=== PATIENT | female | born 1980 | race Caucasian/White ===

== ENCOUNTER 2023-06-12 16:45 | Outpatient (OUT) | payer OTHER, SELFPAY ==
--- NOTE | 2023-06-12 | XR_ITS ---
The [address] [address] Patient Name: MORALES PALACIOS MRN: [facility]:[id number] date: 1980 Sex: F Assigned Patient Location: LAB Current Patient Location: Accession/Order Number: [id number] Exam Date: 06/12/2023 17:30 Report Date: 06/13/2023 09:34 At the request of: ERICK HANDLEY Procedure: XR lumbar spine 2-3V EXAM: XR lumbar spine 2-3V HISTORY: DEGENERATIVE DISK DISEASE COMPARISON: None. TECHNIQUE: 3 views FINDINGS: Satisfactory alignment. Maintained vertebral body heights. Multilevel endplate degenerative changes and disc disease of L5-S1. No acute fracture or subluxation. Nonobstructive bowel gas pattern. XR/XR lumbar spine 2-3V IMPRESSION: Mild degenerative changes and disc disease as above. Electronically authenticated by: EMMY SANTAMARIA Date: 06/13/2023 09:34
--- NOTE | 2023-06-12 17:30 | XR_ITS ---
[place] [id number] Patient Name: MORALES PALACIOS MRN: [facility]:[id number] date: 1980 Sex: F Assigned Patient Location: LAB Current Patient Location: LAB Accession/Order Number: [id number] Exam Date: 06/12/2023 17:30 Report Date: 06/13/2023 09:41 At the request of: ERICK HANDLEY Procedure: XR cervical spine 2-3V EXAM: XR cervical spine 2-3V HISTORY: DEGENERATIVE DISC DISEASE COMPARISON: None. TECHNIQUE: 3 views Findings/impression: Mild reversal of cervical spine lordosis. Status post anterior fusion of C6-C7. Intact hardware. Maintained vertebral body heights and disc spaces. No acute fracture or subluxation. Unremarkable soft tissues. Electronically authenticated by: EMMY SANTAMARIA Date: 06/13/2023 09:41
[2023-06-12 17:35] LABS: Alanine Aminotransferase 69 U/L (14-59); Albumin Globulin Ratio 1.1; Albumin Level 4.3 g/dL (3.4-5.0); Alkaline Phosphatase 96 U/L (46-116); Anion Gap 11.9; Aspartate Amino Transferase 43 U/L (15-37); BUN Creatinine Ratio 9.5; Bilirubin Direct 0.1 mg/dL (0.0-0.2); Bilirubin Total 0.6 mg/dL (0.2-1.0); Calcium 10.1 mg/dL (8.5-10.1); Carbon Dioxide 29.9 mmol/L (21.0-32.0); Chloride 100 mmol/L (98-107); Chol HDL Ratio 6.1; Cholesterol 212 mg/dL (<=200); Estimated GFR (African America >60 (>=60); Estimated GFR (Non-African Ame >60 (>=60); Globulin 3.8 g/dL; Glucose 102 mg/dL (74-106); HDL Cholesterol 35 mg/dL (40-60); Potassium 3.8 mmol/L (3.5-5.1); Sodium 138 mmol/L (136-145); Thyroid Stimulating Hormone 1.125 uIU/mL (0.358-3.740); Total Protein 8.1 g/dL (6.4-8.2); Triglycerides 332 mg/dL (<=150); VLDL CHOLESTEROL 66.4 mg/dL
== END 2023-06-12 16:46 | disposition home or self-care (01) ==
LOC: LAB 16:45
PROVIDERS: PCP Family Medicine; Visit Provider Family Medicine
DX: Z00.00 Encounter for general adult medical examination without abnormal findings (principal); M50.30 Other cervical disc degeneration, unspecified cervical region; M51.36 Other intervertebral disc degeneration, lumbar region
CPT/HCPCS: 36415; 72040; 72100; 80048; 80061; 80076; 83036; 84443

== ENCOUNTER 2023-06-14 14:37 | Outpatient (OUT) | payer OTHER, SELFPAY ==
[2023-06-14 15:13] LABS: Basophils Percent Auto 0.3 % (0.2-2.0); Eosinophils Absolute Auto 0.3 10^3/uL (0.0-0.7); Eosinophils Percent Auto 2.2 % (0.9-7.0); Hematocrit 44.5 % (36.0-48.0); Hemoglobin 15.2 g/dL (12.0-16.0); Immature Granulocytes Abs Auto 0.05 10^3/uL (0.00-0.03); Immature Granulocytes Pct Auto 0.4 % (0.0-0.5); Lymphocytes Percent Auto 23.1 % (20.5-60.0); Mean Corpuscular HGB Conc 34.2 g/dL (29.9-35.2); Mean Corpuscular Hemoglobin 31.2 pg (26.7-34.0); Mean Corpuscular Volume 91.4 fL (81.0-99.0); Mean Platelet Volume 11.7 fL (9.5-13.5); Monocytes Absolute Auto 0.6 10^3/uL (0.3-0.8); Monocytes Percent Auto 4.8 % (1.7-12.0); Neutrophils Absolute Auto 8.9 10^3/uL (1.4-6.5); Neutrophils Percent Auto 69.2 % (43.0-75.0); Platelet Count 245 10^3/uL (150-450); Red Blood Count 4.87 10^6/uL (4.20-5.40); Red Cell Distribution Width 12.9 % (11.0-15.0); White Blood Count 12.8 10^3/uL (4.0-11.0)
[2023-06-14 15:55] LABS: Estimated Average Glucose 117 mg/dL; Glycohemoglobin A1C 5.7 % (4.5-6.2)
== END 2023-06-14 14:38 | disposition home or self-care (01) ==
LOC: LAB 14:37
PROVIDERS: PCP Family Medicine; Visit Provider Family Medicine
DX: Z00.00 Encounter for general adult medical examination without abnormal findings (principal)
CPT/HCPCS: 36415; 83036; 85025

== ENCOUNTER 2023-09-12 21:14 | Outpatient (REF) | payer OTHER, SELFPAY ==
[2023-09-17 11:07] LABS: Age Gdln ACOG Testing Note (.); HPV Aptima Negative (Negative); IGP, Aptima HPV, rfx 16/18,45 Note (.)
== END 2023-09-12 21:15 | disposition home or self-care (01) ==
LOC: LAB 21:14
PROVIDERS: PCP Family Medicine; Visit Provider Obstetrics & Gynecology
DX: Z12.4 Encounter for screening for malignant neoplasm of cervix (principal)
CPT/HCPCS: 87624; G0145

== ENCOUNTER 2023-10-17 16:34 | Outpatient (OUT) | payer OTHER, SELFPAY ==
--- NOTE | 2023-10-17 | MM_ITS ---
Patient Name: MORALES PALACIOS MR#: [id number] : 1980 Exam Date: 10/17/2023 Ordering Doctor: DR Heath Shah . RADIOLOGY REPORT PROCEDURE: MM TOMOSYNTHESIS SCREENING BI COMPARISON: MG MAMM SCREEN CALLUM W CAD, 06/23/2020. MG MAMM SCREEN 3D CALLUM CAD, 07/01/2021. INDICATIONS: Screening Mammography Calculator Name NCI Breast Cancer Risk Assessment Tool 5 Year Breast Cancer Risk 1.00% Lifetime Breast Cancer Risk 11.60% Personal Breast Cancer No Personal Ovarian Cancer No Treatments None Family Cancers None LOCATION: [facility] BREAST COMPOSITION: Heterogeneously dense,which may obscure small masses. FINDINGS: DIAGNOSTIC CATEGORY 1--NEGATIVE. NO CHANGE FROM COMPARISON ASSESSMENT. Scattered benign-appearing calcifications are present. Scattered benign-appearing lymph nodes are present. RIGHT BREAST: No significant suspicious finding. LEFT BREAST: No significant suspicious finding. RECOMMENDATIONS: ROUTINE MAMMOGRAM AND CLINICAL EVALUATION IN 12 MONTHS. PLEASE NOTE: A NORMAL MAMMOGRAM DOES NOT EXCLUDE THE POSSIBILITY OF BREAST CANCER. A CLINICALLY SUSPICIOUS PALPABLE LUMP SHOULD BE BIOPSIED. Dictated by: Schuyler Azevedo MD on 10/18/2023 at 09:23 Approved by: Schuyler Azevedo MD on 10/18/2023 at 09:27
== END 2023-10-17 16:35 | disposition home or self-care (01) ==
LOC: MAMMO 16:34
PROVIDERS: PCP Family Medicine; Visit Provider Obstetrics & Gynecology
DX: Z12.31 Encounter for screening mammogram for malignant neoplasm of breast (principal)
CPT/HCPCS: 77063; 77067

== ENCOUNTER 2024-09-16 21:35 | Outpatient (REF) | payer OTHER, SELFPAY ==
--- OUTSIDE RECORDS SUMMARY | 2024-09-16 21:39 | XMS_ITS | CCD ---
Author Organization [facility] Care Team Providers [place] [employer] Name Role Phone HOUSE, DR MENDOZA Primary Care Unavailable ALYSSA, DR CHURCH Attending Unavailable ALYSSA, DR CHURCH Consulting Unavailable ALYSSA, DR CHURCH Admitting Unavailable ALEXANDRA LEYVA Consulting Unavailable HOUSE, DR MENDOZA Primary Care Unavailable ALYSSA, DR CHURCH Attending Unavailable ALYSSA, DR CHURCH Consulting Unavailable ALYSSA, DR CHURCH Admitting Unavailable HOUSE, DR MENDOZA Attending Unavailable [place], DR MENDOZA Consulting Unavailable [place], DR MENDOZA Primary Care Unavailable [place], DR MENDOZA Admitting Unavailable JUAN, DR GERALDO Aranda Consulting Unavailable Qi Cueto Unavailable Odell Handley MD Primary Care Provider Odell Handley MD Unavailable ODELL HANDLEY Attending Unavailable ODELL HANDLEY Attending Unavailable RANJIT SHAH Attending Unavailable ODELL HANDLEY Attending Unavailable ODELL HANDLEY Attending Unavailable Allergies Allergy Classification Reported Allergen(s) Allergy Type Date of Onset Reaction(s) Facility (1 source) bee venom Drug allergy (disorder) [facility] (1 source) Codeine Drug Allergy 6 [facility] (11 sources) Codeine Drug Allergy 3 GI intolerance [facility] Work Phone: (10 sources) Honey bee venom Allergy to substance 4 Unknown [facility] Medications Current Medications Medication Drug Class(es) Dates Sig (Normalized) Sig (Original) acetaminophen 325 mg / oxyCODONE hydrochloride 5 mg oral tablet (10 sources) Opioid Agonist Start: 07-23-2024 End: 09-20-2024 take 1 tablet by mouth four times daily as needed for pain oxyCODONE-acetaminop hen (Percocet) 5-325 MG tablet Indications: Degeneration of intervertebral disc of lumbar region with discogenic back pain and lower extremity pain Take 1 tablet by mouth 4 (four) times a day as needed for severe pain 120 tablet 08/21/2024 09/20/2024 Active Start: 11-27-2023 End: 12-27-2023 take 1 tablet by mouth four times daily as needed for pain oxyCODONE-acetaminophen (Percocet) 5-325 MG tablet Indications: Other intervertebral disc degeneration, lumbar region Take 1 tablet by mouth 4 (four) times a day as needed for severe pain 120 tablet 0 11/27/2023 12/27/2023 Active [id number] 200 actuat albuterol 0.09 mg/actuat metered dose inhaler (13 sources) beta2-Adrenergic Agonist Start: 06-24-2024 take 2 puff(s) by inhalation every four hours for wheezing albuterol HFA (Ventolin HFA) 90 mcg/act inhaler Indications: SOB (shortness of breath) Inhale 2 puffs every 4 (four) hours if needed for wheezing 8.5 g 3 06/24/2024 Active Start: 12-13-2023 take 2 puff(s) by in halation every four hours for wheezing albuterol HFA (Ventolin HFA) 90 mcg/act inhaler Indications: SOB (shortness of breath) Inhale 2 puffs every 4 (four) hours if needed for wheezing 8.5 g 3 12/13/2023 Active Start: 12-13-2023 take 2 puff(s) by in halation every four hours for wheezing albuterol HFA (Ventolin HFA) 90 mcg/act inhaler Indications: SOB (shortness of breath) Inhale 2 puffs every 4 (four) hours if needed for wheezing 8.5 g 3 12/13/2023 Active Start: 11-08-2022 End: 12-13-2023 take 2 puff(s) by inhalation every four hours for wheezing Ventolin HFA 108 (90 Base) MCG/ACT inhaler Inhale 2 puffs every 4 (four) hours if needed for wheezing. 0 11/08/2022 12/13/2023 Discontinued (Reorder) Start: 11-08-2022 take 2 puff(s) by in halation every four hours as needed Albuterol Sulfate HFA 108 (90 Base) MCG/ACT 2 puffs as needed Inhalation every 4 hrs Oct, Active ALPRAZolam (1 source) Benzodiazepine ALPRAZolam Activ e amoxicillin 875 mg oral tablet (1 source) Penicillin-class Antibacterial Start: 11-08-19 23 take 1 tablet by mouth every eight hours Amoxicillin 875 MG 1 tablet Orally every 8 hrs for 10 day(s) Oct, Active 24 hr buPROPion hydrochloride 300 mg extended release oral tablet (12 sources) Aminoketone Start: 08-29-20 24 take 1 tablet by mouth once daily buPROPion XL (Wellbutrin XL) 300 MG 24 hr tablet Indications: Generalized anxiety disorder (CMS/HCC) TAKE 1 TABLET BY MOUTH DAILY 30 tablet 5 08/29/2024 Active Start: 03-04-2024 take 1 tablet by thania th once daily buPROPion XL (Wellbutrin XL) 300 MG 24 hr tablet Indications: Generalized anxiety disorder (CMS/HCC) TAKE 1 TABLET BY MOUTH DAILY 30 tablet 5 03/04/2024 Active take 1 tablet by thania th every twenty-four hours in the morning buPROPion XL (Wellbutrin XL) 300 MG 24 hr tablet Take 300 mg by mouth in the morning. 0 Active BuPROPion HBr Ac tive buPROPion HCl ER (XL) Active celecoxib 200 mg oral capsule (4 sources) Nonsteroidal Anti-inflammatory Drug Start: 09-09-2024 take 1 capsule by mouth twice daily as needed for pain celecoxib (CeleBREX) 200 MG capsule Indications: Degeneration of intervertebral disc of lumbar region with discogenic back pain Take 1 capsule (200 mg) by mouth 2 (two) times a day as needed for mild pain Take with food 60 capsule 5 09/09/2024 Active cetirizine hydrochloride 10 mg oral tablet (12 sources) Histamine-1 Receptor Antagonist Start: 08-29-2024 take 1 tablet by mouth once daily Allergy Relief Cetirizine 10 MG tablet Indications: Seasonal allergic rhinitis due to pollen TAKE 1 TABLET BY MOUTH DAILY 30 tablet 5 08/29/2024 Active Start: 03-04-2024 take 1 tablet by thania th once daily cetirizine (ZyrTEC) 10 MG tablet Indications: Seasonal allergic rhinitis due to pollen TAKE 1 TABLET BY MOUTH DAILY 30 tablet 5 03/04/2024 Active take 1 tablet by thania th in the morning cetirizine (ZyrTEC) 10 MG tablet Take 10 mg by mouth in the morning. 0 Active Zyrtec Active Cetirizine HCl A ctive cyclobenzaprine hydrochloride 10 mg oral tablet (12 sources) Muscle Relaxant Start: 08-29-2024 take 1 tablet by mouth three times daily as needed cyclobenzaprine (Flexeril) 10 MG tablet Indications: Degeneration of intervertebral disc of lumbar region, unspecified whether pain present TAKE 1 TABLET BY MOUTH THREE TIMES DAILY NEEDED 90 tablet 5 08/29/2024 Active Start: 03-04-2024 take 1 tablet by thania th three times daily as needed cyclobenzaprine (Flexeril) 10 MG tablet Indications: Other intervertebral disc degeneration, lumbar region TAKE 1 TABLET BY MOUTH THREE TIMES DAILY NEEDED 90 tablet 5 03/04/2024 Active Start: 08-15-2023 take 1 tablet by thania th three times daily as needed for muscle spasms cyclobenzaprine (Flexeril) 10 MG tablet Take 10 mg by mouth 3 (three) times a day as needed for muscle spasms. 0 08/15/2023 Active Flexeril Active Cyclobenzaprine HCl Active dexamethasone 1 mg/ml / tobramycin 3 mg/ml ophthalmic suspension (1 source) Aminoglycoside Antibacterial, Corticosteroid Start: 11-08-2022 take 1 drop(s) into the eye(s) three times daily TobraDex 0.3-0.1 % 1 drop into affected eye Ophthalmic Three times a day for 5 days Oct, Active diclofenac sodium 75 mg delayed release oral tablet (8 sources) Nonsteroidal Anti-inflammatory Drug Start: 08-29-2024 End: 09-09-2024 take 1 tablet by mouth twice daily as needed diclofenac (Voltaren) 75 MG EC tablet Indications: Degeneration of intervertebral disc of lumbar region, unspecified whether pain present TAKE 1 TABLET BY MOUTH TWICE DAILY NEEDED 60 tablet 5 08/29/2024 09/09/2024 Discontinued Start: 03-04-2024 take 1 tablet by thania th twice daily as needed diclofenac (Voltaren) 75 MG EC tablet Indications: Other intervertebral disc degeneration, lumbar region TAKE 1 TABLET BY MOUTH TWICE DAILY NEEDED 60 tablet 5 03/04/2024 Active Start: 08-15-2023 take 1 tablet by thania th twice daily as needed diclofenac (Voltaren) 75 MG EC tablet Take 75 mg by mouth 2 (two) times a day as needed (as needed). 0 08/15/2023 Active estrogens, conjugated (halfway) 0.625 mg/ml vaginal cream (7 sources) Estrogen Start: 06-24-2024 Estrogens Conjugated (Premarin) 0.625 MG/GM cream Indications: Menopausal and female climacteric states Insert 0.5 g into the vagina 3 (three) times a week 30 g 3 06/24/2024 Active estrogens, conjugated (halfway) 0.3 mg / medroxyPROGESTERone acetate 1.5 mg oral tablet (2 sources) Progestin, Estrogen Start: 09-16-2024 End: 09-16-2025 take 0.3-1.5 mg by mouth once daily estrogen, conjugated,-medro xyPROGESTERone (Prempro) 0.3-1.5 MG tablet Indications: Well woman exam with routine gynecological exam Take 1 tablet by mouth Daily 30 tablet 11 09/16/2024 09/16/2025 Active fluticasone propionate 0.05 mg/actuat metered dose nasal spray (10 sources) Corticosteroid Start: 05-06-2024 take 1 spray(s) nasal route once daily fluticasone (Flonase) 50 MCG/ACT nasal spray Indications: Seasonal allergic rhinitis due to pollen Administer 1 spray into each nostril Daily 16 g 2 05/06/2024 Active Start: 08-02-2023 take 1 spray(s) nasa l route in the morning fluticasone (Flonase) 50 MCG/ACT nasal spray Administer 1 spray into each nostril in the morning. 0 08/02/2023 Active melatonin 3 mg oral tablet (11 sources) take 1 tablet by thania th once daily melatonin 3 MG tablet Take 3 mg by mouth 1 (one) time each day at the same time. Active Melatonin Active 24 hr metFORMIN hydrochloride 500 mg extended release oral tablet (16 sources) Biguanide Start: 09-16-2024 End: 10-16-2024 take 1 tablet by mouth every twenty-four hours in the morning metFORMIN XR (Glucophage-XR) 500 MG 24 hr tablet Indications: Hidradenitis suppurativa Take 1 tablet (500 mg) by mouth in the morning and 1 tablet (500 mg) before bedtime. Do not crush, chew, or split.. 30 tablet 11 09/16/2024 10/16/2024 Active Start: 07-31-2024 take 1 tablet by thania th twice daily metFORMIN (Glucophage) 500 MG tablet Indications: Hidradenitis suppurativa TAKE 1 TABLET BY MOUTH TWICE DAILY 60 tablet 6 07/31/2024 Active Start: 09-12-2023 End: 09-11-2024 take 1 tablet by mouth every twenty-four hours at mealtime metFORMIN XR (Glucophage-XR) 500 MG 24 hr tablet Indications: Hidradenitis Take 1 tablet (500 mg) by mouth in the evening. Take with meals. Do not crush, chew, or split. 30 tablet 11 09/12/2023 09/11/2024 Active End: 12-13-2023 take 1 tablet by mouth in the morning metFORMIN (Glucophage) 500 MG tablet Take 500 mg by mouth in the morning and 500 mg before bedtime. 0 12/13/2023 Discontinued metFORMIN HCl Ac tive methylPREDNISolone 4 mg oral tablet (1 source) Corticosteroid Start: 11-08-2022 methylPREDNISolone 4 MG as directed Orally Once a day for 6 days Oct, Active Multiple Vitamin (multivitamin) capsule (10 sources) take 1 capsule by mouth in the morning Multiple Vitamin (multivitamin) capsule Take 1 capsule by mouth in the morning. Active take 1 capsule by mouth in the m orning Multiple Vitamin (multivitamin) capsule Take 1 capsule by mouth in the morning. 0 Active naproxen sodium 220 mg oral tablet (9 sources) Nonsteroidal Anti-inflammatory Drug End: 09-09-2024 take 1 tablet by mouth twice daily as needed for pain naproxen sodium (Aleve) 220 MG tablet Take 220 mg by mouth 2 (two) times a day as needed for mild pain. 09/09/2024 Discontinued Naproxen Active probiotic (1 source) probiotic Active sertraline 25 mg oral tablet (9 sources) Serotonin Reuptake Inhibitor Start: 06-05-2024 take 1 tablet by mouth in the morning sertraline (Zoloft) 25 MG tablet Indications: MDD (major depressive disorder), recurrent episode, moderate (CMS/HCC) TAKE 1 TABLET BY MOUTH IN THE MORNING 30 tablet 5 06/05/2024 Active Start: 12-13-2023 take 1 tablet by thania th in the morning sertraline (Zoloft) 25 MG tablet Indications: MDD (major depressive disorder), recurrent episode, moderate (HCC) (CMS/HCC) Take 1 tablet (25 mg) by mouth in the morning. 30 tablet 5 12/13/2023 Active Start: 12-13-2023 take 1 tablet by thania th in the morning sertraline (Zoloft) 25 MG tablet Indications: MDD (major depressive disorder), recurrent episode, moderate (HCC) (CMS/HCC) Take 1 tablet (25 mg) by mouth in the morning. 30 tablet 5 12/13/2023 Active spironolactone 50 mg oral tablet (14 sources) Aldosterone Antagonist Start: 06-07-2024 take 1 tablet by mouth in the morning spironolactone (Aldactone) 50 MG tablet Indications: Hidradenitis TAKE 1 TABLET BY MOUTH IN THE MORNING 30 tablet 3 06/07/2024 Active Start: 12-12-2023 End: 12-13-2023 take 1 tablet by mouth in the morning spironolactone (Aldactone) 50 MG tablet Indications: Hidradenitis TAKE 1 TABLET BY MOUTH IN THE MORNING 30 tablet 0 12/12/2023 12/13/2023 Discontinued take 1 tablet by thania th in the morning spironolactone (Aldactone) 25 MG tablet Take 25 mg by mouth in the morning. 0 Active Spironolactone A ctive traZODone hydrochloride 100 mg oral tablet (12 sources) Serotonin Reuptake Inhibitor Start: 06-05-2024 take 1 tablet by mouth at bedtime traZODone (Desyrel) 100 MG tablet Indications: Primary insomnia TAKE 1 TABLET BY MOUTH AT BEDTIME 30 tablet 5 06/05/2024 Active Start: 12-13-2023 take 1 tablet by thania th at bedtime traZODone (Desyrel) 100 MG tablet Indications: Primary insomnia Take 1 tablet (100 mg) by mouth at bedtime 30 tablet 5 12/13/2023 Active Start: 12-13-2023 take 1 tablet by thania th at bedtime traZODone (Desyrel) 100 MG tablet Indications: Primary insomnia Take 1 tablet (100 mg) by mouth at bedtime 30 tablet 5 12/13/2023 Active Start: 08-15-2023 End: 12-13-2023 take 1 tablet by mouth at bedtime traZODone (Desyrel) 50 MG tablet Take 50 mg by mouth at bedtime. 0 08/15/2023 12/13/2023 Discontinued (Reorder) valsartan 80 mg oral tablet (11 sources) Angiotensin 2 Receptor Melida Start: 08-29-2024 take 1 tablet by mouth once daily valsartan (Diovan) 80 MG tablet Indications: Degeneration of intervertebral disc of lumbar region, unspecified whether pain present TAKE 1 TABLET BY MOUTH DAILY 30 tablet 5 08/29/2024 Active Start: 03-04-2024 take 1 tablet by thania th once daily valsartan (Diovan) 80 MG tablet Indications: Other intervertebral disc degeneration, lumbar region TAKE 1 TABLET BY MOUTH DAILY 30 tablet 5 03/04/2024 Active Start: 08-15-2023 take 1 tablet by thania th in the morning valsartan (Diovan) 80 MG tablet Take 80 mg by mouth in the morning. 0 08/15/2023 Active Valsartan Active Completed/Discontinued Medications Medication Drug Class(es) Dates Sig (Normalized) Sig (Original) cefTRIAXone (1 source) Cephalosporin Antibacterial Start: 02-17-2017 Rocephin 500 mg Jan, 250 mg clindamycin 300 mg oral capsule (1 source) Lincosamide Antibacterial Start: 02-17-2017 take 2 capsules by mouth every eight hours Clindamycin HCl 300 MG 2 capsules Orally every 8 hrs for 7 days Jan, Not-Taking hydrOXYzine hydrochloride 25 mg oral tablet (1 source) Antihistamine Start: 02-17-2017 take 1 tablet by mouth every eight hours hydrOXYzine HCl 25 MG 1 tablet as needed Orally every 8 hrs Jan, Not-Taking traMADol (1 source) Opioid Agonist traMADol HCl Not-Taking Problems Active Problems Problem Classification Problem Date Documented Date Episodic/Chronic Anxiety disorders (13 sources) Anxiety disorder, unspecified; Translations: [Generalized anxiety disorder] Onset: 09-22-2021 12-13-2023 Chronic Asthma (1 source) Unspecified asthma, uncomplicated; Translations: [UNSPECIFIED ASTHMA UNCOMPLICATED] Onset: 09-22-2021 Chronic Essential hypertension (15 sources) Essential (primary) hypertension; Translations: [Benign essential hypertension] Onset: 09-22-2021 12-13-2023 Chronic Immunizations and screening for infectious disease (2 sources) Encounter for screening for human papillomavirus (HPV); Translations: [Contact with and (suspected) exposure to other viral communicable diseases] Onset: 09-10-2022 Episodic Inflammation; infection of eye (except that caused by tuberculosis or sexually transmitteddisease) (1 source) Unspecified acute conjunctivitis, left eye Episodic Menopausal disorders (7 sources) Menopausal syndrome; Translations: [Menopausal and female climacteric states] Onset: 03-18-2024 03-18-2024 Chronic Miscellaneous mental health disorders (11 sources) Primary insomnia; Translations: [Primary insomnia] Onset: 12-13-2023 12-13-2023 Chronic Mood disorders (12 sources) Recurrent major depressive episodes, moderate ; Translations: [Major depressive disorder, recurrent, moderate] Onset: 12-13-2023 12-13-2023 Chronic Osteoarthritis (1 source) Unspecified osteoarthritis, unspecified site; Translations: [UNSPECIFIED OSTEOARTHRITIS UNS SITE] Onset: 09-22-2021 Chronic Other endocrine disorders (10 sources) Polycystic ovary syndrome; Translations: [Polycystic ovarian syndrome] Onset: 12-13-2023 12-13-2023 Chronic Other female genital disorders (4 sources) Abnormal uterine and vaginal bleeding, unspecified; Translations: [ABNORMAL UTERINE VAGINAL BLEED UNS] Onset: 09-16-2021 Chronic Other female genital disorders (1 source) Unspecified dyspareunia; Translations: [UNSPECIFIED DYSPAREUNIA] Onset: 09-22-2021 Chronic Other lower respiratory disease (2 sources) Dyspnea; Translations: [Shortness of breath] 12-13-2023 Episodic Other nutritional; endocrine; and metabolic disorders (1 source) Obesity, unspecified; Translations: [OBESITY UNSPECIFIED] Onset: 09-22-2021 Chronic Other nutritional; endocrine; and metabolic disorders (1 source) Body mass index (BMI) 33.0-33.9, adult; Translations: [BODY MASS INDEX BMI 33.0-33.9 ADULT] Onset: 09-22-2021 Chronic Other nutritional; endocrine; and metabolic disorders (9 sources) Body mass index 30+ - obesity; Translations: [Obesity, unspecified] Onset: 12-13-2023 12-13-2023 Chronic Other screening for suspected conditions (not mental disorders or infectious disease) (8 sources) Encounter for screening for malignant neoplasm of cervix; Translations: [Patient encounter status] Onset: 09-05-2022 Episodic Other skin disorders (2 sources) Hidradenitis; Translations: [Hidradenitis suppurativa] 09-16-2024 Episodic Other skin disorders (2 sources) Hidradenitis suppurativa; Translations: [Hidradenitis suppurativa] 09-16-2024 Episodic Other upper respiratory disease (11 sources) Allergic rhinitis due to pollen; Translations: [Allergic rhinitis due to pollen] Onset: 12-13-2023 12-13-2023 Chronic Other upper respiratory infections (1 source) Acute pharyngitis, unspecified Episodic Pneumonia (except that caused by tuberculosis or sexually transmitted disease) (1 source) Pneumonia, unspecified organism Episodic Spondylosis; intervertebral disc disorders; other back problems (20 sources) Degeneration of lumbar intervertebral disc; Translations: [Other intervertebral disc degeneration, lumbar region] Onset: 12-13-2023 12-13-2023 Chronic Substance-related disorders (1 source) Nicotine dependence, cigarettes, uncomplicated; Translations: [NICOTINE DEPEND CIGARETTES UNCOMP] Onset: 09-22-2021 Chronic Past or Other Problems Problem Classification Problem Date Documented Da te Episodic/Chronic Abdominal pain (1 source) Pelvic and perineal pain; Translations: [PELVIC AND PERINEAL PAIN] Onset: 09-22-2021 Episodic Contraceptive and procreative management (1 source) Encounter for sterilization; Translations: [ENCOUNTER FOR STERILIZATION] Onset: 09-22-2021 Episodic Mood disorders (10 sources) Mood disorders; Translations: [DEPRESSION UNSPECIFIED] Onset: 09-22-2021 12-13-2023 Other aftercare (1 source) Other jail (current) drug therapy; Translations: [OTH BOTTOM TURNER CURRENT DRUG THERAPY] Onset: 09-22-2021 Episodic Other connective tissue disease (4 sources) Pain in left hand; Translations: [PAIN IN LEFT HAND] Onset: 06-01-2022 Episodic Ovarian cyst (1 source) Follicular cyst of left ovary; Translations: [FOLLICULAR CYST OF LEFT OVARY] Onset: 09-22-2021 Episodic Urinary tract infections (7 sources) Acute urinary tract infection; Translations: [Urinary tract infection, site not specified] Onset: 06-06-2024 Resolved: 09-09-2024 06-06-2024 Episodic Results Test Name Value Interpretation Reference Range Facility Cytology Cervical or vaginal [facility]-08 SARS-CoV-2 (COVID-19) RNA GUILLAUME+probe Ql (Unsp spec) Negative [employer] Other COVID/FLU/RSV RT-PCR Negative [employer] Other Quick Strepon 11-08-2022 S. pyogenes Org specific cx Ql (Throat) Negative [employer] Other Quick Strep [employer] Other PAP ACOG PANEL 2: 30 to 65on 09-11-2022 . . Normal [facility] Comment on above: Result Comment: Perf ormed at: WB Performed By: #### [id number] #### [facility] [address] [place] [address] Dr. Anyi Prescott Age Gdln ACOG Testing 30-[address] [facility] Comment on above: Performed By: #### [id number] #### [facility] [address] [place] [address] Dr. Anyi Prescott DIAGNOSIS: Comment Normal [facility] Comment on above: Result Comment: NEGA TIVE FOR INTRAEPITHELIAL LESION OR MALIGNANCY. Performed at: WB Performed By: #### [id number] #### [facility] [address] [address] [address] Anyi Prescott HPV Aptima Negative Normal Negative [facility] Comment on above: Result Comment: This nucleic acid amplification test detects fourteen high-risk HPV types (16,18,31,33,35,39,45,51,52,56,58,59,66,68) without differentiation. Performed at: =G Performed By: #### [id number] #### [facility] [address] [place] [address] Dr. Anyi Prescott HPV Genotype Reflex Comment Normal [facility] Comment on above: Result Comment: Crit eria not met, HPV Genotype not performed. Performed at: WB Performed By: #### [id number] #### [facility] [address] [place] [address] Dr. Anyi Prescott Methodology: Comment [facility] Comment on above: Result Comment: This liquid based ThinPrep(R) pap test was screened with the use of an image guided system. Performed at: WB Performed By: #### [id number] #### [facility] [address] [place] [address] Dr. Anyi Prescott Note: Comment Normal [facility] Comment on above: Result Comment: The Pap smear is a screening test designed to aid in the detection of premalignant and malignant conditions of the uterine cervix. It is not a diagnostic procedure and should not be used as the sole means of detecting cervical cancer. Both false-positive and false-negative reports do occur. . Performed at: WB Performed By: #### [id number] #### [facility] [address] [place] [address] Dr. Anyi Prescott Performed by: Comment Normal [facility] Comment on above: Result Comment: Davin Zamarripa, [employer] (ASCP) Performed at: WB Performed By: #### [id number] #### [facility] [address] [place] [address] Dr. Anyi Prescott Specimen adequacy: Comment Normal [facility] Comment on above: Result Comment: Sati sfactory for evaluation. Endocervical and/or squamous metaplastic cells (endocervical component) are present. Performed at: WB Performed By: #### [id number] #### [facility] [address] [place] [address] Dr. Anyi Prescott CBC AUTO DIFFon 09-16-2021 BASO # 0.1 103/ul Normal 0.0-0.[address] [facility] Comment on above: Performed By: #### C BC #### [facility] [address] [place] [address] Dr. Anyi Prescott Basophils/100 WBC (Bld) 0.6 % Normal 0.2-2.[address] [facility] Comment on above: Performed By: #### C BC #### [facility] [address] [address] [address] Anyi Prescott EO # 0.3 103/ul Normal 0.0-0.7 [facility] Comment on above: Performed By: #### C BC #### [facility] [address] [place] [address] Dr. Anyi Prescott Eosinophils/100 WBC (Bld) 2.2 % Normal 0.9-7.[address] [facility] Comment on above: Performed By: #### C BC #### [facility] [address] [place] [address] Dr. Anyi Prescott Erythrocyte distribution width (RBC) [Ratio] 12.9 % Normal 11.0-15.[address] [facility] Comment on above: Performed By: #### C BC #### [facility] [address] [place] [address] Dr. Anyi Prescott Hematocrit (Bld) [Volume fraction] 46.2 % Normal 36.0-48.[address] [facility] Comment on above: Performed By: #### C BC #### [facility] [address] [place] [address] Dr. Anyi Prescott Hemoglobin (Bld) [Mass/Vol] 15.2 g/dL Normal 12.0-16.[address] [facility] Comment on above: Performed By: #### C BC #### [facility] [address] [place] [address] Dr. Anyi Prescott IG # 0.11 10e3/ul Critically high 0.00-0.03 [facility] Comment on above: Performed By: #### C BC #### [facility] [address] [place] [address] Dr. Anyi Prescott IG % 0.8 % Critically high 0.0-0.[address] [facility] Comment on above: Performed By: #### C BC #### [facility] [address] [place] [address] Dr. Anyi Prescott LYMPH # 4.5 103/ul Critically high 1.2-3.[address] [facility] Comment on above: Performed By: #### C BC #### [facility] [address] [place] [address] Dr. Anyi Prescott Lymphocytes/100 WBC (Bld) 33.6 % Normal 20.5-60.0 [facility] Comment on above: Performed By: #### C BC #### [facility] [address] [place] [address] Dr. Anyi Prescott MANUAL DIFF REQ NO Normal The [facility] Comment on above: Performed By: #### C BC #### [facility] [address] [address] [address] Anyi Prescott MCH (RBC) [Entitic mass] 30.8 pg Normal 26.7-34.0 [facility] Comment on above: Performed By: #### C BC #### [facility] [address] [place] [address] Dr. Anyi Prescott MCHC (RBC) [Mass/Vol] 32.9 g/dL Normal 29.9-35.2 [facility] Comment on above: Performed By: #### C BC #### [facility] [address] [place] [address] Dr. Anyi Prescott MCV (RBC) [Entitic vol] 93.7 fL Normal 81.0-99.0 [facility] Comment on above: Performed By: #### C BC #### [facility] [address] [place] [address] Dr. Anyi Prescott MONO # 0.9 103/ul Critically high 0.3-0.[address] [facility] Comment on above: Performed By: #### C BC #### [facility] [address] [place] [address] Dr. Anyi Prescott Monocytes/100 WBC (Bld) 6.4 % Normal 1.7-12.0 [facility] Comment on above: Performed By: #### C BC #### [facility] [address] [place] [address] Dr. Anyi Prescott NEUT # 7.6 103/ul Critically high 1.4-6.[address] [facility] Comment on above: Performed By: #### C BC #### [facility] [address] [place] [address] Dr. Anyi Prescott Neutrophils/100 WBC (Bld) 56.4 % Normal 43.0-75.[address] [facility] Comment on above: Performed By: #### C BC #### [facility] [address] [address] [address] Anyi Prescott Platelet mean volume (Bld) [Entitic vol] 10.4 fL Normal 9.5-13.[address] [facility] Comment on above: Performed By: #### C BC #### [facility] [address] [address] [address] Anyi Prescott PLT 353 103/ul Normal 150-450 [facility] Comment on above: Performed By: #### C BC #### [facility] [address] [address] [address] Anyi Prescott RBC 4.93 106/ul Normal 4.20-5.[address] [facility] Comment on above: Performed By: #### C BC #### [facility] [address] [address] [address] Anyi Prescott WBC 13.5 103/ul Critically high 4.0-11.0 The [facility] Comment on above: Performed By: #### C BC #### [facility] [address] [place] [address] Dr. Anyi Prescott PREG QUANT HCGon 09-16-2021 HCG QUANT <1 Normal [facility] Comment on above: Performed By: #### P REGQNT #### [facility] [address] [place] [address] Dr. Anyi Prescott HCG RANGE SEE BELOW Normal [facility] Comment on above: Result Comment: 5-50 0-1 WEEK 40-300 1-2 WEEKS 100-1,000 2-3 WEEKS 500-6,000 3-4 WEEKS 5,000-200,000 1-2 MONTHS 10,000-100,000 2-3 MONTHS 3,000-50,000 2ND TRIMESTER 1,000-50,000 3RD TRIMESTER Performed By: #### P REGQNT #### [facility] [address] [place] [address] Dr. Anyi Prescott Coding Summary.on 11-19-2020 Coding Summary. CODING DATE: 11/19/2020 FINAL [facility] STATUS: PAYOR: Medicaid EA DESCRIPTION 0388 LEVEL III MICROBIOLOGY TESTS ADMIT DX: REASON FOR VISIT DX: Z20.828 Contact with and (suspected) exposure to other viral communicable diseases FINAL DX: PRINCIPAL: Z20.828 Contact with and (suspected) exposure to other viral communicable diseases SECONDARY: PYMT PROC EAPG STAT DESCRIPTION DOCTOR NAME DATE NOTE: The code number assigned matches the documented diagnosis and / or procedure in the patient's chart. However, the narrative phrase printed from the coding software may appear abbreviated, or result in slightly different terminology. Coded By: Theodora Dee CphT Date Saved: 11/19/2020 09:36 pm Normal [facility] SARS-CoV-2, NAAon 08-10-2020 SARS CORONAVIRUS 2 RNA:PRTHR:PT:RESP IRATORY:ORD:PROBE .AMP.TAR Not Detected Not Detected [facility] Comment on above: Result Comment: This nucleic acid amplification test was developed and its performance characteristics determined by [employer] Nucleic acid amplification tests include PCR and TMA. This test has not been FDA cleared or approved. This test has been authorized by FDA under an Emergency Use Authorization (EUA). This test is only authorized for the duration of time the declaration that circumstances exist justifying the authorization of the emergency use of in vitro diagnostic tests for detection of SARS-CoV-2 virus and/or diagnosis of COVID-19 infection under section 564(b)(1) of the Act, 21 U.S.C. 360bbb-3(b) (1), unless the authorization is terminated or revoked sooner. When diagnostic testing is negative, the possibility of a false negative result should be considered in the context of a patient's recent exposures and the presence of clinical signs and symptoms consistent with COVID-19. An individual without symptoms of COVID-19 and who is not shedding SARS-CoV-2 virus would expect to have a negative (not detected) result in this assay. Performed at: [facility] [address] [facility] [place] [id number] MD Juan Pang Performed By: #### S ARS-CoV-2, GUILLAUME #### [facility] [address] [place] [address] Physician Orderon 08-06-2020 Physician Order [id number]:127 Normal [facility] Vital Signs Date Time Vital Sign Value Performing Clinician Facility 09-16-2024 08:42-0500 Body mass index (BMI) [Ratio] 30.38 kg/m2 Ranjit Alyssa DO Work Phone: [facility] 09-16-2024 08:42-0500 Body weight 88 kg Ranjit Alyssa DO Work Phone: [facility] 09-16-2024 08:42-0500 Diastolic blood pressure 72 mm[Hg] Ranjit Alyssa DO Work Phone: [facility] 09-16-2024 08:42-0500 Systolic blood pressure 122 mm[Hg] Ranjit Alyssa DO Work Phone: [facility] 09-09-2024 08:14-0500 Body height 170.2 cm Odell Handley MD Work Phone: [facility] 09-09-2024 08:14-0500 Body mass index (BMI) [Ratio] 30.85 kg/m2 Odell Handley MD Work Phone: [facility] 09-09-2024 08:14-0500 Body temperature 97.11 [degF] Odell Handley MD Work Phone: [facility] 09-09-2024 08:14-0500 Body weight 89.36 kg Odell Handley MD Work Phone: [facility] 09-09-2024 08:14-0500 Diastolic blood pressure 62 mm[Hg] Odell Handley MD Work Phone: [facility] 09-09-2024 08:14-0500 Heart rate 55 /min Odell Handley MD Work Phone: [facility] 09-09-2024 08:14-0500 Respiratory rate 20 /min Odell Handley MD Work Phone: [facility] 09-09-2024 08:14-0500 SaO2% (BldA) [Mass fraction] 96 % Odell Handley MD Work Phone: [facility] 09-09-2024 08:14-0500 Systolic blood pressure 140 mm[Hg] Odell Handley MD Work Phone: [facility] 12-13-2023 07:09-0500 Body height 170.2 cm Odell Handley MD Work Phone: [facility] 12-13-2023 07:09-0500 Body mass index (BMI) [Ratio] 33.36 kg/m2 Odell Handley MD Work Phone: [facility] 12-13-2023 07:09-0500 Body temperature 97.5 [degF] Odell Handley MD Work Phone: [facility] 12-13-2023 07:09-0500 Body weight 96.62 kg Odell Handley MD Work Phone: [facility] 12-13-2023 07:09-0500 Diastolic blood pressure 80 mm[Hg] Odell Handley MD Work Phone: [facility] 12-13-2023 07:09-0500 Heart rate 104 /min Odell Handley MD Work Phone: [facility] 12-13-2023 07:09-0500 SaO2% (BldA) [Mass fraction] 97 % Odell Handley MD Work Phone: [facility] 12-13-2023 07:09-0500 Systolic blood pressure 140 mm[Hg] Odell Handley MD Work Phone: [facility] 11-08-2022 10:30-0500 Body height 170.18 cm [facility] Other [employer] Other 11-08-2022 10:30-0500 Body mass index (BMI) [Ratio] 33.67 kg/m2 [facility] Other [employer] Other 11-08-2022 10:30-0500 Body temperature 97.7 [degF] [facility] Other [employer] Other 11-08-2022 10:30-0500 Body weight 97.52 kg [facility] Other [employer] Other 11-08-2022 10:30-0500 Respiratory rate 18 /min [employer] [facility] Other [employer] Other 11-08-2022 10:30-0500 SaO2% (BldA) [Mass fraction] 92 % [employer] Other [employer] Other Encounters Encounter Date Encounter Type Care Provider Facility Start: 09-16-2024 End: 09-16-2024 Patient encounter procedure Ranjit Shah DO Work Phone: [facility] Start: 09-16-2024 End: 09-16-2024 Periodic preventive med est patient 40-64yrs Ranjit Navarroo DO Work Phone: [facility] Comment on above: Well woman exam with routine gynecological exam; Breast cancer screening by mammogram; Hidradenitis; Hidradenitis suppurativa Start: 09-09-2024 End: 09-09-2024 Bamboo flowsheet Odell Handley MD Work Phone: [facility] Start: 09-09-2024 End: 09-09-2024 Bamboo flowsheet Odell Handley MD Work Phone: [facility] Start: 09-09-2024 End: 09-09-2024 Patient encounter procedure Odell Handley MD Work Phone: [facility] Work Phone: Start: 09-09-2024 End: 09-09-2024 Periodic preventive med est patient 40-64yrs Odell Handley MD Work Phone: [facility] Comment on above: Annual physical exam (Primary Dx); Colon cancer screening; Essential hypertension, benign (CMS/HCC); Degeneration of intervertebral disc of lumbar region with discogenic back pain Start: 09-09-2024 End: 09-09-2024 ambulatory ODELL HANDLEY Not Available Start: 08-21-2024 End: 08-21-2024 Orders Only Odell Handley MD Work Phone: [facility] Comment on above: Degeneration of inte rvertebral disc of lumbar region with discogenic back pain and lower extremity pain (Primary Dx) Start: 08-20-2024 End: 08-21-2024 Refill Odell Handley MD Work Phone: [facility] Comment on above: Degeneration of inte rvertebral disc of lumbar region with discogenic back pain and lower extremity pain (Primary Dx); Other intervertebral disc degeneration, lumbar region Start: 06-06-2024 End: 06-06-2024 ambulatory ODELL HANDLEY Not Available Start: 03-18-2024 End: 03-18-2024 ambulatory ODELL HANDLEY Not Available Start: 12-13-2023 Bamboo flowsheet Odell Handley MD Work Phone: [facility] Start: 12-13-2023 Bamboo flowsheet Odell Handley MD Work Phone: [facility] Start: 12-13-2023 End: 12-13-2023 Office outpatient visit 25 minutes Odell Handley MD Work Phone: [facility] Comment on above: Essential hypertensi on, benign (CMS/HCC) (Primary Dx); MDD (major depressive disorder), recurrent episode, moderate (HCC) (CMS/HCC); Generalized anxiety disorder (CMS/HCC); Primary insomnia; DDD (degenerative disc disease), lumbar; DDD (degenerative disc disease), cervical; Seasonal allergic rhinitis due to pollen; SOB (shortness of breath) Start: 12-13-2023 End: 12-13-2023 ambulatory ODELL HANDLEY Not Available Start: 09-12-2023 End: 09-12-2023 ambulatory RANJIT SHAH Not Available Start: 11-08-2022 End: 11-08-2022 ambulatory [facility] Other [employer] Other Start: 11-08-2022 Office outpatient ne w 20 minutes [facility] Start: 09-05-2022 End: 09-05-[address] REJI KAISER Facility:[facility]1 Start: 06-01-2022 End: 06-02-[address] REJI KAISER Facility:[facility] Start: 09-16-2021 End: 09-16-[address] REJI KAISER Facility:[facility] Procedures Date Procedure Procedure Detail Performing Clinician Start: 10-18-2023 Mammography Odell denis MD Work Phone: Start: 09-12-2023 Microscopic observat ion [Identifier] in Cervix by Cyto stain Ranjit Shah DO Work Phone: Start: 09-12-2023 Cytp cerv/vag auto t hin layer prep mnl screen Ranjit Shah DO Work Phone: Plan of Treatment Date Care Activity Detail Author Start: 09-12-2028 Screening for malign ant neoplasm of cervix [facility] Start: 09-29-2025 End: 09-29-2025 Patient encounter procedure 09/29/2025 8:30 AM EST Office Visit [facility] [address] [place] [address] Ranjit Shah DO [address] [place] [address] [facility] Start: 03-10-2025 End: 03-10-2025 Patient encounter procedure 03/10/2025 8:00 AM EDT Office Visit [facility] [address] [place] [phone] Odell Handley MD [address] [place] [address] [facility] Start: 10-18-2024 Screening for malign ant neoplasm of breast Mammogram [facility] Start: 09-16-2024 End: 11-16-2025 MG Breast - bilateral Screening Bilateral screening mammogram Imaging Routine Breast cancer screening by mammogram Expected: 09/16/2024 (Approximate), Expires: 11/16/2025 [facility] Work Phone: Comment on above: Expected: 09/16/2024 (Approximate), Expires: 11/16/2025 Start: 09-16-2024 End: 09-16-2024 Patient encounter procedure 09/16/2024 8:30 AM EST Office Visit [facility] [address] [place] [phone] Ranjit Shah DO [address] [facility] [address] [place], [place] [id number] [facility] Start: 09-09-2024 End: 09-09-2025 Basic metabolic 1998 panel - Serum or Plasma Basic metabolic panel Lab Routine Annual physical exam Expected: 09/09/2024 (Approximate), Expires: 09/09/2025 [facility] Comment on above: Expected: 09/09/2024 (Approximate), Expires: 09/09/2025 Start: 09-09-2024 End: 09-09-2025 CBC W Auto Differential panel - Blood CBC and differential Lab Routine Annual physical exam Expected: 09/09/2024 (Approximate), Expires: 09/09/2025 [facility] Comment on above: Expected: 09/09/2024 (Approximate), Expires: 09/09/2025 Start: 09-09-2024 End: 09-09-2025 Hemoglobin A1c/Hemoglobin.total in Blood Hemoglobin A1c Lab Routine Annual physical exam Expected: 09/09/2024 (Approximate), Expires: 09/09/2025 [facility] Work Phone: Comment on above: Expected: 09/09/2024 (Approximate), Expires: 09/09/2025 Start: 09-09-2024 End: 09-09-2025 Hepatic function 2000 panel - Serum or Plasma Hepatic function panel Lab Routine Annual physical exam Expected: 09/09/2024 (Approximate), Expires: 09/09/2025 [facility] Comment on above: Expected: 09/09/2024 (Approximate), Expires: 09/09/2025 Start: 09-09-2024 End: 09-09-2025 Lipid 1996 panel - Serum or Plasma Lipid panel Lab Routine Annual physical exam Expected: 09/09/2024 (Approximate), Expires: 09/09/2025 [facility] Comment on above: Expected: 09/09/2024 (Approximate), Expires: 09/09/2025 Start: 09-09-2024 End: 09-09-2025 Noninvasive colorectal cancer DNA and occult blood screening [Presence] in Stool Cologuard colon cancer screening Lab Routine Colon cancer screening Expected: 09/09/2024 (Approximate), Expires: 09/09/2025 [facility] Comment on above: Expected: 09/09/2024 (Approximate), Expires: 09/09/2025 Start: 09-09-2024 End: 09-09-2025 Thyrotropin [Units/volume] in Serum or Plasma TSH Lab Routine Annual physical exam Expected: 09/09/2024 (Approximate), Expires: 09/09/2025 [facility] Comment on above: Expected: 09/09/2024 (Approximate), Expires: 09/09/2025 Start: 09-09-2024 End: 09-09-2024 Patient encounter procedure [facility] Comment on above: Arrived Start: 06-30-2024 Influenza vaccination Influenza Vacc ine (#1) [facility] Start: 03-18-2024 End: 03-18-2024 Patient encounter procedure 03/18/2024 8:30 AM EDT Office Visit [facility] [address] [place] [id number] Odell Handley MD [address] [place] [phone] [facility] Start: 12-13-2023 End: 12-13-2023 Patient encounter procedure 12/13/2023 7:00 AM EST Office Visit [facility] [address] [place] [address] Odell Handley MD [address] [place] [address] Arrived [facility] Comment on above: Arrived Start: 06-30-2023 Influenza vaccination Influenza Vacc ine (#1) [facility] Start: 2008 Screening for malign ant neoplasm of cervix [facility] Start: 1999 Screening for malign ant neoplasm of cervix Pap Smear [facility] Start: 1978 Screening for malign ant neoplasm of colon [facility] THIN PREP TIS PAP AN D HR HPV DNA THIN PREP TIS PAP AND HR HPV DNA Pathology and Cytology Routine Well woman exam with routine gynecological exam Ordered: 09/16/2024 [facility] Comment on above: Ordered: 09/16/2024 Immunizations Immunization Date Immunization Notes Care Provider Fa cility 08-27-2021 influenza virus vacc ine, unspecified formulation Odell Handley MD Work Phone: [facility] Payers Date Payer Category Payer Medicaid [employer] [place] [id number] 2018-Present [address] [place] [id number] 2018 Private Health Insurance [facility] MEDICAID [id number] 2018 Medicaid [id number] 1978 Unknown [id number] [id number] 1978 Unknown [id number] 593 1978 Unknown [id number] 593 1978 Unknown [id number]. 1259 1978 Unknown [id number] 9 1978 Unknown [id number] 9 1978 Unknown [id number] 9 1978 Unknown [id number] 1259 1959 Unknown [id number] Social History Date Type Detail Facility Unknown if ever smoked [employer] Other Start: 12-06-2023 End: 12-13-2023 Sex Assigned At [facility] Start: 11-21-2023 End: 12-13-2023 Tobacco smoking status [facility] Smokes tobacco daily [facility] History of tobacco use Cigarette Smoker [facility] Start: 12-13-2023 Tobacco use and exposure Smokeless tobacco non-user [facility] Start: 12-06-2023 End: 12-13-2023 History of Social function [facility] Within the last year , have you been afraid of your partner or ex-partner? No [facility] How often do you att end pentecostal or oriental orthodox services? Patient refused [facility] Are you now , , , , never or living with a partner? [facility] How often to you hav e a drink containing alcohol? Monthly or less [facility] How many standard drinks containing alcohol do you have on a typical day? 1 or 2 [facility] How often do you hav e 6 or more drinks on 1 occasion? Never [facility] How hard is it for y ou to pay for the very basics like food, housing, medical care, and heating Somewhat hard [facility] Do you feel stress - tense, restless, nervous, or anxious, or unable to sleep at night because your mind is troubled all the time - these days [OSQ] To some extent [facility] (I/We) worried wheth er (my/our) food would run out before (I/we) got money to buy more. Sometimes true [facility] Start: 1980 Sex Assigned At Not on file [facility] Clinical Notes 09-16-2021 to 09-16-2024 Qian Bustillos LPN - 09/16/2024 8:30 AM Jose Handley MD - 09/09/2024 8:50 AM Jose Handley MD - 09/09/2024 8:50 AM Jose Handley MD - 09/09/2024 8:50 AM EST Note Date & Type Note Facility 09-16-2024 History of Presen t illness Narrative Reason for Appointment: Patient ID: Yvonne Dawkins is a 44 y.o. female who presents for Gynecologic Exam Patient presents today for Annual Exam. MEDICATIONS Current Outpatient Medications Medication Instructions albuterol HFA (Ventolin HFA) 90 mcg/act inhaler 2 puffs, Inhalation, Every 4 hours PRN Allergy Relief Cetirizine 10 mg, Oral, Daily buPROPion XL (WELLBUTRIN XL) 300 mg, Oral, Daily celecoxib (CELEBREX) 200 mg, Oral, 2 times daily PRN, Take with food cyclobenzaprine (FLEXERIL) 10 mg, Oral, 3 times daily PRN fluticasone (Flonase) 50 MCG/ACT nasal spray 1 spray, Each Nostril, Daily melatonin 3 mg, Every 24 hours metFORMIN (GLUCOPHAGE) 500 mg, Oral, 2 times daily Multiple Vitamin (multivitamin) capsule 1 capsule, Daily oxyCODONE-acetaminophen (Percocet) 5-325 MG tablet 1 tablet, Oral, 4 times daily PRN Premarin 0.5 g, Vaginal, 3 times weekly sertraline (ZOLOFT) 25 mg, Oral, Every morning spironolactone (ALDACTONE) 50 mg, Oral, Every morning traZODone (DESYREL) 100 mg, Oral, Nightly valsartan (DIOVAN) 80 mg, Oral, Daily ALLERGIES Allergies Allergen Reactions Bee Venom Unknown Codeine GI intolerance Other Reaction(s): Unknown PROBLEMS Active Ambulatory Problems Diagnosis Date Noted Essential hypertension, benign (CMS/HCC) 12/13/2023 DDD (degenerative disc disease), cervical 12/13/2023 DDD (degenerative disc disease), lumbar 12/13/2023 Generalized anxiety disorder (CMS/HCC) 12/13/2023 Mild recurrent major depression (HCC) ([facility]) 12/13/2023 Polycystic ovary syndrome 12/13/2023 Primary insomnia 12/13/2023 Seasonal allergic rhinitis due to pollen 12/13/2023 Obesity (BMI 30-39.9) 12/13/2023 Menopausal and female climacteric states 03/18/2024 Annual physical exam 09/09/2024 Resolved Ambulatory Problems Diagnosis Date Noted Acute UTI 06/06/2024 Past Medical History: Diagnosis Date High blood pressure (CMS/[facility]) High cholesterol ([facility]/HCC) HISTORY PAST MEDICAL HISTORY SOCIAL HISTORY Past Medical History: Diagnosis Date High blood pressure ([facility]/HCC) High cholesterol ([facility]) Social History Tobacco Use Smoking status: Every Day Types: Cigarettes Smokeless tobacco: Never Substance Use Topics Alcohol use: Not on file Drug use: Not on file FAMILY HISTORY Family History Problem Relation Name Age of Onset Cancer Mother Other (Other) Mother Degenerative disc disease Hyperlipidemia Mother Hypertension Mother Heart disease Mother Diabetes Mother Depression Mother Arthritis Mother Breast cancer Mother mets to bone, liver Anesthesia problems Mother Hypothyroidism Mother Stroke Father Hypertension Father Diabetes Father Depression Father Arthritis Father Alzheimer's disease Father Ulcers Father Arthritis Sister Hyperlipidemia Sister Cancer Sister Heart attack Mother's Brother Hypothyroidism Maternal Grandmother Heart disease Maternal Grandmother Diabetes Maternal Grandmother COPD Maternal Grandmother Arthritis Maternal Grandmother Cancer Maternal Grandmother Hypertension Maternal Grandfather Heart disease Maternal Grandfather Diabetes Maternal Grandfather COPD Maternal Grandfather Arthritis Maternal Grandfather Cancer Maternal Grandfather Lung cancer Maternal Grandfather Diabetes Paternal Grandmother Arthritis Paternal Grandmother Pancreatic cancer Paternal Grandmother Hypertension Paternal Grandfather Stroke Paternal Grandfather Cancer Paternal Grandfather SURGICAL HISTORY Past Surgical History: Procedure Laterality Date CERVICAL FUSION 08/2012 ENDOMETRIAL ABLATION 2020 OVARIAN CYST REMOVAL SPINAL FUSION 01/12/2015 and Discectomy REVIEW OF SYSTEMS Review of Systems: Review of Systems All other systems reviewed and are negative. OBJECTIVE Objective: Physical Exam Constitutional: Appearance: Normal appearance. She is well-developed. Genitourinary: Vulva normal. Breasts: Breasts are soft. Right: Normal. Left: Normal. Cardiovascular: Rate and Rhythm: Normal rate and regular rhythm. Pulmonary: Effort: Pulmonary effort is normal. Breath sounds: Normal breath sounds. Abdominal: General: Bowel sounds are normal. There is no distension. Palpations: Abdomen is soft. Tenderness: There is no abdominal tenderness. There is no guarding or rebound. Musculoskeletal: General: No swelling. Normal range of motion. Right lower leg: No edema. Left lower leg: No edema. Neurological: Mental Status: She is alert and oriented to person, place, and time. Skin: General: Skin is warm and dry. Psychiatric: Mood and Affect: Mood normal. Behavior: Behavior normal. Vitals and nursing note reviewed. Exam conducted with a marine extension agent present. Vitals: Estimated body mass index is 30.38 kg/m as calculated from the following: Height as of 24: 5' 7 . Weight as of this encounter: 194 lb. BP: 122/72 No LMP recorded. Patient has had an ablation. ASSESSMENT & PLAN ICD-10-CM 1. Well woman exam with routine gynecological exam Z01.419 THIN PREP TIS PAP AND HR HPV DNA 2. Breast cancer screening by mammogram Z12.31 Bilateral screening mammogram Bilateral screening mammogram Annual: Patient presents today for an annual exam. Patient states she is doing well and has complaints of hidradenitis. Pap was obtained without difficulty and patient given mammogram order to have scheduled/obtained. Orders Placed This Encounter Procedures Bilateral screening mammogram Follow Up: Patient is to return in one year for annual unless needed otherwise. Documented by Qian Bustillos LPN on behalf of: Ranjit Shah DO documented in this encounter [facility] 09-09-2024 History of Presen t illness Narrative Associated Problem(s): Essential hypertension, benign (CMS/HCC) BP controlled and monitor PRN. Associated Problem(s): DDD (degenerative disc disease), lumbar Increased stiffness and try celebrex. Use percocet PRN. Associated Problem(s): Annual physical exam Due for labs. Never had colon cancer screening and willing to have cologuard. Discussed proper diet and regular aerobic exercise. Need aerobic exercise 5-6 days a week for 30 minutes at a time. Smaller portions and limit total calories. Tetanus every 10 years. Advised not to smoke. Images from the original note were not included. Subjective Patient ID: Yvonne Dawkins is a 44 y.o. female who presents for Follow-up (6 m). Presents for annual PE. Patient feels well today. Weight down 24 pounds in the past year. Active at work and tries to walk several days a week. Tries to watch diet and eat healthy. Increased fruits and vegetables. Smaller portions and limits snacking. Tries to limit total daily calories. Due for labs. Never had colon cancer screening and willing to have colonoscopy. Checking BP PRN and typically controlled. BP normal today. Taking medication daily and tolerating without side effects. Pain stable. Still pain in low back and across top hips. No radiation into gluteal region or down legs. Pain worse with walking and standing. Pain in neck and top shoulders. No radiation down arms or into hands. Stiffness recently worse. Using percocet PRN and works well to control pain. Able to work and stay active. Review of Systems Respiratory: Negative for cough, shortness of breath and wheezing. Cardiovascular: Negative for chest pain and palpitations. Gastrointestinal: Negative for abdominal pain, diarrhea, nausea and vomiting. Genitourinary: Negative for dysuria. Objective Physical Exam Constitutional: General: She is not in acute distress. Appearance: Normal appearance. HENT: Head: Normocephalic. Right Ear: Tympanic membrane normal. Left Ear: Tympanic membrane normal. Eyes: Extraocular Movements: Extraocular movements intact. Pupils: Pupils are equal, round, and reactive to light. Cardiovascular: Rate and Rhythm: Normal rate and regular rhythm. Heart sounds: No murmur heard. No friction rub. No gallop. Pulmonary: Effort: Pulmonary effort is normal. Breath sounds: Normal breath sounds. No wheezing, rhonchi or rales. Abdominal: General: Bowel sounds are normal. There is no distension. Palpations: Abdomen is soft. Tenderness: There is no abdominal tenderness. There is no guarding or rebound. Musculoskeletal: General: No swelling or tenderness. Cervical back: Neck supple. Right lower leg: No edema. Left lower leg: No edema. Skin: Findings: No erythema or rash. Neurological: General: No focal deficit present. Mental Status: She is alert and oriented to person, place, and time. Cranial Nerves: No cranial nerve deficit. Motor: No weakness. Gait: Gait normal. Assessment/Plan Problem List Items Addressed This Visit Essential hypertension, benign (CMS/HCC) BP controlled and monitor PRN. DDD (degenerative disc disease), lumbar Increased stiffness and try celebrex. Use percocet PRN. Relevant Medications celecoxib (CeleBREX) 200 MG capsule Annual physical exam - Primary Due for labs. Never had colon cancer screening and willing to have cologuard. Discussed proper diet and regular aerobic exercise. Need aerobic exercise 5-6 days a week for 30 minutes at a time. Smaller portions and limit total calories. Tetanus every 10 years. Advised not to smoke. Relevant Orders Hemoglobin A1c Basic metabolic panel CBC and differential Hepatic function panel Lipid panel TSH Other Visit Diagnoses Colon cancer screening Relevant Orders Cologuard colon cancer screening documented in this encounter [facility] 12-13-2023 History of Presen t illness Narrative Associated Problem(s): Seasonal allergic rhinitis due to pollen Symptoms controlled with medication and continue. Associated Problem(s): Primary insomnia Not sleeping well and increase trazodone. Associated Problem(s): MDD (major depressive disorder), recurrent episode, moderate (HCC) (CMS/HCC) Symptoms worse and add zoloft along with wellbutrin. Warned will take 2-3 weeks to notice improvement in mood. Associated Problem(s): Generalized anxiety disorder (CMS/HCC) Symptoms worse and add zoloft along with wellbutrin. Warned will take 2-3 weeks to notice improvement in mood. Associated Problem(s): Essential hypertension, benign (CMS/HCC) BP controlled and monitor PRN. Associated Problem(s): DDD (degenerative disc disease), lumbar Pain stable and use percocet PRN. Increase activity and walk regularly. Associated Problem(s): DDD (degenerative disc disease), cervical Pain stable and use percocet PRN. Increase activity and walk regularly. Subjective Patient ID: Yvonne Dawkins is a 43 y.o. female who presents for Follow-up (6m). F/u HTN, back and neck pain, depression, anxiety, and insomnia. Checking BP PRN and typically controlled. BP normal today. Taking medication daily and tolerating without side effects. Depression and anxiety worse. Increased symptoms and down, sad, and crying. Not want to do anything or be around others. Increased anxiety. Severe stress and not handling well. Nervous and worry all the time. Stressed out and overwhelmed. Thought racing and hard to clear mind. [place], irritable and snapping at others. Easily upset and overreact. C/o not sleeping well. Takingtrazodone and able to fall asleep but not stay asleep. Wakes up after few hours and lays in bed. Restless and not able to clear mind to fall asleep. Not rested in am and tired all day. Pain stable. Still pain in low back and across top hips. Pain radiates into gluteal region and down legs. Pain worse with walking and standing. Occasional weakness in legs and give out. Pain in neck and top shoulders. No radiation down arms or into hands. Using percocet PRN and works well to control pain. Allergies controlled with medication. No congestion or rhinorrhea. No OBRIEN or sinus pressure. Ears not plugged or popping. Review of Systems Respiratory: Negative for cough, shortness of breath and wheezing. Cardiovascular: Negative for chest pain and palpitations. Gastrointestinal: Negative for abdominal pain, diarrhea, nausea and vomiting. Genitourinary: Negative for dysuria. Objective Physical Exam Constitutional: General: She is not in acute distress. Appearance: Normal appearance. HENT: Head: Normocephalic. Right Ear: Tympanic membrane normal. Left Ear: Tympanic membrane normal. Eyes: Extraocular Movements: Extraocular movements intact. Pupils: Pupils are equal, round, and reactive to light. Cardiovascular: Rate and Rhythm: Normal rate and regular rhythm. Heart sounds: No murmur heard. No friction rub. No gallop. Pulmonary: Effort: Pulmonary effort is normal. Breath sounds: Normal breath sounds. No wheezing, rhonchi or rales. Abdominal: General: Bowel sounds are normal. There is no distension. Palpations: Abdomen is soft. Tenderness: There is no abdominal tenderness. There is no guarding or rebound. Musculoskeletal: Cervical back: Neck supple. Right lower leg: No edema. Left lower leg: No edema. Neurological: Mental Status: She is alert. Assessment/Plan Problem List Items Addressed This Visit Essential hypertension, benign (CMS/HCC) - Primary BP controlled and monitor PRN. DDD (degenerative disc disease), cervical Pain stable and use percocet PRN. Increase activity and walk regularly. DDD (degenerative disc disease), lumbar Pain stable and use percocet PRN. Increase activity and walk regularly. Generalized anxiety disorder (CMS/HCC) Symptoms worse and add zoloft along with wellbutrin. Warned will take 2-3 weeks to notice improvement in mood. MDD (major depressive disorder), recurrent episode, moderate (HCC) (CMS/HCC) Symptoms worse and add zoloft along with wellbutrin. Warned will take 2-3 weeks to notice improvement in mood. Primary insomnia Not sleeping well and increase trazodone. Seasonal allergic rhinitis due to pollen Symptoms controlled with medication and continue. documented in this encounter [facility] 11-08-2022 Evaluation note Encounter Date Diagnosis Assessment Notes Oct, Sore throat (ICD-10 - J02.9) Oct, Acute bacterial conjunctivitis of left eye (ICD-10 - H10.32) Use medication as directed. Recommend discarding makeup if applicable. Need to wash linens on bed. If you wear contacts dispose of them or if not disposable then must thoroughly decontaminate the contacts before wearing them again. Contact eye doctor if symptoms are not improved by Monday. If any changes in vision occurs then recommend going to ER immediately, Conjunctivitis home care material was printed Oct, Contact with and (suspected) exposure to other viral communicable diseases (ICD-10 - Z20.828) Oct, Walking pneumonia (ICD-10 - J18.9) Take medications as directed. Rest and increase fluid intake. Take meds with food to prevent stomach upset. Use inhaler as needed for coughing spells and SOB. It is better to use inhaler a few times a day over the next 2-3 days. Follow up with primary care provider if symptoms do not improve with treatment plan, although it may take a few weeks for the cough to go away, Pneumonia: adult home care material was printed [employer] Other 08-04-2022 NotePROCEDURE: XR HAND LT MIN 3V HISTORY: Pain of left hand ; first and second metacarpal pain for couple months; no known injury COMPARISON: None. FINDINGS: BONES:No fracture, acute abnormality, or significant arthropathy. SOFT TISSUES:No visible soft tissue swelling. EFFUSION:None visible. OTHER: Negative. IMPRESSION: 1. Normal examination. Electronically authenticated by: GERALDO Elkins: 2022-06-02 06:29[id number] NoteThe [place], [place] NAME: YVONNE DAWKINS DATE OF : MEDICAL REC#: [id number] MANAGER NET: [id number] ADMIT DATE: 09/16/2021 11:25:00 OBSTETRICS SPECIALIST DATE: 09/17/2021 07:00 DICTATING PHYSICIAN: RANJIT SHAH DICTATION DATE: 09/16/2021 15:00 OPERATIVE NOTE OPERATION DATE: 09-16 ANESTHETIC: PSYCHIATRIC NURSE:KAYLAN Sauer PREOPERATIVE DIAGNOSIS: 1. Abnormal uterine bleeding. 2. Desires permanent sterilization. POSTOPERATIVE DIAGNOSIS:Same as above. PROCEDURE NAME: 1. Farideh endometrial ablation. 2. Laparoscopic bilateral salpingectomy with left ovarian cystectomy. URINE OUTPUT: Yellow and clear. BLOOD LOSS:5 mL. FINDINGS: Normal appearing ovaries, uterus and tubes except for left ovarian simple appearing cyst. No gross evidence of polyps, fibroids, or malignancy. PROCEDURE: The patient was taken back to the OR where she was prepped and draped in the normal sterile fashion after being placed in the dorsal lithotomy position, after being placed under general anesthesia without difficulty. The anterior lip was grasped with a single tooth tenaculum. The patient was then gently sounds. The patient was gently sounded using Hegar dilators and the hysteroscope was passed through the cervix into the uterus where both ostia were seen. No gross evidence of polyps, fibroids or malignancy. A weighted speculum was placed in the patient's vagina, the anterior tip of the cervix was identified and grasped with a single tooth tenaculum. The patient was gently sounded to roughly 9 cm. The cervical length was noted to be 4.5 cm. The Farideh ablation apparatus was set to approximately 4.5 in length. This was placed in through the cervix and into the uterus. After the seal was tested, at that time the total ablation of 120 seconds was performed with the Farideh without difficulty. All instruments were removed from the vagina. The patient was taken back to the Operating Room where she was given general anesthesia without difficulty. She was then prepped and draped in the normal sterile fashion after being placed in a dorsal lithotomy position. A wet sponge stick was placed into the patient's vagina. Attention was then turned to the patient's abdomen, where a scalpel was used to make a small infraumbilical incision. The S retractors were then used to dissect the underlying layers until the fascia could be seen. The fascia was then grasped with Graciela clamps and tented up. A knife was then used to make a small incision to the fascia. The muscle was identified, at that time two sutures of #0 Vicryl on a GI needle was then used and placed through the fascia. The peritoneum was then identified and entered bluntly. The 10-4 Megha was then placed into the patient's abdomen. This was confirmed with direct visualization of the bowel, using the laparoscope. The patient's abdomen was then insufflated using approximately 4 liters of CO2 gas. Survey of the patient's abdomen demonstrated ovaries were normal in appearance as well as both tubes. A second and third lateral ports, which was 7-8 in size and 5mm, was then placed laterally after incision was made in the skin under direct visualization. The patient's tube on the patient's right side was identified. Instead of using Filshie clips the LigaSure apparatus was used to come across the uteroovarian ligament and the mesosalpinx and this was done on the contralateral side. The tubes were removed in their entirety. A left ovarian cystectomy was also performed using the LigaSure. The lateral ports were then moved under direct visualization with excellent hemostasis. All instruments were removed from the patient's abdomen. The fascia was closed using the #0 Vicryl on GI needle. The skin was closed using 4-0 Vicryl subcuticularly. All instruments were removed from the patient's vagina as well. The patient was taken out of the dorsal lithotomy position and placed in the supine position and taken to recovery in stable condition. Sponge, lap and needle counts were correct x2. Electronically Authenticated and Edited by: Ranjit Shah DO on 09/17/2021 08:36 AM [facility] [place] Signed and Approved by: DR RANJIT SHAH . 09/17/2021 08:36:[facility] Diagnosis Essential hypertension, benign (CMS/HCC)- Primary Essential hypertension, benign MDD (major depressive disorder), recurrent episode, moderate (HCC) (CMS/HCC) Generalized anxiety disorder (CMS/HCC) Generalized anxiety disorder Primary insomnia Persistent disorder of initiating or maintaining sleep DDD (degenerative disc disease), lumbar Degeneration of lumbar or lumbosacral intervertebral disc DDD (degenerative disc disease), cervical Degeneration of cervical intervertebral disc Seasonal allergic rhinitis due to pollen SOB (shortness of breath) Shortness of breath [facility] Diagnosis Essential hypertension, benign (CMS/HCC)- Primary Essential hypertension, benign MDD (major depressive disorder), recurrent episode, moderate (CMS/HCC) Generalized anxiety disorder (CMS/HCC) Generalized anxiety disorder Primary insomnia Persistent disorder of initiating or maintaining sleep DDD (degenerative disc disease), lumbar Degeneration of lumbar or lumbosacral intervertebral disc DDD (degenerative disc disease), cervical Degeneration of cervical intervertebral disc Seasonal allergic rhinitis due to pollen SOB (shortness of breath) Shortness of breath Essential hypertension, benign (CMS/HCC)- Primary Essential hypertension, benign DDD (degenerative disc disease), cervical Degeneration of cervical intervertebral disc DDD (degenerative disc disease), lumbar Degeneration of lumbar or lumbosacral intervertebral disc Mild recurrent major depression (HCC) (CMS/HCC) Major depressive disorder, recurrent episode, mild Generalized anxiety disorder (CMS/HCC) Generalized anxiety disorder Primary insomnia Persistent disorder of initiating or maintaining sleep Polycystic ovary syndrome Polycystic ovaries Menopausal and female climacteric states Acute UTI- Primary Urinary tract infection, site not specified Degeneration of intervertebral disc of lumbar region with discogenic back pain and lower extremity pain- Primary Other intervertebral disc degeneration, lumbar region [facility] Diagnosis Essential hypertension, benign (CMS/HCC)- Primary Essential hypertension, benign MDD (major depressive disorder), recurrent episode, moderate (CMS/HCC) Generalized anxiety disorder (CMS/HCC) Generalized anxiety disorder Primary insomnia Persistent disorder of initiating or maintaining sleep DDD (degenerative disc disease), lumbar Degeneration of lumbar or lumbosacral intervertebral disc DDD (degenerative disc disease), cervical Degeneration of cervical intervertebral disc Seasonal allergic rhinitis due to pollen SOB (shortness of breath) Shortness of breath Essential hypertension, benign (CMS/HCC)- Primary Essential hypertension, benign DDD (degenerative disc disease), cervical Degeneration of cervical intervertebral disc DDD (degenerative disc disease), lumbar Degeneration of lumbar or lumbosacral intervertebral disc Mild recurrent major depression (HCC) (CMS/HCC) Major depressive disorder, recurrent episode, mild Generalized anxiety disorder (CMS/HCC) Generalized anxiety disorder Primary insomnia Persistent disorder of initiating or maintaining sleep Polycystic ovary syndrome Polycystic ovaries Menopausal and female climacteric states Acute UTI- Primary Urinary tract infection, site not specified Degeneration of intervertebral disc of lumbar region with discogenic back pain and lower extremity pain- Primary [facility] Diagnosis Essential hypertension, benign (CMS/HCC)- Primary Essential hypertension, benign MDD (major depressive disorder), recurrent episode, moderate (CMS/HCC) Generalized anxiety disorder (CMS/HCC) Generalized anxiety disorder Primary insomnia Persistent disorder of initiating or maintaining sleep DDD (degenerative disc disease), lumbar Degeneration of lumbar or lumbosacral intervertebral disc DDD (degenerative disc disease), cervical Degeneration of cervical intervertebral disc Seasonal allergic rhinitis due to pollen SOB (shortness of breath) Shortness of breath Essential hypertension, benign (CMS/HCC)- Primary Essential hypertension, benign DDD (degenerative disc disease), cervical Degeneration of cervical intervertebral disc DDD (degenerative disc disease), lumbar Degeneration of lumbar or lumbosacral intervertebral disc Mild recurrent major depression (HCC) (CMS/HCC) Major depressive disorder, recurrent episode, mild Generalized anxiety disorder (CMS/HCC) Generalized anxiety disorder Primary insomnia Persistent disorder of initiating or maintaining sleep Polycystic ovary syndrome Polycystic ovaries Menopausal and female climacteric states Annual physical exam- Primary Routine general medical examination at a health care facility Colon cancer screening Special screening for malignant neoplasms, colon Essential hypertension, benign (CMS/HCC) Essential hypertension, benign Degeneration of intervertebral disc of lumbar region with discogenic back pain [facility] Diagnosis Essential hypertension, benign (CMS/HCC)- Primary Essential hypertension, benign MDD (major depressive disorder), recurrent episode, moderate (CMS/HCC) Generalized anxiety disorder (CMS/HCC) Generalized anxiety disorder Primary insomnia Persistent disorder of initiating or maintaining sleep DDD (degenerative disc disease), lumbar Degeneration of lumbar or lumbosacral intervertebral disc DDD (degenerative disc disease), cervical Degeneration of cervical intervertebral disc Seasonal allergic rhinitis due to pollen SOB (shortness of breath) Shortness of breath Essential hypertension, benign (CMS/HCC)- Primary Essential hypertension, benign DDD (degenerative disc disease), cervical Degeneration of cervical intervertebral disc DDD (degenerative disc disease), lumbar Degeneration of lumbar or lumbosacral intervertebral disc Mild recurrent major depression (HCC) (CMS/HCC) Major depressive disorder, recurrent episode, mild Generalized anxiety disorder (CMS/HCC) Generalized anxiety disorder Primary insomnia Persistent disorder of initiating or maintaining sleep Polycystic ovary syndrome Polycystic ovaries Menopausal and female climacteric states Annual physical exam- Primary Routine general medical examination at a health care facility Colon cancer screening Special screening for malignant neoplasms, colon Essential hypertension, benign (CMS/HCC) Essential hypertension, benign Degeneration of intervertebral disc of lumbar region with discogenic back pain Well woman exam with routine gynecological exam Routine gynecological examination Breast cancer screening by mammogram Hidradenitis Hidradenitis suppurativa Hidradenitis [facility] N[facility] - Reported* Type Description Date Medical History Osteorthritis of Lumbar Spine Medical History seasonal allergies Medical History polycystic ovaries Medical History HTN Surgical History Neck Surgery Surgical History back surgery Surgical History Lumbar injections Surgical History ablation Surgical History tubal ligation Hospitalization History see above [employer] Other Summary Purpose Family History No Family History Records FoundNo Family History Records FoundNo Family History Records Found Advance Directives No Advanced Directives Records FoundNo Advanced Directives Records FoundNo Advanced Directives Records Found Additional Source Comments INFORMATION SOURCE (unrecogn ized section and content) DATE CREATED AUTHOR 11/20/2020 [facility] DATE CREATED AUTHOR AUTHOR'S ORGANIZ ATION 09/11/2022 [facility] DATE CREATED AUTHOR AUTHOR'S ORGANIZ ATION 09/09/2024 [facility] Special[facility] EPIC REASON FOR VISIT (unrecogniz ed section and content) Reason Comments Follow-up 6m Reason Onset Date Comments Med Refill 08/20/2024 Reason Comments Follow-up 6 m Reason Comments Gynecologic Exam Care Teams (unrecognized sec tion and content) [employer] Relationship Specialty Start Date End Date Odell Handley MD [address] [place] [id number] PCP - General Family Medicine 11/20/23 [facility] [employer] Relationship Specialty Start Date End Date Odell Handley MD [address] [place] [id number] PCP - General Family Medicine 11/20/23 [employer] Relationship Specialty Start Date End Date Odell Handley MD [address] [place] [phone] [facility] 11/20/23 City Mail [employer]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 07/30/24 City Mail Carrier Relationship Specialty Start Date End Date Odell Handley MD [address] [place] [phone] [facility] 11/20/23 Odell Handley MD [address] [place] [phone] [facility] 07/30/24 FOR RECORDS PERTAINING TO PATIENTS WHO ARE OR HAVE BEEN ENROLLED IN A CHEMICAL DEPENDENCY/SUBSTANCEABUSE PROGRAM, SOME INFORMATION MAY BE OMITTED. This clinical summary was aggregated from multiple sources. Caution should be exercised in using it in the provision of clinical care. This summary normalizes information from multiple sources, and as a consequence, information in this document may materially change the coding, format and clinical context of patient data. In addition, data may be omitted in some cases. CLINICAL DECISIONS SHOULD BE BASED ON THE PRIMARY CLINICAL RECORDS. [facility]. provides no warranty or guarantee of the accuracy or completeness of information in this document.
== END 2024-09-16 21:36 | disposition home or self-care (01) ==
LOC: LAB 21:35
PROVIDERS: PCP Family Medicine; Visit Provider Obstetrics & Gynecology
DX: Z01.419 Encounter for gynecological examination (general) (routine) without abnormal findings (principal)
CPT/HCPCS: 87624; 88175

== ENCOUNTER 2024-09-20 15:01 | Outpatient (OUT) | payer OTHER, SELFPAY ==
[2024-09-20 15:40] LABS: Basophils Absolute Auto 0.1 10^3/uL (0.0-0.1); Basophils Percent Auto 0.5 % (0.2-2.0); Eosinophils Absolute Auto 0.3 10^3/uL (0.0-0.7); Eosinophils Percent Auto 2.6 % (0.9-7.0); Hematocrit 41.2 % (36.0-48.0); Hemoglobin 14.3 g/dL (12.0-16.0); Immature Granulocytes Abs Auto 0.04 10^3/uL (0.00-0.03); Immature Granulocytes Pct Auto 0.4 % (0.0-0.5); Lymphocytes Absolute Auto 3.4 10^3/uL (1.2-3.8); Lymphocytes Percent Auto 33.7 % (20.5-60.0); Mean Corpuscular HGB Conc 34.7 g/dL (29.9-35.2); Mean Corpuscular Hemoglobin 33.3 pg (26.7-34.0); Mean Corpuscular Volume 95.8 fL (81.0-99.0); Mean Platelet Volume 12.4 fL (9.5-13.5); Monocytes Absolute Auto 0.6 10^3/uL (0.3-0.8); Monocytes Percent Auto 6.2 % (1.7-12.0); Neutrophils Absolute Auto 5.7 10^3/uL (1.4-6.5); Neutrophils Percent Auto 56.6 % (43.0-75.0); Platelet Count 200 10^3/uL (150-450); Red Cell Distribution Width 12.7 % (11.0-15.0); White Blood Count 10.1 10^3/uL (4.0-11.0)
[2024-09-20 15:55] LABS: Estimated Average Glucose 100 mg/dL; Glycohemoglobin A1C 5.1 % (4.5-6.2)
[2024-09-20 15:57] LABS: Alanine Aminotransferase 41 U/L (14-59); Albumin Globulin Ratio 1.2; Albumin Level 3.8 g/dL (3.4-5.0); Alkaline Phosphatase 95 U/L (46-116); Anion Gap 15.6; Aspartate Amino Transferase 20 U/L (15-37); BUN Creatinine Ratio 9.2; Bilirubin Direct 0.1 mg/dL (0.0-0.2); Bilirubin Total 0.5 mg/dL (0.2-1.0); Calcium 9.1 mg/dL (8.5-10.1); Carbon Dioxide 27.3 mmol/L (21.0-32.0); Chloride 102 mmol/L (98-107); Chol HDL Ratio 4.7; Cholesterol 174 mg/dL (<=200); Estimated GFR (African America >60 (>=60 mL/min/1.73m^2); Estimated GFR (Non-African Ame >60 (>=60 mL/min/1.73m^2); Globulin 3.3 g/dL; Glucose 76 mg/dL (74-106); HDL Cholesterol 37 mg/dL (40-60); Potassium 3.9 mmol/L (3.5-5.1); Sodium 141 mmol/L (136-145); Thyroid Stimulating Hormone 2.742 uIU/mL (0.358-3.740); Total Protein 7.1 g/dL (6.4-8.2); Triglycerides 279 mg/dL (<=150); VLDL CHOLESTEROL 55.8 mg/dL
== END 2024-09-20 15:02 | disposition home or self-care (01) ==
LOC: LAB 15:01
PROVIDERS: PCP Family Medicine; Visit Provider Family Medicine
DX: Z00.00 Encounter for general adult medical examination without abnormal findings (principal)
CPT/HCPCS: 36415; 80048; 80061; 80076; 83036; 84443; 85025

== ENCOUNTER 2024-10-18 13:50 | Outpatient (OUT) | payer OTHER, SELFPAY ==
--- OUTSIDE RECORDS SUMMARY | 2024-10-18 13:59 | XMS_ITS | CCD ---
Author Organization [facility] Care Team Providers Care Clearance Coordinator Name Role Phone HOUSE, DR MENDOZA Primary Care Unavailable ALYSSA, DR CHURCH Attending Unavailable ALYSSA, DR CHURCH Consulting Unavailable ALYSSA, DR CHURCH Admitting Unavailable ALEXANDRA LEYVA Consulting Unavailable HOUSE, DR MENDOZA Primary Care Unavailable ALYSSA, DR CHURCH Attending Unavailable ALYSSA, DR CHURCH Consulting Unavailable ALYSSA, DR CHURCH Admitting Unavailable HOUSE, DR MENDOZA Attending Unavailable SEARCY, DR MENDOZA Consulting Unavailable SEARCY, DR MENDOZA Primary Care Unavailable SEARCY, DR MENDOZA Admitting Unavailable JUAN, DR GERALDO Aranda Consulting Unavailable Qi Cueto Unavailable Odell Handley MD Primary Care Provider Odell Handley MD Unavailable ODELL HANDLEY Attending Unavailable EMMANUELLE, ODELL Attending Unavailable EMMANUELLE, ODELL Attending Unavailable EMMANUELLE, ODELL Attending Unavailable RANJIT SHAH Attending Unavailable Allergies Allergy Classification Reported Allergen(s) Allergy Type Date of Onset Reaction(s) Facility (1 source) bee venom Drug allergy (disorder) [facility] (1 source) Codeine Drug Allergy 6 [facility] (17 sources) Codeine Drug Allergy 3 GI intolerance [facility] Work Phone: (16 sources) Honey bee venom Allergy to substance 4 Unknown [facility] Medications Current Medications Medication Drug Class(es) Dates Sig (Normalized) Sig (Original) [id number] 200 actuat albuterol 0.09 mg/actuat metered dose inhaler (20 sources) beta2-Adrenergic Agonist Start: 02-26-2024 End: 06-23-2024 take 2 puff(s) by inhalation every four [...] hydrochloride 300 mg extended release oral tablet (18 sources) Aminoketone Start: 08-29-20 24 take 1 [...] (XL) Active celecoxib 200 mg oral capsule (8 sources) Nonsteroidal Anti-inflammatory Drug Start: 09-09-2024 take [...] Active cetirizine hydrochloride 10 mg oral tablet (18 sources) Histamine-1 Receptor Antagonist Start: 08-29-2024 take [...] Active Zyrtec Active Cetirizine HCl A ctive clindamycin 10 mg/ml topical lotion (4 sources) Lincosamide Antibacterial Start: 09-18-2024 End: 09-18-2025 clindamycin (Cleocin T) 1 % lotion Indications: Hidradenitis suppurativa Apply topically Daily As directed to affected areas 60 mL 3 09/18/2024 09/18/2025 Active Start: 02-17-2017 take 2 capsules by m outh every eight hours Clindamycin HCl 300 MG 2 capsules Orally every 8 hrs for 7 days Jan, Not-Taking cyclobenzaprine hydrochloride 10 mg oral tablet (18 sources) Muscle Relaxant Start: 08-29-2024 take 1 [...] sodium 75 mg delayed release oral tablet (10 sources) Nonsteroidal Anti-inflammatory Drug Start: 08-29-2024 End: [...] as needed (as needed). 0 08/15/2023 Active doxycycline hyclate 100 mg oral capsule (3 sources) Tetracycline-class Drug Start: 09-18-2024 End: 10-18-2024 doxycycline (Vibramycin) 100 MG capsule Indications: Hidradenitis suppurativa Take 1 capsule (100 mg) by mouth in the morning and 1 capsule (100 mg) before bedtime. Take with at least 8 ounces (large glass) of water, do not lie down for 30 minutes after. 60 capsule 2 09/18/2024 10/18/2024 Active estrogens, conjugated (senior care) 0.625 mg/ml vaginal cream (14 sources) Estrogen Start: 03-18-2024 End: 06-23-2024 Estrogens Conjugated (Premarin) 0.625 MG/GM cream Indications: Menopausal and female climacteric states Insert 0.5 g into the vagina 3 (three) times a week 30 g 3 06/24/2024 Active estrogens, conjugated (senior care) 0.3 mg / medroxyPROGESTERone acetate 1.5 mg oral tablet (5 sources) Progestin, Estrogen Start: 09-16-2024 End: 09-16-2025 take 0.3-1.5 mg by mouth once daily estrogen, conjugated,-medro xyPROGESTERone (Prempro) 0.3-1.5 MG tablet Indications: Well woman exam with routine gynecological exam Take 1 tablet by mouth Daily 30 tablet 11 09/16/2024 09/16/2025 Active fluticasone propionate 0.05 mg/actuat metered dose nasal spray (16 sources) Corticosteroid Start: 05-06-2024 take 1 spray(s) [...] 08/02/2023 Active melatonin 3 mg oral tablet (17 sources) take 1 tablet by th once daily melatonin 3 MG tablet Take 3 mg by mouth 1 (one) time each day at the same time. Active Melatonin Active 24 hr metFORMIN hydrochloride 500 mg extended release oral tablet (20 sources) Biguanide Start: 09-16-2024 End: 10-16-2024 take [...] DAILY 60 tablet 6 07/31/2024 Active Start: 01-15-2024 take 1 tablet by thania th twice daily metFORMIN (Glucophage) 500 MG tablet Indications: Hidradenitis suppurativa TAKE 1 TABLET BY MOUTH TWICE DAILY 60 tablet 6 01/15/2024 Active Start: 09-12-2023 End: 09-11-2024 take 1 [...] days Oct, Active Multiple Vitamin (multivitamin) capsule (16 sources) take 1 capsule by mouth in the morning Multiple Vitamin (multivitamin) capsule Take 1 capsule by mouth in the morning. Active take 1 capsule by mouth in the m orning Multiple Vitamin (multivitamin) capsule Take 1 capsule by mouth in the morning. 0 Active naproxen sodium 220 mg oral tablet (11 sources) Nonsteroidal Anti-inflammatory Drug End: 09-09-2024 take 1 tablet by mouth twice daily as needed for pain naproxen sodium (Aleve) 220 MG tablet Take 220 mg by mouth 2 (two) times a day as needed for mild pain. 09/09/2024 Discontinued Naproxen Active probiotic (1 source) probiotic Active sertraline 25 mg oral tablet (15 sources) Serotonin Reuptake Inhibitor Start: 06-05-2024 take [...] 12/13/2023 Active spironolactone 50 mg oral tablet (20 sources) Aldosterone Antagonist Start: 06-07-2024 take 1 [...] ctive traZODone hydrochloride 100 mg oral tablet (18 sources) Serotonin Reuptake Inhibitor Start: 06-05-2024 take [...] at bedtime. 0 08/15/2023 12/13/2023 Discontinued (Reorder) tretinoin 0.5 mg/ml topical cream (3 sources) Retinoid Start: 09-18-2024 End: 10-18-2024 tretinoin (Retin-A) 0.05 % cream Indications: Hidradenitis suppurativa Apply topically at bedtime Apply small amount (pea size) to affected areas as needed at night. 45 g 3 09/18/2024 10/18/2024 Active valsartan 80 mg oral tablet (17 sources) Angiotensin 2 Receptor Melida Start: 08-29-2024 [...] the morning. 0 08/15/2023 Active Valsartan Active zinc sulfate 220 mg oral capsule (3 sources) Start: 09-18-2024 End: 10-18-2024 take 2 capsules by mouth in the morning, then take 1 capsule by mouth in the evening, then take 1 capsule by mouth at bedtime zinc sulfate (Zincate) 220 (50 Zn) MG capsule Indications: Hidradenitis suppurativa Take 1 capsule (50 mg of elemental zinc) by mouth in the morning and 1 capsule (50 mg of elemental zinc) in the evening and 1 capsule (50 mg of elemental zinc) before bedtime. 90 capsule 2 09/18/2024 10/18/2024 Active Completed/Discontinued Medications Medication Drug Class(es) Dates Sig (Normalized) Sig (Original) acetaminophen 325 mg / oxyCODONE hydrochloride 5 mg oral tablet (18 sources) Opioid Agonist Start: 05-23-2024 End: 10-23-2024 take 1 tablet by mouth four times daily as needed for pain oxyCODONE-acetaminop hen (Percocet) 5-325 MG tablet Indications: Other intervertebral disc degeneration, lumbar region Take 1 tablet by mouth 4 (four) times a day as needed for severe pain 120 tablet 06/24/2024 07/23/2024 Discontinued (Reorder) Start: 11-27-2023 End: 12-27-2023 take 1 tablet by mouth four times daily as needed for pain oxyCODONE-acetaminophen (Percocet) 5-325 MG tablet Indications: Other intervertebral disc degeneration, lumbar region Take 1 tablet by mouth 4 (four) times a day as needed for severe pain 120 tablet 0 11/27/2023 12/27/2023 Active cefTRIAXone (1 source) Cephalosporin Antibacterial Start: 02-17-2017 Rocephin 500 mg Jan, 250 mg hydrOXYzine hydrochloride 25 mg oral tablet (1 source) Antihistamine Start: 02-17-2017 take 1 tablet by mouth every eight hours hydrOXYzine HCl 25 MG 1 tablet as needed Orally every 8 hrs Jan, Not-Taking traMADol (1 source) Opioid Agonist traMADol HCl Not-Taking Problems Active Problems Problem Classification Problem Date Documented Date Episodic/Chronic Anxiety disorders (19 sources) Anxiety disorder, unspecified; Translations: [Generalized anxiety disorder] Onset: 09-22-2021 12-13-2023 Chronic Asthma (1 source) Unspecified asthma, uncomplicated; Translations: [UNSPECIFIED ASTHMA UNCOMPLICATED] Onset: 09-22-2021 Chronic Essential hypertension (20 sources) Essential (primary) hypertension; Translations: [Benign essential hypertension] Onset: 09-22-2021 12-13-2023 Chronic Immunizations and screening for infectious disease (2 sources) Encounter for screening for human papillomavirus (HPV); Translations: [Contact with and (suspected) exposure to other viral communicable diseases] Onset: 09-10-2022 Episodic Inflammation; infection of eye (except that caused by tuberculosis or sexually transmitteddisease) (1 source) Unspecified acute conjunctivitis, left eye Episodic Menopausal disorders (14 sources) Menopausal syndrome; Translations: [Menopausal and female climacteric states] Onset: 03-18-2024 03-18-2024 Chronic Miscellaneous mental health disorders (17 sources) Primary insomnia; Translations: [Primary insomnia] Onset: 12-13-2023 12-13-2023 Chronic Mood disorders (18 sources) Recurrent major depressive episodes, moderate ; Translations: [Major depressive disorder, recurrent, moderate] Onset: 12-13-2023 12-13-2023 Chronic Osteoarthritis (1 source) Unspecified osteoarthritis, unspecified site; Translations: [UNSPECIFIED OSTEOARTHRITIS UNS SITE] Onset: 09-22-2021 Chronic Other endocrine disorders (16 sources) Polycystic ovary syndrome; Translations: [Polycystic ovarian syndrome] Onset: 12-13-2023 12-13-2023 Chronic Other female genital disorders (4 sources) Abnormal uterine and vaginal bleeding, unspecified; Translations: [ABNORMAL UTERINE VAGINAL BLEED UNS] Onset: 09-16-2021 Chronic Other female genital disorders (1 source) Unspecified dyspareunia; Translations: [UNSPECIFIED DYSPAREUNIA] Onset: 09-22-2021 Chronic Other nutritional; endocrine; and metabolic disorders (1 source) Obesity, unspecified; Translations: [OBESITY UNSPECIFIED] Onset: 09-22-2021 Chronic Other nutritional; endocrine; and metabolic disorders (1 source) Body mass index (BMI) 33.0-33.9, adult; Translations: [BODY MASS INDEX BMI 33.0-33.9 ADULT] Onset: 09-22-2021 Chronic Other nutritional; endocrine; and metabolic disorders (15 sources) Body mass index 30+ - obesity; [...] suppurativa] 09-16-2024 Episodic Other upper respiratory disease (17 sources) Allergic rhinitis due to pollen; Translations: [...] FOR STERILIZATION] Onset: 09-22-2021 Episodic Mood disorders (16 sources) Mood disorders; Translations: [DEPRESSION UNSPECIFIED] Onset: 09-22-2021 12-13-2023 Other aftercare (1 source) Other fdc (current) drug therapy; Translations: [OTH [facility] CURRENT DRUG THERAPY] Onset: 09-22-2021 Episodic Other connective tissue disease (4 sources) Pain in left hand; Translations: [PAIN IN LEFT HAND] Onset: 06-01-2022 Episodic Other lower respiratory disease (3 sources) Dyspnea; Translations: [Shortness of breath] 12-13-2023 Episodic Ovarian cyst (1 source) Follicular cyst of left ovary; Translations: [FOLLICULAR CYST OF LEFT OVARY] Onset: 09-22-2021 Episodic Urinary tract infections (13 sources) Acute urinary tract infection; Translations: [Urinary tract infection, site not specified] Onset: 06-06-2024 Resolved: 09-09-2024 06-06-2024 Episodic Results Test Name Value Interpretation Reference Range Facility IGP,APTIMA HPV,AGE GDLNon AGE GDLN ACOG TESTING Note . [facility] Comment on above: TESTS RESULT FLAG UN ITS REF RANGE LAB Clinician Provided Cytology Information Source.............Cervix;Endocervix No. of containers..01 ThinPrep Vial Age Algo ACOG Estela... FLAG LEGEND: L-Low Normal,H-High Normal,LL-Alert Low,HH-Alert High <-Panic Low,>-Panic High,A-Abnormal,AA-Critical Abnormal Performed at: 01 =G [address] [place] [address] Pao Buchanan MD, HPV APTIMA Negative Negative [facility] e Comment on above: This nucleic acid am plification test detects fourteen high- risk HPV types (16,18,31,33,35,39,45,51,52,56,58,59,66,68) without differentiation. Performed at: =[address] [id number] [employer]: Pao Buchanan MD, Phone: [phone] Performed at: [address] [id number] [employer]: Pao Buchanan MD, Phone: [phone] IGP, APTIMA HPV, RFX 16/18,45 Note . [facility] Comment on above: TESTS RESULT FLAG UN ITS REF RANGE LAB DIAGNOSIS: 02 NEGATIVE FOR INTRAEPITHELIAL LESION OR MALIGNANCY. Specimen adequacy: 02 Satisfactory for evaluation. Endocervical and/or squamous metaplastic cells (endocervical component) are present. Performed by: 02 Odilia Soriano, [employer] ([facility]) . 02 Note: Note 02 The Pap smear is a screening test designed to aid in the detection of premalignant and malignant conditions of the uterine cervix. It is not a diagnostic procedure and should not be used as the sole means of detecting cervical cancer. Both false-positive and false-negative reports do occur. Test Methodology: Note 02 This liquid based ThinPrep(R) pap test was screened with the use of an image guided system. HPV Genotype Reflex Note 02 Criteria not met, HPV Genotype not performed. FLAG LEGEND: L-Low Normal,H-High Normal,LL-Alert Low,HH-Alert High <-Panic Low,>-Panic High,A-Abnormal,AA-Critical Abnormal Performed at: 02 WB [facility] [address] [place] [address] Pao Buchanan MD, BRUSH-SPATULA CERVIX ENDOCERVIX [facility] Healthcar e ALL CBC WITH AUTO DIFFon BASOPHILS ABSOLUTE AUTO 0.1 [facility] Basophils/100 WBC (Bld) 0.5 % 0.2 - 2.0 % [facility] Eosinophils/100 WBC (Bld) 2.6 % 0.9 - 7.0 % [facility] Erythrocyte distribution width (RBC) [Ratio] 12.7 % 11.0 - 15.0 % [facility] Hematocrit (Bld) [Volume fraction] 41.2 % 36.0 - 48.0 % [facility] Health[facility] e Hemoglobin (Bld) [Mass/Vol] 14.3 g/dL 12.0 - 16.0 g/dL [facility] IMMATURE GRANULOCYTES ABS AUTO 0.04 High [facility] Immature granulocytes/100 WBC (Bld) 0.4 % 0.0 - 0.5 % [facility] Interpretation and review of laboratory results [facility] LY[facility]OLUTE AUTO 3.4 [facility] Lymphocytes/100 WBC (Bld) 33.7 % 20.5 - 60.0 % [facility] MCH (RBC) [Entitic mass] 33.3 pg 26.7 - 34.0 pg [facility] MCHC (RBC) [Mass/Vol] 34.7 g/dL 29.9 - 35.2 g/dL [facility] MCV (RBC) [Entitic vol] 95.8 fL 81.0 - 99.0 fL [facility] MONOCYTES ABSOLUTE AUTO 0.6 [facility] Monocytes/100 WBC (Bld) 6.2 % 1.7 - 12.0 % [facility] NEUTROPHILS ABSOLUTE AUTO 5.7 [facility] Neutrophils/100 WBC (Bld) 56.6 % 43.0 - 75.0 % [facility] Platelet mean volume (Bld) [Entitic vol] 12.4 fL 9.5 - 13.5 fL [facility] TBH EO # 0.3 [facility] PLT 200 [facility] TB RBC 4.3 [facility] TB WBC 10.1 [facility] Cytology Cervical or vaginal smear or scraping studyon 09-12-2023 [facility] COVID/FLU/RSV RT-PCRon 11-08 SARS-CoV-2 (COVID-19) RNA GUILLAUME+probe Ql (Unsp spec) Negative [facility] Other COVID/FLU/RSV RT-PCR Negative [facility] Other Quick Strepon 11-08-2022 S. pyogenes Org specific cx Ql (Throat) Negative [employer] [facility] [employer] Other Quick Strep [employer] [facility] [employer] Other PAP ACOG PANEL 2: 30 to 65on 09-11-2022 . . Normal [facility] Comment on above: Result Comment: Perf ormed at: WB Performed By: #### [id number] #### [facility] [address] [address] [address] Anyi Prescott Age Gdln ACOG Testing - Normal [facility] Comment on above: Performed By: #### [id number] #### [facility] [address] [address] [address] Anyi Prescott DIAGNOSIS: Comment [facility] Comment on above: Result Comment: NEGA TIVE FOR INTRAEPITHELIAL LESION OR MALIGNANCY. Performed at: WB Performed By: #### [id number] #### [facility] [address] [address] [address] Anyi Prescott HPV Aptima Negative Normal Negative [facility] Comment on above: Result Comment: This nucleic acid amplification test detects fourteen high-risk HPV types (16,18,31,33,35,39,45,51,52,56,58,59,66,68) without differentiation. Performed at: =G Performed By: #### [id number] #### [facility] [address] [address] [address] Anyi Prescott HPV Genotype Reflex Comment Normal [facility] Comment on above: Result Comment: Crit eria not met, HPV Genotype not performed. Performed at: WB Performed By: #### [id number] #### [facility] [address] [address] [address] Anyi Prescott Methodology: Comment [facility] Comment on above: Result Comment: This liquid based ThinPrep(R) pap test was screened with the use of an image guided system. Performed at: WB Performed By: #### [id number] #### [facility] [address] [place] [address] Dr. Anyi Prescott Note: Comment Normal [facility] Comment on above: Result Comment: The Pap smear is a screening test designed to aid in the detection of premalignant and malignant conditions of the uterine cervix. It is not a diagnostic procedure and should not be used as the sole means of detecting cervical cancer. Both false-positive and false-negative reports do occur. . Performed at: WB Performed By: #### [id number] #### [facility] [address] [place] [address] Dr. Anyi Prescott Performed by: Comment Normal [facility] Comment on above: Result Comment: Davin Zamarripa, [employer] ([employer]) Performed at: WB Performed By: #### [id number] #### [facility] [address] [place] [address] Dr. Anyi Prescott Specimen adequacy: Comment Normal [facility] Comment on above: Result Comment: Sati sfactory for evaluation. Endocervical and/or squamous metaplastic cells (endocervical component) are present. Performed at: WB Performed By: #### [id number] #### [facility] [address] [place] [address] Dr. Anyi Prescott CBC AUTO DIFFon 09-16-2021 BASO # 0.1 103/ul Normal 0.0-0.1 [facility] Comment on above: Performed By: #### C BC #### [facility] [address] [place] [address] Dr. Anyi Prescott Basophils/100 WBC (Bld) 0.6 % Normal 0.2-2.0 [facility] Comment on above: Performed By: #### C BC #### [facility] [address] [place] [address] Dr. Anyi Prescott EO # 0.3 103/ul Normal 0.0-0.7 [facility] Comment on above: Performed By: #### C BC #### [facility] [address] [place] [address] Dr. Anyi Prescott Eosinophils/100 WBC (Bld) 2.2 % Normal 0.9-7.0 [facility] Comment on above: Performed By: #### C BC #### [facility] [address] [place] [address] Dr. Anyi Prescott Erythrocyte distribution width (RBC) [Ratio] 12.9 % Normal 11.0-15.0 [facility] Comment on above: Performed By: #### C BC #### [facility] [address] [place] [address] Dr. Anyi Prescott Hematocrit (Bld) [Volume fraction] 46.2 % Normal 36.0-48.0 [facility] Comment on above: Performed By: #### C BC #### [facility] [address] [place] [address] Dr. Anyi Prescott Hemoglobin (Bld) [Mass/Vol] 15.2 g/dL Normal 12.0-16.0 [facility] Comment on above: Performed By: #### C BC #### [facility] [address] [place] [address] Dr. Anyi Prescott IG # 0.11 10e3/ul Critically high 0.00-0.03 [facility] Comment on above: Performed By: #### C BC #### [facility] [address] [place] [address] Dr. Anyi Prescott IG % 0.8 % Critically high 0.0-0.5 [facility] Comment on above: Performed By: #### C BC #### [facility] [address] [place] [address] Dr. Anyi Prescott LYMPH # 4.5 103/ul Critically high 1.2-3.8 [facility] Comment on above: Performed By: #### C BC #### [facility] [address] [place] [address] Dr. Anyi Prescott Lymphocytes/100 WBC (Bld) 33.6 % Normal 20.5-60.0 [facility] Comment on above: Performed By: #### C BC #### [facility] [address] [place] [address] Dr. Anyi Prescott MANUAL DIFF REQ NO Normal [facility] Comment on above: Performed By: #### C BC #### [facility] [address] [place] [address] Dr. Anyi Prescott MCH (RBC) [Entitic mass] 30.8 pg Normal 26.7-34.0 [facility] Comment on above: Performed By: #### C BC #### [facility] [address] [address] [address] Anyi Prescott MCHC (RBC) [Mass/Vol] 32.9 g/dL Normal 29.9-35.2 [facility] Comment on above: Performed By: #### C BC #### [facility] [address] [place] [address] Dr. Anyi Prescott MCV (RBC) [Entitic vol] 93.7 fL Normal 81.0-99.0 [facility] Comment on above: Performed By: #### C BC #### [facility] [address] [place] [address] Dr. Anyi Prescott MONO # 0.9 103/ul Critically high 0.3-0.8 [facility] Comment on above: Performed By: #### C BC #### [facility] [address] [place] [address] Dr. Anyi Prescott Monocytes/100 WBC (Bld) 6.4 % Normal 1.7-12.0 [facility] Comment on above: Performed By: #### C BC #### [facility] [address] [place] [address] Dr. Anyi Prescott NEUT # 7.6 103/ul Critically high 1.4-6.5 [facility] Comment on above: Performed By: #### C BC #### [facility] [address] [place] [address] Dr. Anyi Prescott Neutrophils/100 WBC (Bld) 56.4 % Normal 43.0-75.0 [facility] Comment on above: Performed By: #### C BC #### [facility] [address] [place] [address] Dr. Anyi Prescott Platelet mean volume (Bld) [Entitic vol] 10.4 fL Normal 9.5-13.5 [facility] Comment on above: Performed By: #### C BC #### [facility] [address] [place] [address] Dr. Anyi Prescott PLT 353 103/ul Normal 150-450 [facility] Comment on above: Performed By: #### C BC #### [facility] [address] [place] [address] Dr. Anyi Prescott RBC 4.93 106/ul Normal 4.20-5.40 [facility] Comment on above: Performed By: #### C BC #### [facility] [address] [place] [address] Dr. Anyi Prescott WBC 13.5 103/ul Critically high 4.0-11.0 [facility] Comment on above: Performed By: #### C BC #### [facility] [address] [place] [address] Dr. Anyi Prescott PREG QUANT HCGon 09-16-2021 HCG QUANT <1 Normal [facility] Comment on above: Performed By: #### P REGQNT #### [facility] [address] [place] [address] Dr. Anyi Prescott HCG RANGE SEE BELOW Normal [facility] Comment on above: Result Comment: 5-50 0-1 WEEK 40-300 1-2 WEEKS 100-1,000 2-3 WEEKS 500-6,000 3-4 WEEKS 5,000-200,000 1-2 MONTHS 10,000-100,000 2-3 MONTHS 3,000-50,000 2ND TRIMESTER 1,000-50,000 3RD TRIMESTER Performed By: #### P REGQNT #### [facility] [address] [place] [address] Dr. Anyi Prescott Coding Summary.on 11-19-2020 Coding Summary. CODING DATE: 11/19/2020 FINAL [facility] STATUS: PAYOR: Medicaid EA DESCRIPTION [id number] [...] result in slightly different terminology. Coded By: Leila ChauhanTheodora Date Saved: 11/19/2020 09:36 pm Normal [facility] SARS-CoV-2, NAAon 08-10-2020 SARS CORONAVIRUS 2 RNA:PRTHR:PT:RESPIR ATORY:ORD:PROBE.AMP .TAR Not Detected Not Detected [facility] Comment on above: Result Comment: This nucleic acid amplification test was developed and its performance characteristics determined by [employer]. Nucleic acid amplification tests include PCR and [...] detected) result in this assay. Performed at: [facility] [place], [place] [id number] MD Juan Pang Performed By: #### S ARS-CoV-2, GUILLAUME #### [facility] Laboratory [address] [place] [address] Physician Orderon 08-06-2020 Physician Order [id number]:127 Normal [facility] Vital Signs Date Time Vital Sign Value Performing Clinician Facility 09-16-2024 08:42-0500 Body mass index (BMI) [Ratio] 30.38 kg/m2 Ranjit Alyssa TAPQUAD Work Phone: [facility] 09-16-2024 08:42-0500 Body weight 88 kg Ranjit Alyssa DO Work Phone: [facility] 09-16-2024 08:42-0500 Diastolic blood pressure 72 mm[Hg] Ranjit Alyssa DO Work Phone: [facility] 09-16-2024 08:42-0500 Systolic blood pressure 122 mm[Hg] Ranjit Alyssa DO Work Phone: [facility] 09-09-2024 08:14-0500 Body height 170.2 cm Odell Handley MD Work Phone: [facility] 09-09-2024 08:14-0500 Body mass index (BMI) [Ratio] 30.85 kg/m2 Odell Handley MD Work Phone: [facility] 09-09-2024 08:14-0500 Body temperature 97.11 [degF] Odell Handley MD Work Phone: [facility] 09-09-2024 08:14-0500 Body weight 89.36 kg Odell Handley MD Work Phone: [facility] 09-09-2024 08:14-0500 Diastolic blood pressure 62 mm[Hg] Odell Handley MD Work Phone: [facility] 09-09-2024 08:14-0500 Heart rate 55 /min Odell Handley MD Work Phone: [facility] 09-09-2024 08:14-0500 Respiratory rate 20 /min Odell Handley MD Work Phone: [facility] 09-09-2024 08:14-0500 SaO2% (BldA) [Mass fraction] 96 % Odell Handley MD Work Phone: [facility] 09-09-2024 08:14-0500 Systolic blood pressure 140 mm[Hg] Odell Handley MD Work Phone: [facility] 12-13-2023 07:09-0500 Body height 170.2 cm Odell Handley MD Work Phone: [facility] 12-13-2023 07:09-0500 Body mass index (BMI) [Ratio] 33.36 kg/m2 Odell Handley MD Work Phone: [facility] 12-13-2023 07:09-0500 Body temperature 97.5 [degF] Odell Handley MD Work Phone: [facility] 12-13-2023 07:09-0500 Body weight 96.62 kg Odell Handley MD Work Phone: [facility] 12-13-2023 07:09-0500 Diastolic blood pressure 80 mm[Hg] Odell Handley MD Work Phone: [facility] 12-13-2023 07:09-0500 Heart rate 104 /min Odell Handley MD Work Phone: [facility] 12-13-2023 07:09-0500 SaO2% (BldA) [Mass fraction] 97 % Odell Handley MD Work Phone: [facility] 12-13-2023 07:09-0500 Systolic blood pressure 140 mm[Hg] Odell Handley MD Work Phone: [facility] 11-08-2022 10:30-0500 Body height 170.18 cm Qi Cueto Other [facility] Other 11-08-2022 10:30-0500 Body mass index (BMI) [Ratio] 33.67 kg/m2 Qi Cueto Other [facility] Other 11-08-2022 10:30-0500 Body temperature 97.7 [degF] Qi Cueto Other [facility] Other 11-08-2022 10:30-0500 Body weight 97.52 kg Qi Cueto Other [facility] Other 11-08-2022 10:30-0500 Respiratory rate 18 /min Qi Cueto Other [facility] Other 11-08-2022 10:30-0500 SaO2% (BldA) [Mass fraction] 92 % Qi Cueto Other [facility] Other Encounters Encounter Date Encounter Type Care Provider Facility Start: 09-23-2024 End: 09-23-2024 Refill Odell Handley MD Work Phone: [facility] Comment on above: Degeneration of inte rvertebral disc of lumbar region with discogenic back pain and lower extremity pain Start: 09-20-2024 End: 09-20-2024 Clinisync Result Encounter Odell Handley MD Work Phone: [facility] Unsolicited Start: 09-20-2024 End: 09-20-2024 Clinisync Result Encounter Odell Handley MD Work Phone: [facility] Unsolicited Start: 09-16-2024 End: 09-16-2024 Bamboo flowsheet Ranjit Alyssa DO Work Phone: [facility] Start: 09-16-2024 End: 09-24-2024 Bamboo flowsheet Ranjit Alyssa DO Work Phone: [facility] Start: 09-16-2024 End: 09-24-2024 Clinisync Result Encounter Ranjit Alyssa DO Work Phone: [facility] Unsolicited Start: 09-16-2024 End: 09-16-2024 Patient encounter procedure Ranjit Alyssa DO Work Phone: [facility] Start: 09-16-2024 End: 09-16-2024 Periodic preventive med est patient 40-64yrs Ranjit Alyssa DO Work Phone: [facility] Comment on above: Well woman exam with routine gynecological exam; Breast cancer screening by mammogram; Hidradenitis; Hidradenitis suppurativa Start: 09-16-2024 End: 09-16-2024 ambulatory RANJIT SHAH Not Available Start: 09-09-2024 End: 09-09-2024 Bamboo flowsheet Odell Handley MD Work Phone: [facility] Start: 09-09-2024 End: 09-09-2024 Bamboo flowsheet Odell Handley MD Work Phone: [facility] Start: 09-09-2024 End: 09-09-2024 Patient encounter procedure Odell Handley MD Work Phone: [facility] Work Phone: Start: 09-09-2024 End: 09-09-2024 Periodic preventive med est patient 40-64yrs Odell Handley MD Work Phone: [facility] Comment on above: Annual physical exam (Primary Dx); Colon cancer screening; Essential hypertension, benign (CMS/HCC); Degeneration of intervertebral disc of lumbar region with discogenic back pain Start: 09-09-2024 End: 09-09-2024 ambulatory ODELL HANDLEY Not Available Start: 08-21-2024 End: 08-21-2024 Orders Only Odell Handley MD Work Phone: [facility] Comment on above: Degeneration of inte rvertebral disc of lumbar region with discogenic back pain and lower extremity pain (Primary Dx) Start: 08-20-2024 End: 08-21-2024 Refill Odell Handley MD Work Phone: [facility] Comment on above: Degeneration of inte rvertebral disc of lumbar region with discogenic back pain and lower extremity pain (Primary Dx); Other intervertebral disc degeneration, lumbar region Start: 07-23-2024 End: 07-23-2024 Refill Odell Handley MD Work Phone: [facility] Comment on above: Other intervertebral disc degeneration, lumbar region Start: 06-23-2024 End: 06-24-2024 Refill Odell Handley MD Work Phone: [facility] Comment on above: SOB (shortness of br eath); Menopausal and female climacteric states; Other intervertebral disc degeneration, lumbar region Start: 06-06-2024 End: 06-06-2024 ambulatory ODELL HANDLEY Not Available Start: 03-18-2024 End: 03-18-2024 ambulatory ODELL HANDLEY Not Available Start: 12-13-2023 Bamboo flowsheet Odell Handley MD Work Phone: [facility] Start: 12-13-2023 Bamboo flowsheet Odell Handley MD Work Phone: [facility] Start: 12-13-2023 End: 12-13-2023 Office outpatient visit 25 minutes Odell Handley MD Work Phone: [facility] Comment on above: Essential hypertensi on, benign (CMS/HCC) (Primary Dx); MDD (major depressive disorder), recurrent episode, moderate (HCC) (CMS/HCC); Generalized anxiety disorder (CMS/HCC); Primary insomnia; DDD (degenerative disc disease), lumbar; DDD (degenerative disc disease), cervical; Seasonal allergic rhinitis due to pollen; SOB (shortness of breath) Start: 12-13-2023 End: 12-13-2023 ambulatory ODELL HANDLEY Not Available Start: 11-08-2022 End: 11-08-2022 ambulatory Qi Cueto Other [facility] Other Start: 11-08-2022 Office outpatient ne w 20 minutes Qi Cueto [facility] Start: 09-05-2022 End: 09-05-[address] REJI KAISER Facility:[facility]1 Start: 06-01-2022 End: 06-02-[address] REJI KAISER Facility:[facility] Start: 09-16-2021 End: 09-16-[address] REJI KAISER Facility:[facility] Procedures Date Procedure Procedure Detail Performing Clinician Start: 09-20-2024 ALL CBC WITH AUTO DIFF Odell Handley MD Work Phone: Start: 09-16-2024 IGP,APTIMA HPV,AGE GDLN Generic External Data Provider Start: 10-18-2023 Mammography Odell denis MD Work Phone: Start: 09-12-2023 Microscopic observat ion [Identifier] in Cervix by Cyto stain Ranjit Shah DO Work Phone: Start: 09-12-2023 Cytp cerv/vag auto t hin layer prep mnl screen Ranjit Shah DO Work Phone: Plan of Treatment Date Care Activity Detail Author Start: 09-12-2028 Screening for malign ant neoplasm of cervix [facility] Start: 09-15-2027 Screening for malign ant neoplasm of colon [facility] Start: 09-29-2025 End: 09-29-2025 Patient encounter procedure 09/29/2025 8:30 AM EST Office Visit [facility] [address] [place] [address] Ranjit Shah, DO [address] [place] [address] [facility] Start: 03-10-2025 End: 03-10-2025 Patient encounter procedure 03/10/2025 8:00 AM EDT Office Visit [facility] [address] [place] [phone] Odell Handley MD [address] [place] [phone] [facility] Start: 10-18-2024 Screening for malign ant neoplasm of breast Mammogram [facility] Start: 09-16-2024 End: 11-16-2025 MG Breast - bilateral Screening Bilateral screening mammogram Imaging Routine Breast cancer screening by mammogram Expected: 09/16/2024 (Approximate), Expires: 11/16/2025 [facility] Work Phone: Comment on above: Expected: 09/16/2024 (Approximate), Expires: 11/16/2025 Start: 09-16-2024 End: 09-16-2024 Patient encounter procedure 09/16/2024 8:30 AM EST Office Visit [facility] [address] [place] [address] Ranjit Shah DO [address] [place] [address] [place] [address] [facility] Start: 09-09-2024 End: 09-09-2025 Basic metabolic 1998 panel - Serum or Plasma Basic metabolic panel Lab Routine Annual physical exam Expected: 09/09/2024 (Approximate), Expires: 09/09/2025 [facility] Comment on above: Expected: 09/09/2024 (Approximate), Expires: 09/09/2025 Start: 09-09-2024 End: 09-09-2025 CBC W Auto Differential panel - Blood CBC and differential Lab Routine Annual physical exam Expected: 09/09/2024 (Approximate), Expires: 09/09/2025 [facility] Comment on above: Expected: 09/09/2024 (Approximate), Expires: 09/09/2025 Start: 09-09-2024 End: 09-09-2025 Hemoglobin A1c/Hemoglobin.total in Blood Hemoglobin A1c Lab Routine Annual physical exam Expected: 09/09/2024 (Approximate), Expires: 09/09/2025 [facility] Work Phone: Comment on above: Expected: 09/09/2024 (Approximate), Expires: 09/09/2025 Start: 09-09-2024 End: 09-09-2025 Hepatic function 2000 panel - Serum or Plasma Hepatic function panel Lab Routine Annual physical exam Expected: 09/09/2024 (Approximate), Expires: 09/09/2025 [facility] Comment on above: Expected: 09/09/2024 (Approximate), Expires: 09/09/2025 Start: 09-09-2024 End: 09-09-2025 Lipid 1996 panel - Serum or Plasma Lipid panel Lab Routine Annual physical exam Expected: 09/09/2024 (Approximate), Expires: 09/09/2025 [facility] Comment on above: Expected: 09/09/2024 (Approximate), Expires: 09/09/2025 Start: 09-09-2024 End: 09-09-2025 Noninvasive colorectal cancer DNA and occult blood screening [Presence] in Stool Cologuard colon cancer screening Lab Routine Colon cancer screening Expected: 09/09/2024 (Approximate), Expires: 09/09/2025 [facility] Comment on above: Expected: 09/09/2024 (Approximate), Expires: 09/09/2025 Start: 09-09-2024 End: 09-09-2025 Thyrotropin [Units/volume] in Serum or Plasma TSH Lab Routine Annual physical exam Expected: 09/09/2024 (Approximate), Expires: 09/09/2025 [facility] Comment on above: Expected: 09/09/2024 (Approximate), Expires: 09/09/2025 Start: 09-09-2024 End: 09-09-2024 Patient encounter procedure [facility] Comment on above: Arrived Start: 06-30-2024 Influenza vaccination Influenza Vacc ine (#1) [facility] Start: 03-18-2024 End: 03-18-2024 Patient encounter procedure 03/18/2024 8:30 AM EDT Office Visit [facility] [address] [place] [phone] Odell Handley MD [address] [place] [phone] [facility] Start: 12-13-2023 End: 12-13-2023 Patient encounter procedure 12/13/2023 7:00 AM EST Office Visit [facility] [address] [place] [phone] Odell Handley MD [address] [place] [phone] Arrived [facility] Comment on above: Arrived Start: 06-30-2023 Influenza vaccination Influenza Vacc ine (#1) [facility] Start: 2008 Screening for malign ant neoplasm of cervix [facility] Start: 1999 Screening for malign ant neoplasm of cervix Pap Smear [facility] Start: 1978 Screening for malign ant neoplasm of colon [facility] THIN PREP TIS PAP AN D HR HPV DNA THIN PREP TIS PAP AND HR HPV DNA Pathology and Cytology Routine Well woman exam with routine gynecological exam Ordered: 09/16/2024 [facility] Comment on above: Ordered: 09/16/2024 Immunizations Immunization Date Immunization Notes Care Provider Fa [facility] 08-27-2021 influenza virus vacc ine, unspecified formulation Odell Handley MD Work Phone: [facility] Payers Date Payer Category Payer Medicaid [employer] [place] [id number] 2018-Present [address] [place] [id number] 2018 Private Health Insurance [facility] MEDICAID [id number] 2018 Medicaid [id number] 1978 Unknown [id number] 593 1978 Unknown [id number] [id number]. 593 1978 Unknown [id number]. 593 1978 Unknown [id number]. 1259 1978 Unknown [id number]. 9 1978 Unknown [id number] [id number]. 9 1978 Unknown [id number] [id number]. 9 1978 Unknown [id number] [id number]. 1259 1959 Unknown [id number] Social History Date Type Detail Facility Unknown if ever smoked [facility] Other Start: 12-06-2023 End: 12-13-2023 Sex Assigned At [facility] Start: 11-21-2023 End: 12-13-2023 Tobacco smoking status [facility] Smokes tobacco daily [facility] History of tobacco use Cigarette Smoker [facility] Start: 12-13-2023 Tobacco use and exposure Smokeless tobacco non-user [facility] Start: 12-06-2023 End: 12-13-2023 History of Social function [facility] Within the last year , have you been afraid of your partner or ex-partner? No [facility] How often do you att end yarsanism or spiritism services? Patient refused [facility] Are you [...] disc disease), lumbar 12/13/2023 Generalized anxiety disorder ([facility]/HCC) 12/13/2023 Mild recurrent major depression (HCC) (CMS/HCC) 12/13/2023 Polycystic ovary syndrome 12/13/2023 Primary insomnia 12/13/2023 Seasonal allergic rhinitis due to pollen 12/13/2023 Obesity (BMI 30-39.9) 12/13/2023 Menopausal and female climacteric states 03/18/2024 Annual physical exam 09/09/2024 Resolved Ambulatory Problems Diagnosis Date Noted Acute UTI 06/06/2024 Past Medical History: Diagnosis Date High blood pressure (CMS/HCC) High cholesterol (CMS/HCC) HISTORY PAST MEDICAL HISTORY SOCIAL HISTORY Past Medical History: Diagnosis Date High blood pressure (CMS/HCC) High cholesterol (CMS/HCC) Social History Tobacco Use Smoking status: Every [...] nursing note reviewed. Exam conducted with a professor of religion present. Vitals: Estimated body mass index is [...] Ranjit Shah DO documented in this encounter [facility] 09-09-2024 History of Presen t illness Narrative [...] colon cancer screening documented in this encounter [facility] 12-13-2023 History of Presen t illness Narrative [...] medication and continue. documented in this encounter [facility] 11-08-2022 Evaluation note Encounter Date Diagnosis Assessment [...] Pneumonia: adult home care material was printed [facility] Other 08-04-2022 NotePROCEDURE: XR HAND LT MIN 3V HISTORY: Pain of left hand ; first and second metacarpal pain for couple months; no known injury COMPARISON: None. FINDINGS: BONES:No fracture, acute abnormality, or significant arthropathy. SOFT TISSUES:No visible soft tissue swelling. EFFUSION:None visible. OTHER: Negative. IMPRESSION: 1. Normal examination. Electronically authenticated by: GERALDO MARTINEZ Date: 2022-06-02 06:29[facility]11-18-2021 [place], [place] NAME: YVONNE DAWKINS DATE OF : MEDICAL REC#: [id number] DATA CONVERSION DEVELOPER: MIKAELA TAN ADMIT DATE: 09/16/2021 11:25:00 [employer]CCUPATIONAL HEALTH AND SAFETY OFFICER DATE: 09/17/2021 07:00 DICTATING PHYSICIAN: RANJIT SHAH DICTATION DATE: 09/16/2021 15:00 OPERATIVE NOTE OPERATION DATE: 09-16 ANESTHETIC: RISK CONTROL REPRESENTATIVE:Crystal Araceli, [employer] PREOPERATIVE DIAGNOSIS: 1. Abnormal uterine bleeding. 2. [...] sounds. The patient was gently sounded using [employer] dilators and the hysteroscope was passed through [...] Ranjit Shah DO on 09/17/2021 08:36 AM [facility] Signed and Approved by: DR RANJIT SHAH . 09/17/2021 08:36:00[facility] Hospital[facility]* Diagnosis Essential hypertension, benign (CMS/HCC)- [...] suppurativa Hidradenitis documented in this encounter [facility]* [...] of lumbar region with discogenic back pain Degeneration of intervertebral disc of lumbar region with discogenic back pain and lower extremity pain documented in this encounter [facility]* Diagnosis SOB (shortness of breath) Shortness of breath Menopausal and female climacteric states Other intervertebral disc degeneration, lumbar region documented in this encounter [facility]* Diagnosis Other intervertebral disc degeneration, lumbar region documented in this encounter [facility] Narrative - Reported* Type Description Date Medical History Osteorthritis of Lumbar Spine Medical History seasonal allergies Medical History polycystic ovaries Medical History HTN Surgical History Neck Surgery Surgical History back surgery Surgical History Lumbar injections Surgical History ablation Surgical History tubal ligation Hospitalization History see above [facility] Other Summary Purpose Family History No Family History Records FoundNo Family History Records FoundNo Family History Records Found Advance Directives No Advanced Directives Records FoundNo Advanced Directives Records FoundNo Advanced Directives Records Found Additional Source Comments INFORMATION SOURCE (unrecogn ized section and content) DATE CREATED AUTHOR 11/20/2020 Vickey JETME [facility] DATE CREATED AUTHOR AUTHOR'S ORGANIZ ATION 09/11/2022 Abhijeet Augustine [facility] DATE CREATED AUTHOR AUTHOR'S ORGANIZ ATION 09/17/2024 [facility] d[facility] Specialists EPIC REASON FOR VISIT (unrecogniz ed section and content) Reason Comments Follow-up 6m Reason Onset Date Comments Med Refill 08/20/2024 Reason Comments Follow-up 6 m Reason Comments Gynecologic Exam Reason Onset Date Comments Med Refill 09/23/2024 Reason Onset Date Comments Med Refill 06/23/2024 Reason Onset Date Comments Med Refill 07/23/2024 Care Teams (unrecognized sec tion and content) Clearance Coordinator Relationship Specialty Start Date End Date Odell Handley MD [address] [place] [phone] PCP - General Family Medicine 11/20/23 Clearance Coordinator Relationship Specialty Start Date End Date Odell Handley MD [address] [place] [phone] PCP - General Family Medicine 11/20/23 Clearance Coordinator Relationship Specialty Start Date End Date Odell Handley MD [address] [place] [phone] PCP - General Family Medicine 11/20/23 Clearance Coordinator Relationship Specialty Start Date End Date Odell Handley MD [address] [place] [phone] PCP - General Family Medicine 11/20/23 Clearance Coordinator Relationship Specialty Start Date End Date Odell Handley MD [address] [place] [phone] PCP - General Family Medicine 11/20/23 Odell Handley MD [address] [place] [phone] PCP [facility] 07/30/24 Clearance Coordinator Relationship Specialty Start Date End Date Odell Handley MD [address] [place] [address] PCP - [facility] 11/20/23 Odell Handley MD [address] [place] [address] [facility] 07/30/24 Clearance Coordinator Relationship Specialty Start Date End Date Odell Handley MD [address] [place] [address] PCP [facility] 11/20/23 Odell Handley MD [address] [place] [phone] [facility] 07/30/24 Clearance Coordinator Relationship Specialty Start Date End Date Odell Handley MD [address] [place] [phone] [facility] 11/20/23 Odell Handley MD [address] [place] [phone] [facility] 07/30/24 Clearance Coordinator Relationship Specialty Start Date End Date Odell Handley MD [address] [place] [phone] [facility] 11/20/23 Odell Handley MD [address] [place] [phone] [facility] 07/30/24 Clearance Coordinator Relationship Specialty Start Date End Date Odell Handley MD [address] [place] [phone] [facility] 11/20/23 Odell Handley MD [address] [place] [phone] [facility] 07/30/24 Clearance Coordinator Relationship Specialty Start Date End Date Odell Handley MD [address] [place] [phone] [facility] 11/20/23 Clearance Coordinator Relationship Specialty Start Date End Date Odell Handley MD [address] [place] [phone] [facility] 11/20/23 FOR RECORDS PERTAINING TO PATIENTS WHO ARE [...] BE BASED ON THE PRIMARY CLINICAL RECORDS. [facility] [employer] [facility]. provides no warranty or guarantee of the accuracy or completeness of information in this document.
--- NOTE | 2024-10-18 14:20 | MM_ITS ---
Patient Name: MORALES PALACIOS MR#: [id number] : 1980 Exam Date: 10/18/2024 Ordering Doctor: DR Heath Shah . RADIOLOGY REPORT PROCEDURE: MM TOMOSYNTHESIS SCREENING BI COMPARISON: MM TOMOSYNTHESIS SCREENING BI, 10/17/2023. INDICATIONS: Screening Calculator Name NCI Breast Cancer Risk Assessment Tool 5 Year Breast Cancer Risk 1.80% Lifetime Breast Cancer Risk 19.30% Personal Breast Cancer No Personal Ovarian Cancer No Treatments None Family Cancers Mother with breast cancer at age 60; Aunt-maternal with breast cancer at age ~60. LOCATION: [facility] BREAST COMPOSITION: The breasts are heterogeneously dense,which may obscure small masses. FINDINGS: DIAGNOSTIC CATEGORY 1--NEGATIVE. NO CHANGE FROM COMPARISON ASSESSMENT. Scattered benign-appearing nodules are present. Scattered benign-appearing calcifications are present. RIGHT BREAST: No significant suspicious finding. LEFT BREAST: No significant suspicious finding. RECOMMENDATIONS: ROUTINE MAMMOGRAM AND CLINICAL EVALUATION IN 12 MONTHS. PLEASE NOTE: A NORMAL MAMMOGRAM DOES NOT EXCLUDE THE POSSIBILITY OF BREAST CANCER. A CLINICALLY SUSPICIOUS PALPABLE LUMP SHOULD BE BIOPSIED. Dictated by: Schuyler Azevedo MD on 10/21/2024 at 07:46 Approved by: Schuyler Azevedo MD on 10/21/2024 at 07:47
== END 2024-10-18 13:51 | disposition home or self-care (01) ==
LOC: MAMMO 13:50
PROVIDERS: PCP Family Medicine; Visit Provider Obstetrics & Gynecology
DX: Z12.31 Encounter for screening mammogram for malignant neoplasm of breast (principal); Z80.3 Family history of malignant neoplasm of breast
CPT/HCPCS: 77063; 77067

== ENCOUNTER 2025-05-22 14:12 | Outpatient (OUT) | payer OTHER, SELFPAY ==
--- NOTE | 2025-05-22 14:19 | XR_ITS ---
The [place] [id number] Patient Name: MORALES PALACIOS MRN: [id number] date: 1980 Sex: F Assigned Patient Location: [facility] Current Patient Location: [facility] Accession/Order Number: [id number] Exam Date: 05/22/2025 15:07 Report Date: 05/22/2025 15:07 At the request of: ERICK HANDLEY MD Procedure: XR hip LT min 2V LEFT HIP - 2 views: CLINICAL HISTORY: Chronic left hip pain for 4 months. COMPARISON: None FINDINGS: No acute bony process. Calcification in the region of the labrum suggestive of prior injury. Joint space appears maintained. XR/XR hip LT min 2V IMPRESSION: NO ACUTE BONY PROCESS.. Impression dictated by: Pau Caldwell Jr.OMiranda 05/22/2025 3:07 PM Dictation Location: [place] [address] Electronically authenticated by: [id number] Y Date: 05/22/2025 15:07
== END 2025-05-22 14:13 | disposition home or self-care (01) ==
LOC: RAD 14:14
PROVIDERS: PCP Family Medicine; Visit Provider Family Medicine
DX: M25.552 Pain in left hip (principal)
CPT/HCPCS: 73502

== ENCOUNTER 2025-08-29 06:55 | Outpatient (OUT) | payer OTHER, SELFPAY ==
--- OUTSIDE RECORDS SUMMARY | 2021-08-27 07:15 | XMS_ITS | Continuity of Care Document ---
Author Organization [facility] Address [address] [place] [address] Phone Care Team Providers Care Bleach Chlorinator Name Role Phone Jhonny Ny Unavailable Unavailable Procedures Procedure Date FLU VAC NO PRSV 4 CAPRICE 3 YRS+ Moderna Booster Moderna Booster IMMUNIZATION ADMIN, EACH ADD IMMUNIZATION ADMIN Moderna COVID Vaccine Admin Dose 2 Moderna COVID-19 Vaccine Moderna COVID Vaccine Admin Dose 1 Moderna COVID-19 Vaccine Advance Directives Directive Yes / No Effective Date File Name No Information Encounters Encounter Description Practice Location Reason(s) For Visit Diagnoses Date Provider Providers Copied on Encounter [facility], [address] [place], [place], [id number], tel:[phone] [facility] No Information Christa Boothe. [address], [place], [id number], [place]. tel:[phone] [facility], [address], [place], [id number], [place] tel:[phone] [facility] No Information Christa Boothe. [address] [place], [place], [id number], [place]. tel:[phone] [facility], [address] [place] [address], [id number], tel:[phone] [facility] No Information Christa Boothe. [address] [place] [address], [id number], [place]. tel:[phone] Family History Family Member Type Diagnosis Age At Onset No Information Immunizations Vaccine Date Status Comments Moderna Booster administered Source: New Immunization Record Flulaval/ Fluarix administered Source: Ne w Immunization Record Moderna COVID administered Source: New Im munization Record Moderna COVID administered Source: New Im munization Record Payers Payer name Insurance type Covered libertarian ID Authoriza tion(s) Medicaid [facility] [id number] Medicaid [place] [facility] [place] [id number] [place] [facility] [place] [id number] Medicaid [place] [facility] [place] [id number] Social History Type Description Quantity Date Captured Comments Alcohol Use Details Unknown Caffeine Use Details Unknown Tobacco Use Status No Information Smoking Status No Information Sex Female Sexual Orientation Straight or heterosexual Gender Identity Female Chief Complaint And Reason For Visit No Information Reason For Referral Reason For Referral No Information History Of Present Illness Encounter Date Complaint History Of Prese nt Illness No Information Functional Status Date Functional Assessmen t No Information Instructions Date Instruction Additional Infor mation No Information Assessments Type Assessment Date No Information Patient Care Teams Name Effective Dates (start - stop) Status Members No Information
--- NOTE | 2025-08-29 06:58 | MR_ITS ---
The [address] [address] Patient Name: MORALES PLAACIOS MRN: [id number]:[id number] date: 1980 Sex: F Assigned Patient Location: MRI Current Patient Location: MRI Accession/Order Number: [id number] Exam Date: 08/29/2025 07:00 Report Date: 08/29/2025 17:29 At the request of: ERICK HANDLEY MD Procedure: MR lumbar spine wo con MRI lumbar spine performed without contrast INDICATION: Degeneration of intervertebral disc of lumbar region, left-sided radicular symptoms. COMPARISON: Lumbar spine x-rays 06/12/2023 FINDINGS: Lumbar vertebral heights maintained. There is diffusely diminished marrow signal which can BE seen with red marrow conversion. Moderate to severe disc space disease L5-S1 with associated Modic 2/3 endplate changes. Moderate disc space narrowing at L3-4. Sclerosis noted deformities notably L3-4. Remaining disc space heights are grossly preserved. The conus medullaris transdermally at the superior plate of L2. Paraspinal soft tissues are unremarkable. T12-L2: No significant disc disease disc protrusion central canal or neural from narrowing identified. Mild facet arthropathy. L2-3: No significant disc disease or disc protrusion. There is mild facet arthropathy. Minor foraminal narrowing. L3-4: Circumferential disc bulge with superimposed right foraminal to extraforaminal zone extrusion. This causes moderate bilateral right greater than left neural foraminal narrowing. There is moderate facet arthropathy. There is moderate severe right and left subarticular recess narrowing encroaching upon the both L4 nerve roots. . Moderate facet arthropathy. There is moderate central canal stenosis. L4-5: Circumferential disc bulge with moderate facet arthropathy. Mild right and fmxd-bo-tecjmyck left neural from narrowing. Mild central canal stenosis. L5-S1: Circumferential disc bulge with superimposed left subarticular zone to foraminal zone extrusion which displaces the left S1 nerve root. There is moderate severe bilateral left greater than right neural from narrowing. Cwim-dq-kidnppex central canal stenosis. MR/MR lumbar spine wo con IMPRESSION: Multilevel degenerative changes notably L3-4 and L5-S1 with left subarticular to foraminal zone extrusion displacing the left S1 nerve roots, correlate with left S1 radiculopathy. Otherwise there is moderate canal and neural foramina narrowing at L3-L4 effacement of both subarticular zones, correlate with possible L4 radiculopathy Impression dictated by: Charles Richey M.D. 08/29/2025 5:29 PM Dictation Location: [place] [address] Electronically authenticated by: [id number] Y Date: 08/29/2025 17:29
--- OUTSIDE RECORDS SUMMARY | 2025-08-29 06:58 | XMS_ITS | CCD ---
Author Organization [facility] CliniSyfl Care Team Providers Care Stonework Tracer Name Role Phone HOUSE, DR MENDOZA Primary Care Unavailable ALYSSA, DR CHURCH Attending Unavailable ALYSSA, DR CHURCH Consulting Unavailable ALYSSA, DR CHURCH Admitting Unavailable DORKOJORGE, ALEXANDRA Consulting Unavailable HOUSE, DR MENDOZA Primary Care Unavailable ALYSSA, DR CHURCH Attending Unavailable ALYSSA, DR CHURCH Consulting Unavailable ALYSSA, DR CHURCH Admitting Unavailable HOUSE, DR MENDOZA Attending Unavailable HOUSE, DR MENDOZA Consulting Unavailable HOUSE, DR MENDOZA Primary Care Unavailable HOUSE, DR MENDOZA Admitting Unavailable ZIEBER, DR GERALDO Aranda Consulting Unavailable Qi Cueto Unavailable Odell Handley MD Primary Care Provider Odell Handley MD Unavailable ODELL HANDLEY Attending Unavailable AKHIL JEROME Attending Unavailable NADERERODELL Referring Unavailable BROWNCARLOS Attending Unavailable NADERERODELL Referring Unavailable KELBLEY, LIZA Attending Unavailable NADERER, ODELL Referring Unavailable KELBLEY, LIZA Attending Unavailable NADERER, ODELL Referring Unavailable KELBLEY, LIZA Attending Unavailable NADERER, ODELL Referring Unavailable BROWNCARLOS Attending Unavailable NADERER, ODELL Referring Unavailable NEETU ALMAGUER Attending Unavailable NADERER, ODELL Referring Unavailable KELBLEY, LIZA Attending Unavailable NADERERosi, ODELL Referring Unavailable BROWNCARLOS Attending Unavailable NADERER, ODELL Referring Unavailable NADERER, ODELL Attending Unavailable KELBLEY, LIZA Attending Unavailable NADERER, ODELL Referring Unavailable KELBLEY, LIZA Attending Unavailable NADERER, ODELL Referring Unavailable KELBLEY, LIZA Attending Unavailable NADERERosi, ODELL Referring Unavailable NEETU ALMAGUER Attending Unavailable NADERER, ODELL Referring Unavailable KELBLEY, LIZA Attending Unavailable NADERER, ODELL Referring Unavailable NADERER, ODELL Attending Unavailable HEATH SHAH Attending Unavailable Odell Handley MD Primary Care Provider Odell Handley MD Attending Provider Odell Handley MD Primary Care Provider [phone] Odell Handley MD Primary Care Provider Odell Handley MD Unavailable Allergies Allergy ClassificationReported Allergen(s)Allergy TypeDate of OnsetReaction(s) Facility (1 source)bee venomDrug allergy (disorder)[facility] Rep[facility] (1 source)CodeineDrug [id number] [facility] Repository (20 sources)CodeineDrug [id number] intoleranceNOFreeman [facility] & [facility] Work Phone: (20 sources)Honey bee venomAllergy to -30-9092HtitpddXUN[facility] Medications Current Medications MedicationDrug Class(es)DatesSig (Normalized)Sig (Original)acetaminophen 325 mg / oxyCODONE hydrochloride 5 mg oral tablet (20 sources)Opioid AgonistStart: 44-48-3269mfrw 1 tablet by mouth four times daily as needed for painOxycodone-Acetaminophen (Percocet) 5-325 mg tablet Active 1 TAB PO Four times daily as needed for pain 120 July 21, 2025 Complies with drug therapyStart: 12-23-2024 End: 17-44-1714yrei 1 tablet by mouth four times daily as needed for pain oxyCODONE-acetaminophen (Percocet) 5-325 MG tablet Indications: 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 and lower extremity pain Take 1 tablet by mouth 4 (four)times a day as needed for severe pain 120 tablet 05/21/2025 06/19/2025 Discontinued (Reorder)Start: 05-23-2024 End: 88-04-6982gvsf 1 tablet by mouth four times daily as needed for pain oxyCODONE-acetaminophen (Percocet) 5-325 MG tablet Indications: 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 and lower extremity pain Take 1 tablet by mouth 4 (four)times a day as needed for severe pain 120 tablet 11/21/2024 12/20/2024 Discontinued (Reorder)Start: 11-27-2023 End: 91-19-6753tfhb 1 tablet by mouth four times daily as needed for pain oxyCODONE-acetaminophen (Percocet) 5-325 MG tablet Indications: Other intervertebral disc degeneration, lumbar region Take 1 tablet by mouth 4 (four) times a day as needed for severe pain 120 tablet 0 11/27/2023 12/27/2023 Active [id number] 200 actuat albuterol 0.09 mg/actuat metered dose inhaler (20 sources)beta2-Adrenergic AgonistStart: 58-46-8201hqqn 1 puff(s) by inhalation every four hours as neededAlbuterol Sulfate 90 mcg/actuation HFA aerosol inhaler Active 2 PUFF INHALATION Every 4 hours as needed August 12, 2025 12:00am Complies with drug therapyStart: 02-26-2024 End: 64-11-0281uqaz 2 puff(s) by inhalation every four hours for wheezing albuterol HFA (Ventolin HFA) 90 mcg/act inhaler Indications: SOB (shortness of breath) Inhale 2 puffs every 4 (four) hours if needed for wheezing 8.5 g 3 06/24/2024 ActiveStart: 98-07-2680iqtx 2 puff(s) by inhalation every four hours for wheezingalbuterol HFA (Ventolin HFA) 90 mcg/act inhaler Indications: SOB (shortness of breath) Inhale 2 puffs every 4 (four) hours if needed for wheezing 8.5 g 3 12/13/2023 ActiveStart: 67-61-0512iyvs 2 puff(s) by inhalation every four hours for wheezingalbuterol HFA (Ventolin HFA) 90 mcg/act inhaler Indications: SOB (shortness of breath) Inhale 2 puffs every 4 (four) hours if needed for wheezing 8.5 g 3 12/13/2023 ActiveStart: 11-08-2022 End: 73-20-5658hgmd 2 puff(s) by inhalation every four hours for wheezing Ventolin HFA 108 (90 Base) MCG/ACT inhaler Inhale 2 puffs every 4 (four) hours if needed for wheezing. 0 11/08/2022 12/13/2023 Discontinued (Reorder)Start: 41-48-3119rpvt 2 puff(s) by inhalation every four hours as neededAlbuterol Sulfate HFA 108 (90 Base) MCG/ACT 2 puffs as needed Inhalation every 4 hrs Oct, ActiveALPRAZolam (1 source)BenzodiazepineALPRAZolam Activeamoxicillin 875 mg oral tablet (1 source)Penicillin-class AntibacterialStart: 49-74-0617qxzn 1 tablet by mouth every eight hoursAmoxicillin 875 MG 1 tablet Orally every 8 hrs for 10 day(s) Oct, Mjmlsb84 hr buPROPion hydrochloride 300 mg extended release oral tablet (20 sources)AminoketoneStart: 10-43-5538yveq 1 tablet by mouth once daily in the morningBupropion Hcl 300 mg tablet extended release 24 hr Active 300 MG PO Every morning August 12, 2025 12:00am Complies with drug therapyStart: 03-06-2025 take 1 tablet by mouth once dailybuPROPion XL (Wellbutrin XL) 300 MG 24 hr tablet Indications: Generalized anxiety disorder TAKE 1 TABLET BY MOUTH ONCE DAILY 30 tablet 03/06/2025 ActiveStart: 69-16-0611nemo 1 tablet by mouth once dailybuPROPion XL (Wellbutrin XL) 300 MG 24 hr tablet Indications: Generalized anxiety disorder (CMS/HCC) TAKE 1 TABLET BY MOUTH DAILY 30 tablet 5 08/29/2024 ActiveStart: 55-51-0670czqn 1 tablet by mouth once dailybuPROPion XL (Wellbutrin XL) 300 MG 24 hr tablet Indications: Generalized anxiety disorder (CMS/HCC) TAKE 1 TABLET BY MOUTH DAILY 30 tablet 5 03/04/2024 Activetake 1 tablet by mouth every twenty-four hours in the morningbuPROPion XL (Wellbutrin XL) 300 MG 24 hr tablet Take 300 mg by mouth in the morning. 0 ActiveBuPROPion HBr Active buPROPion HCl ER (XL) Activecelecoxib 200 mg oral capsule (20 sources)Nonsteroidal Anti-inflammatory DrugStart: 16-69-3288wkye 1 capsule by mouth twice daily as needed for painCelecoxib 200 mg capsule Active 200 MG PO Twice daily as needed for pain August 12, 2025 12:00amComplies with drug therapyStart: 21-30-2440gfad 1 capsule by mouth twice daily as needed for pain celecoxib (CeleBREX) 200 MG capsule Indications: Degeneration of intervertebral disc of lumbar region with discogenic back pain TAKE 1 CAPSULE BY MOUTH TWICE DAILY NEEDED for mild pain WITH FOOD 60 capsule 5 03/06/2025 ActiveStart: 21-38-1435oguh 1 capsule by mouth twice daily as needed for paincelecoxib (CeleBREX) 200 MG capsule Indications: Degeneration of intervertebral disc of lumbar region with discogenic back pain Take 1 capsule (200 mg) by mouth 2 (two) times a day as needed for mildpain Take with food 60 capsule 5 09/09/2024 Active cetirizine hydrochloride 10 mg oral tablet (20 sources)Histamine-1 Receptor AntagonistStart: 46-96-5870nnza 1 tablet by mouth once daily as neededCetirizine 10 mg tablet Active 10 MG PO Daily as needed August 12, 2025 12:00am Complies with drug therapyStart: 03-06-2025 take 1 tablet by mouth once dailycetirizine (ZyrTEC) 10 MG tablet Indications: Seasonal allergic rhinitis due to pollen TAKE 1 TABLET BY MOUTH ONCE DAILY 30 tablet 5 03/06/2025 ActiveStart: 51-02-4378jaco 1 tablet by mouth once daily Allergy Relief Cetirizine 10 MG tablet Indications: Seasonal allergic rhinitis due to pollen TAKE 1TABLET BY MOUTH DAILY 30 tablet 5 08/29/2024 ActiveStart: 17-12-8163wzlo 1 tablet by mouth once dailycetirizine (ZyrTEC) 10 MG tablet Indications: Seasonal allergic rhinitis due to pollen TAKE 1 TABLET BY MOUTH DAILY 30 tablet 5 03/04/2024 Activetake 1 tablet by mouth in the morning cetirizine (ZyrTEC) 10 MG tablet Take 10 mg by mouth in the morning. 0 Active Zyrtec ActiveCetirizine HCl Activeclindamycin 10 mg/ml topical lotion (20 sources)Lincosamide AntibacterialStart: 63-34-5258Yzkgupxhjvc Phosphate 1 % lotion Active 1 APPLIC TOPICAL Daily August 12, 2025 12:00am Complies with drug therapyStart: 09-18-2024 End: 26-29-7246lbmvoqzivup (Cleocin T) 1 % lotion Indications: Hidradenitis suppurativa Apply topically Daily As directed to affected areas 60 mL 3 09/18/2024 09/18/2025 ActiveStart: 21-55-1637yamf 2 capsules by mouth every eight hoursClindamycin HCl 300 MG 2 capsules Orally every 8 hrs for 7 days Jan, Not-Takingcyclobenzaprine hydrochloride 10 mg oral tablet (20 sources)Muscle RelaxantStart: 06-26-1096zfaa 1 tablet by mouth three times daily as neededCyclobenzaprine 10 mg tablet Active 10 MG PO Three times daily as needed August 12, 2025 12:00amComplies with drug therapyStart: 53-05-5016qkyi 1 tablet by mouth three times daily as neededcyclobenzaprine (Flexeril) 10 MG tablet Indications: Degeneration of intervertebral disc of lumbar region, unspecified whether pain present TAKE 1 TABLET BY MOUTH THREE TIMES DAILY NEEDED 90 tablet 5 03/06/2025 ActiveStart: 18-78-3280iymb 1 tablet by mouth three times daily as neededcyclobenzaprine (Flexeril) 10 MG tablet Indications: Degeneration of intervertebral disc of lumbar region, unspecified whether pain present TAKE 1 TABLET BY MOUTH THREE TIMES DAILY NEEDED 90 tablet 5 08/29/2024 ActiveStart: 22-79-2062kbgh 1 tablet by mouth three times daily as neededcyclobenzaprine (Flexeril) 10 MG tablet Indications: Other intervertebral disc degeneration, lumbarregion TAKE 1 TABLET BY MOUTH THREE TIMES DAILY NEEDED 90 tablet 5 03/04/2024 ActiveStart: 88-00-8959sobl 1 tablet by mouth three times daily as needed for muscle spasmscyclobenzaprine (Flexeril) 10 MG tablet Take 10 mg by mouth 3 (three) times a day as needed for muscle spasms. 0 08/15/2023 ActiveFlexeril ActiveCyclobenzaprine HCl Activedexamethasone 1 mg/ml / tobramycin 3 mg/ml ophthalmic suspension (1 source)Aminoglycoside Antibacterial, CorticosteroidStart: 74-18-9117lkbr 1 drop(s) into the eye(s) three times dailyTobraDex 0.3-0.1 % 1 drop into affected eye Ophthalmic Three times a day for 5 days Oct, Activediclofenac sodium 75 mg delayed release oral tablet (10 sources)Nonsteroidal Anti-inflammatory DrugStart: 08-29-2024 End: 23-08-0969lhww 1 tablet by mouth twice daily as neededdiclofenac (Voltaren) 75 MG EC tablet Indications: Degeneration of intervertebral disc of lumbar reg ion, unspecified whether pain present TAKE 1 TABLET BY MOUTH TWICE DAILY NEEDED 60 tablet 5 08/29/2024 09/09/2024 DiscontinuedStart: 25-79-6770ntrl 1 tablet by mouth twice daily as neededdiclofenac (Voltaren) 75 MG EC tablet Indications: Other intervertebral disc degeneration, lumbar region TAKE 1 TABLET BY MOUTH TWICE DAILY NEEDED 60 tablet 5 03/04/2024 ActiveStart: 08-15-2023 take 1 tablet by mouth twice daily as neededdiclofenac (Voltaren) 75 MG EC tablet Take 75 mg by mouth 2 (two) times a day as needed (as needed). 0 08/15/2023 Activeestrogens, conjugated (detention) 0.625 mg/ml vaginal cream (18 sources)EstrogenStart: 03-18-2024 End: 70-94-2293Zdyyeymfg Conjugated (Premarin) 0.625 MG/GM cream Indications: Menopausal and female climacteric states Insert 0.5 g into the vagina 3 (three) times a week 30 g 3 06/24/2024 Activeestrogens, conjugated (detention) 0.45 mg / medroxyPROGESTERone acetate 1.5 mg oral tablet (20 sources)Progestin, EstrogenStart: 75-53-4111vgrq 0.45-1.5 mg by mouth once dailyConj Estrog-Medroxyprogest Brien (Prempro) 0.45-1.5 mg tablet Active 1 TAB PO Daily August 12, 2025 12:00am Complies with drug therapyStart: 14-59-3690ipod 1 tablet by mouth once dailyPrempro 0.45-1.5 MG tablet Indications: Hidradenitis TAKE 1 TABLET BY MOUTH EVERY DAY 28 tablet 3 02/13/2025 ActiveStart: 09-16-2024 End: 38-22-5449gbys 0.3-1.5 mg by mouth once dailyestrogen, conjugated,- medroxyPROGESTERone (Prempro) 0.3-1.5 MG tablet Indications: Well woman exam w ith routine gynecological exam Take 1 tablet by mouth Daily 30 tablet 11 09/16/2024 03/10/2025 Discontinuedfluticasone propionate 0.05 mg/actuat metered dose nasal spray (20 sources)CorticosteroidStart: 22-91-8320ttjx 1 spray(s) nasal route once dailyFluticasone Propionate 50 mcg/actuation spray,suspension Active 1 SPRAY INTRANASAL Daily August 12, 2025 12:00am administer into each nostril Complies with drug therapyStart: 11-26-2024 End: 13-42-5965qftu 1 spray(s) nasal route once dailyfluticasone (Flonase) 50 MCG/ACT nasal spray Indications: Seasonal allergic rhinitis due to pollen A dminister 1 spray into each nostril Daily 16 g 5 02/20/2025 ActiveStart: 04-25-5042rjtc 1 spray(s) nasal route once dailyfluticasone (Flonase) 50 MCG/ACT nasal spray Indications: Seasonal allergic rhinitis due to pollen instill 1 spray IN EACH NOSTRIL DAILY 16 g 2 11/14/2024 ActiveStart: 15-67-9416wxax 1 spray(s) nasal route once dailyfluticasone (Flonase) 50 MCG/ACT nasal spray Indications: Seasonal allergic rhinitis due to pollen Administer 1 spray into each nostril Daily 16 g 2 05/06/2024 ActiveStart: 63-15-3536gddw 1 spray(s) nasal route in the morningfluticasone (Flonase) 50 MCG/ACT nasal spray Administer 1 spray into each nostril in the morning. Activemelatonin 3 mg oral tablet (20 sources)Start: 03-70-8606lpku 1 tablet by mouth once daily at bedtime as neededMelatonin 3 mg tablet Active 3 MG PO Daily at bedtime as needed August 12, 2025 12:00am Complieswith drug therapyMelatonin Gghlad46 hr metFORMIN hydrochloride 500 mg extended release oral tablet (20 sources)BiguanideStart: 20-86-3850tktc 1 tablet by mouth twice daily Metformin 500 mg tablet extended release 24 hr Active 500 MG PO Twice daily August 12, 2025 12:00am Complies with drug therapyStart: 41-47-2879oehq 1 tablet by mouth every twenty-four hours at bedtimemetFORMIN XR (Glucophage-XR) 500 MG 24 hr tablet Indications: Hidradenitis suppurativa TAKE 1 TABLET BY MOUTH IN THE MORNING and before bedtime. DO NOT CRUSH, CHEW, OR SPLIT. 30 tablet 11 03/06/2025 ActiveStart: 09-16-2024 End: 12-02-1099gbkl 1 tablet by mouth every twenty-four hours in the morning metFORMIN XR (Glucophage-XR) 500 MG 24 hr tablet Indications: Hidradenitis suppurativa Take 1 tablet (500 mg) by mouth in the morning and 1 tablet (500 mg) before bedtime. Do not crush, chew, or split.. 30 tablet 11 09/16/2024 Active Start: 21-26-0359qspj 1 tablet by mouth twice dailymetFORMIN (Glucophage) 500 MG tablet Indications: Hidradenitis suppurativa TAKE 1 TABLET BY MOUTH TWICE DAILY 60 tablet 6 07/31/2024 ActiveStart: 88-78-7656hbuc 1 tablet by mouth twice daily metFORMIN (Glucophage) 500 MG tablet Indications: Hidradenitis suppurativa TAKE 1 TABLET BY MOUTH TWICE DAILY 60 tablet 6 01/15/2024 ActiveStart: 09-12-2023 End: 50-30-8115vkiy 1 tablet by mouth every twenty-four hours at mealtime metFORMIN XR (Glucophage-XR) 500 MG 24 hr tablet Indications: Hidradenitis Take 1 tablet (500 mg) by mouth in the evening. Take with meals. Do not crush, chew, or split. 30 tablet 11 09/12/2023 09/11/2024 Active End: 15-15-8644iyeq 1 tablet by mouth in the morningmetFORMIN (Glucophage) 500 MG tablet Take 500 mg by mouth in the morning and 500 mg before bedtime.0 12/13/2023 DiscontinuedmetFORMIN HCl ActivemethylPREDNISolone 4 mg oral tablet (1 source)CorticosteroidStart: 12-05-8773lejshlIXBDJXMxwwps 4 MG as directed Orally Once a day for 6 days Oct, ActiveMultiple Vitamin (multivitamin) capsule (20 sources)take 1 capsule by mouth in the morningMultiple Vitamin (multivitamin) capsule Take 1 capsule by mouth in the morning. Activetake 1 capsule by mouth in the morningMultiple Vitamin (multivitamin) capsule Take 1 capsule by mouth in the morning. 0 Activenaproxen sodium 220 mg oral tablet (11 sources)Nonsteroidal Anti-inflammatory Drug End: 88-01-2720qjuu 1 tablet by mouth twice daily as needed for painnaproxen sodium (Aleve) 220 MG tablet Take 220 mg by mouth 2 (two) times a day as needed for mild pain. 09/09/2024 DiscontinuedNaproxen ActivepredniSONE 50 mg oral tablet (2 sources)Start: 03-10-2025 End: 76-88-1812wexx 1 tablet by mouth once dailypredniSONE (Deltasone) 50 MG tablet Indications: Degeneration of intervertebral disc of lumbar region with discogenic back pain Take 1 tablet (50 mg) by mouth Daily for 6 days 6 tablet 03/10/2025 03/16/2025 Activeprobiotic (1 source)probiotic Activesertraline 25 mg oral tablet (20 sources)Serotonin Reuptake InhibitorStart: 67-34-1057giuf 1 tablet by mouth once dailySertraline 25 mg tablet Active 25 MG PO Daily August 12, 2025 12:00am Complies with drug therapyStart: 35-04-7102pauu 1 tablet by mouth in the morningsertraline (Zoloft) 25 MG tablet Indications: MDD (major depressive disorder), recurrent episode, moderate (HCC) TAKE 1 TABLET BY MOUTH IN THE MORNING 30 tablet 5 05/26/2025 ActiveStart: 20-24-3060payf 1 tablet by mouth in the morningsertraline (Zoloft) 25 MG tablet Indications: MDD (major depressive disorder), recurrent episode, moderate (HCC) TAKE 1 TABLET BY MOUTH IN THE MORNING 30 tablet 5 12/10/2024 ActiveStart: 77-97-1474cgdp 1 tablet by mouth in the morningsertraline (Zoloft) 25 MG tablet Indications: MDD (major depressive disorder), recurrent episode, moderate (CMS/HCC) TAKE 1 TABLET BY MOUTH IN THE MORNING 30 tablet 5 06/05/2024 ActiveStart: 64-28-4749nyhk 1 tablet by mouth in the morningsertraline (Zoloft) 25 MG tablet Indications: MDD (major depressive disorder), recurrent episode, moderate (HCC) (CMS/HCC) Take 1 tablet (25 mg) by mouth in the morning. 30 tablet 5 12/13/2023 ActiveStart: 20-26-7144phii 1 tablet by mouth in the morningsertraline (Zoloft) 25 MG tablet Indications: MDD (major depressive disorder), recurrent episode, moderate (HCC) (CMS/HCC) Take 1 tablet (25 mg) by mouth in the morning. 30 tablet 5 12/13/2023 Active spironolactone 50 mg oral tablet (20 sources)Aldosterone AntagonistStart: 81-96-9501nato 1 tablet by mouth once daily in the morningSpironolactone 50 mg tablet Active 50 MG PO Every morning August 12, 2025 12:00am Complies with drug therapyStart: 05-52-3341znms 1 tablet by mouth in the morningspironolactone (Aldactone) 50 MG tablet Indications: Hidradenitis TAKE 1 TABLET BY MOUTH IN THE MORNING 30 tablet 3 05/26/2025 ActiveStart: 21-40-8917cfoo 1 tablet by mouth in the morning spironolactone (Aldactone) 50 MG tablet Indications: Hidradenitis TAKE 1 TABLET BY MOUTH IN THE MORNING 30 tablet 3 02/05/2025 ActiveStart: 92-89-1599vtnj 1 tablet by mouth in the morningspironolactone (Aldactone) 50 MG tablet Indications: Hidradenitis TAKE 1 TABLET BY MOUTH IN THE MORNING 30 tablet 3 10/02/2024 ActiveStart: 55-94-0383qxub 1 tablet by mouth in the morning spironolactone (Aldactone) 50 MG tablet Indications: Hidradenitis TAKE 1 TABLET BY MOUTH IN THE MORNING 30 tablet 3 06/07/2024 ActiveStart: 12-12-2023 End: 06-68-4343gopk 1 tablet by mouth in the morningspironolactone (Aldactone) 50 MG tablet Indications: Hidradenitis TAKE 1 TABLET BY MOUTH IN THE MORNING 30 tablet 0 12/12/2023 12/13/2023 Discontinuedtake 1 tablet by mouth in the morning spironolactone (Aldactone) 25 MG tablet Take 25 mg by mouth in the morning. 0 ActiveSpironolactone ActivetraZODone hydrochloride 100 mg oral tablet (20 sources)Serotonin Reuptake InhibitorStart: 73-41-5048ypem 1 tablet by mouth once daily at bedtimeTrazodone 100 mg tablet Active 100 MG PO Daily at bedtime August 12, 2025 12:00am Complies with drug therapyStart: 73-72-1969uwwo 1 tablet by mouth at bedtimetraZODone (Desyrel) 100 MG tablet Indications: Primary insomnia TAKE 1 TABLET BY MOUTH AT BEDTIME 30 tablet 5 05/26/2025 ActiveStart: 60-34-2609jeuv 1 tablet by mouth at bedtimetraZODone (Desyrel) 100 MG tablet Indications: Primary insomnia TAKE 1 TABLET BY MOUTH AT BEDTIME 30 tablet 5 12/10/2024 ActiveStart: 80-70-9955vqtb 1 tablet by mouth at bedtimetraZODone (Desyrel) 100 MG tablet Indications: Primary insomnia TAKE 1 TABLET BY MOUTH AT BEDTIME 30 tablet 5 06/05/2024 ActiveStart: 00-54-4804kvcx 1 tablet by mouth at bedtimetraZODone (Desyrel) 100 MG tablet Indications: Primary insomnia Take 1 tablet (100 mg) by mouth at bedtime 30 tablet 5 12/13/2023 ActiveStart: 04-31-7922vjwz 1 tablet by mouth at bedtimetraZODone (Desyrel) 100 MG tablet Indications: Primary insomnia Take 1 tablet (100 mg) by mouth at bedtime 30 tablet 5 12/13/2023 ActiveStart: 08-15-2023 End: 58-46-4246gbci 1 tablet by mouth at bedtimetraZODone (Desyrel) 50 MG tablet Take 50 mg by mouth at bedtime. 0 08/15/2023 12/13/2023 Discontinued (Reorder) tretinoin 0.5 mg/ml topical cream (3 sources)RetinoidStart: 09-18-2024 End: 64-29-9699xtkvzdpnw (Retin-A) 0.05 % cream Indications: Hidradenitis suppurativa Apply topically at bedtime Apply small amount (pea size) to affected areas as needed at night. 45 g 3 09/18/2024 10/18/2024 Activetriamcinolone acetonide 5 mg/ml topical cream (20 sources)CorticosteroidStart: 73-47-9855Rrrhbpihavcjt Acetonide 0.5 % cream Active 1 APPLIC TOPICAL Three times daily August 12, 2025 12:00am Complies with drug therapyStart: 90-03-4662zoqryrizyowoj (Kenalog) 0.5 % cream Indications: Dyshidrotic eczema Apply topically in the morning and in the evening and before bedtime. 60 g 2 03/10/2025 Activevalsartan 80 mg oral tablet (20 sources)Angiotensin 2 Receptor BlockerStart: 63-09-0477wvyy 1 tablet by mouth once dailyValsartan 80 mg tablet Active 80 MG PO Daily August 12, 2025 12:00am Complies with drug therapyStart: 57-13-9579owzq 1 tablet by mouth once dailyvalsartan (Diovan) 80 MG tablet Indications: Degeneration of intervertebral disc of lumbar region, unspecified whether pain present TAKE 1 TABLET BY MOUTH ONCE DAILY 30 tablet 5 03/06/2025 ActiveStart: 11-68-6173kycx 1 tablet by mouth once dailyvalsartan (Diovan) 80 MG tablet Indications: Degeneration of intervertebral disc of lumbar region, unspecified whether pain present TAKE 1 TABLET BY MOUTH DAILY 30 tablet 5 08/29/2024 ActiveStart: 07-07-8063euow 1 tablet by mouth once dailyvalsartan (Diovan) 80 MG tablet Indications: Other intervertebral disc degeneration, lumbar region TAKE 1 TABLET BY MOUTH DAILY 30 tablet 5 03/04/2024 ActiveStart: 12-86-7896prnr 1 tablet by mouth in the morning valsartan (Diovan) 80 MG tablet Take 80 mg by mouth in the morning. 0 08/15/2023 ActiveValsartan Activezinc sulfate 220 mg oral capsule (20 sources)Start: 63-13-1733iwfu 1 capsule by mouth three times dailyZinc Sulfate (Orazinc) 50 mg zinc (220 mg) capsule Active 50 MG PO Three times daily August 12, 2025 12:00am Complies with drug therapyStart: 42-06-3194fdbc 1 capsule by mouth three times dailyzinc 220 (50 Zn) MG capsule Indications: Hidradenitis suppurativa TAKE 1 CAPSULE BY MOUTH THREE TIMES DAILY 90 capsule 3 05/01/2025 ActiveStart: 09-18-2024 End: 40-84-6649xqao 2 capsules by mouth in the morning, then take 1 capsule by mouth in the evening, then take 1 capsule by mouth at bedtimezinc sulfate (Zincate) 220 (50 Zn) MG capsule Indications: Hidradenitis suppurativa Take 1 capsule (50 mg of elemental zinc) by mouth in the morning and 1 capsule (50 mg of elemental zinc) in the evening and 1 capsule (50 mg of elemental zinc) before bedtime. 90 capsule 2 09/18/2024 10/18/2024 Active Completed/Discontinued Medications MedicationDrug Class(es)DatesSig (Normalized)Sig (Original)cefTRIAXone (1 source)Cephalosporin AntibacterialStart: 61-48-5537Tftyuskm 500 mg Jan, 250 mgdoxycycline hyclate 100 mg oral capsule (20 sources)Tetracycline-class DrugStart: 08-12-2025 End: 32-16-7526Kajvgezfjgu Hyclate 100 mg capsule Discontinued 100 MG PO Twice daily August 12, 2025 12:00am August 14, 2025 1:12pm TAKE 1 CAPSULE BY MOUTH IN THE MORNING then TAKE 1 CAPSULE BY MOUTH BEFORE bedtime, take WITH at least EIGHT ounces OF water, do not lie down for 30 MINUTES afterStart: 76-51-5518cvtjymgczjf (Vibramycin) 100 MG capsule Indications: Hidradenitis suppurativa TAKE 1 CAPSULE BY MOUTH IN THE MORNING then TAKE 1 CAPSULE BY MOUTH BEFORE bedtime, take WITH at least EIGHT ounces OF water, do not lie down for 30 MINUTES after 60 capsule 3 04/21/2025 ActiveStart: 87-33-3612onsbdrfdprb (Vibramycin) 100 MG capsule Indications: Hidradenitis suppurativa Take 1 capsule (100 mg) by mouth in the morning and 1 capsule (100 mg) before bedtime. Take with at least EIGHT ounces (large glass) OF water, do not lie down for 30 minutes after 60 capsule 3 12/11/2024 ActiveStart: 09-18-2024 End: 55-14-0384lffdnvdmoko (Vibramycin) 100 MG capsule Indications: Hidradenitis suppurativa Take 1 capsule (100 mg) by mouth in the morning and 1 capsule (100 mg) before bedtime. Take with at least 8 ounces (largeglass) of water, do not lie down for 30 minutes after. 60 capsule 2 09/18/2024 10/18/2024 Active hydrOXYzine hydrochloride 25 mg oral tablet (1 source)AntihistamineStart: 29-14-2171bvzt 1 tablet by mouth every eight hours hydrOXYzine HCl 25 MG 1 tablet as needed Orally every 8 hrs Jan, Not-TakingtraMADol (1 source)Opioid AgonisttraMADol HCl Not-Taking Problems Active Problems Problem ClassificationProblemDateDocumented DateEpisodic/ChronicAnxiety disorders (20 sources)Anxiety disorder, unspecified; Translations: [Generalized anxiety disorder]Onset: 929009-27-9630EwgolijOrywos (1 source)Unspecified asthma, uncomplicated; Translations: [UNSPECIFIED ASTHMA UNCOMPLICATED]Onset: 21-74-1141WpxghqrEtdygsucu hypertension (20 sources)Essential (primary) hypertension; Translations: [Benign essential hypertension]Onset: 223750-85-7741WhxytjlCoufeklsxxalz and screening for infectious disease (2 sources)Encounter for screening for human papillomavirus (HPV); Translations: [Contact with and (suspected)exposure to other viral communicable diseases] Onset: 97-23-1946GbfveqhpJwjucsdrnibe; infection of eye (except that caused by tuberculosis or sexually transmitteddisease) (1 source)Unspecified acute conjunctivitis, left eyeEpisodicMenopausal disorders (20 sources)Menopausal syndrome; Translations: [Menopausal and female climacteric states]Onset: 931131-49-3405GhzjbehUumkdrgkerexo mental health disorders (20 sources)Primary insomnia; Translations: [Primary insomnia]Onset: 12-13-2023 12-83-4356FkdptsxOcik disorders (20 sources)Recurrent major depressive episodes, moderate ; Translations: [Major depressive disorder, recurrent, moderate]Onset: 248092-53-3879Lczilje Osteoarthritis (1 source)Unspecified osteoarthritis, unspecified site; Translations: [UNSPECIFIED OSTEOARTHRITIS UNS SITE]Onset: 64-23-0030IzlkcjbNgwpn connective tissue disease (1 source)History of cervical spine fusion; Translations: [Arthrodesis status] 79-90-7584KttddmakXahce endocrine disorders (20 sources)Polycystic ovary syndrome; Translations: [Polycystic ovarian syndrome]Onset: 301733-33-3695HntsgqyBwhqu female genital disorders (4 sources)Abnormal uterine and vaginal bleeding, unspecified; Translations: [ABNORMAL UTERINE VAGINAL BLEED UNS]Onset: 81-89-8848BilbkimNioit female genital disorders (1 source)Unspecified dyspareunia; Translations: [UNSPECIFIED DYSPAREUNIA]Onset: 16-49-5132PvzdqrdTzvwa nutritional; endocrine; and metabolic disorders (1 source)Obesity, unspecified; Translations: [OBESITY UNSPECIFIED]Onset: 67-01-2932TzirlrrKlkjc nutritional; endocrine; and metabolic disorders (1 source)Body mass index (BMI) 33.0-33.9, adult; Translations: [BODY MASS INDEX BMI 33.0-33.9 ADULT]Onset: 31-68-8516WnpfwfhTrgcz nutritional; endocrine; and metabolic disorders (20 sources)Body mass index 30+ - obesity; Translations: [Obesity, unspecified] Onset: 588637-56-1558VegftewKamiq screening for suspected conditions (not mental disorders or infectious disease) (8 sources)Encounter for screening for malignant neoplasm of cervix; Translations: [Patient encounter status]Onset: 57-84-9276WonakbklIrygb skin disorders (2 sources)Hidradenitis; Translations: [Hidradenitis suppurativa]09-16-2024 EpisodicOther skin disorders (2 sources)Hidradenitis suppurativa; Translations: [Hidradenitis suppurativa] 02-90-3761RzzhrkyuJbdlz upper respiratory disease (20 sources)Allergic rhinitis due to pollen; Translations: [Allergic rhinitis due to pollen]Onset: 803374-38-4657JvgdyeqNyhbj upper respiratory infections (1 source)Acute pharyngitis, unspecifiedEpisodicPneumonia (except that caused by tuberculosis or sexually transmitted disease) (1 source)Pneumonia, unspecified organismEpisodicSpondylosis; intervertebral disc disorders; other back problems (20 sources)Degeneration of lumbar intervertebral disc; Translations: [Other intervertebral disc degeneration, lumbar region]Onset: ChronicSubstance-related disorders (1 source)Nicotine dependence, cigarettes, uncomplicated; Translations: [NICOTINE DEPEND CIGARETTES UNCOMP]Onset: 59-42-5454Wdzqger Past or Other Problems Problem ClassificationProblemDateDocumented DateEpisodic/ChronicAbdominal pain (1 source)Pelvic and perineal pain; Translations: [PELVIC AND PERINEAL PAIN] Onset: 09-38-8406LkmyvnklPprjjaztrnimo and procreative management (1 source)Encounter for sterilization; Translations: [ENCOUNTER FOR STERILIZATION]Onset: 70-85-4997SjqlppeyXpam disorders (20 sources)Mood disorders; Translations: [DEPRESSION UNSPECIFIED]Onset: 442407-37-3161Oncxd aftercare (1 source)Other fpc (current) drug therapy; Translations: [OTH USP CURRENT DRUG THERAPY]Onset: 04-82-8398GigzuvkwEvyyt connective tissue disease (4 sources)Pain in left hand; Translations: [PAIN IN LEFT HAND]Onset: 06-01-2022 EpisodicOther lower respiratory disease (3 sources)Dyspnea; Translations: [Shortness of breath]63-14-1899JkxdopijIxbuu non-traumatic joint disorders (20 sources)Hip pain; Translations: [Pain in left hip]Onset: 05-21-2025 54-40-1720UzodhgegWbdyz skin disorders (20 sources)Vesicular eczema; Translations: [Dyshidrosis [pompholyx]]Onset: 484212-43-4271TfawitvwVsslcyt cyst (1 source)Follicular cyst of left ovary; Translations: [FOLLICULAR CYST OF LEFT OVARY]Onset: 09-23-1284TotmtamrIpabrjv tract infections (20 sources)Acute urinary tract infection; Translations: [Urinary tract infection, site not specified]Onset: 06-06-2024 Resolved: 145850-79-3907Wswinebb Results Test NameValueInterpretationReference RangeFacilityXR HIP LT MIN 2Von 05-22-[address] [address] XRay Report Signed Patient: YVONNE DAWKINS MR#: [id number] : 1980 Acct:[id number] Age/Sex: 44 / F ADM Date: 05/22/25 Loc: RAD Attending Dr: Odell Handley M.D. Ordering Physician: Odell Handley M.D. Date of Service: 05/22/25 Procedure(s): XR hip LT min 2V Accession Number(s): [id number] cc: Odell Handley M.D. The [address] [address] Patient Name: YVONNE DAWKINS MRN: [facility]:[id number] date: 1980 Sex: F Assigned Patient Location: [facility] Current Patient Location: [facility] Accession/Order Number: [id number] Exam Date: 05/22/2025 15:07 Report Date: 05/22/2025 15:07 At the request of: ODELL HANDLEY MD Procedure: XR hip LT min 2V LEFT HIP - 2 views: CLINICAL HISTORY: Chronic left hip pain for 4 months. COMPARISON: None FINDINGS: No acute bony process. Calcification in the region of the labrum suggestive of prior injury. Joint space appears maintained. XR/XR hip LT min 2V IMPRESSION: NO ACUTE BONY PROCESS.. Impression dictated by: Parmjit Milton Jr., D.O. 05/22/2025 3:07 PM Dictation Location: [place] [address] Electronically authenticated by: [id number] Y Date: 05/22/2025 15:07 Dictated By: Parmjit Milton M.D. Signed By: 05/22/25 1510 DD/ 1507 TD/TT: Accounting Auditor:HOMARHRadiology, Radiologist, - 05/22/2025 The [place] [id number] XRay Report Signed Patient: YVONNE DAWKINS MR#: [id number] : 1980 Acct:[id number] Age/Sex: 44 / F ADM Date: 05/22/25 Loc: RAD Attending Dr: Odell Handley M.D. Ordering Physician: Odell Handley M.D. Date of Service: 05/22/25 Procedure(s): XR hip LT min 2V Accession Number(s): [id number] cc: Odell Handley M.D. [address] [address] Patient Name: YVONNE DAWKINS MRN: [facility]:[id number] date: 1980 Sex: F Assigned Patient Location: [facility] Current Patient Location: [facility] Accession/Order Number: [id number] Exam Date: 05/22/2025 15:07 Report Date: 05/22/2025 15:07 At the request of: ODELL HANDLEY MD Procedure: XR hip LT min 2V LEFT HIP - 2 views: CLINICAL HISTORY: Chronic left hip pain for 4 months. COMPARISON: None FINDINGS: No acute bony process. Calcification in the region of the labrum suggestive of prior injury. Joint space appears maintained. XR/XR hip LT min 2V IMPRESSION: NO ACUTE BONY PROCESS.. Impression dictated by: Parmjit Milton Jr., D.O. 05/22/2025 3:07 PM Dictation Location: [place] [address] Electronically authenticated by: [id number] Y Date: 05/22/2025 15:07 Dictated By: Parmjit Milton M.D. Signed By: 05/22/25 1510 DD/ 1507 TD/TT: Accounting Auditor: [facility] HealthcareRadiology Study observation (narrative)NOMS HealthcareXR HIP LT MIN 2VOrdered By: Radiologist Radiology on 51-66-0533[facility] Work Phone: mm TOMOSYNTHESIS SCREENING BIon 63-50-7600[place] [address] Mammography Report Signed Patient: YVONNE DAWKINS MR#: [id number] : 1980 Acct:[id number] Age/Sex: 44 / F ADM Date: 10/18/24 Loc: MAMMO Attending Dr: Heath Shah D.O. Ordering Physician: Heath Shah D.O. Results: Date of Service: 10/18/24 Follow Up: Procedure(s): MM tomosynthesis screening BI Accession Number(s): [id number] cc: Heath Shah D.O.; Odell Handley M.D. Patient Name: YVONNE DAWKINS MR#: [id number] : 1980 Exam Date: 10/18/2024 Ordering Doctor: DR Heath Shah . RADIOLOGY REPORT PROCEDURE: MM TOMOSYNTHESIS SCREENING BI COMPARISON: MM TOMOSYNTHESIS SCREENING BI, 10/17/2023. INDICATIONS: Screening Calculator Name NCI Breast Cancer Risk Assessment Tool 5 Year Breast Cancer Risk 1.80% Lifetime Breast Cancer Risk 19.30% Personal Breast Cancer No Personal Ovarian Cancer No Treatments None Family Cancers Mother with breast cancer at age 60; Aunt-maternal with breast cancer at age 60. LOCATION: The [facility] BREAST COMPOSITION: The breasts are heterogeneously dense,which may obscure small masses. FINDINGS: DIAGNOSTIC CATEGORY 1--NEGATIVE. NO CHANGE FROM COMPARISON ASSESSMENT. Scattered benign-appearing nodules are present. Scattered benign-appearing calcifications are present. RIGHT BREAST: No significant suspicious finding. LEFT BREAST: No significant suspicious finding. RECOMMENDATIONS: ROUTINE MAMMOGRAM AND CLINICAL EVALUATION IN 12 MONTHS. PLEASE NOTE: A NORMAL MAMMOGRAM DOES NOT EXCLUDE THE POSSIBILITY OF BREAST CANCER. A CLINICALLY SUSPICIOUS PALPABLE LUMP SHOULD BE BIOPSIED. Dictated by: Schuyler Azevedo MD on 10/21/2024 at 07:46 Approved by: Schuyler Azevedo MD on 10/21/2024 at 07:47 Dictated By: Schuyler Azevedo M.D. Signed By: 10/21/24 0748 DD/ TD/TT: Accounting Auditor:TBHRadiology, RadiologistMD - 10/21/2024 [place] [address] Mammography Report Signed Patient: YVONNE DAWKINS MR#: [id number] : 1980 Acct:[id number] Age/Sex: 44 / F ADM Date: 10/18/24 Loc: MAMMO Attending Dr: Heath Shah D.O. Ordering Physician: Heath Shah D.O. Results: Date of Service: 10/18/24 Follow Up: Procedure(s): MM tomosynthesis screening BI Accession Number(s): [id number] cc: Heath Shah D.O.; Odell Handley M.D. Patient Name: YVONNE DAWKINS MR#: [id number] : 1980 Exam Date: 10/18/2024 Ordering Doctor: DR Heath Shah . RADIOLOGY REPORT PROCEDURE: MM TOMOSYNTHESIS SCREENING BI COMPARISON: MM TOMOSYNTHESIS SCREENING BI, 10/17/2023. INDICATIONS: Screening Calculator Name NCI Breast Cancer Risk Assessment Tool 5 Year Breast Cancer Risk 1.80% Lifetime Breast Cancer Risk 19.30% Personal Breast Cancer No Personal Ovarian Cancer No Treatments None Family Cancers Mother with breast cancer at age 60; Aunt-maternal with breast cancer at age 60. LOCATION: The [facility] BREAST COMPOSITION: The breasts are heterogeneously dense,which may obscure small masses. FINDINGS: DIAGNOSTIC CATEGORY 1--NEGATIVE. NO CHANGE FROM COMPARISON ASSESSMENT. Scattered benign-appearing nodules are present. Scattered benign-appearing calcifications are present. RIGHT BREAST: No significant suspicious finding. LEFT BREAST: No significant suspicious finding. RECOMMENDATIONS: ROUTINE MAMMOGRAM AND CLINICAL EVALUATION IN 12 MONTHS. PLEASE NOTE: A NORMAL MAMMOGRAM DOES NOT EXCLUDE THE POSSIBILITY OF BREAST CANCER. A CLINICALLY SUSPICIOUS PALPABLE LUMP SHOULD BE BIOPSIED. Dictated by: Schuyler Azevedo MD on 10/21/2024 at 07:46 Approved by: Schuyler Azevedo MD on 10/21/2024 at 07:47 Dictated By: Schuyler Azevedo M.D. Signed By: 10/21/2448 DD/ TD/TT: Accounting Auditor: [facility] HealthcareRadiology Study observation (narrative)[facility] TOMOSYNTHESIS SCREENING BIOrdered By: Radiologist Radiology on 22-82-9955P[facility] Work Phone: IGP,APTIMA HPV,AGE GDLNon 68-52-2468TNR GDLN ACOG TESTINGNote.[facility] HealthcareComment on above:TESTS RESULT FLAG UNITS REF RANGE LAB Clinician Provided Cytology Information Source.............Cervix;Endocervix No. of containers..01 ThinPrep Vial Age Algo ACOG Estela... 28 FLAG LEGEND: L-Low Normal,H-High Normal,LL-Alert Low,HH-Alert High <-Panic Low,>-Panic High,A-Abnormal,AA-Critical Abnormal Performed at: 01 =[address] [address] Pao Buchanan MD, HPV APTIMANegativeNegativeNOMS HealthcareComment on above:This nucleic acid amplification test detects fourteen high- risk HPV types (16,18,31,33,35,39,45,51,52,56,58,59,66,68) without differentiation. Performed at: =[address] [id number] Side Door Worker: Pao Buchanan MD, Phone: [phone] Performed at: [address] [id number] Side Door Worker: Pao Buchanan MD, Phone: [phone] IGP, APTIMA HPV, RFX 16/18,45Note.NOMS HealthcareComment on above:TESTS RESULT FLAG UNITS REF RANGE LAB DIAGNOSIS: 02 NEGATIVE FOR INTRAEPITHELIAL LESION OR MALIGNANCY. Specimen adequacy: 02 Satisfactory for evaluation. Endocervical and/or squamous metaplastic cells (endocervical component) are present. Performed by: Odilia Soriano Leveler Helper (ASCP) . 02 Note: Note 02 The Pap [...] High,A-Abnormal,AA-Critical Abnormal Performed at: 02 [address] [facility] [address] [address] Pao Buchanan MD, BRUSH-SPATULA CERVIX ENDOCERVIX CLINISYNCNOMS HealthcareALL CBC WITH AUTO DIFFon 78-32-5873LSNRMNJXY ABSOLUTE AUTO0.1NOMS HealthcareBasophils/100 WBC (Bld)0.5 %0.2 - 2.0 %[facility] Eosinophils/100 WBC (Bld)2.6 %0.9 - 7.0 %NOMMetropolitan Saint Louis Psychiatric CenterErythrocyte distribution width (RBC) [Ratio]12.7 %11.0 - 15.0 %[facility] HospitalHematocrit (Bld) [Volume fraction]41.2 %36.0 - 48.0 %NOMMetropolitan Saint Louis Psychiatric CenterHemoglobin (Bld) [Mass/Vol]14.3 g/dL 12.0 - 16.0 g/dLNOFreeman Orthopaedics & Sports MedicineIMMATURE GRANULOCYTES ABS AUTO0.04HighNOMS HealthcareImmature granulocytes/100 WBC (Bld)0.4 %0.0 - 0.5 %[facility] Interpretation and review of laboratory resultsAbnormalNOMS Healthcare LYMPHOCYTES ABSOLUTE AUTO3.4NOMS HealthcareLymphocytes/100 WBC (Bld)33.7 %20.5 - 60.0 %[facility] SystemH (RBC) [Entitic mass]33.3 pg26.7 - 34.0 pgNOUniversity HospitalHC (RBC) [Mass/Vol]34.7 g/dL29.9 - 35.2 g/dLNOUniversity HospitalV (RBC) [Entitic vol]95.8 fL81.0 - 99.0 fLNOOR HealthcareMONOCYTES ABSOLUTE AUTO0.6NOMS HealthcareMonocytes/100 WBC (Bld)6.2 %1.7 - 12.0 %[facility] HealthcareNEUTROPHILS ABSOLUTE AUTO5.7NOMS HealthcareNeutrophils/100 WBC (Bld)56.6 %43.0 - 75.0 %[facility]S HealthcarePlatelet mean volume (Bld) [Entitic vol]12.4 fL9.5 - 13.5 fLNOOR HealthcareTBH EO #0.3NOMS HealthcareTBH [id number] HealthcareTB RBC4.3NOMS Providence HospitalTB WBC10.1NOMS HealthcareCLINISYNCNCREEK NATION [facility] HealthcareMM TOMOSYNTHESIS SCREENING BIon 23-76-9922Voctrgcly, Radiologist, - 01/03/2024 [place] [address] Mammography Report Signed Patient: YVONNE DAWKINS MR#: [id number] : 1980 Acct:[id number] Age/Sex: 43 / F ADM Date: 10/17/23 Loc: MAMMO Attending Dr: Heath Shah D.O. Ordering Physician: Heath Shah D.O. Results: Date of Service: 10/17/23 Follow Up: Procedure(s): MM tomosynthesis screening BI Accession Number(s): [id number] cc: Heath Shah D.O.; Odell Handley M.D. Patient Name: YVONNE DAWKINS MR#: [id number] : 1980 Exam Date: 10/17/2023 Ordering Doctor: DR Heath Shah . RADIOLOGY REPORT PROCEDURE: MM TOMOSYNTHESIS SCREENING BI COMPARISON: MG MAMM SCREEN CALLUM W CAD, 06/23/2020. MG MAMM SCREEN 3D CALLUM CAD, 07/01/2021. INDICATIONS: Screening Mammography Calculator Name NCI Breast Cancer Risk Assessment Tool 5 Year Breast Cancer Risk 1.00% Lifetime Breast Cancer Risk 11.60% Personal Breast Cancer No Personal Ovarian Cancer No Treatments None Family Cancers None LOCATION: The [facility] BREAST COMPOSITION: Heterogeneously dense,which may obscure small masses. FINDINGS: DIAGNOSTIC CATEGORY 1--NEGATIVE. NO CHANGE FROM COMPARISON ASSESSMENT. Scattered benign-appearing calcifications are present. Scattered benign-appearing lymph nodes are present. RIGHT BREAST: No significant suspicious finding. LEFT BREAST: No significant suspicious finding. RECOMMENDATIONS: ROUTINE MAMMOGRAM AND CLINICAL EVALUATION IN 12 MONTHS. PLEASE NOTE: A NORMAL MAMMOGRAM DOES NOT EXCLUDE THE POSSIBILITY OF BREAST CANCER. A CLINICALLY SUSPICIOUS PALPABLE LUMP SHOULD BE BIOPSIED. Dictated by: Schuyler Azevedo MD on 10/18/2023 at 09:23 Approved by: Schuyler Azevedo MD on 10/18/2023 at 09:27 Dictated By: Schuyler Azevedo M.D. Signed By: 10/18/23927 DD/ 6 TD/TT: Accounting Auditor: [facility] HealthcareRadiology, Radiologist, - 10/18/2023 [place] [address] Mammography Report Signed Patient: YVONNE DAWKINS MR#: [id number] : 1980 Acct:[id number] Age/Sex: 43 / F ADM Date: 10/17/23 Loc: MAMMO Attending Dr: Heath Shah D.O. Ordering Physician: Heath Shah D.O. Results: Date of Service: 10/17/23 Follow Up: Procedure(s): MM tomosynthesis screening BI Accession Number(s): [id number] cc: Heath Shah D.O.; Odell Handley M.D. Patient Name: YVONNE DAWKINS MR#: [id number] : 1980 Exam Date: 10/17/2023 Ordering Doctor: DR Heath Shah . RADIOLOGY REPORT PROCEDURE: MM TOMOSYNTHESIS SCREENING BI COMPARISON: MG MAMM SCREEN CALLUM W CAD, 06/23/2020. MG MAMM SCREEN 3D CALLUM CAD, 07/01/2021. INDICATIONS: Screening Mammography Calculator Name NCI Breast Cancer Risk Assessment Tool 5 Year Breast Cancer Risk 1.00% Lifetime Breast Cancer Risk 11.60% Personal Breast Cancer No Personal Ovarian Cancer No Treatments None Family Cancers None LOCATION: The [facility] BREAST COMPOSITION: Heterogeneously dense,which may obscure small masses. FINDINGS: DIAGNOSTIC CATEGORY 1--NEGATIVE. NO CHANGE FROM COMPARISON ASSESSMENT. Scattered benign-appearing calcifications are present. Scattered benign-appearing lymph nodes are present. RIGHT BREAST: No significant suspicious finding. LEFT BREAST: No significant suspicious finding. RECOMMENDATIONS: ROUTINE MAMMOGRAM AND CLINICAL EVALUATION IN 12 MONTHS. PLEASE NOTE: A NORMAL MAMMOGRAM DOES NOT EXCLUDE THE POSSIBILITY OF BREAST CANCER. A CLINICALLY SUSPICIOUS PALPABLE LUMP SHOULD BE BIOPSIED. Dictated by: Schuyler Azevedo MD on 10/18/2023 at 09:23 Approved by: Schuyler Azevedo MD on 10/18/2023 at 09:27 Dictated By: Schuyler Azevedo M.D. Signed By: 10/18/23927 DD/ 6 TD/TT: Accounting Auditor: [employer] Informationon 80-72-5980[place] [address] Mammography Report Signed Patient: YVONNE DAWKINS MR#: [id number] : 1980 Acct:[id number] Age/Sex: 43 / F ADM Date: 10/17/23 Loc: MAMMO Attending Dr: Heath Shah D.O. Ordering Physician: Heath Shah D.O. Results: Date of Service: 10/17/23 Follow Up: Procedure(s): MM tomosynthesis screening BI Accession Number(s): [id number] cc: Heath Shah D.O.; Odell Handley M.D. Patient Name: YVONNE DAWKINS MR#: [id number] : 1980 Exam Date: 10/17/2023 Ordering Doctor: DR Heath Shah . RADIOLOGY REPORT PROCEDURE: MM TOMOSYNTHESIS SCREENING BI COMPARISON: MG MAMM SCREEN CALLUM W CAD, 06/23/2020. MG MAMM SCREEN 3D CALLUM CAD, 07/01/2021. INDICATIONS: Screening Mammography Calculator Name NCI Breast Cancer Risk Assessment Tool 5 Year Breast Cancer Risk 1.00% Lifetime Breast Cancer Risk 11.60% Personal Breast Cancer No Personal Ovarian Cancer No Treatments None Family Cancers None LOCATION: The [facility] BREAST COMPOSITION: Heterogeneously dense,which may obscure small masses. FINDINGS: DIAGNOSTIC CATEGORY 1--NEGATIVE. NO CHANGE FROM COMPARISON ASSESSMENT. Scattered benign-appearing calcifications are present. Scattered benign-appearing lymph nodes are present. RIGHT BREAST: No significant suspicious finding. LEFT BREAST: No significant suspicious finding. RECOMMENDATIONS: ROUTINE MAMMOGRAM AND CLINICAL EVALUATION IN 12 MONTHS. PLEASE NOTE: A NORMAL MAMMOGRAM DOES NOT EXCLUDE THE POSSIBILITY OF BREAST CANCER. A CLINICALLY SUSPICIOUS PALPABLE LUMP SHOULD BE BIOPSIED. Dictated by: Schuyler Azevedo MD on 10/18/2023 at 09:23 Approved by: Schuyler Azevedo MD on 10/18/2023 at 09:27 Dictated By: Schuyler Azevedo M.D. Signed By: 10/18/23927 DD/ 6 TD/TT: Accounting Auditor:TBHRadiology Study observation (narrative)[facility] HealthcareNo Panel InformationOrdered By: Radiologist Radiology on 10-18-2023 [facility] Healthcare Work Phone: cytology Cervical or vaginal smear or scraping studyon 74-45-7325DZAG HealthcareCOVID/FLU/RSV RT-PCRon 38-39-7163VTGV-CoV-2 (COVID-19) RNA GUILLAUME+probe Ql (Unsp spec)NegativeEastern Missouri State HospitalKalypto Medical Other COVID/FLU/RSV RT-PCRNegativeNoMagnetecs Pearlfection Other Quick Strepon 11-08-2022S. pyogenes Org specific cx Ql (Throat)NegativeMagnetecs Pearlfection Other Qubjw StrepEther [employer] Other PAT ACOG PANEL 2: 30 to 65on 09-11-2022..NormalThe [facility] HospitalComment on above:Result Comment: Performed at: WBPerformed By: #### [id number] #### [facility] [address] [place] [address] Dr. Anyi PrescottAge Gdln ACOG Vwgmhdh71-39CibzneIbcOhioHealth Dublin Methodist HospitalCommunson healthcare [facility] on above:Performed By: #### [id number] #### [facility] [address] [place] [address] Dr. Anyi PrescottDIAGNOSIS:CommentRegional Medical Center on above: Result Comment: NEGATIVE FOR INTRAEPITHELIAL LESION OR MALIGNANCY. Performed at: WBPerformed By: #### [id number] #### [facility] [address] [place] [address] Dr. Anyi PrescottHPV AptimaNegativeNormalNegativeThe [facility] on above:Result Comment: This nucleic acid amplification test detects fourteen high-risk HPV types (16,18,31,33,35,39,45,51,52,56,58,59,66,68) without differentiation. Performed at: =GPerformed By: #### [id number] #### [facility] [address] [place] [address] Dr. Anyi PrescottHPV Genotype ReflexCommentRegional Medical Center on above:Result Comment: Criteria not met, HPV Genotype not performed. Performed at: WBPerformed By: #### [id number] #### [facility] [address] [place] [address] Dr. Anyi PrescottMethodology:CommentRegional Medical Center on above: Result Comment: This liquid based ThinPrep(R) pap test was screened with the use of an image guided system. Performed at: WBPerformed By: #### [id number] #### [facility] [address] [place] [address] Dr. Anyi PrescottNote:CommentRegional Medical Center on above:Result Comment: The Pap smear is a screening test designed to aid in the detection of premalignant and malignant conditions of the uterine cervix. It is not a diagnostic procedure and should not be used as the sole means of detecting cervical cancer. Both false-positive and false-negative reports do occur. . Performed at: WBPerformed By: #### [id number] #### [facility] [address] [place] [address] Dr. Anyi PrescottPerformed by:CommentRegional Medical Center on above: Result Comment: Davin Zamarripa Leveler Helper (ASCP) Performed at: WBPerformed By: #### [id number] #### [facility] [address] [place] [address] Dr. Anyi PrescottSpecimecr adequacy:CommentRegional Medical Center on above:Result Comment: Satisfactory for evaluation. Endocervical and/or squamous metaplastic cells (endocervical component) are present. Performed at: WBPerformed By: #### [id number] #### [facility] [address] [place] [address] Dr. Anyi France AUTO DIFFon 51-70-9596OFRP #0.1 103/ulNormal0.0-0.1The [facility] HospitalComment on above:Performed By: #### CBC #### [facility] [address] [place] [address] Dr. Anyi PrescottBasophils/100 WBC (Bld)0.6 %Normal0.2-2.0[facility] Comment on above:Performed By: #### CBC #### [facility] [address] [place] [address] Dr. Anyi Vogel #0.3 103/ulNormal0.0-0.7The [facility] HospitalComment on above: Performed By: #### CBC #### [facility] [address] [place] [address] Dr. Anyi Charltonosinophils/100 WBC (Bld)2.2 %Normal0.9-7.0The [facility] Comment on above:Performed By: #### CBC #### [facility] [address] [place] [address] Dr. Anyi Charltonrythrocyte distribution width (RBC) [Ratio]12.9 %Ekznlm45.0-15.0 The [facility] HospitalComment on above:Performed By: #### CBC #### [facility] [address] [address] [address] Anyi PrescottHematocrit (Bld) [Volume fraction]46.2 %Dulvqq09.0-48.0The [facility] HospitalComment on above:Performed By: #### CBC #### [facility] [address] [address] [address] Anyi PrescottHemoglobin (Bld) [Mass/Vol]15.2 g/pSYqbzzg80.0-16.0The [facility] HospitalComment on above:Performed By: #### CBC #### [facility] [address] [address] [address] Anyi Disla #0.11 10e3/ulCritically high0.00-0.03The [facility] Comment on above:Performed By: #### CBC #### [facility] [address] [place] [address] Dr. Anyi Disla %0.8 %Critically high0.0-0.5The [facility] HospitalComment on above:Performed By: #### CBC #### [facility] [address] [address] [address] Anyi Leiva #4.5 103/ulCritically high1.2-3.8The [facility] Comment on above:Performed By: #### CBC #### [facility] [address] [address] [address] Anyi Wilkinsmphocytes/100 WBC (Bld)33.6 %Rzlyaw09.5-60.0The [facility] HospitalComment on above:Performed By: #### CBC #### [facility] [address] [address] [address] Anyi PrescottMANUAL DIFF REQNONormalThe [facility] HospitalComment on above: Performed By: #### CBC #### [facility] [address] [address] [address] Anyi Alves (RBC) [Entitic mass]30.8 dqUttnbx55.7-34.0The [facility] HospitalComment on above:Performed By: #### CBC #### [facility] [address] [address] [address] Anyi BurnettHC (RBC) [Mass/Vol]32.9 g/sUHfvtex02.9-35.2The [facility] HospitalComment on above:Performed By: #### CBC #### [facility] [address] [place] [address] Dr. Anyi BurnettV (RBC) [Entitic vol]93.7 bRJrgywc32.0-99.0The [facility] HospitalComment on above:Performed By: #### CBC #### [facility] [address] [place] [address] Dr. Anyi Metcalf #0.9 103/ulCritically high0.3-0.8The [facility] Comment on above:Performed By: #### CBC #### [facility] [address] [place] [address] Dr. Anyi Mchughocytes/100 WBC (Bld)6.4 %Normal1.7-12.0[facility] Comment on above:Performed By: #### CBC #### [facility] [address] [place] [address] Dr. Anyi Sultana #7.6 103/ulCritically high1.4-6.5The [facility] Comment on above:Performed By: #### CBC #### [facility] [address] [place] [address] Dr. Anyi Riosutrophils/100 WBC (Bld)56.4 %Ewtbgu48.0-75.0The [facility] HospitalComment on above:Performed By: #### CBC #### [facility] [address] [place] [address] Dr. Anyi Rasheedlet mean volume (Bld) [Entitic vol]10.4 fLNormal9.5-13.5The [facility] HospitalComment on above:Performed By: #### CBC #### [facility] [address] [place] [address] Dr. Anyi PrescottPLT353 103/cbUtjvpb273-244Dxp [facility] HospitalComment on above: Performed By: #### CBC #### [facility] [address] [address] [address] Anyi PrescottRBC4.93 106/ulNormal4.20-5.40The [facility] HospitalComment on above:Performed By: #### CBC #### [facility] [address] [address] [address] Anyi PrescottWBC13.5 103/ulCritically high4.0-11.0The [facility] HospitalComment on above:Performed By: #### CBC #### [facility] [address] [address] [address] Anyi PrescottPREElicia QUANT HCGon 91-69-5923XLJ QUANT<1NormalThe [facility] Comment on above:Performed By: #### PREGQNT #### [facility] [address] [place] [address] Dr. Anyi PrescottHCG RANGESEE BELOWNormalThe [facility] HospitalComment on above: Result Comment: 5-50 0-1 WEEK 40-300 1-2 WEEKS 100-1,000 2-3 WEEKS 500-6,000 3-4 WEEKS 5,000-200,000 1-2 MONTHS 10,000-100,000 2-3 MONTHS 3,000-50,000 2ND TRIMESTER 1,000-50,000 3RD TRIMESTERPerformed By: #### PREGQNT #### [facility] [address] [place] [address] Dr. Anyi Lester Summary.on 03-95-1393Whbvvd Summary.CODING DATE: 11/19/2020 FINAL [facility] STATUS: PAYOR: Medicaid EAPG DESCRIPTION 0388 LEVEL III MICROBIOLOGY TESTS ADMIT [...] Theodora Dee CphT Date Saved: 11/19/2020 09:36 pmNormalProMedica Defiance Regional HospitalARS-CoV-2, GUILLAUME on 85-91-0855HRAS CORONAVIRUS 2 RNA:PRTHR:PT:RESPIRATORY:ORD:PROBE.AMP.TARNot DetectedNot DetectedGreen Cross HospitalComment on above:Result Comment: This nucleic acid amplification test was developed and its performance characteristics determined by [employer]. Nucleic acid amplification tests include PCR and [...] detected) result in this assay. Performed at: [facility] [address] [facility] [place] [id number] MD Martinez AnaghPerformed By: #### SARS-CoV-2, GUILLAUME #### [facility] [address] [place], [place] [address]Rnhmfyugo Orderon 67-26-8886Vebonsufs Order [id number]#1.00CD:127NormalGreen Cross Hospital Vital Signs Date TimeVital SignValuePerforming KnpvdxvgkOcyjnhtj63-79-5958 13:15-0400Body .18 cmOdell Handley MD Work Phone: [facility]10-16-2025 13:15-0400 Body mass index (BMI) [Ratio]28.7 kg/m2Odell Handley MD Work Phone: [phone]10-16-2025 13:15-0400 Body yafjpqivjsp09.7 [degF]Odell Handley MD Work Phone: [phone])[address]10-16-2025 13:15-0400 Body .12 kgOdell Handley MD Work Phone: [phone])[address]10-16-2025 13:15-0400 Diastolic blood aricdhdq57 mm[Hg]Odell Handley MD Work Phone: [phone])[address]10-16-2025 13:15-0400 Heart rate67 /minOdell Handley MD Work Phone: [phone]10-16-2025 13:15-0400 Respiratory rate18 /minOdell Handley MD Work Phone: [phone] [place], [place] [address]10-16-2025 13:15-0400 SaO2% (BldA) [Mass fraction]98 %Odell Handley MD Work Phone: [phone]10-16-2025 13:15-0400 Systolic blood iajlpwoh618 mm[Hg]Odell Handley MD Work Phone: 1(278)[address]07-23-2025 09:06-0400 Body acykin306.2 cmOdell Handley MD Work Phone: [facility] HospitalIhteemyacj02-97-8789 09:06-0400Body mass index (BMI) [Ratio]29.44 kg/m2Odell Handley MD Work Phone: [facility] HospitalWccttmkxep27-44-2924 09:06-0400Body temperature 96.6 [degF]Odell Handley MD Work Phone: [facility] HospitalDrsrrtvrbr80-53-9133 09:06-0400Body wzwhlo89.28 kgOdell Handley MD Work Phone: [facility] HospitalUkjsdnrdhm97-32-9904 09:06-0400Diastolic blood bfgbpdzo02 mm[Hg]Odell Handley MD Work Phone: [facility] HospitalYnnwgkmyio35-61-5469 09:06-0400Heart rate96 /min Odell Handley MD Work Phone: [facility] HospitalNjgnqajxzy16-57-6085 09:06-0400Respiratory rate22 /minOdell Handley MD Work Phone: [facility] HospitalLikecqrrbg16-99-7917 09:06-2949DmZ6% (BldA) [Mass fraction]96 %Odell Handley MD Work Phone: [facility] HospitalYuceyrkmor28-20-2625 09:06-0400Systolic blood vixbzhkr447 mm[Hg]Odell Handley MD Work Phone: [facility] HospitalXbkgjpgyak14-29-7990 08:14-0400Body ecwccw742.2 cmOdell Handley MD Work Phone: [facility] HospitalPbbfzdodso89-99-1050 08:14-0400Body mass index (BMI) [Ratio]30.38 kg/m2Odell Handley MD Work Phone: [facility] HospitalIvvmhmefgm58-61-1231 08:14-0400Body temperature 97.11 [degF]Odell Handley MD Work Phone: [facility] HospitalYxjmieafar66-63-5093 08:14-0400Body wxssro59 kg Odell Handley MD Work Phone: [facility] HospitalVjprbrwdns97-23-2669 08:14-0400Diastolic blood ezoturzi73 mm[Hg]Odell Handley MD Work Phone: [facility] HospitalXakcspohuo67-71-0826 08:14-0400Heart rate97 /min Odell Handley MD Work Phone: [facility] HospitalPbenxlxitq03-19-3605 08:14-0400Respiratory rate20 /minOdell Handley MD Work Phone: [facility] HospitalWbkexjibtb11-58-4114 08:14-9239VmP5% (BldA) [Mass fraction]98 %Odell Handley MD Work Phone: [facility] HospitalEjselwlihl08-17-8019 08:14-0400Systolic blood vgjhpson261 mm[Hg]Odell Handley MD Work Phone: [facility] HospitalYqvggdjeqe56-37-8460 08:42-0500Body mass index (BMI) [Ratio]30.38 kg/o4Ucpcj Fazio DO Work Phone: [facility] HospitalFengjksctb67-62-2085 08:42-0500Body iczdbt00 kg Heathsandra Shah DO Work Phone: [address] [address]Yuiqhzsrtu44-38-2958 08:42-0500Diastolic blood xpvhgcne00 mm[Hg]Heathsandra Shah DO Work Phone: [facility] HospitalRmczrnpmys37-28-8634 08:42-0500Systolic blood nysrqeck211 mm[Hg]Heathsandra Shah Work Phone: [facility] HospitalXlaxrlfzbc16-43-4730 08:14-0500Body unwdgi778.2 cmOdell Handley MD Work Phone: [phone] [place], [place] [address]Obuokptcja67-66-8454 08:14-0500Body mass index (BMI) [Ratio]30.85 kg/m2Odell Handley MD Work Phone: [facility] HospitalIvwqgrzswx31-16-7148 08:14-0500Body temperature 97.11 [degF]Odell Handley MD Work Phone: [phone] [place], [place] [address]Wmjaadicer38-00-2254 08:14-0500Body qfycig62.36 kgOdell Handley MD Work Phone: [address] [address]Qldltbzwhp43-22-8015 08:14-0500Diastolic blood ewuyvyqt66 mm[Hg]Odell Handley MD Work Phone: [facility] HospitalRprauyivbo14-49-3851 08:14-0500Heart rate55 /min Odell Handley MD Work Phone: [facility] HospitalGxiryykzbi29-20-6802 08:14-0500Respiratory rate20 /minOdell Handley MD Work Phone: [facility] HospitalYpqvjaeszq15-78-9498 08:14-1632PcG5% (BldA) [Mass fraction]96 %Odell Handley MD Work Phone: [facility] HospitalFejsravphp19-01-7365 08:14-0500Systolic blood zvfnjtey096 mm[Hg]Odell Handley MD Work Phone: [facility] HospitalMkzkztnjol12-35-2658 07:09-0500Body miftrm901.2 cmOdell Handley MD Work Phone: [facility] HospitalPeupkkxiqi85-63-4596 07:09-0500Body mass index (BMI) [Ratio]33.36 kg/m2Odell Handley MD Work Phone: [facility] HospitalZavyfcjmyc88-45-7882 07:09-0500Body temperature 97.5 [degF]Odell Handley MD Work Phone: [facility] HospitalOadnisofgi79-75-3848 07:09-0500Body .62 kgOdell Handley MD Work Phone: [facility] HospitalDlflgvimcf57-06-1613 07:09-0500Diastolic blood mm[Hg]Odell Handley MD Work Phone: [facility] HospitalWvjyyfqbgf91-95-4812 07:09-0500Heart mbje276 /min Odell Handley MD Work Phone: [facility] HospitalPmdhagovfj53-00-2278 07:09-5204CkM8% (BldA) [Mass fraction]97 %Odell Handley MD Work Phone: [facility] HospitalTxegtazzzy74-52-0430 07:09-0500Systolic blood eiwteouv095 mm[Hg]Odell Handley MD Work Phone: [facility] HospitalEbdzwmscpc14-13-4530 10:30-0500Body qdjukw434.18 Madi Cueto Other [facility] [employer] Other 897736-14-4490 10:30-0500Body mass index (BMI) [Ratio] 33.67 kg/z0CplmhbgxbQi Cueto Other [facility] Other 01-10-2023 10:30-0500Body utwajhwbyiy34.7 [degF] Qi Cueto Other [facility] Other 01-10-2023 10:30-0500Body paxorb66.52 kgStcarlito Cueto Other [employer] Other 01-10-2023 10:30-0500Respiratory rate18 /minSami Cueto Other [employer] Other 01-10-2023 10:30-7786JiG6% (BldA) [Mass fraction]92 % Qi Cueto Other [facility] Other Encounters Encounter DateEncounter TypeCare ProviderFacilityStart: 08-14-2025 End: 54-68-9912forksyprutYytt Naderer MD Work Phone: [facility] Work Phone: Start: 08-14-2025 End: 47-23-5389Plmamvs encounter procedureOdell Handley MD-[facility] Work Phone: Start: 06-19-2025 End: 52-10-5003WpntwhCqrz Naderer MD Work Phone: [facility] FMComment on above:Degeneration of intervertebral disc of lumbar region with discogenic back pain and lower extremity painStart: 06-10-2025 End: 77-77-4479muwdyijqxrHsqdkfn Rodolfo PTANOOR [facility] TherapyComment on above:Left hip pain (Primary Dx)Start: 06-10-2025 End: 50-30-9760Vffimp flowsheetMelissa Kelbley PTANOMS [facility] Start: 06-10-2025 End: 43-53-6339Vszxoe flowsheetMelissa Kelbley PTANOMS [facility] Start: 06-06-2025 End: 94-42-8262mdjdpyjeocLvqlnxjx Brink PTANOMS [facility] TherapyComment on above:Left hip pain (Primary Dx)Start: 06-06-2025 End: 27-18-7922Gwxeyp flowsheetMarshall Brink PTANOMS [facility] Start: 06-06-2025 End: 91-52-5471Annevr flowsheetMarshall Brink PTANOMS [facility] Start: 06-03-2025 End: 25-90-5707qdzrtpdwxrEzpmhje Kelbley PTANOMS [facility] TherapyComment on above:Left hip pain (Primary Dx)Start: 06-03-2025 End: 79-67-2397Jpkvti flowsheetMelissa Kelbley PTANOMS [facility] Start: 06-03-2025 End: 33-47-6218Pzlwgb flowsheetMelissa Kelbley PTANOMS [facility] Start: 05-28-2025 End: 26-07-5276Dirurz flowsheetMelissa Kelbley PTANOMS [facility] Start: 05-28-2025 End: 36-57-1067Ckrqmh flowsheetMelissa Kelbley PTANOMS [facility] Start: 05-28-2025 End: 67-04-0506esmzbaygtrYoazgac Kelbley PTANOMS [facility] TherapyComment on above:Left hip pain (Primary Dx)Start: 05-22-2025 End: 66-48-6178gkciudbredKzityqv Kelbley PTANOMS CI PTComment on above:Left hip pain (Primary Dx)Start: 05-22-2025 End: 74-56-4864Fjuwhk flowsheetMelissa Kelbley PTANOMS CI PTStart: 05-22-2025 End: 95-46-7633Pnsgvw flowsheetMelissa Kelbley PTANOMS CI PTStart: 05-22-2025 End: 41-42-9378Unajekvhh Result Claire Handley MD Work Phone: noms External Department UnsolicitedStart: 05-21-2025 End: 34-63-8190Hlixsm Tram Handley MD Work Phone: NOLU CWM FMStart: 05-21-2025 End: 86-73-9523Xajwiz Tram Handley MD Work Phone: NOII CWM FMStart: 05-21-2025 End: 58-64-4226Hajgsf outpatient visit 15 minutesOdell Handley MD Work Phone: noms CWM FMComment on above:Degeneration of intervertebral disc of lumbar region with discogenic back pain and lower extremity pain (Primary Dx); Left hip painStart: 05-21-2025 End: 06-43-0977CqxfgnCxzm Naderer MD Work Phone: NOQE CWM FMComment on above:Degeneration of intervertebral disc of lumbar region with discogenic back pain and lower extremity painStart: 05-15-2025 End: 48-88-6517ofotfoosjeIpgtwkj Lawrence PTANOMS CI PTComment on above:Left hip pain (Primary Dx)Start: 05-15-2025 End: 10-82-9438Pxzusy flowsheetRanjitnetjan Nunez PTANOMS CI PTStart: 05-15-2025 End: 28-49-9723Civgfh flowsheetKennetjan Nunez PTANOMS CI PTStart: 05-13-2025 End: 13-15-5155flfomqqspxSfqgjvw Kelbley PTANOMS CI PTComment on above:Left hip pain (Primary Dx)Start: 05-13-2025 End: 28-58-2212Peyfxh flowsheetMelissa Kelbley PTANOMS CI PTStart: 05-13-2025 End: 96-99-4919Lpwjss flowsheetMelissa Kelbley PTANOMS CI PTStart: 05-07-2025 End: 76-77-9352ttzruqthglQrugemui Brink PTANOMS CI PTComment on above:Left hip pain (Primary Dx)Start: 05-07-2025 End: 00-96-5295Kprsrt flowsheetNeetu Almaguer PTANOMS CI PTStart: 05-07-2025 End: 17-95-6519Goxatc flowsheetNeetu Almaguer PTANOMS CI PTStart: 04-29-2025 End: 21-42-6186ljveflvaqdMkbrzid Lawrence PTANOMS CI PTComment on above:Left hip pain (Primary Dx)Start: 04-29-2025 End: 63-96-6334Oqbpku flowsheetCarlos Nunez PTANOMS CI PTStart: 04-29-2025 End: 81-49-0184Bjaqtj flowsheetCarlos Nunez PTANOMS CI PTStart: 04-24-2025 End: 00-56-8276Vhjnqqgxg encounterMelissa Kelbley PTANOMS CI PTComment on above: CX PT todayStart: 04-22-2025 End: 18-39-9014efvporcznnLqjjcgj Kelbley PTANOMS CI PTComment on above:Left hip pain (Primary Dx)Start: 04-21-2025 End: 32-48-7941JafzfmCrbs Naderer MD Work Phone: noms CWM FMComment on above:Degeneration of intervertebral disc of lumbar region with discogenic back pain and lower extremity painStart: 04-17-2025 End: 77-75-9063spmfrmvgkrOtscqtk Kelbley PTANOMS CI PTComment on above:Left hip pain (Primary Dx)Start: 04-17-2025 End: 38-61-5761Ekzopj flowsheetMelissa Kelbley PTANOMS CI PTStart: 04-17-2025 End: 89-94-2754Ttrmtn flowsheetMelissa Kelbley PTANOMS CI PTStart: 04-15-2025 End: 67-93-0337nrnxfyzmetPhitgjt Kelbley PTANOMS CI PTComment on above:Left hip pain (Primary Dx)Start: 04-15-2025 End: 10-27-3348Gojojo flowsheetMelissa Kelbley PTANOMS CI PTStart: 04-15-2025 End: 38-67-4795Uojtts flowsheetMelissa Kelbley PTANOMS CI PTStart: 04-08-2025 End: 12-64-8924hejyufoyoeSzqelul Lawrence PTANOMS CI PTComment on above:Left hip pain (Primary Dx)Start: 04-08-2025 End: 53-10-2986Qjilky Meggan Nunez PTANOMS CI PTStart: 04-08-2025 End: 45-55-3221Wjewna Meggan Nunez PTANOMS CI PTStart: 04-03-2025 End: 27-03-9479xdebrqgshgSopmbe T Blackston PT Work Phone: noms CI PTComment on above:Left hip pain (Primary Dx) Start: 03-10-2025 End: 91-39-8787Gjyalv Tram Handley MD Work Phone: NOTN CWM FMStart: 03-10-2025 End: 00-10-7797Pjoqktannabelle Handley MD Work Phone: NORH CWM FMStart: 03-10-2025 End: 58-58-3679Ladlof outpatient visit 25 minutesOdell Handley MD Work Phone: noms CWM FMComment on above:Essential hypertension, benign (CMS/HCC) (Primary Dx); Mild recurrent major depression (HCC) (CMS/HCC); Generalized anxiety disorder (CMS/HCC); Degeneration of intervertebral disc of lumbar region with discogenic back pain; Dyshidrotic eczema; Primary insomniaStart: 03-10-2025 End: 35-40-2346duckgtktorGCJE NADERERNot AvailableStart: 02-21-2025 End: 19-43-9800WzicbnApgj Naderer MD Work Phone: noms CWM FMComment on above:Degeneration of intervertebral disc of lumbar region with discogenic back pain and lower extremity painStart: 02-20-2025 End: 60-42-2963Inykxm Mac Handley MD Work Phone: noms CWM FMComment on above:Seasonal allergic rhinitis due to pollenStart: 01-18-2025 End: 61-02-9419HekduhPyht Naderer MD Work Phone: NOMS CWM FMComment on above:Degeneration of intervertebral disc of lumbar region with discogenic back pain and lower extremity painStart: 12-20-2024 End: 99-65-4264KrexepIsbs Naderer MD Work Phone: NOM[facility] CWM FMComment on above:Degeneration of intervertebral disc of lumbar region with discogenic back pain and lower extremity painStart: 11-21-2024 End: 49-94-3313GsxgyvXmnb Naderer MD Work Phone: N[facility] CWM FMComment on above:Degeneration of intervertebral disc of lumbar region with discogenic back pain and lower extremity painStart: 10-21-2024 End: 39-31-2469Bcejpeyid Result EncounterCorey Alyssa DO Work Phone: [facility] External Department UnsolicitedStart: 10-21-2024 End: 98-63-8911Jzpqylvsm Result EncounterCorey Alyssa DO Work Phone: [facility] External Department UnsolicitedStart: 10-21-2024 End: 93-19-3490MexechDalh Naderer MD Work Phone: [facility] CWM FMComment on above:Degeneration of intervertebral disc of lumbar region with discogenic back pain and lower extremity painStart: 09-23-2024 End: 39-55-2937UakytlIqyw Naderer MD Work Phone: [facility] CWM FMComment on above:Degeneration of intervertebral disc of lumbar region with discogenic back pain and lower extremity painStart: 09-20-2024 End: 08-10-7852Fkcwoomdk Result EncounterOdell Handley MD Work Phone: [facility] External Department UnsolicitedStart: 09-20-2024 End: 24-35-3930Iwqdbkmwg Result EncounterOdell Handley MD Work Phone: [facility] External Department UnsolicitedStart: 09-16-2024 End: 28-95-2858Aftihx flowsheetCorey Alyssa DO Work Phone: noms BCP OBStart: 09-16-2024 End: 92-30-1227Aikfdt flowsheetCorey Alyssa DO Work Phone: noms BCP OBStart: 09-16-2024 End: 33-22-5895Xflzvtinh Result EncounterCorey Alyssa DO Work Phone: [facility] External Department UnsolicitedStart: 09-16-2024 End: 18-63-7653Lnwgclf encounter procedureCorey Alyssa DO Work Phone: NOMS HealthcareStart: 09-16-2024 End: 16-79-4870Kcimafdq preventive med est patient 40-64yrsCorey Alyssa DO Work Phone: n[facility] OBComment on above:Well woman exam with routine gynecological exam; Breast cancer screening by mammogram; Hidradenitis; Hidradenitis suppurativaStart: 09-16-2024 End: 90-00-1136teyjxzulsfMQUZC FAZIONot AvailableStart: 09-09-2024 End: 35-73-4218Vridry Tram Handley MD Work Phone: noms CWM FMStart: 09-09-2024 End: 72-91-7056Syjltc Tram Handley MD Work Phone: noms CWM FMStart: 09-09-2024 End: 14-65-7042Wuaqovd encounter procedureOdell Handley MD Work Phone: [facility] Work Phone: Start: 09-09-2024 End: 99-07-2907Cxndpshn preventive med est patient 40-64yrsMjoe Handley MD Work Phone: noms CW FMComment on above:Annual physical exam (Primary Dx); Colon cancer screening; Essential hypertension, benign (CMS/HCC); Degeneration of intervertebral disc of lumbar region with discogenic back pain Start: 09-09-2024 End: 03-72-7540kdixbtgogeMTKL NADERERNot AvailableStart: 08-21-2024 End: 30-23-6214Kjluac Mac Handley MD Work Phone: [facility] CWM FMComment on above:Degeneration of intervertebral disc of lumbar region with discogenic back pain and lower extremity pain (Primary Dx)Start: 08-20-2024 End: 47-49-1203JmwcpzQhuh Naderer MD Work Phone: [facility] CWM FMComment on above:Degeneration of intervertebral disc of lumbar region with discogenic back pain and lower extremity pain (Primary Dx); Other intervertebral disc degeneration, lumbar regionStart: 07-23-2024 End: 53-75-7074OfwqypHjsk Naderer MD Work Phone: [facility] CWM FMComment on above:Other intervertebral disc degeneration, lumbar regionStart: 06-23-2024 End: 12-54-0642FybliyUebg Naderer MD Work Phone: [facility] CWM FMComment on above:SOB (shortness of breath); Menopausal and female climacteric states; Other intervertebral disc degeneration, lumbar regionStart: 25-62-5326Znmbii Tram Handley MD Work Phone: [facility] CWM FMStart: 80-59-4532Sowkud Tram Handley MD Work Phone: [facility] CWM FMStart: 12-13-2023 End: 62-95-4928Bbflpy outpatient visit 25 minutesOdell Handley MD Work Phone: [facility] CWM FMComment on above:Essential hypertension, benign (CMS/HCC) (Primary Dx); MDD (major depressive disorder), recurrent episode, moderate (HCC) (CMS/HCC); Generalized anxiety disorder (CMS/HCC); Primary insomnia; DDD (degenerative disc disease), lumbar; DDD (degenerative disc disease), cervical; Seasonal allergic rhinitis due to pollen; SOB (shortness of breath)Start: 10-18-2023 End: 06-82-3780Wplhfrvjx Result EncounterCorey Alyssa DO Work Phone: noms External Department UnsolicitedStart: 10-18-2023 End: 21-68-5639Wgdjzbanf Result EncounterCorey Alyssa DO Work Phone: noms External Department UnsolicitedStart: 11-08-2022 End: 37-49-9305ihejjxaaweUxoqubknm Nory Other [facility] [employer] Other Start: 11-08-8286Ogllsw outpatient new 20 minutes Qi NoryFPG [facility] Care ClydeStart: 09-05-2022 End: 21-17-7566cohbtpthwyCW CHARLES HOUSEFacility:T0Gqynh: 06-01-2022 End: 64-11-1988tudcrnfbxdNN CHARLES HOUSEFacility:Z9Qjnli: 09-16-2021 End: 71-52-9758qlxzojvcvoOR CHARLES HOUSEFacility:H1 Procedures DateProcedureProcedure DetailPerforming ClinicianStart: 08-95-9054FB HIP LT MIN 2VMarc Earl ALVAREZ Work Phone: Start: 32-86-3824UQ TOMOSYNTHESIS SCREENING BICorey Alyssa DO Work Phone: Start: 01-09-7764CbngzrxemtiVeqd Naderer MD Work Phone: Start: 95-29-2035YQB CBC WITH AUTO DIFFOdell Handley MD Work Phone: Start: 05-34-8344LRS,APTIMA HPV,AGE GDLNGeneric External Data ProviderStart: 07-42-1845Frqapyiuhpg observation [Identifier] in Cervix by Cyto stainOdell Handley MD Work Phone: Start: 00-11-6752VU TOMOSYNTHESIS SCREENING BICorey Alyssa DO Work Phone: Start: 32-05-4453VogxqkskwnwHboi Naderer MD Work Phone: Start: 85-66-9529Ucftopehjkw observation [Identifier] in Cervix by Cyto stainCorey Alyssa DO Work Phone: Start: 09-56-3184Kpvo cerv/vag auto thin layer prep mnl screenCorey Alyssa DO Work Phone: Plan of Treatment DateCare ActivityDetailAuthorStart: 70-46-0647Rjpqzhmhg for malignant neoplasm of cervixNOMS HealthcareStart: 12-03-6703Nshajqewt for malignant neoplasm of cervixPap SmearNOMS HealthcareStart: 44-05-8641Wcerjtczg for malignant neoplasm of colonNOMS HealthcareStart: 00-79-9844Psetftmiy for malignant neoplasm of breastMammogramNOMS HealthcareStart: 10-06-2025 End: 80-29-7466Gpcpunl encounter procedureNOMS BCP OBStart: 09-29-2025 End: 50-42-2350Nhrqgqx encounter yzhkbwvzj56/01/2025 8:30 AM EST Office Visit [facility] [address] [place] [phone] Heath Shah, DO [address] [place] [address] N[facility] BCP OBStart: 09-10-2025 End: 99-03-9116Mscocid encounter kxdreqylg70/12/2025 7:45 AM EST Office Visit [facility] [address] [place] [address] Odell Handley MD [address] [place] [address] N[facility] CWM FMStart: 16-07-4044Yrjsnaqmx vaccinationNOMS HealthcareStart: 06-26-2025 End: 33-70-2958dpeupgmvzk55/28/2025 2:30 PM EDT Treatment [facility] [address] [facility] Josue [place], [id number] Natalia Reynoldsissa, PTANOMS [facility] TherapyStart: 06-24-2025 End: 48-11-3588torftoaepd58/26/2025 2:30 PM EDT Treatment [facility] [address] [place], [id number] KelNatalia loweissa, PTANOMS [facility] TherapyStart: 06-19-2025 End: 53-72-8548pivmycrmzf50/21/2025 3:00 PM EDT Treatment [facility] [address] [place], [id number] KelNatalia loweissa, PTANOMS [place] [facility] TherapyStart: 06-17-2025 End: 37-52-9733tjfdmqmtbs73/19/2025 3:30 PM EDT Treatment [facility] [address] [place], [id number] KelNatalia loweissa, PTANOMS [place] [facility] TherapyStart: 06-10-2025 End: 90-52-7157naevutwputKKWZ [place] Physical TherapyComment on above:Arrived Start: 06-06-2025 End: 87-78-3773jkboaffsapIPXD CI PTComment on above:Left hip pain (Primary Dx) Start: 06-03-2025 End: 92-24-0513kprkblbxvfLHUP CI PTComment on above:Left hip pain (Primary Dx) Start: 05-28-2025 End: 71-18-7866qyumjwvajdRIXW CI PTComment on above:ArrivedStart: 05-22-2025 End: 59-26-2508xrvlaqbvvoDNHD CI PTComment on above:ArrivedLeft hip pain (Primary Dx)Start: 05-21-2025 End: 92-91-0461PT Lumbar spine WO contrastMR lumbar spine wo contrast Imaging Routine Degeneration of intervertebral disc of lumbar region with discogenic back pain and lower extremity pain Expected: 05/21/2025, Expires: 05/21/2026NOMS HealthcareComment on above:Expected: 05/21/2025, Expires: 05/21/2026Start: 05-21-2025 End: 09-40-8503GB Hip - left 3 ViewsXR hip left 2 or 3 views Imaging Routine Left hip pain Expected: 05/21/2025, Expires: 05/21/2026[facility] Work Phone: Comment on above:Expected: 05/21/2025, Expires: 05/21/2026Start: 05-21-2025 End: 37-55-2223Lfwsjkf encounter /23/2025 9:00 AM EDT Office Visit [facility] [address] [place] [phone] Odell Handley MD [address] [place] [phone] ArrivedNOMS CWM FMComment on above:ArrivedStart: 05-15-2025 End: 32-02-1236tukngpjuzmNJSL CI PTComment on above:ArrivedStart: 05-13-2025 End: 25-02-8228adtkmkijkwOAPX CI PTComment on above:ArrivedStart: 05-07-2025 End: 68-33-2409qpbpcfckzsUMGM CI PTComment on above:ArrivedStart: 04-29-2025 End: 67-07-8314hdfpjkplvkJLOW CI PTComment on above:ArrivedStart: 04-28-2025 End: 71-00-3083sirgqpbyfj73/30/2025 4:00 PM EDT Treatment [facility] [address] [facility] [address] [place] [address] Akhil Jerome, PT [address] [facility] [address] [place] [address] NOMS CI PTStart: 04-24-2025 End: 16-82-0195tenlrqrmewXZVD CI PTStart: 04-22-2025 End: 84-33-8306aqycaebvnu39/24/2025 4:00 PM EDT Treatment [facility] [address] [facility] [address] [place] [address] CelesteLiza flores PTA NOMS CI PTStart: 04-17-2025 End: 91-81-4062rrlrtubntuCAAK CI PTComment on above:ArrivedStart: 04-15-2025 End: 02-81-4060mvzvcirrytKMGW CI PTComment on above:ArrivedStart: 04-10-2025 End: 57-72-6087zkfbpshvtn15/12/2025 4:00 PM EDT Treatment [facility] [address] [facility] [address] [place] [address] Carlos Nunez PTANO CI PTStart: 04-08-2025 End: 27-35-7803zijnggguciQFKI CI PTComment on above:ArrivedStart: 03-10-2025 End: 03-74-1498Ldozdmj encounter procedureNOMS CWM FMComment on above:Arrived Start: 29-13-4213Smgqhqvjp for malignant neoplasm of breastMammogramNOMS HealthcareStart: 09-16-2024 End: 39-41-4195QE Breast - bilateral ScreeningBilateral screening mammogram Imaging Routine Breast cancer screening by mammogram Expected: 09/16/2024 (Approximate), Expires: 11/16/2025[facility] Work Phone: comment on above:Expected: 09/16/2024 (Approximate), Expires: 11/16/2025Start: 09-16-2024 End: 95-54-1323Lkvozry encounter gkybeskbe44/18/2024 8:30 AM EST Office Visit [facility] [address] [place] [phone] Heath Shah, DO [address] [place] [address] NOMS BCP OBStart: 09-09-2024 End: 36-38-8031Vdfqy metabolic 1998 panel - Serum or PlasmaBasic metabolic panel Lab Routine Annual physical exam Expected: 09/09/2024 (Approximate), Expires: 09/09/2025[facility] HealthcareComment on above:Expected: 09/09/2024 (Approximate), Expires: 09/09/2025Start: 09-09-2024 End: 00-28-0816LPO W Auto Differential panel - BloodCBC and differential Lab Routine Annual physical exam Expected: 09/09/2024 (Approximate), Expires: 11/09/2024[facility] HealthcareComment on above:Expected: 09/09/2024 (Approximate), Expires: 09/09/2025Start: 09-09-2024 End: 15-23-6861Kbvfqjvwxz A1c/Hemoglobin.total in BloodHemoglobin A1c Lab Routine Annual physical exam Expected: 09/09/2024 (Approximate), Expires: 09/09/2025[facility] Work Phone: Comment on above:Expected: 09/09/2024 (Approximate), Expires: 09/09/2025Start: 09-09-2024 End: 39-53-5428Qhuzrzp function 2000 panel - Serum or PlasmaHepatic function panel Lab Routine Annual physical exam Expected: 09/09/2024 (Approximate), Expires: 09/09/2025[facility] HealthcareComment on above:Expected: 09/09/2024 (Approximate), Expires: 09/09/2025Start: 09-09-2024 End: 35-46-4959Dxhnj 1996 panel - Serum or PlasmaLipid panel Lab Routine Annual physical exam Expected: 09/09/2024 (Approximate), Expires: 09/09/2025[facility] HealthcareComment on above:Expected: 09/09/2024 (Approximate), Expires: 09/09/2025Start: 09-09-2024 End: 89-69-3714Vpkyksypmlr colorectal cancer DNA and occult blood screening [Presence] in StoolCologuard colon cancer screening Lab Routine Colon cancer screening Expected: 09/09/2024 (Approximate), Expires: 09/09/2025[facility] Healthcare Comment on above:Expected: 09/09/2024 (Approximate), Expires: 09/09/2025Start: 09-09-2024 End: 77-06-7729Teynuubkzqi [Units/volume] in Serum or PlasmaTSH Lab Routine Annual physical exam Expected: 09/09/2024 (Approximate), Expires: 09/09/2025[facility] HealthcareComment on above:Expected: 09/09/2024 (Approximate), Expires: 09/09/2025Start: 09-09-2024 End: 67-80-0585Lpetjwz encounter procedureNOMS CWM FMComment on above:Arrived Start: 40-52-9658Frynqrqel vaccinationInfluenza Vaccine (#1)[facility] Start: 03-18-2024 End: 75-59-7859Lvaitkn encounter hpauqydfw59/20/2024 8:30 AM EDT Office Visit [facility] [address] [place] [address] Odell Handley MD [address] [place] [address] [facility] FMStart: 12-13-2023 End: 91-07-4826Mwnxtpb encounter jbtpbumdj55/14/2024 7:00 AM EST Office Visit [facility] [address] [place] [address] Odell Handley MD [address] [place] [address] ArrivedNOATOKA COUNTY [facility] FMComment on above:ArrivedStart: 22-76-4335Awcxccuua vaccinationInfluenza Vaccine (#1)[facility]S HealthcareStart: 25-56-1236Rtenhqjdu for malignant neoplasm of cervixNOMS HealthcareStart: 99-88-9523Xqzeompdw for malignant neoplasm of cervixPap SmearNOMS HealthcareStart: 23-73-9362Koaurxzhz for malignant neoplasm of colonNOMS HealthcareTHIN PREP TIS PAP AND HR HPV DNA THIN PREP TIS PAP AND HR HPV DNA Pathology and Cytology Routine Well woman exam with routine gynecological exam Ordered: 09/16/2024[facility] HealthcareComment on above:Ordered: 09/16/2024 Immunizations Immunization DateImmunizationNotesCare AmhkpvvpOvsbqgsx99-86-2060umzprmjos virus vaccine, unspecified formulationChelly Earl ALVAREZ Work Phone: [facility] Payers DatePayer CategoryPayerPolicy ID2019MedicaidCARESOURCECARESOURCE MEDICAID CARESOURCE MEDICAID [place] [id number] 2018-Present [address] [place] [address] [id number] Health Insurance CARESOURCE MEDICAID [id number] [id number] [id number] 2..1.353471.3.57[id number] 2..1.335347.3.57[id number] 2..1.607369.3.57[id number] 2..1.821841.3.579.2.5[id number] 2..1.095597.3.579.[id number] 2..1.377667.3.579.2.1[id number] 2..1.949744.3.579.2.9[id number] 2.840.1.060789.3.579.2.3[id number] 2.840.1.079889.3.579.2.[id number] 2.0.1.134621.3.579.2.203607-32-1749Ejjglrm72391233 2.0.1.780469.3.579.2.356844-82-0834Htottxb32192419 2..1.092194.3.579.2.200661-65-3170Fpzurek82703926 2..1.541514.3.579.2.[id number] 2..1.254739.3.579.2.216431-45-8905Xquimme04539753 2..1.333232.3.579.2.114930-62-7848Frhghll92880459 2..1.109467.3.579.2.943131-07-6623Gwuhohk42679892 2..1.401801.3.579.2.400114-14-5481Okrnlfu14544236 2..1.506260.3.579.2.057686-44-9043Hjkkylq3856636 2..1.632276.3.579.2.077561-12-9406Qubbcqu8405686 2.0.1.635042.3.579.2.067114-81-2906Zbbcaxl5199844 2.0.1.397638.3.579.2.481623-47-1073Hvzyqcu7[id number] [id number]-x665-9h79-46td-f68z9os3p1n2HnjfosdIuqmeho [id number]-386785z79lyv Social History DateTypeDetailFacilityUnknown if ever smokedNort Pearlfection Other Start: 12-06-2023 End: 36-20-4374Ncz Assigned At BirthNOOR HealthcareStart: 12-13-2023 End: 03-84-2828Ofnaied smoking status NHISSmokes tobacco dailyNOMS Healthcare History of tobacco useCigarette SmokerNOMS HealthcareStart: 92-11-5393Lkbqztq use and exposureSmokeless tobacco non-userNOMS HealthcareStart: 12-06-2023 End: 65-29-6488Esdpcrd of Social functionNOMS HealthcareWithin the last year, have you been afraid of your partner or ex-partner?NoNOMS HealthcareStart: 87-42-8170Aai often do you attend denominational or worship services?Patient refused NOMS HealthcareAre you now , , , , never or living with a partner?MarriedNOMS HealthcareHow often to you have a drink containing alcohol?Monthly or lessNOMS HealthcareHow many standard drinks containing alcohol do you have on a typical day?1 or 2NOMS HealthcareHow often do you have 6 or more drinks on 1 occasion?NeverNOMS HealthcareHow hard is it for you to pay for the very basics like food, housing, medical care, and heating Somewhat hardNOMS HealthcareDo you feel stress - tense, restless, nervous, or anxious, or unable to sleep at night because yourmind is troubled all the time - these days [OSQ]To some extentNOMS Healthcare(I/We) worried whether (my/our) food would run out before (I/we) got money to buy more.Sometimes trueNOMS HealthcareStart: 49-39-9670Moa Assigned At BirthNot on fileNOMS HealthcareSex Female (finding)[facility] Systemtart: 75-49-5237Uco [facility] smoking status NHIS Tobacco smoking consumption [facility] Functional Status LawrYojhjbacloFewmetFvimoowg19-79-8199Iqyly score [AUDIT-C]-1 03/10/2025 8:00 AM EDT Jaycob ScottPerry County Memorial HospitalOqhxgrizqb30-03-2553Zfyeweqcxm statusPatient declined [facility] HospitalKdmdyyufjs33-90-4219Oqgwzun Health Questionnaire 2 item (PHQ-2) [Reported] [facility] Clinical Notes 09-16-2021 to 05-21-2025 Note Date & JkppTrchKfiqqgcv49-26-0885 History of Present illness Narrative* Odell Handley MD - 05/21/2025 9:40 AM EDTAssociated Problem(s): Left hip pain Pain likely related to lumbar pathology. Check x-ray hip. * Odell Handley MD - 05/21/2025 9:40 AM EDTAssociated Problem(s): DDD (degenerative disc disease), lumbar Continued pain and radicular symptoms likely related to herniated disc. Failed treatment with celebrex and PT. Check MRI lumbar spine. * Odell Handley MD - 05/21/2025 9:00 AM EDT Images from the original note were not included. Subjective Patient ID: Yvonne Dawkins is a 44 y.o. female who presents for Follow-up (Discuss PT). Follow up pain and PT. C/o increased pain in low back and left hip for months. Pain in low back andacross top hips. Pain radiates into left gluteal region and down left leg. Pain worse first thing in am and hard to stand or walk. Pain increased with bending and lifting. Pain in left outer hip and thigh. No pain into groin. Pain worse at end of day. To PT and back pain improved but continued painin left hip and thigh. PT concerned of herniated disc causing pain. Using percocet PRN and helps keep pain tolerable and able to work and function. Review of Systems Respiratory: Negative for cough, [...] Assessment/Plan Problem List Items Addressed This Visit DDD (degenerative disc disease), lumbar - Primary Continued pain and radicular symptoms likely related to herniated disc. Failed treatment with celebrex and PT. Check MRI lumbar spine. Relevant Orders MR lumbar spine wo contrast Left hip pain Pain likely related to lumbar pathology. Check x-ray hip. Relevant Orders XR hip left 2 or 3 views documented in this encounterNOFreeman Orthopaedics & Sports MedicineMsjzcqofpu66-91-9931 Telephone encounter Note* Telephone Encounter - Nu Garrison - 04/24/2025 11:00 AM EDT She called needing to CX PT this afternoon due to her daughter had called her needing her to watch her grandchildren after she gets off at 3:00. I recommended rs time / day; and she said she'll be inon 04/28 @ 4:00 for next PT. [facility] HospitalVkokgizuos26-89-3546 Miscellaneous Notes* Telephone Encounter - Nu Garrison - 04/24/2025 11:00 AM EDT She called needing to CX PT this afternoon due to her daughter had called her needing her to watch her grandchildren after she gets off at 3:00. I recommended rs time / day; and she said she'll be inon 04/28 @ 4:00 for next PT. documented in this encounterPerry County Memorial HospitalQokaectgcn10-12-0471 History of Present illness Narrative* Odell Handley MD - 03/10/2025 8:44 AM EDTAssociated Problem(s): Primary insomnia Sleeping well with trazodone and continue. * Odell Handley MD - 03/10/2025 8:44 AM EDTAssociated Problem(s): Mild recurrent major depression (HCC) (CMS/HCC) Symptoms well controlled with zoloft and continue. * Odell Handley MD - 03/10/2025 8:44 AM EDTAssociated Problem(s): Generalized anxiety disorder (CMS/HCC) Symptoms well controlled with zoloft and continue. * Odell Handley MD - 03/10/2025 8:44 AM EDTAssociated Problem(s): Essential hypertension, benign (CMS/HCC) BP controlled and monitor PRN. * Odell Handley MD - 03/10/2025 8:44 AM EDTAssociated Problem(s): Dyshidrotic eczema Start steroid cream. * Odell Handley MD - 03/10/2025 8:44 AM EDTAssociated Problem(s): DDD (degenerative disc disease), lumbar Increased stiffness and try prednisone. Use percocet PRN. * Odell Handley MD - 03/10/2025 8:00 AM EDT Subjective Patient ID: Yvonne Dawkins is a 44 y.o. female who presents for Follow-up (6m/), Hip Pain (Left hip down leg), and Rash (On hands). Follow up HTN, back and neck pain, depression, anxiety, and insomnia. Checking BP PRN and typicallycontrolled. BP normal today. Taking medication daily and tolerating without side effects. Pain recently worse. Increased pain in low back and across top hips. Pain radiates into gluteal region and down legs. Pain worse with walking and standing. Pain in neck and top shoulders. No radiation down arms or into hands. Using percocet PRN and works well to control pain. Able to work and stay active. Mood controlled with zoloft. Not down or sad and feels happier. Able to interact well with others. Anxiety stable. Not as stressed out or overwhelmed. Not as nervous or worry as much. Not as villaseñor or irritable. Sleeping okay with trazodone. Able to fall asleep and typically able to stay asleep. Wakes up rested in am. C/o rash on hands off and on for months. Developed redness and clear blisters. Veryitchy and occasionally burkett. Using lotion but not helping. Hip Pain Rash Pertinent negatives include no cough, diarrhea, shortness of breath or vomiting. Review of Systems Respiratory: Negative for cough, shortness of breath and wheezing. Cardiovascular: Negative for chest pain and palpitations. Gastrointestinal: Negative for abdominal pain, diarrhea, nausea and vomiting. Genitourinary: Negative for dysuria. Skin: Positive for rash. Objective Physical Exam Constitutional: General: She is [...] disc disease), lumbar Increased stiffness and try prednisone. Use percocet PRN. Relevant Medications predniSONE (Deltasone) 50 MG tablet Generalized anxiety disorder (CMS/HCC) Symptoms well controlled with zoloft and continue. Mild recurrent major depression (HCC) (CMS/HCC) Symptoms well controlled with zoloft and continue. Primary insomnia Sleeping well with trazodone and continue. Dyshidrotic eczema Start steroid cream. Relevant Medications triamcinolone (Kenalog) 0.5 % cream documented in this encounterPerry County Memorial HospitalLwtxuhcuev12-36-4778 History of Present illness Narrative* Qian Bustillos LPN - 09/16/2024 8:30 AM EST Reason for Appointment: Patient ID: Yvonne Dawkins [...] (CMS/HCC) 12/13/2023 Mild recurrent major depression (HCC) (CMS/HCC) [...] nursing note reviewed. Exam conducted with a central office worker present. Vitals: Estimated body mass index is 30.38 kg/m as calculated from the following: Height as of 09/09/24: 5' 7 . Weight as of this [...] by Qian Bustillos LPN on behalf of: Heath Shah DO documented in this encounterPerry County Memorial HospitalWyhzboudvu00-95-6664 History of Present illness Narrative* Odell Handley MD - 09/09/2024 8:50 AM ESTAssociated Problem(s): Essential hypertension, benign (CMS/HCC) BP controlled and monitor PRN. * Odell Handley MD - 09/09/2024 8:50 AM ESTAssociated Problem(s): DDD (degenerative disc disease), lumbar Increased stiffness and try celebrex. Use percocet PRN. * Odell Handley MD - 09/09/2024 8:50 AM ESTAssociated Problem(s): Annual physical exam Due for labs. Never had colon cancer screening and willing to have cologuard. Discussed proper dietand regular aerobic exercise. Need aerobic exercise 5-6 days a week for 30 minutes at a time. Smaller portions and limit total calories. Tetanus every 10 years. Advised not to smoke. * Odell Handley MD - 09/09/2024 8:00 AM EST Images from the original note were not included. Subjective Patient ID: Yvonne Dawkins is a 44 y.o. female who presents for Follow-up (6 m). Presents for annual PE. Patient feels well today. Weight down 24 pounds in the past year. Active atwork and tries to walk several days a [...] to control pain. Able to work and stayactive. Review of Systems Respiratory: Negative for cough, [...] and willing to have cologuard. Discussed proper dietand regular aerobic exercise. Need aerobic exercise 5-6 days a week for 30 minutes at a time. Smaller portions and limit total calories. Tetanus every 10 years. Advised not to smoke. Relevant Orders Hemoglobin A1c Basic metabolic panel CBC and differential Hepatic function panel Lipid panel TSH Other Visit Diagnoses Colon cancer screening Relevant Orders Cologuard colon cancer screening documented in this encounterPerry County Memorial HospitalTeyncdxwfs92-30-3491 History of Present illness Narrative* Odell Handley MD - 12/13/2023 7:47 AM ESTAssociated Problem(s): Seasonal allergic rhinitis due to pollen Symptoms controlled with medication and continue. * Odell Handley MD - 12/13/2023 7:47 AM ESTAssociated Problem(s): Primary insomnia Not sleeping well and increase trazodone. * Odell Handley MD - 12/13/2023 7:47 AM ESTAssociated Problem(s): MDD (major depressive disorder), recurrent episode, moderate (HCC) (CMS/HCC) Symptoms worse and add zoloft along with wellbutrin. Warned will take 2-3 weeks to notice improvement in mood. * Odell Handley MD - 12/13/2023 7:47 AM ESTAssociated Problem(s): Generalized anxiety disorder (CMS/HCC) Symptoms worse and add zoloft along with wellbutrin. Warned will take 2-3 weeks to notice improvement in mood. * Odell Handley MD - 12/13/2023 7:46 AM ESTAssociated Problem(s): Essential hypertension, benign (CMS/HCC) BP controlled and monitor PRN. * Odell Handley MD - 12/13/2023 7:46 AM ESTAssociated Problem(s): DDD (degenerative disc disease), lumbar Pain stable and use percocet PRN. Increase activity and walk regularly. * Odell Handley MD - 12/13/2023 7:46 AM ESTAssociated Problem(s): DDD (degenerative disc disease), cervical Pain stable and use percocet PRN. Increase activity and walk regularly. * Odell Handley MD - 12/13/2023 7:00 AM EST Subjective Patient ID: Yvonne Dawkins is a [...] Thought racing and hard to clear mind. Villaseñor, irritable and snapping at others. Easily upset [...] legs. Pain worse with walking and standing. Occasionalweakness in legs and give out. Pain in [...] with medication and continue. documented in this encounterPerry County Memorial HospitalFogiyfortv60-77-6173 Evaluation note* Encounter Date Diagnosis Assessment Notes Treatment Notes Treatment Clinical Notes Oct, Sore throat (ICD-10 - J02.9) Oct,cute bacterial conjunctivitis of left eye (ICD-10 - H10.32)Use medication as directed. Recommend discarding makeup if applicable. Need to wash linens on bed. If you wear contacts dispose of them or if not disposable then must thoroughly decontaminate the contacts before wearing them again. Contact eye doctor if symptoms are not improved by Monday. If any changes in vision occurs then recommend going to ER immediately, Conjunctivitis home care material was printed Oct,ontact with and (suspected) exposure to other viral communicable diseases (ICD-10 - Z20.828) Oct,Walking pneumonia (ICD-10 - J18.9)Take medications as directed. Rest and increase fluid [...] cough to go away, Pneumonia: adult home carematerial was printed [employer] Other 08-04-2022 NotePROCEDURE: XR HAND LT MIN 3V HISTORY: Pain of left hand ; first and second metacarpal pain for couple months; no known injury COMPARISON: None. FINDINGS: BONES:No fracture, acute abnormality, or significant arthropathy. SOFT TISSUES:No visible soft tissue swelling. EFFUSION:None visible. OTHER: Negative. IMPRESSION: 1. Normal examination. Electronically authenticated by: GERALDO MARTINEZ Date: 2022-06-02 06:29[facility]11-18-2021 [place], [place] NAME: YVONNE DAWKINS DATE OF : MEDICAL REC#: [id number] BEAD WRAPPER: MIKAELA TAN ADMIT DATE: 09/16/2021 11:25:00 [employer] DATE: 09/17/2021 07:00 DICTATING PHYSICIAN: HEATH SHAH DICTATION DATE: 09/16/2021 15:00 OPERATIVE NOTE OPERATION DATE: 09-16 ANESTHETIC: BILL RECAPITULATION CLERK:KAYLAN Sauer PREOPERATIVE DIAGNOSIS: 1. Abnormal uterine bleeding. 2. Desires permanent sterilization. POSTOPERATIVE DIAGNOSIS:Same as above. PROCEDURE NAME: 1. Faridhe endometrial ablation. 2. Laparoscopic bilateral salpingectomy with [...] correct x2. Electronically Authenticated and Edited by: Heath Shah DO on 09/17/2021 08:36 AM [facility] Signed and Approved by: DR HEATH SHAH . 09/17/2021 08:36:00[facility] Essential hypertension, benign (CMS/HCC)- [...] of lumbar region with discogenic back pain Seasonal allergic rhinitis due to pollen [facility] [...] of lumbar region with discogenic back pain Essential hypertension, benign (CMS/HCC)- Primary Essential hypertension, benign Mild recurrent major depression (HCC) (CMS/HCC) Major depressive disorder, recurrent episode, mild Generalized anxiety disorder (CMS/HCC) Generalized anxiety disorder Degeneration of intervertebral disc of lumbar region with discogenic back pain Dyshidrotic eczema Primary insomnia Persistent disorder of initiating or maintaining sleep [facility] [...] of lumbar region with discogenic back pain Essential hypertension, benign (CMS/HCC)- Primary Essential hypertension, benign Mild recurrent major depression (HCC) (CMS/HCC) Major depressive disorder, recurrent episode, mild Generalized anxiety disorder (CMS/HCC) Generalized anxiety disorder Degeneration of intervertebral disc of lumbar region with discogenic back pain Dyshidrotic eczema Primary insomnia Persistent disorder of initiating or maintaining sleep Left hip pain- Primary Pain in joint, pelvic region and thigh [facility] [...] of lumbar region with discogenic back pain Essential hypertension, benign (CMS/HCC)- Primary Essential hypertension, benign Mild recurrent major depression (HCC) (CMS/HCC) Major depressive disorder, recurrent episode, mild Generalized anxiety disorder (CMS/HCC) Generalized anxiety disorder Degeneration of intervertebral disc of lumbar region with discogenic back pain Dyshidrotic eczema Primary insomnia Persistent disorder of initiating or maintaining sleep Left hip pain- Primary Pain in joint, pelvic region and thigh [facility]* Diagnosis Essential hypertension, benign- Primary Essential hypertension, benign MDD (major depressive disorder), recurrent episode, moderate (HCC) Generalized anxiety disorder Generalized anxiety disorder Primary insomnia Persistent disorder of initiating or maintaining sleep DDD (degenerative disc disease), lumbar Degeneration of lumbar or lumbosacral intervertebral disc DDD (degenerative disc disease), cervical Degeneration of cervical intervertebral disc Seasonal allergic rhinitis due to pollen SOB (shortness of breath) Shortness of breath Essential hypertension, benign- Primary Essential hypertension, benign DDD (degenerative disc disease), cervical Degeneration of cervical intervertebral disc DDD (degenerative disc disease), lumbar Degeneration of lumbar or lumbosacral intervertebral disc Mild recurrent major depression Major depressive disorder, recurrent episode, mild Generalized anxiety disorder Generalized anxiety disorder Primary insomnia Persistent disorder of initiating or maintaining sleep Polycystic ovary syndrome Polycystic ovaries Menopausal and female climacteric states Annual physical exam- Primary Routine general medical examination at a health care facility Colon cancer screening Special screening for malignant neoplasms, colon Essential hypertension, benign Essential hypertension, benign Degeneration of intervertebral disc of lumbar region with discogenic back pain Essential hypertension, benign- Primary Essential hypertension, benign Mild recurrent major depression Major depressive disorder, recurrent episode, mild Generalized anxiety disorder Generalized anxiety disorder Degeneration of intervertebral disc of lumbar region with discogenic back pain Dyshidrotic eczema Primary insomnia Persistent disorder of initiating or maintaining sleep Left hip pain- Primary Pain in joint, pelvic region and thigh documented [facility]* Diagnosis Essential hypertension, benign- Primary Essential hypertension, benign MDD (major depressive disorder), recurrent episode, moderate (HCC) Generalized anxiety disorder Generalized anxiety disorder Primary insomnia Persistent disorder of initiating or maintaining sleep DDD (degenerative disc disease), lumbar Degeneration of lumbar or lumbosacral intervertebral disc DDD (degenerative disc disease), cervical Degeneration of cervical intervertebral disc Seasonal allergic rhinitis due to pollen SOB (shortness of breath) Shortness of breath Essential hypertension, benign- Primary Essential hypertension, benign DDD (degenerative disc disease), cervical Degeneration of cervical intervertebral disc DDD (degenerative disc disease), lumbar Degeneration of lumbar or lumbosacral intervertebral disc Mild recurrent major depression Major depressive disorder, recurrent episode, mild Generalized anxiety disorder Generalized anxiety disorder Primary insomnia Persistent disorder of initiating or maintaining sleep Polycystic ovary syndrome Polycystic ovaries Menopausal and female climacteric states Annual physical exam- Primary Routine general medical examination at a health care facility Colon cancer screening Special screening for malignant neoplasms, colon Essential hypertension, benign Essential hypertension, benign Degeneration of intervertebral disc of lumbar region with discogenic back pain Essential hypertension, benign- Primary Essential hypertension, benign Mild recurrent major depression Major depressive disorder, recurrent episode, mild Generalized anxiety disorder Generalized anxiety disorder Degeneration of intervertebral disc of lumbar region with discogenic back pain Dyshidrotic eczema Primary insomnia Persistent disorder of initiating or maintaining sleep Left hip pain- Primary Pain in joint, pelvic region and thigh documented [facility]* Diagnosis Essential hypertension, benign- Primary Essential hypertension, benign MDD (major depressive disorder), recurrent episode, moderate (HCC) Generalized anxiety disorder Generalized anxiety disorder Primary insomnia Persistent disorder of initiating or maintaining sleep DDD (degenerative disc disease), lumbar Degeneration of lumbar or lumbosacral intervertebral disc DDD (degenerative disc disease), cervical Degeneration of cervical intervertebral disc Seasonal allergic rhinitis due to pollen SOB (shortness of breath) Shortness of breath Essential hypertension, benign- Primary Essential hypertension, benign DDD (degenerative disc disease), cervical Degeneration of cervical intervertebral disc DDD (degenerative disc disease), lumbar Degeneration of lumbar or lumbosacral intervertebral disc Mild recurrent major depression Major depressive disorder, recurrent episode, mild Generalized anxiety disorder Generalized anxiety disorder Primary insomnia Persistent disorder of initiating or maintaining sleep Polycystic ovary syndrome Polycystic ovaries Menopausal and female climacteric states Annual physical exam- Primary Routine general medical examination at a health care facility Colon cancer screening Special screening for malignant neoplasms, colon Essential hypertension, benign Essential hypertension, benign Degeneration of intervertebral disc of lumbar region with discogenic back pain Essential hypertension, benign- Primary Essential hypertension, benign Mild recurrent major depression Major depressive disorder, recurrent episode, mild Generalized anxiety disorder Generalized anxiety disorder Degeneration of intervertebral disc of lumbar region with discogenic back pain Dyshidrotic eczema Primary insomnia Persistent disorder of initiating or maintaining sleep Left hip pain- Primary Pain in joint, pelvic region and thigh documented [facility]* Diagnosis Essential hypertension, benign- Primary Essential hypertension, benign MDD (major depressive disorder), recurrent episode, moderate (HCC) Generalized anxiety disorder Generalized anxiety disorder Primary insomnia Persistent disorder of initiating or maintaining sleep DDD (degenerative disc disease), lumbar Degeneration of lumbar or lumbosacral intervertebral disc DDD (degenerative disc disease), cervical Degeneration of cervical intervertebral disc Seasonal allergic rhinitis due to pollen SOB (shortness of breath) Shortness of breath Essential hypertension, benign- Primary Essential hypertension, benign DDD (degenerative disc disease), cervical Degeneration of cervical intervertebral disc DDD (degenerative disc disease), lumbar Degeneration of lumbar or lumbosacral intervertebral disc Mild recurrent major depression Major depressive disorder, recurrent episode, mild Generalized anxiety disorder Generalized anxiety disorder Primary insomnia Persistent disorder of initiating or maintaining sleep Polycystic ovary syndrome Polycystic ovaries Menopausal and female climacteric states Annual physical exam- Primary Routine general medical examination at a health care facility Colon cancer screening Special screening for malignant neoplasms, colon Essential hypertension, benign Essential hypertension, benign Degeneration of intervertebral disc of lumbar region with discogenic back pain Essential hypertension, benign- Primary Essential hypertension, benign Mild recurrent major depression Major depressive disorder, recurrent episode, mild Generalized anxiety disorder Generalized anxiety disorder Degeneration of intervertebral disc of lumbar region with discogenic back pain Dyshidrotic eczema Primary insomnia Persistent disorder of initiating or maintaining sleep Degeneration of intervertebral disc of lumbar region with discogenic back pain and lower extremity pain documented [facility]* Diagnosis Essential hypertension, benign- Primary Essential hypertension, benign MDD (major depressive disorder), recurrent episode, moderate (HCC) Generalized anxiety disorder Generalized anxiety disorder Primary insomnia Persistent disorder of initiating or maintaining sleep DDD (degenerative disc disease), lumbar Degeneration of lumbar or lumbosacral intervertebral disc DDD (degenerative disc disease), cervical Degeneration of cervical intervertebral disc Seasonal allergic rhinitis due to pollen SOB (shortness of breath) Shortness of breath Essential hypertension, benign- Primary Essential hypertension, benign DDD (degenerative disc disease), cervical Degeneration of cervical intervertebral disc DDD (degenerative disc disease), lumbar Degeneration of lumbar or lumbosacral intervertebral disc Mild recurrent major depression Major depressive disorder, recurrent episode, mild Generalized anxiety disorder Generalized anxiety disorder Primary insomnia Persistent disorder of initiating or maintaining sleep Polycystic ovary syndrome Polycystic ovaries Menopausal and female climacteric states Annual physical exam- Primary Routine general medical examination at a health care facility Colon cancer screening Special screening for malignant neoplasms, colon Essential hypertension, benign Essential hypertension, benign Degeneration of intervertebral disc of lumbar region with discogenic back pain Essential hypertension, benign- Primary Essential hypertension, benign Mild recurrent major depression Major depressive disorder, recurrent episode, mild Generalized anxiety disorder Generalized anxiety disorder Degeneration of intervertebral disc of lumbar region with discogenic back pain Dyshidrotic eczema Primary insomnia Persistent disorder of initiating or maintaining sleep Left hip pain- Primary Pain in joint, pelvic region and thigh documented [facility]* Diagnosis Essential hypertension, benign- Primary Essential hypertension, benign MDD (major depressive disorder), recurrent episode, moderate (HCC) Generalized anxiety disorder Generalized anxiety disorder Primary insomnia Persistent disorder of initiating or maintaining sleep DDD (degenerative disc disease), lumbar Degeneration of lumbar or lumbosacral intervertebral disc DDD (degenerative disc disease), cervical Degeneration of cervical intervertebral disc Seasonal allergic rhinitis due to pollen SOB (shortness of breath) Shortness of breath Essential hypertension, benign- Primary Essential hypertension, benign DDD (degenerative disc disease), cervical Degeneration of cervical intervertebral disc DDD (degenerative disc disease), lumbar Degeneration of lumbar or lumbosacral intervertebral disc Mild recurrent major depression Major depressive disorder, recurrent episode, mild Generalized anxiety disorder Generalized anxiety disorder Primary insomnia Persistent disorder of initiating or maintaining sleep Polycystic ovary syndrome Polycystic ovaries Menopausal and female climacteric states Annual physical exam- Primary Routine general medical examination at a health care facility Colon cancer screening Special screening for malignant neoplasms, colon Essential hypertension, benign Essential hypertension, benign Degeneration of intervertebral disc of lumbar region with discogenic back pain Essential hypertension, benign- Primary Essential hypertension, benign Mild recurrent major depression Major depressive disorder, recurrent episode, mild Generalized anxiety disorder Generalized anxiety disorder Degeneration of intervertebral disc of lumbar region with discogenic back pain Dyshidrotic eczema Primary insomnia Persistent disorder of initiating or maintaining sleep Left hip pain- Primary Pain in joint, pelvic region and thigh documented [facility]* Diagnosis Essential hypertension, benign- Primary Essential hypertension, benign MDD (major depressive disorder), recurrent episode, moderate (HCC) Generalized anxiety disorder Generalized anxiety disorder Primary insomnia Persistent disorder of initiating or maintaining sleep DDD (degenerative disc disease), lumbar Degeneration of lumbar or lumbosacral intervertebral disc DDD (degenerative disc disease), cervical Degeneration of cervical intervertebral disc Seasonal allergic rhinitis due to pollen SOB (shortness of breath) Shortness of breath Essential hypertension, benign- Primary Essential hypertension, benign DDD (degenerative disc disease), cervical Degeneration of cervical intervertebral disc DDD (degenerative disc disease), lumbar Degeneration of lumbar or lumbosacral intervertebral disc Mild recurrent major depression Major depressive disorder, recurrent episode, mild Generalized anxiety disorder Generalized anxiety disorder Primary insomnia Persistent disorder of initiating or maintaining sleep Polycystic ovary syndrome Polycystic ovaries Menopausal and female climacteric states Annual physical exam- Primary Routine general medical examination at a health care facility Colon cancer screening Special screening for malignant neoplasms, colon Essential hypertension, benign Essential hypertension, benign Degeneration of intervertebral disc of lumbar region with discogenic back pain Essential hypertension, benign- Primary Essential hypertension, benign Mild recurrent major depression Major depressive disorder, recurrent episode, mild Generalized anxiety disorder Generalized anxiety disorder Degeneration of intervertebral disc of lumbar region with discogenic back pain Dyshidrotic eczema Primary insomnia Persistent disorder of initiating or maintaining sleep Degeneration of intervertebral disc of lumbar region with discogenic back pain and lower extremity pain- Primary Left hip pain Pain in joint, pelvic region and thigh documented [facility]* Diagnosis Essential hypertension, benign- Primary Essential hypertension, benign MDD (major depressive disorder), recurrent episode, moderate (HCC) Generalized anxiety disorder Generalized anxiety disorder Primary insomnia Persistent disorder of initiating or maintaining sleep DDD (degenerative disc disease), lumbar Degeneration of lumbar or lumbosacral intervertebral disc DDD (degenerative disc disease), cervical Degeneration of cervical intervertebral disc Seasonal allergic rhinitis due to pollen SOB (shortness of breath) Shortness of breath Essential hypertension, benign- Primary Essential hypertension, benign DDD (degenerative disc disease), cervical Degeneration of cervical intervertebral disc DDD (degenerative disc disease), lumbar Degeneration of lumbar or lumbosacral intervertebral disc Mild recurrent major depression Major depressive disorder, recurrent episode, mild Generalized anxiety disorder Generalized anxiety disorder Primary insomnia Persistent disorder of initiating or maintaining sleep Polycystic ovary syndrome Polycystic ovaries Menopausal and female climacteric states Annual physical exam- Primary Routine general medical examination at a health care facility Colon cancer screening Special screening for malignant neoplasms, colon Essential hypertension, benign Essential hypertension, benign Degeneration of intervertebral disc of lumbar region with discogenic back pain Essential hypertension, benign- Primary Essential hypertension, benign Mild recurrent major depression Major depressive disorder, recurrent episode, mild Generalized anxiety disorder Generalized anxiety disorder Degeneration of intervertebral disc of lumbar region with discogenic back pain Dyshidrotic eczema Primary insomnia Persistent disorder of initiating or maintaining sleep Degeneration of intervertebral disc of lumbar region with discogenic back pain and lower extremity pain- Primary Left hip pain Pain in joint, pelvic region and thigh Degeneration of intervertebral disc of lumbar region with discogenic back pain and lower extremity pain documented [facility]* Diagnosis Essential hypertension, benign- Primary Essential hypertension, benign MDD (major depressive disorder), recurrent episode, moderate (HCC) Generalized anxiety disorder Generalized anxiety disorder Primary insomnia Persistent disorder of initiating or maintaining sleep DDD (degenerative disc disease), lumbar Degeneration of lumbar or lumbosacral intervertebral disc DDD (degenerative disc disease), cervical Degeneration of cervical intervertebral disc Seasonal allergic rhinitis due to pollen SOB (shortness of breath) Shortness of breath Essential hypertension, benign- Primary Essential hypertension, benign DDD (degenerative disc disease), cervical Degeneration of cervical intervertebral disc DDD (degenerative disc disease), lumbar Degeneration of lumbar or lumbosacral intervertebral disc Mild recurrent major depression Major depressive disorder, recurrent episode, mild Generalized anxiety disorder Generalized anxiety disorder Primary insomnia Persistent disorder of initiating or maintaining sleep Polycystic ovary syndrome Polycystic ovaries Menopausal and female climacteric states Annual physical exam- Primary Routine general medical examination at a health care facility Colon cancer screening Special screening for malignant neoplasms, colon Essential hypertension, benign Essential hypertension, benign Degeneration of intervertebral disc of lumbar region with discogenic back pain Essential hypertension, benign- Primary Essential hypertension, benign Mild recurrent major depression Major depressive disorder, recurrent episode, mild Generalized anxiety disorder Generalized anxiety disorder Degeneration of intervertebral disc of lumbar region with discogenic back pain Dyshidrotic eczema Primary insomnia Persistent disorder of initiating or maintaining sleep Degeneration of intervertebral disc of lumbar region with discogenic back pain and lower extremity pain- Primary Left hip pain Pain in joint, pelvic region and thigh Left hip pain- Primary Pain in joint, pelvic region and thigh documented [facility]* Diagnosis Essential hypertension, benign- Primary Essential hypertension, benign MDD (major depressive disorder), recurrent episode, moderate (HCC) Generalized anxiety disorder Generalized anxiety disorder Primary insomnia Persistent disorder of initiating or maintaining sleep DDD (degenerative disc disease), lumbar Degeneration of lumbar or lumbosacral intervertebral disc DDD (degenerative disc disease), cervical Degeneration of cervical intervertebral disc Seasonal allergic rhinitis due to pollen SOB (shortness of breath) Shortness of breath Essential hypertension, benign- Primary Essential hypertension, benign DDD (degenerative disc disease), cervical Degeneration of cervical intervertebral disc DDD (degenerative disc disease), lumbar Degeneration of lumbar or lumbosacral intervertebral disc Mild recurrent major depression Major depressive disorder, recurrent episode, mild Generalized anxiety disorder Generalized anxiety disorder Primary insomnia Persistent disorder of initiating or maintaining sleep Polycystic ovary syndrome Polycystic ovaries Menopausal and female climacteric states Annual physical exam- Primary Routine general medical examination at a health care facility Colon cancer screening Special screening for malignant neoplasms, colon Essential hypertension, benign Essential hypertension, benign Degeneration of intervertebral disc of lumbar region with discogenic back pain Essential hypertension, benign- Primary Essential hypertension, benign Mild recurrent major depression Major depressive disorder, recurrent episode, mild Generalized anxiety disorder Generalized anxiety disorder Degeneration of intervertebral disc of lumbar region with discogenic back pain Dyshidrotic eczema Primary insomnia Persistent disorder of initiating or maintaining sleep Degeneration of intervertebral disc of lumbar region with discogenic back pain and lower extremity pain- Primary Left hip pain Pain in joint, pelvic region and thigh Left hip pain- Primary Pain in joint, pelvic region and thigh documented [facility]* Diagnosis Essential hypertension, benign- Primary Essential hypertension, benign MDD (major depressive disorder), recurrent episode, moderate (HCC) Generalized anxiety disorder Generalized anxiety disorder Primary insomnia Persistent disorder of initiating or maintaining sleep DDD (degenerative disc disease), lumbar Degeneration of lumbar or lumbosacral intervertebral disc DDD (degenerative disc disease), cervical Degeneration of cervical intervertebral disc Seasonal allergic rhinitis due to pollen SOB (shortness of breath) Shortness of breath Essential hypertension, benign- Primary Essential hypertension, benign DDD (degenerative disc disease), cervical Degeneration of cervical intervertebral disc DDD (degenerative disc disease), lumbar Degeneration of lumbar or lumbosacral intervertebral disc Mild recurrent major depression Major depressive disorder, recurrent episode, mild Generalized anxiety disorder Generalized anxiety disorder Primary insomnia Persistent disorder of initiating or maintaining sleep Polycystic ovary syndrome Polycystic ovaries Menopausal and female climacteric states Annual physical exam- Primary Routine general medical examination at a health care facility Colon cancer screening Special screening for malignant neoplasms, colon Essential hypertension, benign Essential hypertension, benign Degeneration of intervertebral disc of lumbar region with discogenic back pain Essential hypertension, benign- Primary Essential hypertension, benign Mild recurrent major depression Major depressive disorder, recurrent episode, mild Generalized anxiety disorder Generalized anxiety disorder Degeneration of intervertebral disc of lumbar region with discogenic back pain Dyshidrotic eczema Primary insomnia Persistent disorder of initiating or maintaining sleep Degeneration of intervertebral disc of lumbar region with discogenic back pain and lower extremity pain- Primary Left hip pain Pain in joint, pelvic region and thigh Left hip pain- Primary Pain in joint, pelvic region and thigh documented in this encounter [facility]* Diagnosis Essential hypertension, benign- Primary Essential hypertension, benign MDD (major depressive disorder), recurrent episode, moderate (HCC) Generalized anxiety disorder Generalized anxiety disorder Primary insomnia Persistent disorder of initiating or maintaining sleep DDD (degenerative disc disease), lumbar Degeneration of lumbar or lumbosacral intervertebral disc DDD (degenerative disc disease), cervical Degeneration of cervical intervertebral disc Seasonal allergic rhinitis due to pollen SOB (shortness of breath) Shortness of breath Essential hypertension, benign- Primary Essential hypertension, benign DDD (degenerative disc disease), cervical Degeneration of cervical intervertebral disc DDD (degenerative disc disease), lumbar Degeneration of lumbar or lumbosacral intervertebral disc Mild recurrent major depression Major depressive disorder, recurrent episode, mild Generalized anxiety disorder Generalized anxiety disorder Primary insomnia Persistent disorder of initiating or maintaining sleep Polycystic ovary syndrome Polycystic ovaries Menopausal and female climacteric states Annual physical exam- Primary Routine general medical examination at a health care facility Colon cancer screening Special screening for malignant neoplasms, colon Essential hypertension, benign Essential hypertension, benign Degeneration of intervertebral disc of lumbar region with discogenic back pain Essential hypertension, benign- Primary Essential hypertension, benign Mild recurrent major depression Major depressive disorder, recurrent episode, mild Generalized anxiety disorder Generalized anxiety disorder Degeneration of intervertebral disc of lumbar region with discogenic back pain Dyshidrotic eczema Primary insomnia Persistent disorder of initiating or maintaining sleep Degeneration of intervertebral disc of lumbar region with discogenic back pain and lower extremity pain- Primary Left hip pain Pain in joint, pelvic region and thigh Left hip pain- Primary Pain in joint, pelvic region and thigh documented in this encounter [facility]* Diagnosis Essential hypertension, benign- Primary Essential hypertension, benign MDD (major depressive disorder), recurrent episode, moderate (HCC) Generalized anxiety disorder Generalized anxiety disorder Primary insomnia Persistent disorder of initiating or maintaining sleep DDD (degenerative disc disease), lumbar Degeneration of lumbar or lumbosacral intervertebral disc DDD (degenerative disc disease), cervical Degeneration of cervical intervertebral disc Seasonal allergic rhinitis due to pollen SOB (shortness of breath) Shortness of breath Essential hypertension, benign- Primary Essential hypertension, benign DDD (degenerative disc disease), cervical Degeneration of cervical intervertebral disc DDD (degenerative disc disease), lumbar Degeneration of lumbar or lumbosacral intervertebral disc Mild recurrent major depression Major depressive disorder, recurrent episode, mild Generalized anxiety disorder Generalized anxiety disorder Primary insomnia Persistent disorder of initiating or maintaining sleep Polycystic ovary syndrome Polycystic ovaries Menopausal and female climacteric states Annual physical exam- Primary Routine general medical examination at a health care facility Colon cancer screening Special screening for malignant neoplasms, colon Essential hypertension, benign Essential hypertension, benign Degeneration of intervertebral disc of lumbar region with discogenic back pain Essential hypertension, benign- Primary Essential hypertension, benign Mild recurrent major depression Major depressive disorder, recurrent episode, mild Generalized anxiety disorder Generalized anxiety disorder Degeneration of intervertebral disc of lumbar region with discogenic back pain Dyshidrotic eczema Primary insomnia Persistent disorder of initiating or maintaining sleep Degeneration of intervertebral disc of lumbar region with discogenic back pain and lower extremity pain- Primary Left hip pain Pain in joint, pelvic region and thigh Left hip pain- Primary Pain in joint, pelvic region and thigh documented in this encounter [facility]* Diagnosis Essential hypertension, benign- Primary Essential hypertension, benign MDD (major depressive disorder), recurrent episode, moderate (HCC) Generalized anxiety disorder Generalized anxiety disorder Primary insomnia Persistent disorder of initiating or maintaining sleep DDD (degenerative disc disease), lumbar Degeneration of lumbar or lumbosacral intervertebral disc DDD (degenerative disc disease), cervical Degeneration of cervical intervertebral disc Seasonal allergic rhinitis due to pollen SOB (shortness of breath) Shortness of breath Essential hypertension, benign- Primary Essential hypertension, benign DDD (degenerative disc disease), cervical Degeneration of cervical intervertebral disc DDD (degenerative disc disease), lumbar Degeneration of lumbar or lumbosacral intervertebral disc Mild recurrent major depression Major depressive disorder, recurrent episode, mild Generalized anxiety disorder Generalized anxiety disorder Primary insomnia Persistent disorder of initiating or maintaining sleep Polycystic ovary syndrome Polycystic ovaries Menopausal and female climacteric states Annual physical exam- Primary Routine general medical examination at a health care facility Colon cancer screening Special screening for malignant neoplasms, colon Essential hypertension, benign Essential hypertension, benign Degeneration of intervertebral disc of lumbar region with discogenic back pain Essential hypertension, benign- Primary Essential hypertension, benign Mild recurrent major depression Major depressive disorder, recurrent episode, mild Generalized anxiety disorder Generalized anxiety disorder Degeneration of intervertebral disc of lumbar region with discogenic back pain Dyshidrotic eczema Primary insomnia Persistent disorder of initiating or maintaining sleep Degeneration of intervertebral disc of lumbar region with discogenic back pain and lower extremity pain- Primary Left hip pain Pain in joint, pelvic region and thigh Degeneration of intervertebral disc of lumbar region with discogenic back pain and lower extremity pain documented in this encounter [facility] noteNo assessment information availableFirGood Samaritan Hospital Work Phone: History general Narrative - Reported* Type Description Date Medical History Osteorthritis of Lumbar Spine Medical Historyseasonal allergiesMedical Historypolycystic ovariesMedical HistoryHTNSurgical HistoryNeck SurgerySurgical Historyback surgerySurgical HistoryLumbar injectionsSurgical HistoryablationSurgical Historytubal ligation Hospitalization Historysee above [employer] Other Reason for referral (narrative)No reason for referral information availableKing'S D[facility] [place] Work Phone: Reason for visit Narrative* Rehabilitation - Outpatient (Routine) - AuthorizedSpecialtyDiagnoses / ProceduresReferred By ContactReferred To ContactPhysical Therapy Diagnoses Hip and Leg Pain, Arthritis Procedures AL PHYSICAL THERAPY EVALUATION LOW COMPLEX 20 MINS AL OFFICE/OUTPATIENT NEW HIGH MDM 60 MINUTES Odell Handley MD [address] [place] [address] Phone: tel: Akhil Jerome, PT [address] [address] Phone: tel: fax: Referral IDStatusReasonStart DateExpiration DateVisits RequestedVisits [id number] [facility] HealthcareReason for visit Narrative* Rehabilitation - Outpatient (Routine) - AuthorizedSpecialtyDiagnoses / ProceduresReferred By ContactReferred To ContactPhysical Therapy Diagnoses Hip and Leg Pain, Arthritis Procedures AL PHYSICAL THERAPY EVALUATION LOW COMPLEX 20 MINS AL OFFICE/OUTPATIENT NEW HIGH MDM 60 MINUTES Odell Handley MD [address] [place] [address] Phone: tel: Akhil Jerome, PT 112 [facility] [address] [place] [address] Phone: tel: fax: Referral IDStatusReasonStart DateExpiration DateVisits RequestedVisits [id number]/ [facility] HealthcareReason for visit Narrative* Rehabilitation - Outpatient (Routine) - AuthorizedSpecialtyDiagnoses / ProceduresReferred By ContactReferred To ContactPhysical Therapy Diagnoses Hip and Leg Pain, Arthritis Procedures AL PHYSICAL THERAPY EVALUATION LOW COMPLEX 20 MINS AL OFFICE/OUTPATIENT NEW HIGH MDM 60 MINUTES Odell Handley MD [address] [place] [address] Phone: tel: Akhil Jerome, PT [address] [place] [address] Phone: tel: fax: Referral IDStatusReasonStart DateExpiration DateVisits RequestedVisits [id number]/ [facility] Summary Purpose Family History Relationship Condition Age at Onset Recorded Date/T loni brother Diverticulitis Unknown fatherHistory of strokeUnknownFamily history of mental disorderUnknown HypertensionUnknownColitisUnknownDiabetes mellitusUnknownmotherMalignant neoplasmUnknownMalignant neoplasm of breastUnknownHeart diseaseUnknownsister HyperlipidemiaUnknown Advance Directives Advance Directive Response Recorded Date/ Time Advance Directives No August 04, 2025 4:26pm Chief Complaint and Reason for Visit Chief Complaint Admit Date Discuss MRI August 14, 2025 1 :02pm Additional Source Comments INFORMATION SOURCE (unrecogn ized section and content) DATE CREATED AUTHOR 11/20/2020 [facility] DATE CREATED AUTHOR AUTHOR'S ORGANIZ ATION 09/11/2022 [facility] DATE CREATED AUTHOR AUTHOR'S ORGANIZ ATION 06/12/2025 [facility] EPIC REASON FOR VISIT (unrecogniz ed section and content) ReasonCommentsFollow-gd2pTcrretNpnfa DateCommentsMed Makjru524Reason CommentsFollow-up6 mReasonCommentsGynecologic ExamReasonOnset DateCommentsMed Ejchef564ReasonOnset DateCommentsMed Hmzmtc9906/23/2024easonOnset Date CommentsMed Nkcbbc454ReasonOnset DateCommentsMed Rupxky524Reason Onset DateCommentsMed Rqekhm0611/21/2024ReasonOnset DateCommentsMed Refill 12/20/2024ReasonOnset DateCommentsMed Rkonsi0001/18/2025ReasonOnset DateComments Med Arttod6002/21/2025ReasonCommentsFollow-vt6nSwz PainLeft hip down legRashOn handsReasonOnset DateCommentsMed Wxmxir2604/21/2025ReasonOnset DateCommentsCX PT today04/24/2025ReasonCommentsFollow-upDiscuss PTReasonOnset DateCommentsMed Bpqzne3505/21/2025ReasonOnset DateCommentsMed Bsarbr4006/19/2025 Care Teams (unrecognized sec tion and content) Team MemberRelationshipSpecialtyStart DateEnd Date Odell Handley MD [address] [place] [address] PCP - GeneralFamily Medicine11/20/23Team MemberRelationshipSpecialtyStart DateEnd Date Odell Handley MD [address] [place] [address] PCP - GeneralFamily Medicine11/20/23Team MemberRelationshipSpecialtyStart DateEnd Date Odell Handley MD [address] [place] [address] PCP - GeneralFamily Medicine11/20/23Team MemberRelationshipSpecialtyStart DateEnd Date Odell Handley MD [address] [place] [address] PCP - GeneralFamily Medicine11/20/23Team MemberRelationshipSpecialtyStart DateEnd Date Odell Handley MD [address] [place] [address] [facility]11/20/23 Odell Handley MD [address] [place] [address] [facility]07/30/24Te MemberRelationshipSpecialtyStart DateEnd Date Odell Handley MD [address] [place] [address] [facility]11/20/23 Odell Handley MD [address] [place] [address] [facility]07/30/24Te MemberRelationshipSpecialtyStart DateEnd Date Odell Handley MD [address] [place] [address] [facility]11/20/23 Odell Handley MD [address] [place] [address] [facility]07/30/24Te MemberRelationshipSpecialtyStart DateEnd Date Odell Handley MD [address] [place] [address] [facility]11/20/23 Odell Handley MD [address] [place] [address] [facility]07/30/24Te MemberRelationshipSpecialtyStart DateEnd Date Odell Handley MD [address] [place] [address] [facility]11/20/23 Odell Handley MD [address] [place] [address] [facility]07/30/24Te MemberRelationshipSpecialtyStart DateEnd Date Odell Handley MD [address] [place] [address] [facility]11/20/23 Odell Handley MD [address] [place] [address] [facility]07/30/24Te MemberRelationshipSpecialtyStart DateEnd Date Odell Handley MD [address] [place] [address] [facility]11/20/23Te MemberRelationshipSpecialtyStart DateEnd Date Odell Hanldey MD [address] [place] [address] [facility]11/20/23Te MemberRelationshipSpecialtyStart DateEnd Date Odell Handlye MD [address] [place] [address] PCP - [facility]11/20/23 Odell Handley MD [address] [place] [address] [facility]07/30/24Team MemberRelationshipSpecialtyStart DateEnd Date Odell Handley MD [address] [place] [address] [facility]11/20/23 Odell Handley MD [address] [place] [address] [facility]07/30/24Team MemberRelationshipSpecialtyStart DateEnd Date Odell Handley MD [address] [place] [address] [facility]11/20/23 Odell Handley MD [address] [place] [address] [facility]07/30/24Team MemberRelationshipSpecialtyStart DateEnd Date Odell Handley MD [address] [place] [address] [facility]11/20/23 Odell Handley MD [address] [place] [address] [place] [address]Team MemberRelationshipSpecialtyStart DateEnd Date Odell Handley MD [address] [place] [address] PCP - [facility]11/20/23 Odell Handley MD [address] [place] [address] [facility]07/30/24Team MemberRelationshipSpecialtyStart DateEnd Date Odell Handley MD [address] [place] [address] [facility]11/20/23 Odell Handley MD [address] [place] [address] [facility]07/30/24Team MemberRelationshipSpecialtyStart DateEnd Date Odell Handley MD [address] [place] [address] [facility]11/20/23 Odell Handley MD [address] [place] [address] [place] [address]Team MemberRelationshipSpecialtyStart DateEnd Date Odell Handley MD [address] [place] [address] PCP - [facility]11/20/23 Odell Handley MD [address] [place] [address] [facility]07/30/24Team MemberRelationshipSpecialtyStart DateEnd Date Odell Handley MD [address] [place] [address] [facility]11/20/23 Odell Handley MD [address] [place] [address] [facility]07/30/24Team MemberRelationshipSpecialtyStart DateEnd Date Odell Handley MD [address] [place] [address] [facility]11/20/23 Odell Handley MD [address] [place] [address] [facility]07/30/24Team MemberRelationshipSpecialtyStart DateEnd Date Odell Handley MD [address] [place] [address] [facility]11/20/23 Odell Handley MD [address] [place] [address] [place] [address]Team MemberRelationshipSpecialtyStart DateEnd Date Odell Handley MD [address] [place] [address] [facility]11/20/23 Odell Handley MD [address] [place] [address] [facility]07/30/24Team MemberRelationshipSpecialtyStart DateEnd Date Odell Handley MD [address] [place] [address] [facility]11/20/23 Odell Handley MD [address] [place] [address] [facility]07/30/24Team MemberRelationshipSpecialtyStart DateEnd Date Odell Handley MD [address] [place] [address] [facility]11/20/23 Odell Handley MD [address] [place] [address] [facility]07/30/24Team MemberRelationshipSpecialtyStart DateEnd Date Odell Handley MD [address] [place] [address] [facility]11/20/23 Odell Handley MD [address] [place] [address] [facility]07/30/24Te MemberRelationshipSpecialtyStart DateEnd Date Odell Handley MD [address] [place] [address] [facility]11/20/23 Odell Handley MD [address] [place] [address] [facility]07/30/24Te MemberRelationshipSpecialtyStart DateEnd Date Odell Handley MD [address] [place] [address] [facility]11/20/23 Odell Handley MD [address] [place] [address] [facility]07/30/24Team MemberRelationshipSpecialtyStart DateEnd Date Odell Handley MD [address] [place] [address] [facility]11/20/23 Odell Handley MD [address] [place] [address] [facility]07/30/24Te MemberRelationshipSpecialtyStart DateEnd Date Odell Handley MD [address] [place] [address] [facility]11/20/23 Odell Handley MD [address] [place] [address] [facility]07/30/24Team MemberRelationshipSpecialtyStart DateEnd Date Odell Handley MD [address] [place] [address] [facility]11/20/23 Odell Handley MD [address] [place] [address] [facility]07/30/24Team MemberRelationshipSpecialtyStart DateEnd Date Odell Handley MD [address] [place] [address] [facility]11/20/23 Odell Handley MD [address] [place] [address] [facility]07/30/24Team MemberRelationshipSpecialtyStart DateEnd Date Odell Handley MD [address] [place] [address] [facility]11/20/23 Odell Handley MD [address] [place] [address] [facility]07/30/24Te MemberRelationshipSpecialtyStart DateEnd Date Odell Handley MD [address] [place] [address] [facility]11/20/23 Odell Handley MD [address] [place] [address] [facility]07/30/24Te MemberRelationshipSpecialtyStart DateEnd Date Odell Handley MD [address] [place] [address] [facility]11/20/23 Odell Handley MD [address] [place] [address] [facility]07/30/24Te MemberRelationshipSpecialtyStart DateEnd Date Odell Handley MD [address] [place] [address] [facility]11/20/23 Odell Handley MD [address] [place] [address] [place] [address]Te MemberRelationshipSpecialtyStart DateEnd Date Odell Handley MD [address] [place] [address] [facility]11/20/23 Odell Handley MD [address] [place] [address] [facility]07/30/24 Team Status: Active Member Role Status Dates Odell Handley MD Primary Care Provider Active Team Status: Inactive Member Role Status Dates Odell Handley MD Primary Care Provider Active S tart: August 14, 2025 End: August 14, 2025Mar ANDRIA Handleyttending ProviderActiveStart: August 14, 2025 End: August 14, 2025Team MemberRelationshipSpecialtyStart DateEnd Date Odell Handley MD [facility] Odell Handley MD [facility]11/20/23 Odell Handley MD [address] [place] [address] [place] [address]Team MemberRelationshipSpecialtyStart DateEnd Date Odell Handley MD [facility]11/20/23 Odell Handley MD [address] [place] [address] [facility]07/30/24 Goals (unrecognized section and content) Goals may be documented in a n alternate section FOR RECORDS PERTAINING TO PATIENTS WHO ARE [...] BE BASED ON THE PRIMARY CLINICAL RECORDS. [facility]. provides no warranty or guarantee of the accuracy or completeness of information in this document.
--- OUTSIDE RECORDS SUMMARY | 2025-08-29 06:59 | XMS_ITS | Encounter Summary ---
Author Organization [facility] Address [address] [place] [address] Care Team Providers Care Power Plant Manager Name Role Phone Odell Elliott MD Primary Care Provider [phone] Odell Elliott MD Unavailable Encounter Details DateTypeDepartmentCare Team (Latest Contact Info)Ytqvnawhhou44/23/2024Clinisync Result Encounter [facility] Unsolicited Heath Shah, DO [address] [place] [address] Social History Tobacco UseTypesPacks/DayYears UsedDateSmoking Tobacco: Every DayCigarettes Smokeless Tobacco: [id number] Health LiteracyAnswerDate RecordedHow often do you need to have someone help you when you read instructions, pamphlets, or other written material from your doctor or pharmacy?Never03/10/2025Humiliation, Afraid, Rape, and Kick questionnaireAnswerDate RecordedWithin the last year, have you been afraid of your partner or ex-partner?No03/10/2025Within the last year, have you been humiliated or emotionally abused in other ways by your partner or ex-partner?No03/10/2025Within the last year, have you been kicked, hit, slapped, or otherwise physically hurt by your partner or ex-partner?No 03/10/2025Within the last year, have you been raped or forced to have any kind of sexual activity by your partner or ex-partner?No03/10/2025Social Connection and Isolation PanelAnswerDate RecordedIn a typical week, how many times do you talk on the phone with family, friends, or neighbors?Three times a week 03/10/2025How often do you get together with friends or relatives?More than three times a week03/10/2025How often do you attend rastafarian or protestant services?Patient ooiegxzr22/12/2025Do you belong to any clubs or organizations such as rastafarian groups, unions, fraBigBad or athletic groups, or school groups?No 03/10/2025How often do you attend meetings of the clubs or organizations you belong to?Patient utivxprw63/12/2025re you , , , , never , or living with a partner?Fjqctez2303/10/2025UDIT-C AnswerDate RecordedQ1: How often do you have a drink containing alcohol?Patient inzdpmpz29/12/2025Q2: How many drinks containing alcohol do you have on a typical day when you are drinking?Patient does not drink03/10/2025Q3: How often do you have six or more drinks on one occasion?Patient /12/2025Overall Financial Resource Strain (CARDIA)AnswerDate RecordedHow hard is it for you to pay for the very basics like food, housing, medical care, and heating?Somewhat hard03/10/2025[employer] [employer] - Occupational Stress QuestionnaireAnswerDate RecordedDo you feel stress - tense, restless, nervous, or anxious, or unable to sleep at night because yourmind is troubled all the time - these days?To some uqueru9003/10/2025Exercise Vital SignAnswerDate Recorded On average, how many days per week do you engage in moderate to strenuous exercise (like a brisk walk)?5 days03/10/2025On average, how many minutes do you engage in exercise at this level?60 min03/10/2025Hunger Vital SignAnswerDate RecordedWithin the past 12 months, you worried that your food would run out before you got the money to buymore.Patient mzisvrfo41/12/2025Within the past 12 months, the food you bought just didn't last and you didn't have money to get more.Patient daobztkt98/12/2025PRAPARE - TransportationAnswerDate RecordedIn the past 12 months, has lack of transportation kept you from medical appointments or from getting medications?No03/10/2025In the past 12 months, has lack of transportation kept you from meetings, work, or from getting things needed for daily living?No03/10/2025Housing Stability Vital SignAnswerDate RecordedIn the last 12 months, was there a time when you were not able to pay the mortgage or rent on time?Patient hooiarr6312/06/2023In the last 12 months, how many places have you lived?In the last 12 months, was there a time when you did not have a steady place to sleep or slept in ashelter (including now)?No 12/06/2023Housing Stability Vital SignAnswerDate RecordedIn the last 12 months, was there a time when you were not able to pay the mortgage or rent on time? Patient zjdwgzaj24/12/2025In the past 12 months, how many times have you moved where you were living?t any time in the past 12 months, were you homeless or living in a detention (including now)?No03/10/2025CommentsNo Sex and Gender InformationValueDate RecordedSex Assigned at BirthNot on file Legal RwlUvjvcy96/15/2023 8:12 PM EDTGender IdentityNot on fileSexual OrientationNot on filedocumented as of this encounter Functional Status * AUDIT-C ScoreAnswerDate of AssessmentAuthor- 8:00 AM EDChucky, Generic * Q1: How often do you have a drink containing alcohol?AnswerDate of Assessment AuthorPatient nbovufws88/12/2025 8:00 AM Jose Generic * Q2: How many drinks containing alcohol do you have on a typical day when you are drinking?AnswerDate of AssessmentAuthorPatient does not drink03/10/2025 8:00 AM Jsoe, Generic * Q3: How often do you have six or more drinks on one occasion?AnswerDate of AssessmentAuthorPatient tonnxljz49/12/2025 8:00 AM EDTMychart, Generic documented as of this encounter Plan of Treatment DateTypeDepartmentCare Team (Latest Contact Info)Hfrorgiwcxt52/08/2025 3:40 PM ESTOffice Visit [facility] [place] [facility] [address] [place] [address] Heath Shah, DO [address] [place] [address] documented as of this encounter Procedures Procedure NamePriorityDate/TimeAssociated DiagnosisCommentsMM TOMOSYNTHESIS SCREENING BI10/21/2024 7:47 AM EST documented in this encounter Results * MM TOMOSYNTHESIS SCREENING BI (10/21/2024 7:47 AM EST)Anatomical Region LateralityModalityOtherSpecimen (Source)Anatomical Location / Laterality Collection Method / VolumeCollection TimeReceived Time10/21/2024 7:47 AM EST Narrative 10/21/2024 7:48 AM EST [facility] ?[address] ? [place] [address] ? Mammography Report ? Signed ? Patient: MORALES DAWKINS ?MR#: [id number] ?? : 1980 ?Acct:[id number] ?? Age/Sex: 44 / F ?ADM Date: 10/18/24 ?? Loc: MAMMO ? Attending Dr: Heath Shah D.O. ? Ordering Physician: Heath Shah D.O. ?Results: ? Date of Service: 10/18/24 ?Follow Up: ? Procedure(s): MM tomosynthesis screening BI ?? Accession Number(s): [id number] ? cc: Heath Shah D.O.; Odell Elliott M.D. ? Patient Name: ? MORALES DAWKINS ? MR#: [id number] ? : 1980 ? Exam Date: 10/18/2024 ?? Ordering Doctor: DR Heath Shah . ? RADIOLOGY REPORT ? PROCEDURE: ? MM TOMOSYNTHESIS SCREENING BI ? COMPARISON: ? MM TOMOSYNTHESIS SCREENING BI, 10/17/2023. ? INDICATIONS: ? Screening ? Calculator Name ? NCI Breast Cancer Risk Assessment Tool ?? 5 Year Breast Cancer Risk ? 1.80% ?? Lifetime Breast Cancer Risk ? 19.30% ?? Personal Breast Cancer ?No ?? Personal Ovarian Cancer ? No ?? Treatments ? None ?? Family Cancers ? Mother with breast cancer at age 60; Aunt-maternal with ?? breast cancer at age ??60. ? LOCATION: ? [facility] ? BREAST COMPOSITION: ? The breasts are heterogeneously dense,which may ?? obscure small masses. ? FINDINGS: ? DIAGNOSTIC CATEGORY 1--NEGATIVE. NO CHANGE FROM COMPARISON ASSESSMENT. ? Scattered benign-appearing nodules are present. ??Scattered benign-appearing ?? calcifications are present. ? RIGHT BREAST: ??No significant suspicious finding. ? LEFT BREAST: ??No significant suspicious finding. ? RECOMMENDATIONS: ? ROUTINE MAMMOGRAM AND CLINICAL EVALUATION IN 12 MONTHS. ? PLEASE NOTE: ??A NORMAL MAMMOGRAM DOES NOT EXCLUDE THE POSSIBILITY OF BREAST ?? CANCER. ??A CLINICALLY SUSPICIOUS PALPABLE LUMP SHOULD BE BIOPSIED. ? Dictated by: Schuyler Azevedo MD on 10/21/2024 at 07:46 ? Approved by: Schuyler Azevedo MD on 10/21/2024 at 07:47 ? Dictated By: ?Schuyler Azevedo M.D. ? Signed By: ?10/21/24 0748 ? DD/ ? TD/TT: ? Retail Sales Clerk: Procedure Note Radiology, Radiologist, - 10/21/2024 [place] [address] Mammography Report Signed Patient: MORALES DAWKINS AMR#: [id number] : 1980Acct:[id number] Age/Sex: 44 / FADM Date: 10/18/24 Loc: MAMMO Attending Dr: Heath Shah D.O. Ordering Physician: Heath Shah D.O.Results: Date of Service: 10/18/24Follow Up: Procedure(s): MM tomosynthesis screening BI Accession Number(s): [id number] cc: Heath Shah D.O.; Odell Elliott M.D. Patient Name: MORALES DAWKINS MR#: [id number] : 1980 Exam Date: 10/18/2024 Ordering Doctor: [...] breast cancer at age 58. LOCATION: [facility] BREAST COMPOSITION: The breasts are heterogeneously dense,which may obscure small masses. FINDINGS: DIAGNOSTIC CATEGORY 1--NEGATIVE. NO CHANGE FROM COMPARISON ASSESSMENT. Scattered benign-appearing nodules are present. Scatteredbenign-appearing calcifications are present. RIGHT BREAST: No significant suspicious finding. LEFT BREAST: No significant suspicious finding. RECOMMENDATIONS: ROUTINE MAMMOGRAM AND CLINICAL EVALUATION IN 12 MONTHS. PLEASE NOTE: A NORMAL MAMMOGRAM DOES NOT EXCLUDE THE POSSIBILITY OFBREAST CANCER. A CLINICALLY SUSPICIOUS PALPABLE LUMP SHOULD BE BIOPSIED. Dictated by: Schuyler Azevedo MD on 10/21/2024 at 07:46 Approved by: Schuyler Azevedo MD on 10/21/2024 at 07:47 Dictated By: Schuyler Azevedo M.D. Signed By:10/21/24 0748 DD/ TD/TT: Retail Sales Clerk: Authorizing ProviderResult TypeResult StatusCorey Alyssa DOCLINISYNC IMAGINGFinal Result documented in this encounter Visit Diagnoses Not on filedocumented in this encounter Additional Health Concerns AssessmentNoted TimePHQ-9 Depression Total Score: 7:11 AM EST documented as of this encounter Care Teams Team MemberRelationshipSpecialtyStart DateEnd Date Odell Elliott MD [facility] Odell Elliott MD [address] [place] [address] PCP - [facility]07/30/24documented as of this encounter
--- OUTSIDE RECORDS SUMMARY | 2025-08-29 06:59 | XMS_ITS | Clinical Summary ---
Author Organization [facility] Address [address] [place] [address] Care Team Providers Care Radio Journalist Name Role Phone Odell Elliott MD Primary Care Provider [phone] Odell Elliott MD Unavailable Allergies Active AllergyReactionsCriticalityNoted DateCommentsBee RjiosPvsfknd54/23/2024 CodeineGI emszjfldchr95/14/2023 Other Reaction(s): Unknown Medications MedicationSigDispense QuantityRefillsLast FilledStart DateEnd DateStatus melatonin 3 MG tablet Take 3 mg by mouth 1 (one) time each day at the same time.Active Multiple Vitamin (multivitamin) capsule Take 1 capsule by mouth in the morning.Active albuterol HFA (Ventolin HFA) 90 mcg/act inhaler Indications:SOB (shortness of breath)Inhale 2 puffs every 4 (four) hours if needed for wheezing 8.5 g 3084Active clindamycin (Cleocin T) 1 % lotion Indications:Hidradenitis suppurativaApply topically Daily As directed to affected areas 60 mL 311/5807125Active fluticasone (Flonase) 50 MCG/ACT nasal spray Indications:Seasonal allergic rhinitis due to pollenAdminister 1 spray into each nostril Daily 16 g 5Active celecoxib (CeleBREX) 200 MG capsule Indications:Degeneration of intervertebral disc of lumbar region with discogenic back painTAKE 1 CAPSULE BY MOUTH TWICE DAILY NEEDED for mild pain WITH FOOD 60 capsule 5Active valsartan (Diovan) 80 MG tablet Indications:Degeneration of intervertebral disc of lumbar region, unspecified whether pain presentTAKE 1 TABLET BY MOUTH ONCE DAILY 30 tablet 5Active buPROPion XL (Wellbutrin XL) 300 MG 24 hr tablet Indications:Generalized anxiety disorderTAKE 1 TABLET BY MOUTH ONCE DAILY 30 tablet 5Active cyclobenzaprine (Flexeril) 10 MG tablet Indications:Degeneration of intervertebral disc of lumbar region, unspecified whether pain presentTAKE 1 TABLET BY MOUTH THREE TIMES DAILY NEEDED 90 tablet 5Active cetirizine (ZyrTEC) 10 MG tablet Indications:Seasonal allergic rhinitis due to pollenTAKE 1 TABLET BY MOUTH ONCE DAILY 30 tablet 5Active triamcinolone (Kenalog) 0.5 % cream Indications:Dyshidrotic eczemaApply topically in the morning and in the evening and before bedtime. 60 g 5Active traZODone (Desyrel) 100 MG tablet Indications:Primary insomniaTAKE 1 TABLET BY MOUTH AT BEDTIME 30 tablet 505Active sertraline (Zoloft) 25 MG tablet Indications:MDD (major depressive disorder), recurrent episode, moderate (HCC) TAKE 1 TABLET BY MOUTH IN THE MORNING 30 tablet 505Active spironolactone (Aldactone) 50 MG tablet Indications:HidradenitisTAKE 1 TABLET BY MOUTH IN THE MORNING 30 tablet 5Active estrogen, conjugated,-medroxyPROGESTERone (Prempro) 0.45-1.5 MG tablet Indications:HidradenitisTake 1 tablet by mouth Daily 28 tablet 3085Active zinc 220 (50 Zn) MG capsule Indications:Hidradenitis suppurativaTAKE 1 CAPSULE BY MOUTH THREE TIMES DAILY 90 capsule 3105Active metFORMIN XR (Glucophage-XR) 500 MG 24 hr tablet Indications:Hidradenitis suppurativaTAKE 1 TABLET BY MOUTH TWICE DAILY (IN THE MORNING and BEFORE bedtime) DO NOT CRUSH, CHEW, OR SPLIT 30 tablet 1115Active doxycycline (Vibramycin) 100 MG capsule Indications:Hidradenitis suppurativaTAKE 1 CAPSULE BY MOUTH IN THE MORNING then TAKE 1 CAPSULE BY MOUTH BEFORE bedtime TAKE WITH atleast EIGHT ounces OF water, do not lie down for at least 30 MINUTES after 60 capsule 1115Active metFORMIN XR (Glucophage-XR) 500 MG 24 hr tablet Indications:Hidradenitis suppurativaTAKE 1 TABLET BY MOUTH IN THE MORNING and before bedtime. DO NOT CRUSH, CHEW, OR SPLIT. 30 tablet 110Discontinued doxycycline (Vibramycin) 100 MG capsule Indications:Hidradenitis suppurativaTAKE 1 CAPSULE BY MOUTH IN THE MORNING then TAKE 1 CAPSULE BY MOUTH BEFORE bedtime, take WITH at least EIGHT ounces OF water, do not lie down for 30 MINUTES after 60 capsule 306Discontinued zinc 220 (50 Zn) MG capsule Indications:Hidradenitis suppurativaTAKE 1 CAPSULE BY MOUTH THREE TIMES DAILY 90 capsule Discontinued Active Problems ProblemNoted DateDiagnosed DateLeft hip pain05/21/2025 Assessment & Plan (05/21/2025 9:40 AM EDT): Pain likely related to lumbar pathology. Check x-ray hip. Dyshidrotic ntavlp5203/10/2025 Assessment & Plan (03/10/2025 8:44 AM EDT): Start steroid cream. Annual physical exam09/09/2024 Assessment & Plan (09/09/2024 8:50 AM EST): Due for labs. Never had colon cancer screening and willing to have cologuard. Discussed proper dietand regular aerobic exercise. Need aerobic exercise 5-6 days a week for 30 minutes at a time. Smaller portions and limit total calories. Tetanus every 10 years. Advised not to smoke. Menopausal and female climacteric wfvega9403/18/2024 Assessment & Plan (03/18/2024 9:33 AM EDT): Developed vaginal symptoms and start premarin cream. Essential hypertension, pzdytx2812/13/2023 Assessment & Plan (03/10/2025 8:44 AM EDT): BP controlled and monitor PRN. Assessment & Plan (09/09/2024 8:50 AM EST): BP controlled and monitor PRN. Assessment & Plan (03/18/2024 9:33 AM EDT): BP controlled and monitor PRN. Assessment & Plan (12/13/2023 7:46 AM EST): BP controlled and monitor PRN. DDD (degenerative disc disease), estwxuya87/14/2024 Assessment & Plan (03/18/2024 9:32 AM EDT): Pain stable and use percocet PRN. Increase activity and walk regularly. Assessment & Plan (12/13/2023 7:46 AM EST): Pain stable and use percocet PRN. Increase activity and walk regularly. DDD (degenerative disc disease), oplxdu1012/13/2023 Assessment & Plan (05/21/2025 9:40 AM EDT): Continued pain and radicular symptoms likely related to herniated disc. Failed treatment with celebrex and PT. Check MRI lumbar spine. Assessment & Plan (03/10/2025 8:44 AM EDT): Increased stiffness and try prednisone. Use percocet PRN. Assessment & Plan (09/09/2024 8:50 AM EST): Increased stiffness and try celebrex. Use percocet PRN. Assessment & Plan (03/18/2024 9:32 AM EDT): Pain stable and use percocet PRN. Increase activity and walk regularly. Assessment & Plan (12/13/2023 7:46 AM EST): Pain stable and use percocet PRN. Increase activity and walk regularly. Generalized anxiety /14/2024 Assessment & Plan (03/10/2025 8:44 AM EDT): Symptoms well controlled with zoloft and continue. Assessment & Plan (03/18/2024 9:33 AM EDT): Symptoms well controlled with zoloft and continue. Assessment & Plan (12/13/2023 7:47 AM EST): Symptoms worse and add zoloft along with wellbutrin. Warned will take 2-3 weeks to notice improvement in mood. Mild recurrent major swfkrsjiqe66/14/2024 Assessment & Plan (03/10/2025 8:44 AM EDT): Symptoms well controlled with zoloft and continue. Assessment & Plan (03/18/2024 9:33 AM EDT): Symptoms well controlled with zoloft and continue. Assessment & Plan (12/13/2023 7:47 AM EST): Symptoms worse and add zoloft along with wellbutrin. Warned will take 2-3 weeks to notice improvement in mood. Polycystic ovary gdaleufe79/14/2024 Assessment & Plan (03/18/2024 9:33 AM EDT): Losing weight and continue medication. Primary ydonlvsc45/14/2024 Assessment & Plan (03/10/2025 8:44 AM EDT): Sleeping well with trazodone and continue. Assessment & Plan (03/18/2024 9:34 AM EDT): Sleeping well with trazodone and continue. Assessment & Plan (12/13/2023 7:47 AM EST): Not sleeping well and increase trazodone. Seasonal allergic rhinitis due to lrgfsx6212/13/2023 Assessment & Plan (12/13/2023 7:47 AM EST): Symptoms controlled with medication and continue. Obesity (BMI 30-39.9)12/13/2023 Resolved Problems ProblemNoted DateDiagnosed DateResolved DateAcute UTI Assessment & Plan (06/06/2024 2:22 PM EDT): UA suggestive UTI and treat. Take macrobid for infection and use pyridium for symptoms. Increase water intake and cranberry juice. Use motrin or tylenol for discomfort. Encounters DateTypeDepartmentCare GhoyPtqrbteyahn23/23/2025Refill [facility] [address] [place] [address] Heath Shah, DO Hidradenitis tlpjrpouiws36/18/2025Refill [facility] [address] [id number] Heath Shah, DO Hidradenitis ekamtleuhxm23/27/2025Refill [facility] [address] [phone] Mayi Martinez LPN Qylyjibovahk93/21/2025Refill [facility] [address] [place] [address] Odell Elliott MD Degeneration of intervertebral disc of lumbar region with discogenic back pain and lower extremity pain06/17/20255684Xjhppu43/13/2025Telephone [facility] [address] [place] [address] Odell Elliott MD 06/10/2025 3:30 PM EDTTreatment [facility] [address] [facility] [address] [place] [address] Liza Reynolds, REGISTERED NURSE BEHAVIORAL HEALTH Left hip pain (Primary Dx)06/10/2025amboo flowsheet [facility] [address] [place] [address] [place] [address] Liza Reynolds, REGISTERED NURSE BEHAVIORAL HEALTH 06/10/20254126Etcrmh79/08/2025 3:00 PM EDTTreatment [facility] [address] [place] [address] [place] [address] Taniamickey Jonn, REGISTERED NURSE BEHAVIORAL HEALTH Left hip pain (Primary Dx)06/06/2025amboo flowsheet [facility] [address] [place] [address] [place] [address] Taniamickey Jonn, REGISTERED NURSE BEHAVIORAL HEALTH 06/06/20251715Oazbwb83/05/2025 3:00 PM EDTTreatment [facility] [address] [place] [address] [place] [address] KelbleNatalia floresLiza, REGISTERED NURSE BEHAVIORAL HEALTH Left hip pain (Primary Dx)06/03/2025amboo flowsheet [facility] [address] [place] [address] [place] [address] Liza Reynolds, REGISTERED NURSE BEHAVIORAL HEALTH 06/03/2025Travelfrom Last 3 Months Family History Medical HistoryRelationNameCommentsAlzheimer's diseaseFatherArthritisFather DepressionFatherDiabetesFatherHypertensionFatherStrokeFatherUlcersFather ArthritisMaternal GrandfatherCOPDMaternal GrandfatherCancerMaternal Grandfather DiabetesMaternal GrandfatherHeart diseaseMaternal GrandfatherHypertension Maternal GrandfatherLung cancerMaternal GrandfatherArthritisMaternal Grandmother COPDMaternal GrandmotherCancerMaternal GrandmotherDiabetesMaternal Grandmother Heart diseaseMaternal GrandmotherHypothyroidismMaternal GrandmotherAnesthesia problemsMotherArthritisMotherBreast cancerMothermets to bone, liverCancerMother DepressionMotherDiabetesMotherHeart diseaseMotherHyperlipidemiaMother HypertensionMotherHypothyroidismMotherOtherMotherDegenerative disc diseaseHeart attackMother's BrotherCancerPaternal GrandfatherHypertensionPaternal Grandfather StrokePaternal GrandfatherArthritisPaternal GrandmotherDiabetesPaternal GrandmotherPancreatic cancerPaternal GrandmotherArthritisSisterCancerSister HyperlipidemiaSisterRelationNameStatusCommentsFatherMaternal GrandfatherDeceased Maternal GrandmotherDeceasedMotherDeceasedMother's BrotherDeceasedPaternal GrandfatherDeceasedPaternal GrandmotherDeceasedSister Social History Tobacco UseTypesPacks/DayYears UsedDateSmoking Tobacco: Every DayCigarettes Smokeless Tobacco: Never Tobacco Cessation:Ready to Q uit: Not Asked; Counseling Given: Not Answered B1300 Health LiteracyAnswerDate RecordedHow often do you need to have someone help you when you read instructions, pamphlets, or other written material from your doctor or pharmacy?Never03/10/2025Humiliation, Afraid, Rape, and Kick questionnaireAnswerDate RecordedWithin the last year, have you been afraid of your partner or ex-partner?No03/10/2025Within the last year, have you been humiliated or emotionally abused in other ways by your partner or ex-partner?No 03/10/2025Within the last year, have you been kicked, hit, slapped, or otherwise physically hurt by your partner or ex-partner?No03/10/2025Within the last year, have you been raped or forced to have any kind of sexual activity by your part ner or ex-partner?No03/10/2025Social Connection and Isolation PanelAnswerDate RecordedIn a typical week, how many times do you talk on the phone with family, friends, or neighbors?Three times a week03/10/2025How often do you get together with friends or relatives?More than three times a week03/10/2025How often do you attend spiritism or anglican services?Patient zftosiab75/12/2025Do you belong to any clubs or organizations such as spiritism groups, unions, fraternal or athletic groups, or school groups?No03/10/2025How often do you attend meetings of the clubs or organizations you belong to?Patient pkzgqiop60/12/2025re you , , , , never , or living with a partner? 03/10/2025UDIT-CAnswerDate RecordedQ1: How often do you have a drink containing alcohol?Patient wrjekyba28/12/2025Q2: How many drinks containing alcohol do you have on a typical day when you are drinking?Patient does not drink03/10/2025Q3: How often do you have six or more drinks on one occasion?Patient declined 03/10/2025Overall Financial Resource Strain (CARDIA)AnswerDate RecordedHow hard is it for you to pay for the very basics like food, housing, medical care, and heating?Somewhat hard03/10/2025[facility] [place] [facility] Occupational [facility] - Occupational Stress QuestionnaireAnswerDate RecordedDo you feel stress - tense, restless, nervous, or anxious, or unable to sleep at night because yourmind is troubled all the time - these days?To some kpzsli6103/10/2025Exercise Vital Sign AnswerDate RecordedOn average, how many days per week do you engage in moderate to strenuous exercise (like a brisk walk)?5 days03/10/2025On average, how many minutes do you engage in exercise at this level?60 min03/10/2025Hunger Vital SignAnswerDate RecordedWithin the past 12 months, you worried that your food would run out before you got the money to buymore.Patient zahxfkfi34/12/2025 Within the past 12 months, the food you bought just didn't last and you didn't have money to get more.Patient aiujqymf16/12/2025PRAPARE - TransportationAnswer Date RecordedIn the past 12 months, has lack of transportation kept you from medical appointments or from getting medications?No03/10/2025In the past 12 months, has lack of transportation kept you from meetings, work, or from getting things needed for daily living?No03/10/2025Housing Stability Vital SignAnswer Date RecordedIn the last 12 months, was there a time when you were not able to pay the mortgage or rent on time?Patient lurllwn3812/06/2023In the last 12 months, how many places have you lived?In the last 12 months, was there a time when you did not have a steady place to sleep [facility] (including now)?No12/06/2023Housing Stability Vital SignAnswerDate RecordedIn the last 12 months, was there a time when you were not able to pay the mortgage or rent on time?Patient /12/2025In the past 12 months, how many times have you moved where you were living?t any time in the past 12 months, were you homeless or living in a usp (including now)?No03/10/2025 CommentsNoSex and Gender InformationValueDate RecordedSex Assigned at BirthNot on fileLegal ZbuWvddgt57/15/2023 8:12 PM EDTGender IdentityNot on file Sexual OrientationNot on file Last Filed Vital Signs Vital SignReadingTime TakenCommentsBlood Aqrcizer587/6207 9:06 AM EDT Tmvyf530705/21/2025 9:06 AM GUHAbbwnrxmjjt21.9 ??C (96.6 ??F)05/21/2025 9:06 AM EDTRespiratory Cvlo381805/21/2025 9:06 AM EDTOxygen Rhdlewkhuw08%05/21/2025 9:06 AM EDTInhaled Oxygen Concentration--Lwjebo96.3 kg (188 lb)05/21/2025 9:06 AM EDT Icgnlq008.2 cm (5' 7 )05/21/2025 9:06 AM EDTBody Mass Index29.44005/21/2025 9:06 AM EDT Plan of Treatment DateTypeDepartmentCare Team (Latest Contact Info)Tmjtzahxmye01/08/2025 3:40 PM ESTOffice Visit [facility] [address] [address] Heath Shah, [address] [place], [place] [id number] Health MaintenanceDue DateLast DoneCommentsCT Ivdnugkcvxky1978Colonoscopy 1978FIT1978FOBT07/18/19786256Chcqarjybgqgq1978MMR Vaccines (1 of 1 - Standard series)1979DTaP/Tdap/Td Vaccines (1 - Tdap)1985Hepatitis B Vaccines (1 of 3 - + 3-dose series)1997Pneumococcal Vaccine: Pediatrics (0 to 5 Years) and At-Risk Patients (6 to 64 Years) (1 of 2 - PCV) 1997COVID-19 Vaccine (4 - season), 11/18/2020, 10/21/2020Influenza Vaccine (#1)/, 07/19/2019, 08/18/2018 Wdvhkpdik91, 10/18/2023, 10/18/2023, Additional history exists Colorectal Cancer Famtzsehh73/17/2027FIT-DNAap Smear , 09/12/2023ervical Cancer Dycwogonj15/14/2028HPV/Cotest 09/12/2028HIB VaccinesAged OutNo longer eligible based on patient's age to complete this topicHPV VaccinesAged OutNo longer eligible based on patient's age to complete this topicHepatitis A VaccinesAged OutNo longer eligible based on patient's age to complete this topicIPV VaccinesAged OutNo longer eligible based on patient's age to complete this topicMeningococcal B VaccineAged OutNo longer eligible based on patient's age to complete this topicMeningococcal VaccineAged OutNo longer eligible based on patient's age to complete this topicRotavirus VaccinesAged OutNo longer eligible based on patient's age to complete this topic Procedures Procedure NamePriorityDate/TimeAssociated DiagnosisCommentsMM TOMOSYNTHESIS SCREENING BI10/21/2024 7:47 AM EST PAP AOGIQGhlbbpf23/18/2024 12:00 AM ESTLAB COLOGUARD?? COLON CANCER SCREEN Caiqhpj3009/15/2024 11:00 AM EST Colon cancer screening from Last 3 Months or Most Recently Relevant to Health Maintenance Results * MM TOMOSYNTHESIS SCREENING BI (10/21/2024 7:47 AM EST)Anatomical Region LateralityModalityOtherSpecimen (Source)Anatomical Location / Laterality Collection Method / VolumeCollection TimeReceived Time10/21/2024 7:47 AM EST Narrative 10/21/2024 7:48 AM EST [facility] ?[address] ? [place] [address] ? Mammography Report ? Signed ? Patient: YVONNE DAWKINS ?MR#: [id number] ?? : 1980 ?Acct:[id number] ?? Age/Sex: 44 / F ?ADM Date: 12/20/24 ?? Loc: MAMMO ? Attending Dr: Heath Shah D.O. ? Ordering Physician: Heath Shah D.O. ?Results: ? Date of Service: 10/18/24 ?Follow Up: ? Procedure(s): MM tomosynthesis screening BI ?? Accession Number(s): [id number] ? cc: Heath Shah D.O.; Odell Elliott M.D. ? Patient Name: ? YVONNE DAWKINS ? MR#: [id number] ? : 1980 ? Exam Date: 10/18/2024 [...] at age ??58. ? LOCATION: ? [facility] ? BREAST COMPOSITION: ? The breasts [...] By: ?Schuyler Azevedo M.D. ? Signed By: ?10/21/2448 ? DD/ ? TD/TT: ? 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 Ordering Physician: Heath Shah D.O.Results: Date of Service: 10/18/24Follow Up: Procedure(s): MM tomosynthesis screening BI Accession Number(s): [id number] cc: Heath Shah D.O.; Odell Elliott M.D. Patient Name: YVONNE DAWKINS MR#: [id number] : 1980 Exam Date: 10/18/2024 Ordering Doctor: [...] breast cancer at age 58. LOCATION: [facility] BREAST COMPOSITION: The breasts are heterogeneously [...] 07:47 Dictated By: Schuyler Azevedo M.D. Signed By:10/21/2448 DD/ TD/TT: Metal Riveting Machine Operator: Authorizing ProviderResult TypeResult StatusCorey Alyssa DOCLINISYNC IMAGINGFinal Result * Pap Smear (09/16/2024 12:00 AM EST)Specimen (Source)Anatomical Location / LateralityCollection Method / VolumeCollection TimeReceived TimeSwabCervical swab / Unknown Narrative Authorizing ProviderResult TypeResult StatusCorey Alyssa DOLAB CYTOLOGY ORDERABLESFinal ResultPerforming OrganizationAddressCity/State/ZIP CodePhone Number EXTERNAL LAB * Cologuard?? colon cancer screening (09/15/2024 11:00 AM EST)ComponentValueRef RangeTest MethodAnalysis TimePerformed AtPathologist SignatureNONINV COLON CA DNA+OCC BLD SCRN STL-MDRJwvusjaxEgudhpkn39/23/2024 10:09 AM [employer] (CLIA #:[id number])Comment: NEGATIVE TEST RESULT. A negative Cologuard result indicates a low likelihood that a colorectal cancer (CRC) or advanced adenoma (adenomatous polyps with more advanced pre-malignant features) ??is present. The chance that a person with a negative Cologuard test has a colorectal cancer is less than 1in 1500 (negative predictive value >99.9%) or has an advanced adenoma is less than 5.3% (negative predictive value 94.7%). These data are based on a prospective cross-sectional study of 10,000individuals at average risk for colorectal cancer who were screened with both Cologuard and colonoscopy. (Shantell Manning et al, N Engl J Med 2014;370(14):4116-2601) The normal value (reference range) for this assay is negative. COLOGUARD RE-SCREENING RECOMMENDATION: Periodic colorectal cancer screening is an important part ofpreventive healthcare for asymptomatic individuals at average risk for colorectal cancer. ??Following a negative Cologuard result, the [place] Cancer Society and U.S. Multi-Society Task Force screening guidelines recommend a Cologuard re-screening interval of 3 years. References: [place] [employer] Society Guideline for Colorectal Cancer Screening: https://www.cancer.or g/cancer/vdith-cleyfa-gecort/beiwisdol-fatsiyuah-ynfekyb/acs-recommendations.htm titi; Sharif PEREIRA, Sammie KITCHEN, Camilla GriffinK, Colorectal Cancer Screening: Recommendations for Physicians and Patients from the U.S. Multi-Society Task Force on Colorectal Cancer Screening , Am J Gastroenterology 2017; 112:4864-8291. TEST DESCRIPTION: Composite algorithmic analysis of stool DNA-biomarkers with hemoglobin immunoassay. ?? Quantitative values of individual biomarkers are not reportable and are not associated with individual biomarker result reference ranges. Cologuard is intended for colorectal cancer screening ofadults of either sex, 45 years or older, who are at average-risk for colorectal cancer (CRC). Cologuard has been approved for use by the U.S. FDA. The performance of Cologuard was established in a cross sectional study of average-risk adults aged 50-84. Cologuard performance in patients ages 45 to 49 years was estimated by sub-group analysis of near-age groups. Colonoscopies performed for a positive result may find as the most clinically significant lesion: colorectal cancer [4.0%], advanced adenoma (including sessile serrated polyps greater than or equal to 1cm diameter) [20%] or non- advanced adenoma [31%]; or no colorectal neoplasia [45%]. These estimates are derived from a prospective cross-sectional screening study of 10,000 individuals at average risk for colorectal cancer who were screened with both Cologuard and colonoscopy. (Shantell Manning et al, N Engl J Med 2014;370(14):4841-7412.) Cologuard may produce a false negative or false positive result (no colorectal cancer or precancerous polyp present at colonoscopy follow up). A negative Cologuard test result does not guarantee the absence of CRC or advanced adenoma (pre-cancer). The current Cologuard screening interval is every 3 years. ([place] Cancer Society and U.S. Multi-Society Task Force). Cologuard performance data in a 10,000 patient pivotal study using colonoscopy as the reference method can be accessed at the following location: www.[employer]/results. Additional description of the Cologuard test process, warnings and precautions can be found at www.cologuard.com. Specimen (Source)Anatomical Location / LateralityCollection Method / Volume Collection TimeReceived TimeStool specimen (specimen)09/15/2024 11:00 AM EST 09/17/2024 9:27 AM EST Narrative Authorizing ProviderResult TypeResult StatusMarc Earl ALVAREZLAB MOLECULAR DIAGNOSTICS ORDERABLESFinal ResultPerforming OrganizationAddressCity/State/ZIP CodePhone Number [employer] (CLIA #:[id number]) Hilda [place]a [place], [place] [address] [phone] from Last 3 Months or Most Recently Relevant to Health Maintenance Insurance Care Teams Team MemberRelationshipSpecialtyStniland DateEnd Date Odell Elliott MD PCP - [facility]11/20/23 Odell Elliott MD [address] [place] [address] PCP - [facility]07/30/24
--- OUTSIDE RECORDS SUMMARY | 2025-08-29 06:59 | XMS_ITS | Encounter Summary ---
Author Organization [facility] Address [address] [place] [address] Care Team Providers Care Pathology Teacher Name Role Phone Odell Elliott MD Primary Care Provider [phone] Odell Elliott MD Unavailable Reason for Visit * ReasonCommentsMed Refill Encounter Details DateTypeDepartmentCare Team (Latest Contact Info)Tmaedqdwljc65/23/2025Refill [facility] [place] [facility] [address] [place] [address] Heath Shah DO [address] [place] [address] Hidradenitis suppurativa Social History Tobacco UseTypesPacks/DayYears UsedDateSmoking Tobacco: Every DayCigarettes Smokeless Tobacco: [id number] Health LiteracyAnswerDate RecordedHow often do you need [...] times a week03/10/2025How often do you attend hindu or bahai services?Patient fwsyuhkj20/12/2025Do you belong to any clubs or organizations such as hindu groups, unions, fraAdScoot or athletic groups, or school groups?No 03/10/2025How often do you attend meetings of the clubs or organizations you belong to?Patient anlngehy09/12/2025re you , , , , never , or living with a partner?Zapnuri2603/10/2025UDIT-C AnswerDate RecordedQ1: How often do you have a drink containing alcohol?Patient ypaavvlb32/12/2025Q2: How many drinks containing alcohol do you have on a typical day when you are drinking?Patient does not drink03/10/2025Q3: How often do you have six or more drinks on one occasion?Patient yjkgotjg70/12/2025Overall Financial Resource Strain (CARDIA)AnswerDate RecordedHow hard is it for you to pay for the very basics like food, housing, medical care, and heating?Somewhat hard03/10/2025[facility] [place] of Occupational Health - Occupational Stress QuestionnaireAnswerDate RecordedDo you feel stress - tense, restless, nervous, or anxious, or unable to sleep at night because yourmind is troubled all the time - these days?To some vfyzvj1303/10/2025Exercise Vital SignAnswerDate Recorded On average, how many days per week do you engage in moderate to strenuous exercise (like a brisk walk)?5 days03/10/2025On average, how many minutes do you engage in exercise at this level?60 min03/10/2025Hunger Vital SignAnswerDate RecordedWithin the past 12 months, you worried that your food would run out before you got the money to buymore.Patient jyhmutbc87/12/2025Within the past 12 months, the food you bought just didn't last and you didn't have money to get more.Patient jrydidog36/12/2025PRAPARE - TransportationAnswerDate RecordedIn the past 12 months, [...] pay the mortgage or rent on time?Patient xqpiimu0312/06/2023In the last 12 months, how many places have you lived?In the last 12 months, was there a time when you did not have a steady place to sleep or slept in umatillaelter (including now)?No 12/06/2023Housing Stability Vital SignAnswerDate RecordedIn the last 12 months, was there a time when you were not able to pay the mortgage or rent on time? Patient bhbquirc63/12/2025In the past 12 months, how many times have you moved where you were living?t any time in the past 12 months, were you homeless or living in a intermediate (including now)?No03/10/2025CommentsNo Sex and Gender InformationValueDate RecordedSex Assigned at BirthNot on file Legal VqfKphjfi91/15/2023 8:12 PM EDTGender IdentityNot on fileSexual OrientationNot on filedocumented as of this encounter Plan of Treatment DateTypeDepartmentCare Team (Latest Contact Info)Etjaizwynnc91/08/2025 3:40 PM ESTOffice Visit [facility] [place] [facility] [address] [place] [address] Heath Shah DO [address] [place], [place] [id number] documented as of this encounter Visit Diagnoses Diagnosis Hidradenitis suppurativa Hidradenitis documented in this encounter Additional Health Concerns AssessmentNoted TimePHQ-9 Depression Total Score: 7:11 AM EST documented as of this encounter Care Teams Team MemberRelationshipSpecialtyStart DateEnd Date Odell Elliott MD [facility] Odell Elliott MD [address] [place] [address] PCP - [facility]07/30/24documented as of this encounter
--- OUTSIDE RECORDS SUMMARY | 2025-08-29 06:59 | XMS_ITS | Encounter Summary ---
Author Organization [facility] Address [address] [place] [address] Care Team Providers Care Splicer Helper Name Role Phone Odell Elliott MD Primary Care Provider [phone] Odell Elliott MD Primary Care Provider [phone] Odell lEliott MD Unavailable Encounter Details DateTypeDepartmentCare Team (Latest Contact Info)Cntprmhceuh47/20/2023Clinisync Result Encounter [facility] Unsolicited Heath Shah, DO [address] [place] [address] Social History Tobacco UseTypesPacks/DayYears UsedDateSmoking Tobacco: Never [id number] Health LiteracyAnswerDate RecordedHow often do you need [...] times a week03/10/2025How often do you attend yarsanism or confucianism services?Patient cfxgazvz71/12/2025Do you belong to any clubs or organizations such as yarsanism groups, unions, fratracx or athletic groups, or school groups?No03/10/2025How often do you attend meetings of the clubs or organizations you belong to?Patient ocieewvq24/12/2025re you , , , , never , or living with a partner? 03/10/2025UDIT-CAnswerDate RecordedQ1: How often do you have a drink containing alcohol?Patient ngtziomt12/12/2025Q2: How many drinks containing alcohol do you have on a typical day when you are drinking?Patient does not drink03/10/2025Q3: How often do you have six or more drinks on one occasion?Patient declined 03/10/2025Overall Financial Resource Strain (CARDIA)AnswerDate RecordedHow hard is it for you to pay for the very basics like food, housing, medical care, and heating?Somewhat hard03/10/2025[facility] [place] of Occupational Health - Occupational Stress QuestionnaireAnswerDate RecordedDo you feel stress - tense, restless, nervous, or anxious, or unable to sleep at night because yourmind is troubled all the time - these days?To some mztogc7503/10/2025Exercise Vital Sign AnswerDate RecordedOn average, how many days per week do you engage in moderate to strenuous exercise (like a brisk walk)?5 days03/10/2025On average, how many minutes do you engage in exercise at this level?60 min03/10/2025Hunger Vital SignAnswerDate RecordedWithin the past 12 months, you worried that your food would run out before you got the money to buymore.Patient ottbwacw95/12/2025 Within the past 12 months, the food you bought just didn't last and you didn't have money to get more.Patient zdysruow99/12/2025PRAPARE - TransportationAnswer Date RecordedIn the past 12 [...] pay the mortgage or rent on time?Patient xbbfepf9312/06/2023In the last 12 months, how many places have you lived?In the last 12 months, was there a time when you did not have a steady place to sleep or slept in ashelter (including now)?No12/06/2023Housing Stability Vital SignAnswerDate RecordedIn the last 12 months, was there a time when you were not able to pay the mortgage or rent on time?Patient iaammshl32/12/2025In the past 12 months, how many times have you moved where you were living?t any time in the past 12 months, were you homeless or living in a long-term (including now)?No03/10/2025 CommentsUnknownSex and Gender InformationValueDate RecordedSex Assigned at BirthNot on fileLegal QbaPuztzy58/15/2023 8:12 PM EDTGender IdentityNot on fileSexual OrientationNot on filedocumented as of this encounter Functional Status * AUDIT-C ScoreAnswerDate of AssessmentAuthor- 8:00 AM Jose Generic * Q1: How often do you have a drink containing alcohol?AnswerDate of Assessment AuthorPatient xkomsptg13/12/2025 8:00 AM Jose Generic * Q2: How many drinks containing alcohol do you have on a typical day when you are drinking?AnswerDate of AssessmentAuthorPatient does not drink03/10/2025 8:00 AM Jose Generic * Q3: How often do you have six or more drinks on one occasion?AnswerDate of AssessmentAuthorPatient xvaivvus01/12/2025 8:00 AM Jaycob Garcia * Over the past 2 weeks, how often have you been bothered by any of the following problems?QuestionAnswerDate of AssessmentAuthorLittle interest or pleasure in doing thingsMore than half the days12/13/2023 7:11 AM Mayi Cobb MAFeeling down, depressed, or hopelessMore than half the days 12/13/2023 7:11 AM Mayi Cobb MAPatient Health Questionnaire-2 Score4 12/13/2023 7:11 AM Mayi Cobb MA * QuestionAnswerDate of AssessmentAuthorTrouble falling or staying asleep, or sleeping too muchMore than half the days12/13/2023 7:11 AM Mayi Cobb MAFeeling tired or having little energyMore than half the days12/13/2023 7:11 AM Mayi Cobb MAPoor appetite or overeatingSeveral days12/13/2023 7:11 AM Mayi Cobb MAFeeling bad about yourself - or that you are a failure or have let yourself or your family downMore than half the days12/13/2023 7:11 AM Mayi Cobb MATrouble concentrating on things, such as reading the newspaper or watching televisionNot at all12/13/2023 7:11 AM Mayi Cobb MAMoving or speaking so slowly that other people could have noticed? Or the opposite - being so fidgety or restless that you have been moving around a lot more than usual.Not at all12/13/2023 7:11 AM Mayi Cobb MAThoughts that you would be better off or hurting yourself in some wayNot at all 12/13/2023 7:11 AM Mayi Cobb MAPatient Health Questionnaire-9 Score11 12/13/2023 7:11 AM Mayi Cobb MA documented as of this encounter Plan of Treatment DateTypeDepartmentCare Team (Latest Contact Info)Lpwrlesvxve85/08/2025 3:40 PM ESTOffice Visit [facility] [place] [facility] [address] [place] [address] Heath Shah, DO [address] [place] [address] [place] [address] documented as of this encounter Procedures Procedure NamePriorityDate/TimeAssociated DiagnosisCommentsMM TOMOSYNTHESIS SCREENING BI10/18/2023 9:27 AM EST documented in this encounter Results * MM TOMOSYNTHESIS SCREENING (10/18/2023 9:27 AM EST)Anatomical Region LateralityModalityOtherSpecimen (Source)Anatomical Location / Laterality Collection Method / VolumeCollection TimeReceived Time10/18/2023 9:27 AM EST Narrative 10/18/2023 9:28 AM EST [facility] ?[address] ? [place] [address] ? Mammography Report ? Signed ? Patient: PAPA DAWKINSFANKAREL Meza ?MR#: [id number] ?? : 1980 ?Acct:[id number] ?? Age/Sex: 43 / F ?ADM Date: 10/17/23 ?? Loc: MAMMO ? Attending Dr: Heath Shah D.O. ? Ordering Physician: Heath Shah D.O. ?Results: ? Date of Service: 10/17/ ?Follow Up: ? Procedure(s): MM tomosynthesis screening BI ?? Accession Number(s): [id number] ? cc: Heath Shah D.O.; Odell Elliott M.D. ? Patient Name: ? MORALES DAWKINS ? MR#: [id number] ? : 1980 ? Exam Date: 10/17/2023 ?? Ordering Doctor: DR Heath Shah . ? RADIOLOGY REPORT ? PROCEDURE: ? MM TOMOSYNTHESIS SCREENING BI ? COMPARISON: ? MG MAMM SCREEN CALLUM W CAD, 06/23/2020. ??MG MAMM SCREEN 3D CALLUM ?? CAD, 07/01/2021. ? INDICATIONS: ? Screening Mammography ? Calculator Name ? NCI Breast Cancer Risk Assessment Tool ?? 5 Year Breast Cancer Risk ? 1.00% ?? Lifetime Breast Cancer Risk ? 11.60% ?? Personal Breast Cancer ?No ?? Personal Ovarian Cancer ? No ?? Treatments ? None ?? Family Cancers ? None ? LOCATION: ? [facility] ? BREAST COMPOSITION: ? Heterogeneously dense,which may obscure small masses. ? FINDINGS: ? DIAGNOSTIC CATEGORY 1--NEGATIVE. NO CHANGE FROM COMPARISON ASSESSMENT. ? Scattered benign-appearing calcifications are present. ??Scattered ?? benign-appearing lymph nodes are present. ? RIGHT BREAST: ??No significant suspicious finding. ? LEFT BREAST: ??No significant suspicious finding. ? RECOMMENDATIONS: ? ROUTINE MAMMOGRAM AND CLINICAL EVALUATION IN 12 MONTHS. ? PLEASE NOTE: ??A NORMAL MAMMOGRAM DOES NOT EXCLUDE THE POSSIBILITY OF BREAST ?? CANCER. ??A CLINICALLY SUSPICIOUS PALPABLE LUMP SHOULD BE BIOPSIED. ? Dictated by: Schuyler Azevedo MD on 10/18/2023 at 09:23 ? Approved by: Schuyler Azevedo MD on 10/18/2023 at 09:27 ? Dictated By: ?Schuyler Azevedo M.D. ? Signed By: ?10/18/23927 ? DD/ 6 ? TD/TT: ? Head Pastry Chef: Procedure Note Radiology, Radiologist, - 01/03/2024 [place] [address] Mammography Report Signed Patient: MORALES DAWKINS AMR#: [id number] : 1980Acct:[id number] Age/Sex: 43 / FADM Date: 10/17/23 Loc: MAMMO Attending Dr: Heath Shah D.O. Ordering Physician: Heath Shah D.O.Results: Date of Service: 10/17/23Follow Up: Procedure(s): MM tomosynthesis screening BI Accession Number(s): [id number] cc: Heath Shah D.O.; Odell Elliott M.D. Patient Name: MORALES DAWKINS MR#: [id number] : 1980 Exam Date: 10/17/2023 Ordering Doctor: DR Heath Shah . RADIOLOGY REPORT PROCEDURE: MM TOMOSYNTHESIS SCREENING BI COMPARISON: MG MAMM SCREEN CALLUM W CAD, 06/23/2020. MG MAMM SCREEN 3DBIL CAD, 07/01/2021. INDICATIONS: Screening Mammography Calculator Name NCI Breast Cancer Risk Assessment Tool 5 Year Breast Cancer Risk 1.00% Lifetime Breast Cancer Risk 11.60% Personal Breast Cancer No Personal Ovarian Cancer No Treatments None Family Cancers None LOCATION: [facility] BREAST COMPOSITION: Heterogeneously dense,which may obscure smallmasses. FINDINGS: DIAGNOSTIC CATEGORY 1--NEGATIVE. NO CHANGE FROM [...] 09:27 Dictated By: Schuyler Azevedo M.D. Signed By:10/18/23927 DD/ 6 TD/TT: Head Pastry Chef: Authorizing ProviderResult TypeResult StatusCorey Alyssa DOCLINISYNC IMAGINGFinal Result documented in this encounter Visit Diagnoses Not on filedocumented in this encounter Care Teams Team MemberRelationshipSpecialtyStart DateEnd Date Odell [place] MD PCP - GeneralFamily Medicine Odell Elliott MD [facility] - [facility]Fa[facility] Odell [place] MD [address] [place] [address] PCP - [facility]07/30/24documented as of this encounter
--- OUTSIDE RECORDS SUMMARY | 2025-08-29 06:59 | XMS_ITS | Encounter Summary ---
Author Organization [facility] Address [address] [place] [address] Care Team Providers Care Track Laminating Machine Tender Name Role Phone Odell Elliott MD Primary Care Provider Odell Elliott MD Unavailable Reason for Visit * ReasonCommentsMed Refill Encounter Details DateTypeDepartmentCare Team (Latest Contact Info)Teqfcewnhfq72/18/2025Refill [facility] [place] [facility] [address] [place] [address] Heath Shah DO [address] [place] [address] Hidradenitis suppurativa Social History Tobacco UseTypesPacks/DayYears UsedDateSmoking Tobacco: Every DayCigarettes Smokeless Tobacco: [id number] Health LiteracyAnswerDate RecordedHow often do you need [...] times a week03/10/2025How often do you attend zoroastrianism or sikh services?Patient mgfomxtf38/12/2025Do you belong to any clubs or organizations such as zoroastrianism groups, unions, fraSynosure Games or athletic groups, or school groups?No 03/10/2025How often do you attend meetings of the clubs or organizations you belong to?Patient lwigwtmf27/12/2025re you , , , , never , or living with a partner?Kzydnqc5803/10/2025UDIT-C AnswerDate RecordedQ1: How often do you have a drink containing alcohol?Patient yqavgnme07/12/2025Q2: How many drinks containing alcohol do you have on a typical day when you are drinking?Patient does not drink03/10/2025Q3: How often do you have six or more drinks on one occasion?Patient edybcpod05/12/2025Overall Financial Resource Strain (CARDIA)AnswerDate RecordedHow hard is it for you to pay for the very basics like food, housing, medical care, and heating?Somewhat hard03/10/2025[facility] [place] of Occupational Health - Occupational Stress QuestionnaireAnswerDate RecordedDo you feel stress - tense, restless, nervous, or anxious, or unable to sleep at night because yourmind is troubled all the time - these days?To some piffwj8203/10/2025Exercise Vital SignAnswerDate Recorded On average, how many days per week do you engage in moderate to strenuous exercise (like a brisk walk)?5 days03/10/2025On average, how many minutes do you engage in exercise at this level?60 min03/10/2025Hunger Vital SignAnswerDate RecordedWithin the past 12 months, you worried that your food would run out before you got the money to buymore.Patient wwszhelo58/12/2025Within the past 12 months, the food you bought just didn't last and you didn't have money to get more.Patient toihuvnq48/12/2025PRAPARE - TransportationAnswerDate RecordedIn the past 12 months, [...] pay the mortgage or rent on time?Patient qczonbu0412/06/2023In the last 12 months, how many places have you lived?In the last 12 months, was there a time when you did not have a steady place to sleep or slept in fe warren afbelter (including now)?No 12/06/2023Housing Stability Vital SignAnswerDate RecordedIn the last 12 months, was there a time when you were not able to pay the mortgage or rent on time? Patient tuxpvhqc09/12/2025In the past 12 months, how many times have you moved where you were living?t any time in the past 12 months, were you homeless or living in a m[facility]p (including now)?No03/10/2025CommentsNo Sex and Gender InformationValueDate RecordedSex Assigned at BirthNot on file Legal RwuSpjezr15/15/2023 8:12 PM EDTGender IdentityNot on fileSexual OrientationNot on filedocumented as of this encounter Plan of Treatment DateTypeDepartmentCare Team (Latest Contact Info)Bhhuhqnosub64/08/2025 3:40 PM ESTOffice Visit [facility] [place] [facility] [address] [address] Heath Shah DO [address] [place], [place] [id number] documented as of this encounter Visit Diagnoses Diagnosis Hidradenitis suppurativa Hidradenitis documented in this encounter Additional Health Concerns AssessmentNoted TimePHQ-9 Depression Total Score: 7:11 AM EST documented as of this encounter Care Teams Team MemberRelationshipSpecialtyStart DateEnd Date Odell Elliott MD [facility] Odell Elliott MD [address] [place] [address] PCP - [facility]07/30/24documented as of this encounter
--- OUTSIDE RECORDS SUMMARY | 2025-08-29 06:59 | XMS_ITS | Encounter Summary ---
Author Organization [facility] Address [address] [place] [address] Care Team Providers Care Applied Psychology Professor Name Role Phone Odell Elliott MD Primary Care Provider [phone] Odell Elliott MD Primary Care Provider [phone] Odell Elliott MD Unavailable Encounter Details DateTypeDepartmentCare Team (Latest Contact Info)Jymlklnpyvj21/20/2023Clinisync Result Encounter [facility] Unsolicited Provider, Generic External Data Social History Tobacco UseTypesPacks/DayYears UsedDateSmoking Tobacco: Never [id number] Health LiteracyAnswerDate RecordedHow often do you need [...] times a week03/10/2025How often do you attend mormonism or presybeterian services?Patient tpavcewd53/12/2025Do you belong to any clubs or organizations such as mormonism groups, unions, fraternal or athletic groups, or school groups?No03/10/2025How often do you attend meetings of the clubs or organizations you belong to?Patient iyiitkpd51/12/2025re you , , , , never , or living with a partner? 03/10/2025UDIT-CAnswerDate RecordedQ1: How often do you have a drink containing alcohol?Patient lautvnnu86/12/2025Q2: How many drinks containing alcohol do you have on a typical day when you are drinking?Patient does not drink03/10/2025Q3: How often do you have six or more drinks on one occasion?Patient declined 03/10/2025Overall Financial Resource Strain (CARDIA)AnswerDate RecordedHow hard is it for you to pay for the very basics like food, housing, medical care, and heating?Somewhat hard03/10/2025[facility] - Occupational Stress QuestionnaireAnswerDate RecordedDo you feel stress - tense, restless, nervous, or anxious, or unable to sleep at night because yourmind is troubled all the time - these days?To some fhmmkt9003/10/2025Exercise Vital Sign AnswerDate RecordedOn average, how many days per week do you engage in moderate to strenuous exercise (like a brisk walk)?5 days03/10/2025On average, how many minutes do you engage in exercise at this level?60 min03/10/2025Hunger Vital SignAnswerDate RecordedWithin the past 12 months, you worried that your food would run out before you got the money to buymore.Patient jjoifcin18/12/2025 Within the past 12 months, the food you bought just didn't last and you didn't have money to get more.Patient bxggnrto67/12/2025PRAPARE - TransportationAnswer Date RecordedIn the past 12 [...] pay the mortgage or rent on time?Patient jnifhmm6412/06/2023In the last 12 months, how many places have you lived?In the last 12 months, was there a time when you did not have a steady place to sleep or slept in [place] (including now)?No12/06/2023Housing Stability Vital SignAnswerDate RecordedIn the last 12 months, was there a time when you were not able to pay the mortgage or rent on time?Patient bqrjndom78/12/2025In the past 12 months, how many times have you moved where you were living?t any time in the past 12 months, were you homeless or living in a long-term (including now)?No03/10/2025 CommentsUnknownSex and Gender InformationValueDate RecordedSex Assigned at BirthNot on fileLegal CwtYtaxwg17/15/2023 8:12 PM EDTGender IdentityNot on fileSexual OrientationNot on filedocumented as of this encounter Functional Status * AUDIT-C ScoreAnswerDate of AssessmentAuthor- 8:00 AM Jaycob Garcia * Q1: How often do you have a drink containing alcohol?AnswerDate of Assessment AuthorPatient fmiditvp80/12/2025 8:00 AM Jose Generic * Q2: How many drinks containing alcohol do you have on a typical day when you are drinking?AnswerDate of AssessmentAuthorPatient does not drink03/10/2025 8:00 AM Jose Generic * Q3: How often do you have six or more drinks on one occasion?AnswerDate of AssessmentAuthorPatient mjcdwiko59/12/2025 8:00 AM Jose Generic * Over the past 2 weeks, how [...] Plan of Treatment DateTypeDepartmentCare Team (Latest Contact Info)Wabfdmxbqzb95/08/2025 3:40 PM ESTOffice Visit [facility] [address] [place] [id number] Heath Shah, [address] [place] [address] documented as of this encounter Procedures Procedure NamePriorityDate/TimeAssociated DiagnosisCommentsMM TOMOSYNTHESIS SCREENING BI10/18/2023 9:27 AM EST documented in this encounter Results * MM TOMOSYNTHESIS SCREENING (10/18/2023 9:27 AM EST)Anatomical Region LateralityModalityOtherSpecimen (Source)Anatomical Location / Laterality Collection Method / VolumeCollection TimeReceived Time10/18/2023 9:27 AM EST Narrative 10/18/2023 9:28 AM EST [facility] ?[address] ? [place] [address] ? Mammography Report ? Signed ? Patient: MORALES DAWKINS A ?MR#: [id number] ?? : 1980 ?Acct:[id number] ?? Age/Sex: 43 / F ?ADM Date: 10/17/23 ?? Loc: MAMMO ? Attending Dr: Heath Shah D.O. ? Ordering Physician: Heath Shah D.O. ?Results: ? Date of Service: 10/17/23 ?Follow Up: ? Procedure(s): MM tomosynthesis screening BI ?? Accession Number(s): [id number] ? cc: Heath Shah D.O.; Odell Elliott M.D. ? Patient Name: ? MORALES FRATE ? MR#: [id number] ? : 1980 ? Exam Date: 10/17/2023 [...] Cancers ? None ? LOCATION: ? [facility] ? BREAST COMPOSITION: ? Heterogeneously dense,which [...] ?10/18/23927 ? DD/ 6 ? TD/TT: ? Commercial Teller: Procedure Note Radiology, Radiologist, MD - 10/18/2023 [place] [address] Mammography Report Signed Patient: MORALES DAWKINS AMR#: [id number] : 1980Acct:[id number] Age/Sex: 43 / FADM Date: 10/17/23 Loc: MAMMO Attending Dr: Heath Shah D.O. Ordering Physician: Heath Shah D.O.Results: Date of Service: 10/17/23Follow Up: Procedure(s): MM tomosynthesis screening BI Accession Number(s): [id number] cc: Heath Shah D.O.; Odell Elliott M.D. Patient Name: MORALES DAWKINS MR#: [id number] : 1980 Exam Date: 10/17/2023 Ordering Doctor: [...] Treatments None Family Cancers None LOCATION: [facility] BREAST COMPOSITION: Heterogeneously dense,which may obscure [...] Azevedo M.D. Signed By:10/18/23927 DD/ 6 TD/TT: Commercial Teller: Authorizing ProviderResult TypeResult StatusGeneric External Data Provider [facility] IMAGINGFinal Result documented in this encounter Visit Diagnoses Not on filedocumented in this encounter Care Teams Team MemberRelationshipSpecialtyStart DateEnd Date Odell Elliott MD PCP - GeneralFamily Medicine Odell Elliott MD PCP - [facility]11/20/23 Odell Elliott MD [address] [place] [address] PCP - [facility]07/30/24documented as of this encounter
== END 2025-08-29 06:56 | disposition home or self-care (01) ==
LOC: MRI 06:55
PROVIDERS: PCP Family Medicine; Visit Provider Family Medicine
DX: M51.362 Other intervertebral disc degeneration, lumbar region with discogenic back pain and lower extremity pain (principal)
CPT/HCPCS: 72148

== ENCOUNTER 2025-10-06 19:59 | Outpatient (REF) | payer OTHER, SELFPAY ==
--- OUTSIDE RECORDS SUMMARY | 2025-10-06 20:03 | XMS_ITS | CCD ---
Author Organization [facility] CliniSyct Care Team Providers Care [employer] Installer [employer] Name Role Phone HOUSE, DR MENDOZA Primary [...] Unavailable Odell Handley MD Primary Care Provider [phone] Odell Handley MD Attending Provider [phone] Odell Handley MD Primary Care Provider Odell Handley MD Primary Care Provider Odell Handley MD Unavailable Allergies Allergy ClassificationReported Allergen(s)Allergy TypeDate of OnsetReaction(s) Facility (1 source)bee venomDrug allergy (disorder)[facility] (1 source)CodeineDrug [id number] [facility] (20 sources)CodeineDrug [id number] intoleranceNOGolden Valley Memorial Hospital Work Phone: (20 sources)Honey bee venomAllergy to [id number] Medications Current Medications MedicationDrug Class(es)DatesSig (Normalized)Sig (Original)acetaminophen 325 mg / oxyCODONE hydrochloride 5 mg oral tablet (20 sources)Opioid AgonistStart: 83-31-5461agqf 1 tablet by mouth four times daily as needed for painOxycodone-Acetaminophen (Percocet) 5-325 mg tablet Active 1 TAB PO Four times daily as needed for pain 120 July 21, 2025 Complies with drug therapyStart: 12-23-2024 End: 52-34-1703groy 1 tablet by mouth four times daily as needed for pain oxyCODONE-acetaminophen (Percocet) 5-325 MG tablet Indications: 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 and lower extremity pain Take 1 tablet by mouth 4 (four)times a day as needed for severe pain 120 tablet 05/21/2025 06/19/2025 Discontinued (Reorder)Start: 05-23-2024 End: 66-43-0811gzea 1 tablet by mouth four times daily as needed for pain oxyCODONE-acetaminophen (Percocet) 5-325 MG tablet Indications: 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 and lower extremity pain Take 1 tablet by mouth 4 (four)times a day as needed for severe pain 120 tablet 11/21/2024 12/20/2024 Discontinued (Reorder)Start: 11-27-2023 End: 17-71-1293dofn 1 tablet by mouth four times daily as needed for pain oxyCODONE-acetaminophen (Percocet) 5-325 MG tablet Indications: Other intervertebral disc degeneration, lumbar region Take 1 tablet by mouth 4 (four) times a day as needed for severe pain 120 tablet 0 11/27/2023 12/27/2023 Active [id number] 200 actuat albuterol 0.09 mg/actuat metered dose inhaler (20 sources)beta2-Adrenergic AgonistStart: 88-96-0661igct 1 puff(s) by inhalation every four hours as neededAlbuterol Sulfate 90 mcg/actuation HFA aerosol inhaler Active 2 PUFF INHALATION Every 4 hours as needed August 12, 2025 12:00am Complies with drug therapyStart: 02-26-2024 End: 24-82-6642whuo 2 puff(s) by inhalation every four hours for wheezing albuterol HFA (Ventolin HFA) 90 mcg/act inhaler Indications: SOB (shortness of breath) Inhale 2 puffs every 4 (four) hours if needed for wheezing 8.5 g 3 06/24/2024 ActiveStart: 26-51-1957lkzh 2 puff(s) by inhalation every four hours for wheezingalbuterol HFA (Ventolin HFA) 90 mcg/act inhaler Indications: SOB (shortness of breath) Inhale 2 puffs every 4 (four) hours if needed for wheezing 8.5 g 3 12/13/2023 ActiveStart: 68-88-6811gcob 2 puff(s) by inhalation every four hours for wheezingalbuterol HFA (Ventolin HFA) 90 mcg/act inhaler Indications: SOB (shortness of breath) Inhale 2 puffs every 4 (four) hours if needed for wheezing 8.5 g 3 12/13/2023 ActiveStart: 11-08-2022 End: 30-03-3115wapd 2 puff(s) by inhalation every four hours for wheezing Ventolin HFA 108 (90 Base) MCG/ACT inhaler Inhale 2 puffs every 4 (four) hours if needed for wheezing. 0 11/08/2022 12/13/2023 Discontinued (Reorder)Start: 20-46-3716wttg 2 puff(s) by inhalation every four hours as neededAlbuterol Sulfate HFA 108 (90 Base) MCG/ACT 2 puffs as needed Inhalation every 4 hrs Oct, ActiveALPRAZolam (1 source)BenzodiazepineALPRAZolam Activeamoxicillin 875 mg oral tablet (1 source)Penicillin-class AntibacterialStart: 79-42-6998zucg 1 tablet by mouth every eight hoursAmoxicillin 875 MG 1 tablet Orally every 8 hrs for 10 day(s) Oct, Dpzcid74 hr buPROPion hydrochloride 300 mg extended release oral tablet (20 sources)AminoketoneStart: 05-81-8808jxdx 1 tablet by mouth once daily in the morningBupropion Hcl 300 mg tablet extended release 24 hr Active 300 MG PO Every morning August 12, 2025 12:00am Complies with drug therapyStart: 03-06-2025 take 1 tablet by mouth once dailybuPROPion XL (Wellbutrin XL) 300 MG 24 hr tablet Indications: Generalized anxiety disorder TAKE 1 TABLET BY MOUTH ONCE DAILY 30 tablet 03/06/2025 ActiveStart: 81-90-1009mgze 1 tablet by mouth once dailybuPROPion XL (Wellbutrin XL) 300 MG 24 hr tablet Indications: Generalized anxiety disorder (CMS/HCC) TAKE 1 TABLET BY MOUTH DAILY 30 tablet 5 08/29/2024 ActiveStart: 52-17-5250eceh 1 tablet by mouth once dailybuPROPion XL [...] mg oral capsule (20 sources)Nonsteroidal Anti-inflammatory DrugStart: 24-66-7596gblv 1 capsule by mouth twice daily as needed for painCelecoxib 200 mg capsule Active 200 MG PO Twice daily as needed for pain August 12, 2025 12:00amComplies with drug therapyStart: 55-68-9238lbad 1 capsule by mouth twice daily as needed for pain celecoxib (CeleBREX) 200 MG capsule Indications: Degeneration of intervertebral disc of lumbar region with discogenic back pain TAKE 1 CAPSULE BY MOUTH TWICE DAILY NEEDED for mild pain WITH FOOD 60 capsule 5 03/06/2025 ActiveStart: 19-73-6268njwd 1 capsule by mouth twice daily as needed for paincelecoxib (CeleBREX) 200 MG capsule Indications: Degeneration of intervertebral disc of lumbar region with discogenic back pain Take 1 capsule (200 mg) by mouth 2 (two) times a day as needed for mildpain Take with food 60 capsule 5 09/09/2024 Active cetirizine hydrochloride 10 mg oral tablet (20 sources)Histamine-1 Receptor AntagonistStart: 18-21-8743vyao 1 tablet by mouth once daily as neededCetirizine 10 mg tablet Active 10 MG PO Daily as needed August 12, 2025 12:00am Complies with drug therapyStart: 03-06-2025 take 1 tablet by mouth once dailycetirizine (ZyrTEC) 10 MG tablet Indications: Seasonal allergic rhinitis due to pollen TAKE 1 TABLET BY MOUTH ONCE DAILY 30 tablet 5 03/06/2025 ActiveStart: 07-32-7968xylz 1 tablet by mouth once daily Allergy Relief Cetirizine 10 MG tablet Indications: Seasonal allergic rhinitis due to pollen TAKE 1TABLET BY MOUTH DAILY 30 tablet 5 08/29/2024 ActiveStart: 54-16-0127xftj 1 tablet by mouth once dailycetirizine (ZyrTEC) 10 MG tablet Indications: Seasonal allergic rhinitis due to pollen TAKE 1 TABLET BY MOUTH DAILY 30 tablet 5 03/04/2024 Activetake 1 tablet by mouth in the morning cetirizine (ZyrTEC) 10 MG tablet Take 10 mg by mouth in the morning. 0 Active Zyrtec ActiveCetirizine HCl Activeclindamycin 10 mg/ml topical lotion (20 sources)Lincosamide AntibacterialStart: 02-34-0219Hpgcqhzspfl Phosphate 1 % lotion Active 1 APPLIC TOPICAL Daily August 12, 2025 12:00am Complies with drug therapyStart: 09-18-2024 End: 98-52-3947gxsighpuczw (Cleocin T) 1 % lotion Indications: Hidradenitis suppurativa Apply topically Daily As directed to affected areas 60 mL 3 09/18/2024 09/18/2025 ActiveStart: 49-31-1891hsum 2 capsules by mouth every eight hoursClindamycin HCl 300 MG 2 capsules Orally every 8 hrs for 7 days Jan, Not-Takingcyclobenzaprine hydrochloride 10 mg oral tablet (20 sources)Muscle RelaxantStart: 09-55-1843lzno 1 tablet by mouth three times daily as neededCyclobenzaprine 10 mg tablet Active 10 MG PO Three times daily as needed August 12, 2025 12:00amComplies with drug therapyStart: 18-86-4729afpv 1 tablet by mouth three times daily as neededcyclobenzaprine (Flexeril) 10 MG tablet Indications: Degeneration of intervertebral disc of lumbar region, unspecified whether pain present TAKE 1 TABLET BY MOUTH THREE TIMES DAILY NEEDED 90 tablet 5 03/06/2025 ActiveStart: 70-04-3454fuzj 1 tablet by mouth three times daily as neededcyclobenzaprine (Flexeril) 10 MG tablet Indications: Degeneration of intervertebral disc of lumbar region, unspecified whether pain present TAKE 1 TABLET BY MOUTH THREE TIMES DAILY NEEDED 90 tablet 5 08/29/2024 ActiveStart: 72-75-8657hnan 1 tablet by mouth three times daily as neededcyclobenzaprine (Flexeril) 10 MG tablet Indications: Other intervertebral disc degeneration, lumbarregion TAKE 1 TABLET BY MOUTH THREE TIMES DAILY NEEDED 90 tablet 5 03/04/2024 ActiveStart: 52-25-6206xgvu 1 tablet by mouth three times daily as needed for muscle spasmscyclobenzaprine (Flexeril) 10 MG tablet Take 10 mg by mouth 3 (three) times a day as needed for muscle spasms. 0 08/15/2023 ActiveFlexeril ActiveCyclobenzaprine HCl Activedexamethasone 1 mg/ml / tobramycin 3 mg/ml ophthalmic suspension (1 source)Aminoglycoside Antibacterial, CorticosteroidStart: 68-60-8189ythy 1 drop(s) into the eye(s) three times dailyTobraDex 0.3-0.1 % 1 drop into affected eye Ophthalmic Three times a day for 5 days Oct, Activediclofenac sodium 75 mg delayed release oral tablet (10 sources)Nonsteroidal Anti-inflammatory DrugStart: 08-29-2024 End: 47-55-1596xtej 1 tablet by mouth twice daily as neededdiclofenac (Voltaren) 75 MG EC tablet Indications: Degeneration of intervertebral disc of lumbar reg ion, unspecified whether pain present TAKE 1 TABLET BY MOUTH TWICE DAILY NEEDED 60 tablet 5 08/29/2024 09/09/2024 DiscontinuedStart: 67-88-5023edvv 1 tablet by mouth twice daily as [...] needed (as needed). 0 08/15/2023 Activeestrogens, conjugated (custodial) 0.625 mg/ml vaginal cream (18 sources)EstrogenStart: 03-18-2024 End: 81-06-8376Upttpzrpd Conjugated (Premarin) 0.625 MG/GM cream Indications: Menopausal and female climacteric states Insert 0.5 g into the vagina 3 (three) times a week 30 g 3 06/24/2024 Activeestrogens, conjugated (custodial) 0.45 mg / medroxyPROGESTERone acetate 1.5 mg oral tablet (20 sources)Progestin, EstrogenStart: 42-94-1738qntx 0.45-1.5 mg by mouth once dailyConj Estrog-Medroxyprogest Brien (Prempro) 0.45-1.5 mg tablet Active 1 TAB PO Daily August 12, 2025 12:00am Complies with drug therapyStart: 29-05-2435qvdd 1 tablet by mouth once dailyPrempro 0.45-1.5 MG tablet Indications: Hidradenitis TAKE 1 TABLET BY MOUTH EVERY DAY 28 tablet 3 02/13/2025 ActiveStart: 09-16-2024 End: 80-52-7822mnaa 0.3-1.5 mg by mouth once dailyestrogen, conjugated,- medroxyPROGESTERone (Prempro) 0.3-1.5 MG tablet Indications: Well woman exam w ith routine gynecological exam Take 1 tablet by mouth Daily 30 tablet 11 09/16/2024 03/10/2025 Discontinuedfluticasone propionate 0.05 mg/actuat metered dose nasal spray (20 sources)CorticosteroidStart: 79-14-0996moof 1 spray(s) nasal route once dailyFluticasone Propionate 50 mcg/actuation spray,suspension Active 1 SPRAY INTRANASAL Daily August 12, 2025 12:00am administer into each nostril Complies with drug therapyStart: 11-26-2024 End: 51-39-6443zksm 1 spray(s) nasal route once dailyfluticasone (Flonase) 50 MCG/ACT nasal spray Indications: Seasonal allergic rhinitis due to pollen A dminister 1 spray into each nostril Daily 16 g 5 02/20/2025 ActiveStart: 88-72-2798dvqe 1 spray(s) nasal route once dailyfluticasone (Flonase) 50 MCG/ACT nasal spray Indications: Seasonal allergic rhinitis due to pollen instill 1 spray IN EACH NOSTRIL DAILY 16 g 2 11/14/2024 ActiveStart: 61-50-7290lapi 1 spray(s) nasal route once dailyfluticasone (Flonase) 50 MCG/ACT nasal spray Indications: Seasonal allergic rhinitis due to pollen Administer 1 spray into each nostril Daily 16 g 2 05/06/2024 ActiveStart: 37-41-8517kxnv 1 spray(s) nasal route in the morningfluticasone (Flonase) 50 MCG/ACT nasal spray Administer 1 spray into each nostril in the morning. Activemelatonin 3 mg oral tablet (20 sources)Start: 92-85-1172vmqs 1 tablet by mouth once daily at bedtime as neededMelatonin 3 mg tablet Active 3 MG PO Daily at bedtime as needed August 12, 2025 12:00am Complieswith drug therapyMelatonin Asrtjj27 hr metFORMIN hydrochloride 500 mg extended release oral tablet (20 sources)BiguanideStart: 98-74-7257jmng 1 tablet by mouth twice daily Metformin 500 mg tablet extended release 24 hr Active 500 MG PO Twice daily August 12, 2025 12:00am Complies with drug therapyStart: 61-87-8569fsjf 1 tablet by mouth every twenty-four hours at bedtimemetFORMIN XR (Glucophage-XR) 500 MG 24 hr tablet Indications: Hidradenitis suppurativa TAKE 1 TABLET BY MOUTH IN THE MORNING and before bedtime. DO NOT CRUSH, CHEW, OR SPLIT. 30 tablet 11 03/06/2025 ActiveStart: 09-16-2024 End: 55-99-2903swgx 1 tablet by mouth every twenty-four hours in the morning metFORMIN XR (Glucophage-XR) 500 MG 24 hr tablet Indications: Hidradenitis suppurativa Take 1 tablet (500 mg) by mouth in the morning and 1 tablet (500 mg) before bedtime. Do not crush, chew, or split.. 30 tablet 11 09/16/2024 Active Start: 28-26-7918tqeh 1 tablet by mouth twice dailymetFORMIN (Glucophage) 500 MG tablet Indications: Hidradenitis suppurativa TAKE 1 TABLET BY MOUTH TWICE DAILY 60 tablet 6 07/31/2024 ActiveStart: 54-29-3308rsuv 1 tablet by mouth twice daily metFORMIN (Glucophage) 500 MG tablet Indications: Hidradenitis suppurativa TAKE 1 TABLET BY MOUTH TWICE DAILY 60 tablet 6 01/15/2024 ActiveStart: 09-12-2023 End: 46-17-8468kkdl 1 tablet by mouth every twenty-four hours at mealtime metFORMIN XR (Glucophage-XR) 500 MG 24 hr tablet Indications: Hidradenitis Take 1 tablet (500 mg) by mouth in the evening. Take with meals. Do not crush, chew, or split. 30 tablet 11 09/12/2023 09/11/2024 Active End: 61-89-8412awau 1 tablet by mouth in the morningmetFORMIN (Glucophage) 500 MG tablet Take 500 mg by mouth in the morning and 500 mg before bedtime.0 12/13/2023 DiscontinuedmetFORMIN HCl ActivemethylPREDNISolone 4 mg oral tablet (1 source)CorticosteroidStart: 80-30-3589ylzgxfHAFSNWKgpmtf 4 MG as directed Orally Once a [...] oral tablet (11 sources)Nonsteroidal Anti-inflammatory Drug End: 27-83-2427lrhq 1 tablet by mouth twice daily as needed for painnaproxen sodium (Aleve) 220 MG tablet Take 220 mg by mouth 2 (two) times a day as needed for mild pain. 09/09/2024 DiscontinuedNaproxen ActivepredniSONE 50 mg oral tablet (2 sources)Start: 03-10-2025 End: 74-55-7299qbcn 1 tablet by mouth once dailypredniSONE (Deltasone) 50 MG tablet Indications: Degeneration of intervertebral disc of lumbar region with discogenic back pain Take 1 tablet (50 mg) by mouth Daily for 6 days 6 tablet 03/10/2025 03/16/2025 Activeprobiotic (1 source)probiotic Activesertraline 25 mg oral tablet (20 sources)Serotonin Reuptake InhibitorStart: 53-64-2710hktl 1 tablet by mouth once dailySertraline 25 mg tablet Active 25 MG PO Daily August 12, 2025 12:00am Complies with drug therapyStart: 99-77-1315poos 1 tablet by mouth in the morningsertraline (Zoloft) 25 MG tablet Indications: MDD (major depressive disorder), recurrent episode, moderate (HCC) TAKE 1 TABLET BY MOUTH IN THE MORNING 30 tablet 5 05/26/2025 ActiveStart: 64-93-1906unwx 1 tablet by mouth in the morningsertraline (Zoloft) 25 MG tablet Indications: MDD (major depressive disorder), recurrent episode, moderate (HCC) TAKE 1 TABLET BY MOUTH IN THE MORNING 30 tablet 5 12/10/2024 ActiveStart: 10-31-5066dfee 1 tablet by mouth in the morningsertraline (Zoloft) 25 MG tablet Indications: MDD (major depressive disorder), recurrent episode, moderate (CMS/HCC) TAKE 1 TABLET BY MOUTH IN THE MORNING 30 tablet 5 06/05/2024 ActiveStart: 01-36-1218yniv 1 tablet by mouth in the morningsertraline (Zoloft) 25 MG tablet Indications: MDD (major depressive disorder), recurrent episode, moderate (HCC) (CMS/HCC) Take 1 tablet (25 mg) by mouth in the morning. 30 tablet 5 12/13/2023 ActiveStart: 02-46-8806lpxo 1 tablet by mouth in the morningsertraline (Zoloft) 25 MG tablet Indications: MDD (major depressive disorder), recurrent episode, moderate (HCC) (CMS/HCC) Take 1 tablet (25 mg) by mouth in the morning. 30 tablet 5 12/13/2023 Active spironolactone 50 mg oral tablet (20 sources)Aldosterone AntagonistStart: 78-66-7560tqlo 1 tablet by mouth once daily in the morningSpironolactone 50 mg tablet Active 50 MG PO Every morning August 12, 2025 12:00am Complies with drug therapyStart: 08-73-4772scoq 1 tablet by mouth in the morningspironolactone (Aldactone) 50 MG tablet Indications: Hidradenitis TAKE 1 TABLET BY MOUTH IN THE MORNING 30 tablet 3 05/26/2025 ActiveStart: 57-80-7513qpae 1 tablet by mouth in the morning spironolactone (Aldactone) 50 MG tablet Indications: Hidradenitis TAKE 1 TABLET BY MOUTH IN THE MORNING 30 tablet 3 02/05/2025 ActiveStart: 37-64-9700ftwr 1 tablet by mouth in the morningspironolactone (Aldactone) 50 MG tablet Indications: Hidradenitis TAKE 1 TABLET BY MOUTH IN THE MORNING 30 tablet 3 10/02/2024 ActiveStart: 03-17-7677vhzp 1 tablet by mouth in the morning spironolactone (Aldactone) 50 MG tablet Indications: Hidradenitis TAKE 1 TABLET BY MOUTH IN THE MORNING 30 tablet 3 06/07/2024 ActiveStart: 12-12-2023 End: 18-35-0293etnb 1 tablet by mouth in the morningspironolactone (Aldactone) 50 MG tablet Indications: Hidradenitis TAKE 1 TABLET BY MOUTH IN THE MORNING 30 tablet 0 12/12/2023 12/13/2023 Discontinuedtake 1 tablet by mouth in the morning spironolactone (Aldactone) 25 MG tablet Take 25 mg by mouth in the morning. 0 ActiveSpironolactone ActivetraZODone hydrochloride 100 mg oral tablet (20 sources)Serotonin Reuptake InhibitorStart: 94-55-6078gqjc 1 tablet by mouth once daily at bedtimeTrazodone 100 mg tablet Active 100 MG PO Daily at bedtime August 12, 2025 12:00am Complies with drug therapyStart: 04-70-7843algl 1 tablet by mouth at bedtimetraZODone (Desyrel) 100 MG tablet Indications: Primary insomnia TAKE 1 TABLET BY MOUTH AT BEDTIME 30 tablet 5 05/26/2025 ActiveStart: 35-63-1075fwzx 1 tablet by mouth at bedtimetraZODone (Desyrel) 100 MG tablet Indications: Primary insomnia TAKE 1 TABLET BY MOUTH AT BEDTIME 30 tablet 5 12/10/2024 ActiveStart: 85-66-8346llao 1 tablet by mouth at bedtimetraZODone (Desyrel) 100 MG tablet Indications: Primary insomnia TAKE 1 TABLET BY MOUTH AT BEDTIME 30 tablet 5 06/05/2024 ActiveStart: 34-41-9944zxjd 1 tablet by mouth at bedtimetraZODone (Desyrel) 100 MG tablet Indications: Primary insomnia Take 1 tablet (100 mg) by mouth at bedtime 30 tablet 5 12/13/2023 ActiveStart: 80-35-3799ahmq 1 tablet by mouth at bedtimetraZODone (Desyrel) 100 MG tablet Indications: Primary insomnia Take 1 tablet (100 mg) by mouth at bedtime 30 tablet 5 12/13/2023 ActiveStart: 08-15-2023 End: 59-50-4351siae 1 tablet by mouth at bedtimetraZODone (Desyrel) 50 MG tablet Take 50 mg by mouth at bedtime. 0 08/15/2023 12/13/2023 Discontinued (Reorder) tretinoin 0.5 mg/ml topical cream (3 sources)RetinoidStart: 09-18-2024 End: 63-49-0128hwmfongxf (Retin-A) 0.05 % cream Indications: Hidradenitis suppurativa Apply topically at bedtime Apply small amount (pea size) to affected areas as needed at night. 45 g 3 09/18/2024 10/18/2024 Activetriamcinolone acetonide 5 mg/ml topical cream (20 sources)CorticosteroidStart: 99-81-9599Qydyhzchamwwh Acetonide 0.5 % cream Active 1 APPLIC TOPICAL Three times daily August 12, 2025 12:00am Complies with drug therapyStart: 00-04-1970wemlzduocnnfu (Kenalog) 0.5 % cream Indications: Dyshidrotic eczema Apply topically in the morning and in the evening and before bedtime. 60 g 2 03/10/2025 Activevalsartan 80 mg oral tablet (20 sources)Angiotensin 2 Receptor BlockerStart: 72-68-2351xziu 1 tablet by mouth once dailyValsartan 80 mg tablet Active 80 MG PO Daily August 12, 2025 12:00am Complies with drug therapyStart: 33-81-6578mlol 1 tablet by mouth once dailyvalsartan (Diovan) 80 MG tablet Indications: Degeneration of intervertebral disc of lumbar region, unspecified whether pain present TAKE 1 TABLET BY MOUTH ONCE DAILY 30 tablet 5 03/06/2025 ActiveStart: 87-34-9824dyuf 1 tablet by mouth once dailyvalsartan (Diovan) 80 MG tablet Indications: Degeneration of intervertebral disc of lumbar region, unspecified whether pain present TAKE 1 TABLET BY MOUTH DAILY 30 tablet 5 08/29/2024 ActiveStart: 50-54-4751snsu 1 tablet by mouth once dailyvalsartan (Diovan) 80 MG tablet Indications: Other intervertebral disc degeneration, lumbar region TAKE 1 TABLET BY MOUTH DAILY 30 tablet 5 03/04/2024 ActiveStart: 62-34-3134tvge 1 tablet by mouth in the morning valsartan (Diovan) 80 MG tablet Take 80 mg by mouth in the morning. 0 08/15/2023 ActiveValsartan Activezinc sulfate 220 mg oral capsule (20 sources)Start: 87-47-8861qarp 1 capsule by mouth three times dailyZinc Sulfate (Orazinc) 50 mg zinc (220 mg) capsule Active 50 MG PO Three times daily August 12, 2025 12:00am Complies with drug therapyStart: 73-46-4110vhfy 1 capsule by mouth three times dailyzinc 220 (50 Zn) MG capsule Indications: Hidradenitis suppurativa TAKE 1 CAPSULE BY MOUTH THREE TIMES DAILY 90 capsule 3 05/01/2025 ActiveStart: 09-18-2024 End: 96-37-7984adzp 2 capsules by mouth in the morning, [...] MedicationDrug Class(es)DatesSig (Normalized)Sig (Original)cefTRIAXone (1 source)Cephalosporin AntibacterialStart: 61-92-9482Epnsycef 500 mg Jan, 250 mgdoxycycline hyclate 100 mg oral capsule (20 sources)Tetracycline-class DrugStart: 08-12-2025 End: 54-55-8484Lxeakpewhmu Hyclate 100 mg capsule Discontinued 100 MG PO Twice daily August 12, 2025 12:00am August 14, 2025 1:12pm TAKE 1 CAPSULE BY MOUTH IN THE MORNING then TAKE 1 CAPSULE BY MOUTH BEFORE bedtime, take WITH at least EIGHT ounces OF water, do not lie down for 30 MINUTES afterStart: 18-53-4777vbnaxifvmxn (Vibramycin) 100 MG capsule Indications: Hidradenitis suppurativa TAKE 1 CAPSULE BY MOUTH IN THE MORNING then TAKE 1 CAPSULE BY MOUTH BEFORE bedtime, take WITH at least EIGHT ounces OF water, do not lie down for 30 MINUTES after 60 capsule 3 04/21/2025 ActiveStart: 32-67-1335joziktzhmkm (Vibramycin) 100 MG capsule Indications: Hidradenitis suppurativa Take 1 capsule (100 mg) by mouth in the morning and 1 capsule (100 mg) before bedtime. Take with at least EIGHT ounces (large glass) OF water, do not lie down for 30 minutes after 60 capsule 3 12/11/2024 ActiveStart: 09-18-2024 End: 80-13-1710xapxkfmmrcf (Vibramycin) 100 MG capsule Indications: Hidradenitis suppurativa Take 1 capsule (100 mg) by mouth in the morning and 1 capsule (100 mg) before bedtime. Take with at least 8 ounces (largeglass) of water, do not lie down for 30 minutes after. 60 capsule 2 09/18/2024 10/18/2024 Active hydrOXYzine hydrochloride 25 mg oral tablet (1 source)AntihistamineStart: 30-45-5970zdzw 1 tablet by mouth every eight hours hydrOXYzine HCl 25 MG 1 tablet as needed Orally every 8 hrs Jan, Not-TakingtraMADol (1 source)Opioid AgonisttraMADol HCl Not-Taking Problems Active Problems Problem ClassificationProblemDateDocumented DateEpisodic/ChronicAnxiety disorders (20 sources)Anxiety disorder, unspecified; Translations: [Generalized anxiety disorder]Onset: [id number] (1 source)Unspecified asthma, uncomplicated; Translations: [UNSPECIFIED ASTHMA UNCOMPLICATED]Onset: 39-10-8989TyqryreMrrrvyvju hypertension (20 sources)Essential (primary) hypertension; Translations: [Benign essential hypertension]Onset: [id number] and screening for infectious disease (2 sources)Encounter for screening for human papillomavirus (HPV); Translations: [Contact with and (suspected)exposure to other viral communicable diseases] Onset: 38-65-7782ErohnyjnCntklfpkoxgh; infection of eye (except that caused by tuberculosis or sexually transmitteddisease) (1 source)Unspecified acute conjunctivitis, left eyeEpisodicMenopausal disorders (20 sources)Menopausal syndrome; Translations: [Menopausal and female climacteric states]Onset: [id number]bofv mental health disorders (20 sources)Primary insomnia; Translations: [Primary insomnia]Onset: 12-13-2023 67-65-7391CdvjnthFfls disorders (20 sources)Recurrent major depressive episodes, moderate ; Translations: [Major depressive disorder, recurrent, moderate]Onset: [id number] Osteoarthritis (1 source)Unspecified osteoarthritis, unspecified site; Translations: [UNSPECIFIED OSTEOARTHRITIS UNS SITE]Onset: 32-30-6815JfwiatsMzomm connective tissue disease (1 source)History of cervical spine fusion; Translations: [Arthrodesis status] 09-05-1571OmlwzhfyZtpqi endocrine disorders (20 sources)Polycystic ovary syndrome; Translations: [Polycystic ovarian syndrome]Onset: 756536-00-6651TjogragAsrwi female genital disorders (4 sources)Abnormal uterine and vaginal bleeding, unspecified; Translations: [ABNORMAL UTERINE VAGINAL BLEED UNS]Onset: 71-08-1128TmcezcgJogue female genital disorders (1 source)Unspecified dyspareunia; Translations: [UNSPECIFIED DYSPAREUNIA]Onset: 89-69-2029VxpvjigLujyz nutritional; endocrine; and metabolic disorders (1 source)Obesity, unspecified; Translations: [OBESITY UNSPECIFIED]Onset: 88-68-0719OzdlybpQxmdp nutritional; endocrine; and metabolic disorders (1 source)Body mass index (BMI) 33.0-33.9, adult; Translations: [BODY MASS INDEX BMI 33.0-33.9 ADULT]Onset: 02-14-2331BjerejtFamxz nutritional; endocrine; and metabolic disorders (20 sources)Body mass index 30+ - obesity; Translations: [Obesity, unspecified] Onset: 584178-57-6064VakzhixTfvfc screening for suspected conditions (not mental disorders or infectious disease) (8 sources)Encounter for screening for malignant neoplasm of cervix; Translations: [Patient encounter status]Onset: 02-17-6735MxzqfqnxKluvx skin disorders (2 sources)Hidradenitis; Translations: [Hidradenitis suppurativa]09-16-2024 EpisodicOther skin disorders (2 sources)Hidradenitis suppurativa; Translations: [Hidradenitis suppurativa] 01-04-0283KojuxoncFbehz upper respiratory disease (20 sources)Allergic rhinitis due to pollen; Translations: [Allergic rhinitis due to pollen]Onset: 502789-72-6561TyepnhoBhxko upper respiratory infections (1 source)Acute pharyngitis, unspecifiedEpisodicPneumonia (except that caused by tuberculosis or sexually transmitted disease) (1 source)Pneumonia, unspecified organismEpisodicSpondylosis; intervertebral disc disorders; other back problems (20 sources)Degeneration of lumbar intervertebral disc; Translations: [Other intervertebral disc degeneration, lumbar region]Onset: ChronicSubstance-related disorders (1 source)Nicotine dependence, cigarettes, uncomplicated; Translations: [NICOTINE DEPEND CIGARETTES UNCOMP]Onset: 96-24-4732Yubfwjf Past or Other Problems Problem ClassificationProblemDateDocumented DateEpisodic/ChronicAbdominal pain (1 source)Pelvic and perineal pain; Translations: [PELVIC AND PERINEAL PAIN] Onset: 57-12-9389YwmudlktNcvzjnfeatltp and procreative management (1 source)Encounter for sterilization; Translations: [ENCOUNTER FOR STERILIZATION]Onset: 97-36-9835VhyjfuzhUdxe disorders (20 sources)Mood disorders; Translations: [DEPRESSION UNSPECIFIED]Onset: 027415-48-4444Rbzzj aftercare (1 source)Other custodial (current) drug therapy; Translations: [OTH USP CURRENT DRUG THERAPY]Onset: 97-36-6437QottptroGstnq connective tissue disease (4 sources)Pain in left hand; Translations: [PAIN IN LEFT HAND]Onset: 06-01-2022 EpisodicOther lower respiratory disease (3 sources)Dyspnea; Translations: [Shortness of breath]18-50-9898LuvtwnlpKjfgb non-traumatic joint disorders (20 sources)Hip pain; Translations: [Pain in left hip]Onset: 05-21-2025 31-86-2803EmkvrpunGkxjq skin disorders (20 sources)Vesicular eczema; Translations: [Dyshidrosis [pompholyx]]Onset: 224091-34-0849VwvfgnwuEhndeiu cyst (1 source)Follicular cyst of left ovary; Translations: [FOLLICULAR CYST OF LEFT OVARY]Onset: 34-11-2717VkxihfcyXzjaqks tract infections (20 sources)Acute urinary tract infection; Translations: [Urinary tract infection, site not specified]Onset: 06-06-2024 Resolved: 274174-21-2104Fgbpulmw Results Test NameValueInterpretationReference RangeFacilityXR HIP LT MIN 2Von 05-22-[address] [address] XRay Report Signed Patient: YVONNE DAWKINS MR#: [id number] : 1980 Acct:[id number] Age/Sex: 44 / F ADM Date: 05/22/25 Loc: RAD Attending Dr: Odell Handley M.D. Ordering Physician: Odell Handley M.D. Date of Service: 05/22/25 Procedure(s): XR hip LT min 2V Accession Number(s): [id number] cc: Odell Handley M.D. The [address] [address] Patient Name: YVONNE DAWKINS MRN: [facility]:[id number] date: 1980 Sex: F Assigned Patient Location: [facility] Current Patient Location: [facility] Accession/Order Number: [id number] Exam Date: 05/22/2025 15:07 Report Date: 05/22/2025 [...] Jr., D.O. 05/22/2025 3:07 PM Dictation Location: [place] [address] Electronically authenticated by: [id number] Y Date: 05/22/2025 15:07 Dictated By: Parmjit Milton M.D. Signed By: 05/22/25 1510 DD/ 1507 TD/TT: Sales Service Assistant:HOMARHRadiology, Radiologist, - 05/22/2025 The [place] [id number] XRay Report Signed Patient: YVONNE DAWKINS MR#: [id number] : 1980 Acct:[id number] Age/Sex: 44 / F ADM Date: 05/22/25 Loc: RAD Attending Dr: Odell Handley M.D. Ordering Physician: Odell Handley M.D. Date of Service: 05/22/25 Procedure(s): XR hip LT min 2V Accession Number(s): [id number] cc: Odell Handley M.D. [address] [address] Patient Name: YVONNE DAWKINS MRN: [facility]:[id number] date: 1980 Sex: F Assigned Patient Location: [facility] Current Patient Location: [facility] Accession/Order Number: [id number] Exam Date: 05/22/2025 15:07 Report Date: 05/22/2025 [...] Jr., D.O. 05/22/2025 3:07 PM Dictation Location: [place] [address] Electronically authenticated by: [id number] Y Date: 05/22/2025 15:07 Dictated By: Parmjit Milton M.D. Signed By: 05/22/25 1510 DD/ 1507 TD/TT: Sales Service Assistant: TJ HealthcareRadiology Study observation (narrative)NOMS HealthcareXR HIP LT MIN 2VOrdered By: Radiologist Radiology on 42-36-6516UZWD Healthcare Work Phone: mm TOMOSYNTHESIS SCREENING BIon 14-84-2720[place]aaSan [place] [address] Mammography Report Signed Patient: YVONNE DAWKINS MR#: [id number] : 1980 Acct:[id number] Age/Sex: 44 / F ADM Date: 10/18/24 Loc: MAMMO Attending Dr: Heath Shah D.O. Ordering Physician: Heath Shah D.O. Results: Date of Service: 10/18/24 Follow Up: Procedure(s): MM tomosynthesis screening BI Accession Number(s): [id number] cc: Heath Shah D.O.; Odell Handley M.D. Patient Name: YVONNE DAWKINS MR#: [id number] : 1980 Exam Date: 10/18/2024 Ordering Doctor: [...] breast cancer at age 58. LOCATION: The [facility] BREAST COMPOSITION: The breasts are heterogeneously [...] M.D. Signed By: 10/21/24 0748 DD/ TD/TT: Sales Service Assistant:TBHRadiology, RadiologistMD - 10/21/2024 [place] [address] Mammography Report Signed Patient: YVONNE DAWKINS MR#: [id number] : 1980 Acct:[id number] Age/Sex: 44 / F ADM Date: 10/18/24 Loc: MAMMO Attending Dr: Heath Shah D.O. Ordering Physician: Heath Shha D.O. Results: Date of Service: 10/18/24 Follow Up: Procedure(s): MM tomosynthesis screening BI Accession Number(s): [id number] cc: Heath Shah D.O.; Odell Handley M.D. Patient Name: YVONNE DAWKINS MR#: [id number] : 1980 Exam Date: 10/18/2024 Ordering Doctor: [...] breast cancer at age 58. LOCATION: The [facility] BREAST COMPOSITION: The breasts are heterogeneously [...] Azevedo M.D. Signed By: 10/21/2448 DD/ TD/TT: Sales Service Assistant: [facility] HealthcareRadiology Study observation (narrative)[facility] TOMOSYNTHESIS SCREENING BIOrdered By: Radiologist Radiology on 13-77-1294W[facility] Work Phone: IGP,APTIMA HPV,AGE GDLNon 74-38-6364QZW GDLN ACOG TESTINGNote.[facility] HealthcareComment on above:TESTS RESULT FLAG UNITS REF RANGE LAB Clinician Provided Cytology Information Source.............Cervix;Endocervix No. of containers..01 ThinPrep Vial Age Algo ACOG Estela... 28 FLAG LEGEND: L-Low Normal,H-High Normal,LL-Alert Low,HH-Alert High <-Panic Low,>-Panic High,A-Abnormal,AA-Critical Abnormal Performed at: 01 =[address] [address] Pao Buchanan MD, HPV APTIMANegativeNegativeNOMS HealthcareComment on above:This nucleic acid amplification test detects fourteen high- risk HPV types (16,18,31,33,35,39,45,51,52,56,58,59,66,68) without differentiation. Performed at: =[address] [id number] [employer] Flour Mixer: Pao Buchanan MD, Phone: [phone] Performed at: [address] [id number] [employer] Mixer: Pao Buchanan MD, Phone: [phone] IGP, APTIMA HPV, RFX 16/18,45Note.NOMS HealthcareComment on above:TESTS RESULT FLAG UNITS REF RANGE LAB DIAGNOSIS: 02 NEGATIVE FOR INTRAEPITHELIAL LESION OR MALIGNANCY. Specimen adequacy: 02 Satisfactory for evaluation. Endocervical and/or squamous metaplastic cells (endocervical component) are present. Performed by: Odilia Soriano Assistant Store Leader (ASCP) . 02 Note: Note 02 The [...] High,A-Abnormal,AA-Critical Abnormal Performed at: 02 [address] [facility] [address] [address] Pao Buchanan MD, BRUSH-SPATULA CERVIX ENDOCERVIX CLINISYNCNOMS HealthcareALL CBC WITH AUTO DIFFon 21-20-0053NEYDFHHMC ABSOLUTE AUTO0.1NOMS HealthcareBasophils/100 WBC (Bld)0.5 %0.2 - 2.0 %[facility] Eosinophils/100 WBC (Bld)2.6 %0.9 - 7.0 %NOMSaint John'S Regional Health CenterErythrocyte distribution width (RBC) [Ratio]12.7 %11.0 - 15.0 %[facility] City HospitalHematocrit (Bld) [Volume fraction]41.2 %36.0 - 48.0 %NOMSaint John'S Regional Health CenterHemoglobin (Bld) [Mass/Vol]14.3 g/dL 12.0 - 16.0 g/dLNOGolden Valley Memorial HospitalIMMATURE GRANULOCYTES ABS AUTO0.04HighNOMS HealthcareImmature granulocytes/100 WBC (Bld)0.4 %0.0 - 0.5 %[facility] Interpretation and review of laboratory resultsAbnormalNOMS Healthcare LYMPHOCYTES ABSOLUTE AUTO3.4NOMS HealthcareLymphocytes/100 WBC (Bld)33.7 %20.5 - 60.0 %[facility] Health InstituteH (RBC) [Entitic mass]33.3 pg26.7 - 34.0 pgNOLake Regional Health SystemHC (RBC) [Mass/Vol]34.7 g/dL29.9 - 35.2 g/dLNOLake Regional Health SystemV (RBC) [Entitic vol]95.8 fL81.0 - 99.0 fLNOAL HealthcareMONOCYTES ABSOLUTE AUTO0.6NOMS HealthcareMonocytes/100 WBC (Bld)6.2 %1.7 - 12.0 %NOMS HealthcareNEUTROPHILS ABSOLUTE AUTO5.7NOMS HealthcareNeutrophils/100 WBC (Bld)56.6 %43.0 - 75.0 %NOMS HealthcarePlatelet mean volume (Bld) [Entitic vol]12.4 fL9.5 - 13.5 fLNOAL HealthcareTBH EO #0.3NOMS HealthcareTBH [id number] HealthcareTB RBC4.3NOMS City HospitalTB WBC10.1NOMS HealthcareCLINISYNCNFAIRVIEW REGIONAL [facility] HealthcareMM TOMOSYNTHESIS SCREENING BIon 13-93-5231Uzzkqnhdt, Radiologist, - 01/03/2024 [place] [address] Mammography Report Signed Patient: YVONNE DAWKINS MR#: [id number] : 1980 Acct:[id number] Age/Sex: 43 / F ADM Date: 10/17/23 Loc: MAMMO Attending Dr: Heath Shah D.O. Ordering Physician: Heath Shah D.O. Results: Date of Service: 10/17/23 Follow Up: Procedure(s): MM tomosynthesis screening BI Accession Number(s): [id number] cc: Heath Shah D.O.; Odell Handley M.D. Patient Name: YVONNE DAWKINS MR#: [id number] : 1980 Exam Date: 10/17/2023 Ordering Doctor: [...] Treatments None Family Cancers None LOCATION: The [facility] BREAST COMPOSITION: Heterogeneously dense,which may obscure [...] M.D. Signed By: 10/18/23927 DD/ 6 TD/TT: Sales Service Assistant: TJ HealthcareRadiology, Radiologist, - 10/18/2023 [place] [address] Mammography Report Signed Patient: YVONNE DAWKINS MR#: [id number] : 1980 Acct:[id number] Age/Sex: 43 / F ADM Date: 10/17/23 Loc: MAMMO Attending Dr: Heath Shah D.O. Ordering Physician: Heath Shah D.O. Results: Date of Service: 10/17/23 Follow Up: Procedure(s): MM tomosynthesis screening BI Accession Number(s): [id number] cc: Heath Shah D.O.; Odell Handley M.D. Patient Name: YVONNE DAWKINS MR#: [id number] : 1980 Exam Date: 10/17/2023 Ordering Doctor: [...] Treatments None Family Cancers None LOCATION: The [facility] BREAST COMPOSITION: Heterogeneously dense,which may obscure [...] M.D. Signed By: 10/18/23927 DD/ 6 TD/TT: Sales Service Assistant: TJ Crews Informationon 18-52-2910[place]fSan [place] [address] Mammography Report Signed Patient: YVONNE DAWKINS MR#: [id number] : 1980 Acct:[id number] Age/Sex: 43 / F ADM Date: 10/17/23 Loc: MAMMO Attending Dr: Heath Shah D.O. Ordering Physician: Heath Shah D.O. Results: Date of Service: 10/17/23 Follow Up: Procedure(s): MM tomosynthesis screening BI Accession Number(s): [id number] cc: Heath Shah D.O.; Odell Handley M.D. Patient Name: YVONNE DAWKINS MR#: [id number] : 1980 Exam Date: 10/17/2023 Ordering Doctor: [...] Treatments None Family Cancers None LOCATION: The [facility] BREAST COMPOSITION: Heterogeneously dense,which may obscure [...] M.D. Signed By: 10/18/23927 DD/ 6 TD/TT: Sales Service Assistant:TBHRadiology Study observation (narrative)[facility] HealthcareNo Panel InformationOrdered By: Radiologist Radiology on 10-18-2023 [facility] Healthcare Work Phone: cytology Cervical or vaginal smear or scraping studyon 75-18-3696YAZV HealthcareCOVID/FLU/RSV RT-PCRon 24-56-5920XUUN-CoV-2 (COVID-19) RNA GUILLAUME+probe Ql (Unsp spec)NegativeHannibal Regional HospitalBeep Other COVID/FLU/RSV RT-PCRNegativeNoLuckyPennie GeeYee Other Quick Strepon 11-08-2022S. pyogenes Org specific cx Ql (Throat)NegativeLuckyPennie GeeYee Other Quwav StrepSonru.com Other PAZ ACOG PANEL 2: 30 to 65on 09-11-2022..NormalThe [facility] HospitalComment on above:Result Comment: Performed at: WBPerformed By: #### [id number] #### [facility] [address] [place] [address] Dr. Anyi PrescottAge Gdln ACOG Etpkclp19-55CpmhcpWbeMiddletown HospitalComschoolcraft memorial hospital on above:Performed By: #### [id number] #### [facility] [address] [place] [address] Dr. Anyi PrescottDIAGNOSIS:CommentCleveland Clinic South Pointe Hospital on above: Result Comment: NEGATIVE FOR INTRAEPITHELIAL LESION OR MALIGNANCY. Performed at: WBPerformed By: #### [id number] #### [facility] [address] [place] [address] Dr. Anyi PrescottHPV AptimaNegativeNormalNegativeThe [facility] on above:Result Comment: This nucleic acid amplification test detects fourteen high-risk HPV types (16,18,31,33,35,39,45,51,52,56,58,59,66,68) without differentiation. Performed at: =GPerformed By: #### [id number] #### [facility] [address] [place] [address] Dr. Anyi PrescottHPV Genotype ReflexCommentCleveland Clinic South Pointe Hospital on above:Result Comment: Criteria not met, HPV Genotype not performed. Performed at: WBPerformed By: #### [id number] #### [facility] [address] [place] [address] Dr. Anyi PrescottMethodology:CommentCleveland Clinic South Pointe Hospital on above: Result Comment: This liquid based ThinPrep(R) pap test was screened with the use of an image guided system. Performed at: WBPerformed By: #### [id number] #### [facility] [address] [place] [address] Dr. Anyi PrescottNote:CommentCleveland Clinic South Pointe Hospital on above:Result Comment: The Pap smear is a screening test designed to aid in the detection of premalignant and malignant conditions of the uterine cervix. It is not a diagnostic procedure and should not be used as the sole means of detecting cervical cancer. Both false-positive and false-negative reports do occur. . Performed at: WBPerformed By: #### [id number] #### [facility] [address] [place] [address] Dr. Anyi PrescottPerformed by:CommentCleveland Clinic South Pointe Hospital on above: Result Comment: Davin Zamarripa Assistant Store Leader (ASCP) Performed at: WBPerformed By: #### [id number] #### [facility] [address] [place] [address] Dr. Anyi PrescottSpecimecr adequacy:CommentCleveland Clinic South Pointe Hospital on above:Result Comment: Satisfactory for evaluation. Endocervical and/or squamous metaplastic cells (endocervical component) are present. Performed at: WBPerformed By: #### [id number] #### [facility] [address] [place] [address] Dr. Anyi France AUTO DIFFon 64-97-2118WWNT #0.1 103/ulNormal0.0-0.1The [facility] HospitalComment on above:Performed By: #### CBC #### [facility] [address] [place] [address] Dr. Anyi PrescottBasophils/100 WBC (Bld)0.6 %Normal0.2-2.0[facility] Comment on above:Performed By: #### CBC #### [facility] [address] [place] [address] Dr. Anyi Vogel #0.3 103/ulNormal0.0-0.7The [facility] HospitalComment on above: Performed By: #### CBC #### [facility] [address] [place] [address] Dr. Anyi Charltonosinophils/100 WBC (Bld)2.2 %Normal0.9-7.0The [facility] Comment on above:Performed By: #### CBC #### [facility] [address] [place] [address] Dr. Anyi Charltonrythrocyte distribution width (RBC) [Ratio]12.9 %Okplbn60.0-15.0 The [facility] HospitalComment on above:Performed By: #### CBC #### [facility] [address] [place] [address] [address] Anyi PrescottHematocrit (Bld) [Volume fraction]46.2 %Lrphip63.0-48.0The [facility] HospitalComment on above:Performed By: #### CBC #### [facility] [address] [place] [address] [address] Anyi PrescottHemoglobin (Bld) [Mass/Vol]15.2 g/uKHekcnk96.0-16.0The [facility] HospitalComment on above:Performed By: #### CBC #### [facility] [address] [place] [address] [address] Anyi Disla #0.11 10e3/ulCritically high0.00-0.03The [facility] Comment on above:Performed By: #### CBC #### [facility] [address] [place] [address] Dr. Anyi Disla %0.8 %Critically high0.0-0.5The [facility] HospitalComment on above:Performed By: #### CBC #### [facility] [address] [place] [address] [address] Anyi Lieva #4.5 103/ulCritically high1.2-3.8The [facility] Comment on above:Performed By: #### CBC #### [facility] [address] [place] [address] [address] Anyi Wilkinsmphocytes/100 WBC (Bld)33.6 %Qlfvqj95.5-60.0The [facility] HospitalComment on above:Performed By: #### CBC #### [facility] [address] [place] [address] [address] Anyi PrescottMANUAL DIFF REQNONormalThe [facility] HospitalComment on above: Performed By: #### CBC #### [facility] [address] [place] [address] [address] Anyi Alves (RBC) [Entitic mass]30.8 idQohodm20.7-34.0The [facility] HospitalComment on above:Performed By: #### CBC #### [facility] [address] [place] [address] [address] Anyi BurnettHC (RBC) [Mass/Vol]32.9 g/wLNatihi26.9-35.2The [facility] HospitalComment on above:Performed By: #### CBC #### [facility] [address] [place] [address] Dr. Anyi BurnettV (RBC) [Entitic vol]93.7 tIVgkynw31.0-99.0The [facility] HospitalComment on above:Performed By: #### CBC #### [facility] [address] [place] [address] Dr. Anyi Metcalf #0.9 103/ulCritically high0.3-0.8The [facility] Comment on above:Performed By: #### CBC #### [facility] [address] [place] [address] Dr. Anyi Mchughocytes/100 WBC (Bld)6.4 %Normal1.7-12.0[facility] Comment on above:Performed By: #### CBC #### [facility] [address] [place] [address] Dr. Anyi Sultana #7.6 103/ulCritically high1.4-6.5The [facility] Comment on above:Performed By: #### CBC #### [facility] [address] [place] [address] Dr. Anyi Riosutrophils/100 WBC (Bld)56.4 %Nvexpp91.0-75.0The [facility] HospitalComment on above:Performed By: #### CBC #### [facility] [address] [place] [address] Dr. Anyi Rasheedlet mean volume (Bld) [Entitic vol]10.4 fLNormal9.5-13.5The [facility] HospitalComment on above:Performed By: #### CBC #### [facility] [address] [place] [address] Dr. Anyi PrescottPLT353 103/lfSjwtlh153-772Ktm [facility] HospitalComment on above: Performed By: #### CBC #### [facility] [address] [place] [address] [address] Anyi PrescottRBC4.93 106/ulNormal4.20-5.40The [facility] HospitalComment on above:Performed By: #### CBC #### [facility] [address] [place] [address] [address] Anyi PrescottWBC13.5 103/ulCritically high4.0-11.0The [facility] HospitalComment on above:Performed By: #### CBC #### [facility] [address] [place] [address] [address] Anyi PrescottPREElicia QUANT HCGon 55-81-0521IMS QUANT<1NormalThe [facility] Comment on above:Performed By: #### PREGQNT #### [facility] [address] [place] [address] Dr. Anyi PrescottHCG RANGESEE BELOWNormalThe [facility] HospitalComment on above: Result Comment: 5-50 0-1 WEEK 40-300 1-2 WEEKS 100-1,000 2-3 WEEKS 500-6,000 3-4 WEEKS 5,000-200,000 1-2 MONTHS 10,000-100,000 2-3 MONTHS 3,000-50,000 2ND TRIMESTER 1,000-50,000 3RD TRIMESTERPerformed By: #### PREGQNT #### [facility] [address] [place] [address] Dr. Anyi Lester Summary.on 18-95-0448Mzqjjo Summary.CODING DATE: 11/19/2020 FINAL [facility] STATUS: PAYOR: Medicaid EAPG DESCRIPTION 0388 LEVEL [...] Theodora Dee CphT Date Saved: 11/19/2020 09:36 pmNormalSycamore Medical CenterARS-CoV-2, GUILLAUME on 41-76-2155KMYN CORONAVIRUS 2 RNA:PRTHR:PT:RESPIRATORY:ORD:PROBE.AMP.TARNot DetectedNot DetectedOhio State Harding HospitalComment on above:Result Comment: This nucleic acid amplification test was developed and its performance characteristics determined by [employer]. Nucleic acid amplification tests include PCR and [...] detected) result in this assay. Performed at: [facility] [address] [facility] [place] [id number] MD Martinez AnaghPerformed By: #### SARS-CoV-2, GUILLAUME #### [facility] [address] [place], [place] [address]Kukbghtsc Orderon 26-93-3919Vnplnnrns Order [id number]#1.00CD:127NormalOhio State Harding Hospital Vital Signs Date TimeVital SignValuePerforming FxivjjiysHidotmei22-42-9208 13:15-0400Body bbhuxs225.18 cmOdell Handley MD Work Phone: [facility]10-16-2025 13:15-0400 Body mass index (BMI) [Ratio]28.7 kg/m2Odell Handley MD Work Phone: [phone]10-16-2025 13:15-0400 Body .7 [degF]Odell Handley MD Work Phone: [phone]10-16-2025 13:15-0400 Body awvnpo60.12 kgOdell Handley MD Work Phone: [phone]10-16-2025 13:15-0400 Diastolic blood ramrvwxs88 mm[Hg]Odell Handley MD Work Phone: [phone]10-16-2025 13:15-0400 Heart rate67 /minOdell Handley MD Work Phone: [phone]10-16-2025 13:15-0400 Respiratory rate18 /minOdell Handley MD Work Phone: [phone] [place], [place] [address]10-16-2025 13:15-0400 SaO2% (BldA) [Mass fraction]98 %Odell Handley MD Work Phone: [phone]10-16-2025 13:15-0400 Systolic blood uxexjqfh549 mm[Hg]Odell Handley MD Work Phone: [phone]07-23-2025 09:06-0400 Body yomath122.2 cmOdell Handley MD Work Phone: [facility] CenterRjpytixbox47-02-5667 09:06-0400Body mass index (BMI) [Ratio]29.44 kg/m2Odell Handley MD Work Phone: [facility] CenterIgiyjgjvhk95-43-5799 09:06-0400Body temperature 96.6 [degF]Odell Handley MD Work Phone: [facility] CenterLfbijmueoo74-21-6669 09:06-0400Body dlwejb58.28 kgOdell Handley MD Work Phone: [facility] CenterArjrjiegkm44-25-0757 09:06-0400Diastolic blood biogbecj16 mm[Hg]Odell Handley MD Work Phone: [facility] CenterNyqfqnxwrs03-66-2353 09:06-0400Heart rate96 /min Odell Handley MD Work Phone: [facility] CenterBocbmltlmh18-08-2029 09:06-0400Respiratory rate22 /minOdell Handley MD Work Phone: [facility] CenterPfaogflesm36-38-5352 09:06-5872OnF6% (BldA) [Mass fraction]96 %Odell Handley MD Work Phone: [facility] CenterRhlifczbhd23-34-3124 09:06-0400Systolic blood mm[Hg]Odell Handley MD Work Phone: [facility] CenterFwswexlspq83-33-6345 08:14-0400Body cabhsh781.2 cmOdell Handley MD Work Phone: [facility] CenterMozbjkpvjc25-83-9582 08:14-0400Body mass index (BMI) [Ratio]30.38 kg/m2Odell Handley MD Work Phone: [facility] CenterFrsidnmxdk16-25-0792 08:14-0400Body temperature 97.11 [degF]Odell Handley MD Work Phone: [facility] CenterPkkypkzddv03-36-8114 08:14-0400Body wumbie31 kg Odell Handley MD Work Phone: [facility] CenterNjilfcbqhx60-46-7558 08:14-0400Diastolic blood mpvlkzje57 mm[Hg]Odell Handley MD Work Phone: [facility] CenterIfmhilliae58-46-4294 08:14-0400Heart rate97 /min Odell Handley MD Work Phone: [facility] CenterAmbasagnrw37-82-0789 08:14-0400Respiratory rate20 /minOdell Handley MD Work Phone: [facility] CenterGupafdscxk33-27-7643 08:14-1626JjN9% (BldA) [Mass fraction]98 %Odell Handley MD Work Phone: [facility] CenterNqqhjejkrs01-89-7975 08:14-0400Systolic blood bcxyalvr677 mm[Hg]Odell Handley MD Work Phone: [facility] CenterJcyjjvhbou21-75-5814 08:42-0500Body mass index (BMI) [Ratio]30.38 kg/b2Gaqtq Fazio DO Work Phone: [facility] CenterJscwwaegbc42-12-6172 08:42-0500Body kg Heathsandra Shah DO Work Phone: [place] [address]Tneyllccwr13-47-1076 08:42-0500Diastolic blood mm[Hg]Heathsandra Shah DO Work Phone: [facility] CenterMnpknofvnf93-55-2554 08:42-0500Systolic blood fgzgsawg949 mm[Hg]Heathsandra Shah Work Phone: [facility] CenterSxdmgnswis30-80-4536 08:14-0500Body hmxbak441.2 cmOdell Handley MD Work Phone: 1(602)011-[address] [place], [place] [address]Xftnvjvtxf95-42-8371 08:14-0500Body mass index (BMI) [Ratio]30.85 kg/m2Odell Handley MD Work Phone: [facility] CenterQdmablzxkv76-03-8679 08:14-0500Body temperature 97.11 [degF]Odell Handley MD Work Phone: 1(916)569-[address] [place], [place] [address]Fckabgrcis00-23-5368 08:14-0500Body taqeir99.36 kgOdell Handley MD Work Phone: [place] [address]Zllozakhmw77-73-8158 08:14-0500Diastolic blood jaejspwf36 mm[Hg]Odell Handley MD Work Phone: [facility] CenterMvpohbtzkf33-33-0637 08:14-0500Heart rate55 /min Odell Handley MD Work Phone: [facility] CenterJrenbgcekv36-14-9229 08:14-0500Respiratory rate20 /minOdell Handley MD Work Phone: [facility] CenterVlsjcuhzse87-73-9728 08:14-3711BrO7% (BldA) [Mass fraction]96 %Odell Handley MD Work Phone: [facility] CenterIvqswwomer60-27-6778 08:14-0500Systolic blood mm[Hg]Odell Handley MD Work Phone: [facility] CenterQbwisbyjgd48-21-3586 07:09-0500Body afcjam649.2 cmOdell Handley MD Work Phone: [facility] CenterVqofucpnhs24-92-3342 07:09-0500Body mass index (BMI) [Ratio]33.36 kg/m2Odell Handley MD Work Phone: [facility] CenterZduklrgdmi96-07-1067 07:09-0500Body temperature 97.5 [degF]Odell Handley MD Work Phone: [facility] CenterCollrbylmw32-39-3053 07:09-0500Body mzuuqf98.62 kgOdell Handley MD Work Phone: [facility] CenterCthmcfpiiu22-38-2212 07:09-0500Diastolic blood cbiidwjj79 mm[Hg]Odell Handley MD Work Phone: [facility] CenterAsqvxzwpei41-22-3988 07:09-0500Heart aopn459 /min Odell Handley MD Work Phone: [facility] CenterShewpyrkxn85-49-5062 07:09-0254DzF5% (BldA) [Mass fraction]97 %Odell Handley MD Work Phone: [facility] CenterBdnwjrftty01-63-2729 07:09-0500Systolic blood jwquzefp479 mm[Hg]Odell Handley MD Work Phone: [facility] CenterYsgjolmxst67-04-5067 10:30-0500Body sttoqv416.18 Madi Cueto Other [facility] [employer] Other 251577-58-6816 10:30-0500Body mass index (BMI) [Ratio] 33.67 kg/f1YtrthnkhvQi Cueto Other [employer] Other 01-10-2023 10:30-0500Body ueqphxonhfz84.7 [degF] Qi Cueto Other [employer] Other 01-10-2023 10:30-0500Body .52 kgStcarlito Cueto Other [employer] Other 01-10-2023 10:30-0500Respiratory rate18 /minSami Cueto Other [employer] Other 01-10-2023 10:30-3172IgY8% (BldA) [Mass fraction]92 % Qi Cueto Other [employer] Other Encounters Encounter DateEncounter TypeCare ProviderFacilityStart: 08-14-2025 End: 45-17-4548andwczdxfaNlhm Naderer MD Work Phone: [facility] Work Phone: Start: 08-14-2025 End: 64-79-3656Nhwstub encounter procedureOdell Handley MD-[facility] [place] Work Phone: Start: 06-19-2025 End: 68-58-4084HahkhmMyah Naderer MD Work Phone: [facility] FMComment on above:Degeneration of intervertebral disc of lumbar region with discogenic back pain and lower extremity painStart: 06-10-2025 End: 37-34-3922nburrgdvzeIsxfupc Rodolfo PTANOAL [place] Physical TherapyComment on above:Left hip pain (Primary Dx)Start: 06-10-2025 End: 45-47-0654Jnhxyo flowsheetMelissa Kelbley PTANOMS [facility] Start: 06-10-2025 End: 22-37-4069Czeueo flowsheetMelissa Kelbley PTANOMS [facility] Start: 06-06-2025 End: 30-38-3971hurltyeaekEdziztzr Brink PTANOMS [place] Physical TherapyComment on above:Left hip pain (Primary Dx)Start: 06-06-2025 End: 21-08-0072Fhbxps flowsheetMarshall Brink PTANOMS [facility] Start: 06-06-2025 End: 82-50-5886Sqizls flowsheetMarshall Brink PTANOMS [facility] Start: 06-03-2025 End: 62-12-0680gsmvccgavqKyobvcf Kelbley PTANOMS [place] Physical TherapyComment on above:Left hip pain (Primary Dx)Start: 06-03-2025 End: 70-83-4311Vkibnn flowsheetMelissa Kelbley PTANOMS [facility] Start: 06-03-2025 End: 63-60-6286Uvsqbs flowsheetMelissa Kelbley PTANOMS [facility] Start: 05-28-2025 End: 91-62-1242Xpmugk flowsheetMelissa Kelbley PTANOMS [facility] Start: 05-28-2025 End: 23-28-2518Nhppcr flowsheetMelissa Kelbley PTANOMS [facility] Start: 05-28-2025 End: 27-08-9429rlnshciewgKlwlpot Kelbley PTANOMS [place] [facility] TherapyComment on above:Left hip pain (Primary Dx)Start: 05-22-2025 End: 33-11-7858esqymupcrfJyodjps Kelbley PTANOMS CI PTComment on above:Left hip pain (Primary Dx)Start: 05-22-2025 End: 74-52-7778Idrxhl flowsheetMelissa Kelbley PTANOMS CI PTStart: 05-22-2025 End: 02-28-3354Bsfswr flowsheetMelissa Kelbley PTANOMS CI PTStart: 05-22-2025 End: 38-16-0106Ukcybmfkm Result Claire Handley MD Work Phone: noms External Department UnsolicitedStart: 05-21-2025 End: 28-23-3825Wxreqj Tram Handley MD Work Phone: NOVR CWM FMStart: 05-21-2025 End: 39-42-9202Jpwwqx Tram Handley MD Work Phone: NOZZ CWM FMStart: 05-21-2025 End: 10-53-3750Iqcmep outpatient visit 15 minutesOdell Handley MD Work Phone: noms CWM FMComment on above:Degeneration of intervertebral disc of lumbar region with discogenic back pain and lower extremity pain (Primary Dx); Left hip painStart: 05-21-2025 End: 35-21-1392EbyodqBunl Naderer MD Work Phone: NOTR CWM FMComment on above:Degeneration of intervertebral disc of lumbar region with discogenic back pain and lower extremity painStart: 05-15-2025 End: 24-92-7328gbfvklsypuWskgekl Lawrence PTANOMS CI PTComment on above:Left hip pain (Primary Dx)Start: 05-15-2025 End: 33-41-3946Xouwtu flowsheetRanjitnetjan N[place] PTANOMS CI PTStart: 05-15-2025 End: 73-14-9852Kczbrt flowsheetKennetjan N[place]z PTANOMS CI PTStart: 05-13-2025 End: 46-14-1292ejacdvcnerIaijahu Kelbley PTANOMS CI PTComment on above:Left hip pain (Primary Dx)Start: 05-13-2025 End: 01-03-2477Pvqety flowsheetMelissa Kelbley PTANOMS CI PTStart: 05-13-2025 End: 67-08-4359Qqatnu flowsheetMelissa Kelbley PTANOMS CI PTStart: 05-07-2025 End: 62-53-7318qngwxlmhqtOkazgomu Brink PTANOMS CI PTComment on above:Left hip pain (Primary Dx)Start: 05-07-2025 End: 28-86-5256Qltpru flowsheetNeetu Almaguer PTANOMS CI PTStart: 05-07-2025 End: 01-24-2296Gkemop flowsheetNeetu Almaguer PTANOMS CI PTStart: 04-29-2025 End: 34-83-5850suwinzlrgcPydepqh Lawrence PTANOMS CI PTComment on above:Left hip pain (Primary Dx)Start: 04-29-2025 End: 06-66-8762Kaldcz flowsheetCarlos N[place] PTANOMS CI PTStart: 04-29-2025 End: 41-17-8605Txcpij flowsheetCarlos N[place] PTANOMS CI PTStart: 04-24-2025 End: 41-00-8452Mnotmqenm encounterMelissa Kelbley PTANOMS CI PTComment on above: CX PT todayStart: 04-22-2025 End: 84-65-8250tjeyqaomxcGlxzrcp Kelbley PTANOMS CI PTComment on above:Left hip pain (Primary Dx)Start: 04-21-2025 End: 61-85-6283KpxwrnIyld Naderer MD Work Phone: noms CWM FMComment on above:Degeneration of intervertebral disc of lumbar region with discogenic back pain and lower extremity painStart: 04-17-2025 End: 52-67-6118vcrkrlklghXqnldxg Kelbley PTANOMS CI PTComment on above:Left hip pain (Primary Dx)Start: 04-17-2025 End: 67-81-5049Hwttkh flowsheetMelissa Kelbley PTANOMS CI PTStart: 04-17-2025 End: 10-96-2051Xmvndq flowsheetMelissa Kelbley PTANOMS CI PTStart: 04-15-2025 End: 16-59-6193sgwjwklqzpRmvtrgr Kelbley PTANOMS CI PTComment on above:Left hip pain (Primary Dx)Start: 04-15-2025 End: 57-42-8714Dhzkbs flowsheetMelissa Kelbley PTANOMS CI PTStart: 04-15-2025 End: 30-19-2460Jdrhlx flowsheetMelissa Kelbley PTANOMS CI PTStart: 04-08-2025 End: 42-68-5912bepxbieriqAphjner Lawrence PTANOMS CI PTComment on above:Left hip pain (Primary Dx)Start: 04-08-2025 End: 28-10-3863Qlazjt Meggan N[place] PTANOMS CI PTStart: 04-08-2025 End: 92-26-7190Ufmccr Meggan Nunez PTANOMS CI PTStart: 04-03-2025 End: 92-26-8550hhmqwohjxkLgingr T Blackston PT Work Phone: noms CI PTComment on above:Left hip pain (Primary Dx) Start: 03-10-2025 End: 15-94-3016Uretdy Tram Handley MD Work Phone: NOPI CWM FMStart: 03-10-2025 End: 25-42-4335Mkvoksannabelle Handley MD Work Phone: NOYJ CWM FMStart: 03-10-2025 End: 45-85-5496Ifvled outpatient visit 25 minutesOdell Handley MD Work Phone: noms CWM FMComment on above:Essential hypertension, benign (CMS/HCC) (Primary Dx); Mild recurrent major depression (HCC) (CMS/HCC); Generalized anxiety disorder (CMS/HCC); Degeneration of intervertebral disc of lumbar region with discogenic back pain; Dyshidrotic eczema; Primary insomniaStart: 03-10-2025 End: 57-67-1384vxejqyrtaoPZOB NADERERNot AvailableStart: 02-21-2025 End: 44-91-1870OdmqeyNpjl Naderer MD Work Phone: noms CWM FMComment on above:Degeneration of intervertebral disc of lumbar region with discogenic back pain and lower extremity painStart: 02-20-2025 End: 00-40-3697Cadhjz Mac Handley MD Work Phone: noms CWM FMComment on above:Seasonal allergic rhinitis due to pollenStart: 01-18-2025 End: 47-67-3894UzndygQbwo Naderer MD Work Phone: NOMS CWM FMComment on above:Degeneration of intervertebral disc of lumbar region with discogenic back pain and lower extremity painStart: 12-20-2024 End: 53-50-6363KeimoeEkgs Naderer MD Work Phone: NOMS CWM FMComment on above:Degeneration of intervertebral disc of lumbar region with discogenic back pain and lower extremity painStart: 11-21-2024 End: 95-70-6488KjyskuEglv Naderer MD Work Phone: NOMS CWM FMComment on above:Degeneration of intervertebral disc of lumbar region with discogenic back pain and lower extremity painStart: 10-21-2024 End: 75-58-5537Klxvokmlc Result EncounterCorey Alyssa DO Work Phone: NOKY External Department UnsolicitedStart: 10-21-2024 End: 70-48-8795Yxxtsizhl Result EncounterCorey Alyssa DO Work Phone: NOMS External Department UnsolicitedStart: 10-21-2024 End: 94-80-5425OwxotiQdvs Naderer MD Work Phone: NOMS CWM FMComment on above:Degeneration of intervertebral disc of lumbar region with discogenic back pain and lower extremity painStart: 09-23-2024 End: 96-03-3381OajjiwCscg Naderer MD Work Phone: [facility]OMS CWM FMComment on above:Degeneration of intervertebral disc of lumbar region with discogenic back pain and lower extremity painStart: 09-20-2024 End: 99-95-9946Skshnpgad Result EncounterOdell Handley MD Work Phone: [facility]OMS External Department UnsolicitedStart: 09-20-2024 End: 53-69-4989Gnzkxrors Result EncounterOdell Handley MD Work Phone: NOHU External Department UnsolicitedStart: 09-16-2024 End: 45-77-6817Ofooly flowsheetCorey Alyssa DO Work Phone: noms BCP OBStart: 09-16-2024 End: 59-75-1446Fcklft flowsheetCorey Alyssa DO Work Phone: noms BCP OBStart: 09-16-2024 End: 75-21-4791Csfhhxzym Result EncounterCorey Alyssa DO Work Phone: NOMS External Department UnsolicitedStart: 09-16-2024 End: 11-86-5564Fircxhg encounter procedureCorey Alyssa DO Work Phone: NOMS HealthcareStart: 09-16-2024 End: 65-10-5562Rvtxylpx preventive med est patient 40-64yrsCorey Alyssa DO Work Phone: noms [facility] OBComment on above:Well woman exam with routine gynecological exam; Breast cancer screening by mammogram; Hidradenitis; Hidradenitis suppurativaStart: 09-16-2024 End: 20-72-1636sejgvqfeoaBLLKX FAZIONot AvailableStart: 09-09-2024 End: 82-33-8982Ykrhix Tram Handley MD Work Phone: noms CWM FMStart: 09-09-2024 End: 59-11-7687Akenky Tram Handley MD Work Phone: noms CWM FMStart: 09-09-2024 End: 40-97-9858Bnatsqr encounter procedureOdell Handley MD Work Phone: [facility] Work Phone: Start: 09-09-2024 End: 36-24-9340Ihzcsket preventive med est patient 40-64yrsMjoe Handley MD Work Phone: noms CW FMComment on above:Annual physical exam (Primary Dx); Colon cancer screening; Essential hypertension, benign (CMS/HCC); Degeneration of intervertebral disc of lumbar region with discogenic back pain Start: 09-09-2024 End: 93-37-3570fybheoadiwKWHO NADERERNot AvailableStart: 08-21-2024 End: 15-69-2019Ziynnf Mac Handley MD Work Phone: NOMS CWM FMComment on above:Degeneration of intervertebral disc of lumbar region with discogenic back pain and lower extremity pain (Primary Dx)Start: 08-20-2024 End: 33-29-4062FmclzsUsnp Naderer MD Work Phone: NOMS CWM FMComment on above:Degeneration of intervertebral disc of lumbar region with discogenic back pain and lower extremity pain (Primary Dx); Other intervertebral disc degeneration, lumbar regionStart: 07-23-2024 End: 30-53-6220WsjnrxWwfi Naderer MD Work Phone: NOMS CWM FMComment on above:Other intervertebral disc degeneration, lumbar regionStart: 06-23-2024 End: 40-08-6641VypursSqci Naderer MD Work Phone: NOMS CWM FMComment on above:SOB (shortness of breath); Menopausal and female climacteric states; Other intervertebral disc degeneration, lumbar regionStart: 20-34-8502Aerkhm Tram Handley MD Work Phone: NOMS CWM FMStart: 12-97-8943Ozwvgc Tram Handley MD Work Phone: NOMS CWM FMStart: 12-13-2023 End: 00-65-0935Jjvsat outpatient visit 25 minutesOdell Handley MD Work Phone: NOMS CWM FMComment on above:Essential hypertension, benign (CMS/HCC) (Primary Dx); MDD (major depressive disorder), recurrent episode, moderate (HCC) (CMS/HCC); Generalized anxiety disorder (CMS/HCC); Primary insomnia; DDD (degenerative disc disease), lumbar; DDD (degenerative disc disease), cervical; Seasonal allergic rhinitis due to pollen; SOB (shortness of breath)Start: 10-18-2023 End: 82-70-8014Tpdevomgd Result EncounterCorey Alyssa DO Work Phone: noms External Department UnsolicitedStart: 10-18-2023 End: 42-13-9253Szlivelbe Result EncounterCorey Alyssa DO Work Phone: noms External Department UnsolicitedStart: 11-08-2022 End: 74-82-8110fnhwmxwrraMtmrmiupw Nory Other [facility] [employer] Other Start: 95-20-8414Yocirj outpatient new 20 minutes Qi NoryFPG [facility] Care ClydeStart: 09-05-2022 End: 29-65-8411nununtnoqpKH CHARLES HOUSEFacility:I5Oppzv: 06-01-2022 End: 85-79-7924xauqakwjnmBU CHARLES HOUSEFacility:W6Teehn: 09-16-2021 End: 98-87-9697mlfigpsfuoEN CHARLES HOUSEFacility:H1 Procedures DateProcedureProcedure DetailPerforming ClinicianStart: 90-82-7213KZ HIP LT MIN 2VMarc Earl ALVAREZ Work Phone: Start: 05-78-2723AG TOMOSYNTHESIS SCREENING BICorey Alyssa DO Work Phone: Start: 04-33-3077NyymftjrjgeMvrx Naderer MD Work Phone: Start: 93-59-3673IRU CBC WITH AUTO DIFFOdell Handley MD Work Phone: Start: 79-41-9764UXK,APTIMA HPV,AGE GDLNGeneric External Data ProviderStart: 58-88-7653Ppsdjydimrk observation [Identifier] in Cervix by Cyto stainOdell Handley MD Work Phone: Start: 83-15-7135LQ TOMOSYNTHESIS SCREENING BICorey Alyssa DO Work Phone: Start: 27-84-3640TgnqmqmynjvTqov Naderer MD Work Phone: Start: 71-61-3496Spssylukxaj observation [Identifier] in Cervix by Cyto stainCorey Alyssa DO Work Phone: Start: 99-00-4492Gfpv cerv/vag auto thin layer prep mnl screenCorey Alyssa DO Work Phone: Plan of Treatment DateCare ActivityDetailAuthorStart: 27-06-5154Qpkhaqqrm for malignant neoplasm of cervixNOMS HealthcareStart: 45-00-6130Uurgnnrnc for malignant neoplasm of cervixPap SmearNOMS HealthcareStart: 79-86-7446Vtqtzksrg for malignant neoplasm of colonNOMS HealthcareStart: 03-77-2238Tbpcnvljz for malignant neoplasm of breastMammogramNOMS HealthcareStart: 10-06-2025 End: 56-42-3434Sjmlfaa encounter procedureNOMS BCP OBStart: 09-29-2025 End: 69-12-6469Pnnxett encounter /01/2025 8:30 AM EST Office Visit [facility] [address] [place] [id number] Heath Shah, DO [address] [facility] [place] [address] NOMS BCP OBStart: 09-10-2025 End: 05-55-7278Boqzkma encounter gukslyzzt50/12/2025 7:45 AM EST Office Visit N[facility] [address] [place] [address] Odell Handley MD [address] [place] [phone] NOMS CWM FMStart: 83-98-9599Nevjzjffn vaccinationNOMS HealthcareStart: 06-26-2025 End: 48-89-4867yvtwpuzuvm63/28/2025 2:30 PM EDT Treatment N[facility] [address] [facility] [place], [id number] Natalia Reynoldsissa, PTANOMS [place] [facility] TherapyStart: 06-24-2025 End: 84-61-2566edbzajnwnx38/26/2025 2:30 PM EDT Treatment N[facility] [address] [place], [id number] KelNatalia loweissa, PTANOMS [facility] [facility] TherapyStart: 06-19-2025 End: 55-01-6130xjynnxazbn46/21/2025 3:00 PM EDT Treatment [facility] [address] [place], [id number] KelNatalia loweissa, PTANOMS [facility] [facility] TherapyStart: 06-17-2025 End: 88-31-6444ngezegqpte67/19/2025 3:30 PM EDT Treatment N[facility] [address] [place], [id number] KelNatalia loweissa, PTANOMS [facility] [facility] TherapyStart: 06-10-2025 End: 61-27-5401tzolbfduqsBFZC [place] [facility] TherapyComment on above:Arrived Start: 06-06-2025 End: 39-91-1122waqeprbmdfFBVX CI PTComment on above:Left hip pain (Primary Dx) Start: 06-03-2025 End: 20-13-9383qlbwjuuincDSDB CI PTComment on above:Left hip pain (Primary Dx) Start: 05-28-2025 End: 40-43-1582cladkrtvuqWQMH CI PTComment on above:ArrivedStart: 05-22-2025 End: 03-67-3259sigpzfetpeJJWJ CI PTComment on above:ArrivedLeft hip pain (Primary Dx)Start: 05-21-2025 End: 91-43-4026JR Lumbar spine WO contrastMR lumbar spine wo contrast Imaging Routine Degeneration of intervertebral disc of lumbar region with discogenic back pain and lower extremity pain Expected: 05/21/2025, Expires: 05/21/2026NOMS HealthcareComment on above:Expected: 05/21/2025, Expires: 05/21/2026Start: 05-21-2025 End: 76-31-6760AE Hip - left 3 ViewsXR hip left 2 or 3 views Imaging Routine Left hip pain Expected: 05/21/2025, Expires: 05/21/2026[facility] Work Phone: Comment on above:Expected: 05/21/2025, Expires: 05/21/2026Start: 05-21-2025 End: 99-06-3747Ixlofbq encounter /23/2025 9:00 AM EDT Office Visit [facility] [address] [place] [phone] Odell Handley MD [address] [place] [phone] ArrivedNOMS CWM FMComment on above:ArrivedStart: 05-15-2025 End: 47-97-8495zosbskdjjrMWDA CI PTComment on above:ArrivedStart: 05-13-2025 End: 61-48-1454hwviotkwgtZCBB CI PTComment on above:ArrivedStart: 05-07-2025 End: 27-21-2991pwjuohpbscGLIF CI PTComment on above:ArrivedStart: 04-29-2025 End: 51-61-4997ykdgylezqbPYCR CI PTComment on above:ArrivedStart: 04-28-2025 End: 24-02-4635pznymscdbp79/30/2025 4:00 PM EDT Treatment [facility] [address] [facility] [address] [place] [address] Akhil Jerome, PT [address] [facility] [address] [place] [address] NOMS CI PTStart: 04-24-2025 End: 49-40-8579fcezkjazoiJWUA CI PTStart: 04-22-2025 End: 38-39-7173nizomfkgmm13/24/2025 4:00 PM EDT Treatment [facility] [address] [facility] [address] [place] [address] CelesteLiza flores PTA NOMS CI PTStart: 04-17-2025 End: 00-82-8244vgjzvkkxyaVSLB CI PTComment on above:ArrivedStart: 04-15-2025 End: 06-91-3687qldpclufjzRKLP CI PTComment on above:ArrivedStart: 04-10-2025 End: 66-52-1251yxupmemite91/12/2025 4:00 PM EDT Treatment [facility] [address] [facility] [address] [place] [address] Carlos Nunez PTANO CI PTStart: 04-08-2025 End: 70-50-6363phcvkuoghmULRB CI PTComment on above:ArrivedStart: 03-10-2025 End: 63-76-8030Ccbwcom encounter procedureNOMS CWM FMComment on above:Arrived Start: 22-11-5310Mfhvhcyex for malignant neoplasm of breastMammogramNOMS HealthcareStart: 09-16-2024 End: 69-64-6953CD Breast - bilateral ScreeningBilateral screening mammogram Imaging Routine Breast cancer screening by mammogram Expected: 09/16/2024 (Approximate), Expires: 11/16/2025[facility] Work Phone: comment on above:Expected: 09/16/2024 (Approximate), Expires: 11/16/2025Start: 09-16-2024 End: 14-38-4576Qjlobqb encounter qsmualtjk19/18/2024 8:30 AM EST Office Visit [facility] [address] [facility] [place] [phone] Heath Shah, DO [address] [facility] [place] [address] NOMS BCP OBStart: 09-09-2024 End: 35-41-8636Tqier metabolic 1998 panel - Serum or PlasmaBasic metabolic panel Lab Routine Annual physical exam Expected: 09/09/2024 (Approximate), Expires: 09/09/2025[facility] HealthcareComment on above:Expected: 09/09/2024 (Approximate), Expires: 09/09/2025Start: 09-09-2024 End: 13-11-4827FIX W Auto Differential panel - BloodCBC and differential Lab Routine Annual physical exam Expected: 09/09/2024 (Approximate), Expires: 11/09/2024[facility] HealthcareComment on above:Expected: 09/09/2024 (Approximate), Expires: 09/09/2025Start: 09-09-2024 End: 93-25-1141Daopbhynmx A1c/Hemoglobin.total in BloodHemoglobin A1c Lab Routine Annual physical exam Expected: 09/09/2024 (Approximate), Expires: 09/09/2025[facility] Healthcare Work Phone: Comment on above:Expected: 09/09/2024 (Approximate), Expires: 09/09/2025Start: 09-09-2024 End: 05-69-4367Xjwshyv function 2000 panel - Serum or PlasmaHepatic function panel Lab Routine Annual physical exam Expected: 09/09/2024 (Approximate), Expires: 09/09/2025[facility] HealthcareComment on above:Expected: 09/09/2024 (Approximate), Expires: 09/09/2025Start: 09-09-2024 End: 62-74-0744Tvfwb 1996 panel - Serum or PlasmaLipid panel Lab Routine Annual physical exam Expected: 09/09/2024 (Approximate), Expires: 09/09/2025[facility] HealthcareComment on above:Expected: 09/09/2024 (Approximate), Expires: 09/09/2025Start: 09-09-2024 End: 61-47-6060Qfkvbyoqucx colorectal cancer DNA and occult blood screening [Presence] in StoolCologuard colon cancer screening Lab Routine Colon cancer screening Expected: 09/09/2024 (Approximate), Expires: 09/09/2025[facility] Healthcare Comment on above:Expected: 09/09/2024 (Approximate), Expires: 09/09/2025Start: 09-09-2024 End: 75-93-9784Gxocrazcaow [Units/volume] in Serum or PlasmaTSH Lab Routine Annual physical exam Expected: 09/09/2024 (Approximate), Expires: 09/09/2025[facility] HealthcareComment on above:Expected: 09/09/2024 (Approximate), Expires: 09/09/2025Start: 09-09-2024 End: 50-11-2108Hoheiuh encounter procedureNOMS CWM FMComment on above:Arrived Start: 95-71-7334Gutfrrgtt vaccinationInfluenza Vaccine (#1)[facility] Start: 03-18-2024 End: 41-38-8782Pvtwyke encounter ejcloummt56/20/2024 8:30 AM EDT Office Visit [facility] [address] [place] [address] Odell Handley MD [address] [place] [phone] [facility] FMStart: 12-13-2023 End: 99-11-7896Rusulvj encounter /14/2024 7:00 AM EST Office Visit [facility] [address] [place] [address] Odell Handley MD [address] [place] [phone] ArrivedNOAMG [facility] FMComment on above:ArrivedStart: 32-05-3573Ehmvhjtah vaccinationInfluenza Vaccine (#1)[facility] HealthcareStart: 40-04-0991Frdylsmne for malignant neoplasm of cervixNOMS HealthcareStart: 16-54-1742Twvlegzgh for malignant neoplasm of cervixPap SmearNOMS HealthcareStart: 00-28-0615Peajiglpu for malignant neoplasm of colonNOMS HealthcareTHIN PREP TIS PAP AND HR HPV DNA THIN PREP TIS PAP AND HR HPV DNA Pathology and Cytology Routine Well woman exam with routine gynecological exam Ordered: 09/16/2024NOAL HealthcareComment on above:Ordered: 09/16/2024 Immunizations Immunization DateImmunizationNotesCare PrqdedutOtakmoae13-99-4057vofcxljnk virus vaccine, unspecified formulationChelly Earl ALVAREZ Work Phone: [facility] Payers DatePayer CategoryPayerPolicy ID2019MedicaidCARESOURCECARESOURCE MEDICAID CARESOURCE MEDICAID [place] [id number] 2018-Present [address] [place] [address] [id number] Health Insurance CARESOURCE MEDICAID [id number] [id number] [id number] 2..1.247382.3.57[id number] 2..1.062428.3.57[id number] 2..1.275460.3.57[id number] 2..1.164923.3.57[id number] 2..1.405284.3.57[id number] 2..1.586417.3.579.[id number] 2..1.045456.3.579.2.[id number] 2.840.1.885378.3.579.[id number] 2.840.1.194085.3.579.2.[id number] 2.0.1.511656.3.579.2.[id number] 2.0.1.891920.3.579.2.[id number] 2..1.349285.3.579.2.[id number] 2..1.325202.3.579.2.005520-71-1359Bbtcoqd46150782 2..1.465606.3.579.2.596302-15-0969Skojahr40357304 2..1.783659.3.579.2.186766-42-9479Nsnsrsb72676644 2..1.285099.3.579.2.623817-64-8877Hsnwaoa73157912 2..1.996525.3.579.2.6[id number] 2..1.894958.3.579.2.502830-32-0972Ocwtdpn5571294 2..1.276554.3.579.2.998187-16-7278Rvujxqr7528316 2.0.1.910025.3.579.2.355630-21-4789Lgpmiaw8498261 2.0.1.718859.3.579.2.0755[id number] [id number]-e624-1x25-21mz-b15w8sq6o7k1XnbncttRvnvyfe [id number] 56w06557-9ay9-4718-57us-376292y22eft Social History DateTypeDetailFacilityUnknown if ever smokedNort GeeYee Other Start: 12-06-2023 End: 79-79-5688Ygf Assigned At BirthNOAL HealthcareStart: 12-13-2023 End: 74-37-6857Nobnars smoking status NHISSmokes tobacco dailyNOMS Healthcare History of tobacco useCigarette SmokerNOMS HealthcareStart: 07-06-0503Lfnpoxo use and exposureSmokeless tobacco non-userNOMS HealthcareStart: 12-06-2023 End: 87-31-2709Fqzzdcr of Social functionNOMS HealthcareWithin the last year, have you been afraid of your partner or ex-partner?NoNOMS HealthcareStart: 74-98-2053Uvh often do you attend jew or presybeterian services?Patient refused NOMS HealthcareAre you now , [...] got money to buy more.Sometimes trueNOMS HealthcareStart: 70-71-6319Lqw Assigned At BirthNot on fileNOMS HealthcareSex Female (finding)[facility] Hospitaltart: 67-23-2473Jly [facility] NHIS Tobacco smoking consumption [facility] Functional Status QkjxMjiivrftnnPbnlrxRkrvuvnc05-23-3581Emium score [AUDIT-C]-1 03/10/2025 8:00 AM EDT Jaycob ScottCass Medical CenterDodspibhlm99-44-6087Vmqekiinrp statusPatient declined [facility] Medical CenterAjppwuyrux50-82-0099Hhsewhd Health Questionnaire 2 item (PHQ-2) [Reported] [facility] Clinical Notes 09-16-2021 to 05-21-2025 Note Date & QlvwTcpcFvhygzbm88-70-4176 History of Present illness Narrative* Odell Handley [...] 2 or 3 views documented in this encounterNOGolden Valley Memorial HospitalRgvjxdgjng15-58-6266 Telephone encounter Note* Telephone Encounter - Nu Garrison - 04/24/2025 11:00 AM EDT She called needing to CX PT this afternoon due to her daughter had called her needing her to watch her grandchildren after she gets off at 3:00. I recommended rs time / day; and she said she'll be inon 04/28 @ 4:00 for next PT. [facility] Medical CenterFowjxvhnxm60-75-8597 Miscellaneous Notes* Telephone Encounter - Nu Garrison - 04/24/2025 11:00 AM EDT She called needing to CX PT this afternoon due to her daughter had called her needing her to watch her grandchildren after she gets off at 3:00. I recommended rs time / day; and she said she'll be inon 04/28 @ 4:00 for next PT. documented in this encounterCass Medical CenterZaegguzfon32-24-8258 History of Present illness Narrative* Odell Handley [...] (Kenalog) 0.5 % cream documented in this encounterCass Medical CenterLkfgnpdfcx25-92-0989 History of Present illness Narrative* Qian Bustillos [...] nursing note reviewed. Exam conducted with a deposit refund clerk present. Vitals: Estimated body mass index is [...] of: Heath Shah DO documented in this encounterCass Medical CenterVckuljuxhj83-93-2631 History of Present illness Narrative* Odell Handley [...] Cologuard colon cancer screening documented in this encounterCass Medical CenterWaldiplajy29-18-0010 History of Present illness Narrative* Odell Handley [...] weeks to notice improvement in mood. * Odlel Handley MD - 12/13/2023 7:46 AM ESTAssociated [...] with medication and continue. documented in this encounterCass Medical CenterFixsjgodev06-35-0158 Evaluation note* Encounter Date Diagnosis Assessment Notes [...] away, Pneumonia: adult home carematerial was printed [email or web address] Other 08-04-2022 NotePROCEDURE: XR HAND LT MIN 3V HISTORY: Pain of left hand ; first and second metacarpal pain for couple months; no known injury COMPARISON: None. FINDINGS: BONES:No fracture, acute abnormality, or significant arthropathy. SOFT TISSUES:No visible soft tissue swelling. EFFUSION:None visible. OTHER: Negative. IMPRESSION: 1. Normal examination. Electronically authenticated by: GERALDO MARTINEZ Date: 2022-06-02 06:29[facility]11-18-2021 [place], [place] NAME: YVONNE DAWKINS DATE OF : MEDICAL REC#: [id number] OXIDATION ENGINEER: MIKAELA TAN ADMIT DATE: 09/16/2021 11:25:00 DIRECTOR WORKFORCE MANAGEMENT DATE: 09/17/2021 07:00 DICTATING PHYSICIAN: HEATH SHAH DICTATION DATE: 09/16/2021 15:00 OPERATIVE NOTE OPERATION DATE: 09-16 ANESTHETIC: HUNTER TRAPPER:KAYLAN Sauer PREOPERATIVE DIAGNOSIS: 1. Abnormal uterine bleeding. [...] Heath Shah DO on 09/17/2021 08:36 AM [facility] Signed and Approved by: DR HEATH SHAH . 09/17/2021 08:36:00[facility] HospitalEvaluation [facility]* Diagnosis Essential hypertension, benign (CMS/HCC)- [...] this encounter NOMS HealthcareEvaluation noteNo assessment information availableFirTrumbull Memorial Hospital Work Phone: History general Narrative - Reported* Type Description Date Medical History Osteorthritis of Lumbar Spine Medical Historyseasonal allergiesMedical Historypolycystic ovariesMedical HistoryHTNSurgical HistoryNeck SurgerySurgical Historyback surgerySurgical HistoryLumbar injectionsSurgical HistoryablationSurgical Historytubal ligation Hospitalization Historysee above [email or web address] Other Reason for referral (narrative)No reason for referral information availableMercy Health Defiance [facility] Work Phone: Reason for visit Narrative* Rehabilitation - Outpatient (Routine) - AuthorizedSpecialtyDiagnoses / ProceduresReferred By ContactReferred To ContactPhysical Therapy Diagnoses Hip and Leg Pain, Arthritis Procedures MD PHYSICAL THERAPY EVALUATION LOW COMPLEX 20 MINS MD OFFICE/OUTPATIENT NEW HIGH MDM 60 MINUTES Odell Handley MD [address] [place] [address] Phone: tel: Akhil Jerome, PT [address] [address] Phone: tel: fax: Referral IDStatusReasonStart DateExpiration DateVisits RequestedVisits [id number]/5/202512/2/20253030 NOMS HealthcareReason for visit Narrative* Rehabilitation - Outpatient (Routine) - AuthorizedSpecialtyDiagnoses / ProceduresReferred By ContactReferred To ContactPhysical Therapy Diagnoses Hip and Leg Pain, Arthritis Procedures MD PHYSICAL THERAPY EVALUATION LOW COMPLEX 20 MINS MD OFFICE/OUTPATIENT NEW HIGH MDM 60 MINUTES Odell Handley MD [address] [place] [address] Phone: tel: Akhil Jerome, PT 112 [facility] [address] [place] [address] Phone: tel: fax: Referral IDStatusReasonStart DateExpiration DateVisits RequestedVisits [id number]/5/202512/ NOMS HealthcareReason for visit Narrative* Rehabilitation - Outpatient (Routine) - AuthorizedSpecialtyDiagnoses / ProceduresReferred By ContactReferred To ContactPhysical Therapy Diagnoses Hip and Leg Pain, Arthritis Procedures MD PHYSICAL THERAPY EVALUATION LOW COMPLEX 20 MINS MD OFFICE/OUTPATIENT NEW HIGH MDM 60 MINUTES Odell Handley MD [address] [place] [address] Phone: tel: Akhil Jerome, PT [address] [place] [address] Phone: tel: fax: Referral IDStatusReasonStart DateExpiration DateVisits RequestedVisits [id number]/20/20259/ [facility] Summary Purpose Family History Relationship [...] section and content) DATE CREATED AUTHOR 11/20/2020 [facility] DATE CREATED AUTHOR AUTHOR'S ORGANIZ ATION 09/11/2022 [facility] DATE CREATED AUTHOR AUTHOR'S ORGANIZ ATION 06/12/2025 [facility] EPIC REASON FOR VISIT (unrecogniz ed section and content) ReasonCommentsFollow-rd9oXpduqxYkftq DateCommentsMed Hidybt744Reason CommentsFollow-up6 mReasonCommentsGynecologic ExamReasonOnset DateCommentsMed Ftifgk324ReasonOnset DateCommentsMed Qubhnn1706/23/2024easonOnset Date CommentsMed Ljlirb154ReasonOnset DateCommentsMed Voncfc894Reason Onset DateCommentsMed Odrmaq0011/21/2024ReasonOnset DateCommentsMed Refill 12/20/2024ReasonOnset DateCommentsMed Becqel4101/18/2025ReasonOnset DateComments Med Pdynpv7802/21/2025ReasonCommentsFollow-gx5fIkg PainLeft hip down legRashOn handsReasonOnset DateCommentsMed Pvazpl4304/21/2025ReasonOnset DateCommentsCX PT today04/24/2025ReasonCommentsFollow-upDiscuss PTReasonOnset DateCommentsMed Qlidkw1105/21/2025ReasonOnset DateCommentsMed Ewpqxo4606/19/2025 Care Teams (unrecognized sec tion and content) Team MemberRelationshipSpecialtyStart DateEnd Date Odell Handley MD [address] [place] [address] PCP - GeneralFamily Medicine11/20/23Team MemberRelationshipSpecialtyStart DateEnd Date Odell Handley MD [address] [place] [address] PCP - GeneralFamily Medicine11/20/23Team MemberRelationshipSpecialtyStart DateEnd Date Odell Handley MD [address] [place] [address] PCP - GeneralFamily Medicine11/20/23Team MemberRelationshipSpecialtyStart DateEnd Date Odell Handley MD [address] [place] [address] PCP - GeneralFamily Medicine11/20/23Team MemberRelationshipSpecialtyStart DateEnd Date Odell Handley MD [address] [place] [address] [facility]11/20/23 Odell Handley MD [address] [place] [address] [facility]07/30/24Te MemberRelationshipSpecialtyStart DateEnd Date Odell Handley MD [address] [place] [address] [facility]11/20/23 Odell Handley MD [address] [place] [address] [facility]07/30/24Te MemberRelationshipSpecialtyStart DateEnd Date Odell Handley MD [address] [place] [address] [facility]11/20/23 Odell Handley MD [address] [place] [address] [facility]07/30/24Te MemberRelationshipSpecialtyStart DateEnd Date Odell Handley MD [address] [place] [address] [facility]11/20/23 Odell Handley MD [address] [place] [address] [facility]07/30/24Te MemberRelationshipSpecialtyStart DateEnd Date Odell Handley MD [address] [place] [address] [facility]11/20/23 Odell Handley MD [address] [place] [address] [facility]07/30/24Te MemberRelationshipSpecialtyStart DateEnd Date Odell Handley MD [address] [place] [address] [facility]11/20/23 Odell Handley MD [address] [place] [address] [facility]07/30/24Te MemberRelationshipSpecialtyStart DateEnd Date Odell Handley MD [address] [place] [address] [facility]11/20/23Te MemberRelationshipSpecialtyStart DateEnd Date Odell Handley MD [address] [place] [address] [facility]11/20/23Te MemberRelationshipSpecialtyStart DateEnd Date Odell Handley MD [address] [place] [address] PCP - [facility]11/20/23 Odell Handley MD [address] [place] [address] [facility]07/30/24Team MemberRelationshipSpecialtyStart DateEnd Date Odell Handley MD [address] [place] [address] [facility]11/20/23 Odell Handley MD [address] [place] [address] [facility]07/30/24Team MemberRelationshipSpecialtyStart DateEnd Date Odell Handley MD [address] [place] [address] [facility]11/20/23 Odell Handley MD [address] [place] [address] [facility]07/30/24Team MemberRelationshipSpecialtyStart DateEnd Date Odell Handley MD [address] [place] [address] [facility]11/20/23 Odell Handley MD [address] [place] [address] [place] [address]Team MemberRelationshipSpecialtyStart DateEnd Date Odell Handley MD [address] [place] [address] PCP - [facility]11/20/23 Odell Handley MD [address] [place] [address] [facility]07/30/24Team MemberRelationshipSpecialtyStart DateEnd Date Odell Handley MD [address] [place] [address] [facility]11/20/23 Odell Handley MD [address] [place] [address] [facility]07/30/24Team MemberRelationshipSpecialtyStart DateEnd Date Odell Handley MD [address] [place] [address] [facility] - [facility]11/20/23 Odell Handley MD [address] [place] [address] [place] [address]Team MemberRelationshipSpecialtyStart DateEnd Date Odell Handley MD [address] [place] [address] PCP - [facility]11/20/23 Odell Handley MD [address] [place] [address] [facility]07/30/24Team MemberRelationshipSpecialtyStart DateEnd Date Odell Handley MD [address] [place] [address] [facility] - [facility]11/20/23 Odell Handley MD [address] [place] [address] [facility]07/30/24Team MemberRelationshipSpecialtyStart DateEnd Date Odell Handley MD [address] [place] [address] [facility]11/20/23 Odell Handley MD [address] [place] [address] [facility]07/30/24Team MemberRelationshipSpecialtyStart DateEnd Date Odell Handley MD [address] [place] [address] [facility]11/20/23 Odell Handley MD [address] [place] [address] [place] [address]Team MemberRelationshipSpecialtyStart DateEnd Date Odell Handley MD [address] [place] [address] [facility]11/20/23 Odell Handley MD [address] [place] [address] [facility]07/30/24Team MemberRelationshipSpecialtyStart DateEnd Date Odell Handley MD [address] [place] [address] [facility]11/20/23 Odell Handley MD [address] [place] [address] [facility]07/30/24Team MemberRelationshipSpecialtyStart DateEnd Date Odell Handley MD [address] [place] [address] [facility]11/20/23 Odell Handley MD [address] [place] [address] [facility]07/30/24Team MemberRelationshipSpecialtyStart DateEnd Date Odell Handley MD [address] [place] [address] [facility]11/20/23 Odell Handley MD [address] [place] [address] [facility]07/30/24Te MemberRelationshipSpecialtyStart DateEnd Date Odell Handley MD [address] [place] [address] [facility]11/20/23 Odell Handley MD [address] [place] [address] [facility]07/30/24Te MemberRelationshipSpecialtyStart DateEnd Date Odell Handley MD [address] [place] [address] [facility]11/20/23 Odell Handley MD [address] [place] [address] [facility]07/30/24Team MemberRelationshipSpecialtyStart DateEnd Date Odell Handley MD [address] [place] [address] [facility]11/20/23 Odell Handley MD [address] [place] [address] [facility]07/30/24Te MemberRelationshipSpecialtyStart DateEnd Date Odell Handley MD [address] [place] [address] [facility]11/20/23 Odell Handley MD [address] [place] [address] [facility]07/30/24Team MemberRelationshipSpecialtyStart DateEnd Date Odell Handley MD [address] [place] [address] [facility]11/20/23 Odell Handley MD [address] [place] [address] [facility]07/30/24Team MemberRelationshipSpecialtyStart DateEnd Date Odell Handley MD [address] [place] [address] [facility]11/20/23 Odell Handley MD [address] [place] [address] [facility]07/30/24Team MemberRelationshipSpecialtyStart DateEnd Date Odell Handley MD [address] [place] [address] [facility]11/20/23 Odell Handley MD [address] [place] [address] [facility]07/30/24Te MemberRelationshipSpecialtyStart DateEnd Date Odell Handley MD [address] [place] [address] [facility]11/20/23 Odell Handley MD [address] [place] [address] [facility]07/30/24Te MemberRelationshipSpecialtyStart DateEnd Date Odell Handley MD [address] [place] [address] [facility]11/20/23 Odell Handley MD [address] [place] [address] [facility]07/30/24Te MemberRelationshipSpecialtyStart DateEnd Date Odell Handley MD [address] [place] [address] [facility]11/20/23 Odell Handley MD [address] [place] [address] [place] [address]Te MemberRelationshipSpecialtyStart DateEnd Date Odell Handley MD [address] [place] [address] [facility] - [facility]11/20/23 Odell Handley MD [address] [place] [address] [facility]07/30/24 Team Status: Active Member Role Status Dates Odell Handley MD Primary Care Provider Active Team Status: Inactive Member Role Status Dates Odell Handley MD Primary Care Provider Active S tart: August 14, 2025 End: August 14, 2025Mar ANDRIA Handleyttending ProviderActiveStart: August 14, 2025 End: August 14, 2025Team MemberRelationshipSpecialtyStart DateEnd Date Odell Handley MD [facility] Odell Handley MD [facility]11/20/23 Odell Handley MD [address] [place] [address] [place] [address]Team MemberRelationshipSpecialtyStart DateEnd Date Odell Handley MD [facility]11/20/23 Odell Handley MD [address] [place] [address] [facility]07/30/24 Goals (unrecognized section and content) Goals may [...] BE BASED ON THE PRIMARY CLINICAL RECORDS. [facility]. provides no warranty or guarantee of the accuracy or completeness of information in this document.
[2025-10-09 10:13] LABS: Age Gdln ACOG Testing Note (.); IGP, Aptima HPV, rfx 16/18,45 Note (.)
== END 2025-10-06 20:00 | disposition home or self-care (01) ==
LOC: LAB 19:59
PROVIDERS: PCP Family Medicine; Visit Provider Obstetrics & Gynecology
DX: Z01.419 Encounter for gynecological examination (general) (routine) without abnormal findings (principal)
CPT/HCPCS: 87624; 88175